=== PATIENT | female | born 1950 | race Caucasian/White ===

== ENCOUNTER 2018-09-15 00:26 | Inpatient (IN) | payer OTHER ==
--- NOTE | 2018-09-15 02:10 | ER ---
Nurse's Notes [facility] Name: Suad Cuenca Age: 68 yrs Sex: Female : 1950 Arrival Date: 09/15/2018 Time: 00:27 Bed 6 Private MD: Diagnosis: Fracture of lower end of tibia-bilaterally;Physeal fracture of lower end of fibula-bilaterally;Bullous disorders in diseases classified elsewhere Presentation: 09/15 00:27 Presenting complaint: EMS states: "Pt went home with family yesterday and had a mess up jd3 with the wheelchair. they did a x-ray today in which they found patrick tibial and fibular fractures.". Transition of care: patient was received from another setting of care (long-term care facility), [facility]. Onset of symptoms was September 14, 2018. Risk Assessment: Do you want to hurt yourself or someone else? Patient reports no desire to harm self or others. Initial Sepsis Screen: Does the patient meet any 2 criteria? No. Patient's initial sepsis screen is negative. Does the patient have a suspected source of infection? No. Patient's initial sepsis screen is negative. Care prior to arrival: Medication(s) given: 75 mcg fentanyl internasal. 00:27 Method Of Arrival: EMS: [facility] jd3 00:27 Acuity: TRICIA 3 jd3 Historical: - Allergies: 00:47 Aspirin; jd3 00:47 diazepam; jd3 00:47 PENICILLINS; jd3 00:47 Sulfa (Sulfonamide Antibiotics); jd3 00:47 Pork/Porcine Containing Products; jd3 00:47 iodine; jd3 00:47 Bleach (Sodium Hypochlorite); jd3 00:47 bug spray; jd3 - Home Meds: 00:47 Voltaren 1 % topical gel 4 times per day [Active]; Movantik 25 mg oral tab 1 tab once jd3 daily [Active]; magnesium oxide 400 mg Oral tab daily [Active]; magnesium citrate oral soln [Active]; metoprolol tartrate 25 mg Oral tab [Active]; isosorbide dinitrate 10 mg Oral tab [Active]; 00:54 Voltaren Oral [Active]; Vitamin B-12 1,000 mcg Oral tab [Active]; Multiple Vitamins ea oral tab [Active]; alprazolam 0.25 mg Oral tab 1 tab 3 times per day [Active]; - PMHx: 00:47 Osteoporosis; Anemia; arthropathy; Multiple Sclerosis; cauda equina syndrome; jd3 congnitive communication deficit; dermatitis; epilepsy; Depression; Anxiety; chronic pulmonary edema; Hypothyroidism; dry eye; muscle weakness; Diabetes - IDDM; - Immunization history:: Adult Immunizations up to date. - Social history:: Smoking status: Patient/guardian denies using tobacco, but has a distant history of tobacco abuse. - Ebola Screening: : Patient negative for fever greater than or equal to 101.5 degrees Fahrenheit, and additional compatible Ebola Virus Disease symptoms. Screenin:53 Abuse screen: Denies threats or abuse. Nutritional screening: No deficits noted. jd3 Tuberculosis screening: No symptoms or risk factors identified. Fall Risk Fall in past 12 months (25 points). Ambulatory Aid- None/Bed Rest/Nurse Assist (0 pts). Gait- Impaired (20 pts.). Mental Status- Oriented to own ability (0 pts). Total Chi Fall Scale indicates Low Risk Score (25-44 pts). Fall prevention measures have been instituted. Side Rails Up X 2 Placed close to Nursing Station Frequent Obs/Assesments occuring. Assessment: 00:55 General: Appears uncomfortable, Behavior is calm, cooperative, appropriate for age. jd3 Pain: Complains of pain in right leg and left leg Quality of pain is described as sharp. Neuro: Level of Consciousness is awake, alert, obeys commands, Oriented to person, place, time, situation. Cardiovascular: Capillary refill < 3 seconds Patient's skin is warm and dry. Respiratory: Airway is patent Respiratory effort is even, unlabored, Respiratory pattern is regular, symmetrical. GI: No signs and/or symptoms were reported involving the gastrointestinal system. : No signs and/or symptoms were reported regarding the genitourinary system. EENT: No signs and/or symptoms were reported regarding the EENT system. Derm: Skin is intact, Skin is dry, Skin is normal, Skin temperature is warm. Musculoskeletal: Range of motion: limited in left hip, left knee, left ankle, right hip, right knee and right ankle. 01:46 Reassessment: Patient appears in no apparent distress at this time. Patient and/or jd3 family updated on plan of care and expected duration. Pain level reassessed. Patient is alert, oriented x 3, equal unlabored respirations, skin warm/dry/pink. 03:02 Reassessment: Patient appears in no apparent distress at this time. Patient and/or jd3 family updated on plan of care and expected duration. Pain level reassessed. Patient is alert, oriented x 3, equal unlabored respirations, skin warm/dry/pink. Vital Signs: 00:52 BP 128 / 59; Pulse 92; Resp 19 S; Temp 97.8(O); Pulse Ox 97% on R/A; Weight 83.01 kg jd3 (R); Height 6 ft. 0 in. (182.88 cm) (R); Pain 10/10; 01:46 BP 112 / 68; Pulse 82; Resp 18 S; Pulse Ox 96% on R/A; jd3 03:03 BP 109 / 69; Pulse 85; Resp 19 S; Pulse Ox 97% on R/A; jd3 00:52 Body Mass Index 24.82 (83.01 kg, 182.88 cm) jd3 ED Course: 00:27 Patient arrived in ED. jd3 00:27 Arnav Ordaz, ISIDORO is Primary Nurse. jd3 00:31 Elif Valle FNP-C is PHCP. snw 00:31 Dinesh Gagnon MD is Attending Physician. snw 00:32 Triage completed. jd3 00:52 Arm band placed on. jd3 00:52 Patient has correct armband on for positive identification. Bed in low position. Call j light in reach. Side rails up X2. 01:47 X-ray completed. Portable x-ray completed in exam room. Patient tolerated procedure kw well. 01:56 Tib Fib Left XRAY In Process Unspecified. EDMS 01:56 Tib Fib Right XRAY In Process Unspecified. EDMS 02:07 Antony Hurst MD is Hospitalizing Provider. snw 02:35 Inserted saline lock: 24 gauge in right upper arm, using aseptic technique. Blood ds4 collected. 03:03 No provider procedures requiring assistance completed. Patient admitted, IV remains in jd3 place. Administered Medications: No medications were administered Outcome: 02:09 Decision to Hospitalize by Provider. snw 03:19 Admitted to Med/surg accompanied by tech, via stretcher, room 411, with chart, Report jd3 called to Sandy 03:19 Condition: stable 03:19 Instructed on medication usage, Demonstrated understanding of instructions. 03:40 Patient left the ED. jd3 Signatures: Dispatcher [employer] EDMS Elif Valle, NOISE TESTER-C NOISE TESTER-Csnw Marta Kenney Donovan ds4 Taylor Scott RN Arnav Jean ea, RN RN jd3
--- NOTE | 2018-09-15 02:10 | EDPHYS ---
Physician Documentation [facility] Name: Suad Cuenca Age: 68 yrs Sex: Female : 1950 Arrival Date: 09/15/2018 Time: 00:27 Bed 6 Private MD: ED Physician Dinesh Gagnon HPI: 09/15 01:37 This 68 yrs old Female presents to ER via EMS with complaints of bilateral snw lower extremity fractures. 01:37 Trauma demographics: County: The injury occurred in [place] Location of Injury: The snw injury occurred at a parking lot, Date: September 13, 2018. Mechanism of injury: Crush injury: from wheelchair, resulting in the patient requiring extrication, Pt was run over by her wheelchair going down a ramp. Associated injuries: The patient sustained bilateral lower extremities. Onset: The symptoms/episode began/occurred suddenly. It is unknown whether or not the patient has had similar symptoms in the past. It is unknown whether or not the patient has recently seen a physician. pt lives at [facility], she had a family outing and while being taken down the w/c ramp from the van, her legs were run over by the wheelchair. She declined tx on that day. X-rays were performed 09/14/18 showing both lower extremities with distal tib/fib fractures.. Historical: - Allergies: 00:47 Aspirin; jd3 00:47 diazepam; jd3 00:47 PENICILLINS; jd3 00:47 Sulfa (Sulfonamide Antibiotics); jd3 00:47 Pork/Porcine Containing Products; jd3 00:47 iodine; jd3 00:47 Bleach (Sodium Hypochlorite); jd3 00:47 bug spray; jd3 - Home Meds: 00:47 Voltaren 1 % topical gel 4 times per day [Active]; Movantik 25 mg oral tab 1 tab once jd3 daily [Active]; magnesium oxide 400 mg Oral tab daily [Active]; magnesium citrate oral soln [Active]; metoprolol tartrate 25 mg Oral tab [Active]; isosorbide dinitrate 10 mg Oral tab [Active]; 00:54 Voltaren Oral [Active]; Vitamin B-12 1,000 mcg Oral tab [Active]; Multiple Vitamins ea oral tab [Active]; alprazolam 0.25 mg Oral tab 1 tab 3 times per day [Active]; - PMHx: 00:47 Osteoporosis; Anemia; arthropathy; Multiple Sclerosis; cauda equina syndrome; jd3 congnitive communication deficit; dermatitis; epilepsy; Depression; Anxiety; chronic pulmonary edema; Hypothyroidism; dry eye; muscle weakness; Diabetes - IDDM; - Immunization history:: Adult Immunizations up to date. - Social history:: Smoking status: Patient/guardian denies using tobacco, but has a distant history of tobacco abuse. - Ebola Screening: : Patient negative for fever greater than or equal to 101.5 degrees Fahrenheit, and additional compatible Ebola Virus Disease symptoms. ROS: 01:45 Constitutional: Negative for fever, chills, and weight loss, Eyes: Negative for injury, snw pain, redness, and discharge, ENT: Negative for injury, pain, and discharge, Neck: Negative for injury, pain, and swelling, Cardiovascular: Negative for chest pain, palpitations, and edema, Respiratory: Negative for shortness of breath, cough, wheezing, and pleuritic chest pain, Abdomen/GI: Negative for abdominal pain, nausea, vomiting, diarrhea, and constipation, Back: Negative for injury and pain, : Negative for injury, bleeding, discharge, and swelling, Skin: Negative for injury, rash, and discoloration, Neuro: Negative for headache, weakness, numbness, tingling, and seizure. 01:45 MS/extremity: Positive for injury or acute deformity, decreased range of motion, of the bilateral lower legs. Exam: 01:45 Head/Face: Normocephalic, atraumatic. Eyes: Pupils equal round and reactive to light, snw extra-ocular motions intact. Lids and lashes normal. Conjunctiva and sclera are non-icteric and not injected. Cornea within normal limits. Periorbital areas with no swelling, redness, or edema. ENT: Nares patent. No nasal discharge, no septal abnormalities noted. Tympanic membranes are normal and external auditory canals are clear. Oropharynx with no redness, swelling, or masses, exudates, or evidence of obstruction, uvula midline. Mucous membranes moist. Neck: Trachea midline, no thyromegaly or masses palpated, and no cervical lymphadenopathy. Supple, full range of motion without nuchal rigidity, or vertebral point tenderness. No Meningismus. Chest/axilla: Normal chest wall appearance and motion. Nontender with no deformity. No lesions are appreciated. Cardiovascular: Regular rate and rhythm with a normal S1 and S2. No gallops, murmurs, or rubs. Normal PMI, no JVD. No pulse deficits. Respiratory: Lungs have equal breath sounds bilaterally, clear to auscultation and percussion. No rales, rhonchi or wheezes noted. No increased work of breathing, no retractions or nasal flaring. 01:45 Back: No spinal tenderness. No costovertebral tenderness. Full range of motion. Psych: Awake, alert, with orientation to person, place and time. Behavior, mood, and affect are within normal limits. 01:45 Constitutional: The patient appears awake, obese, uncomfortable, unkempt, chronic illness, non-weight bearing, contractured to upper and lower limbs 01:45 Abdomen/GI: Inspection: scar(s), are noted in the left upper quadrant and right lower quadrant, Bowel sounds: normal, Palpation: abdomen is soft and non-tender, in all quadrants. 01:45 Musculoskeletal/extremity: Extremities: spastic movements to upper extremities with intention, hands with contractures, bilateral lower extremities with contractures of feet in adduction, lower ankles bilaterally with ecchymosis and pressure bullae. 01:45 Skin: fluid filled bullae to bilateral lower lateral extremities, + ecchymosis and edema to left greater than right lower legs/ankles, contractured in adduction. Vital Signs: 00:52 BP 128 / 59; Pulse 92; Resp 19 S; Temp 97.8(O); Pulse Ox 97% on R/A; Weight 83.01 kg jd3 (R); Height 6 ft. 0 in. (182.88 cm) (R); Pain 10/10; 01:46 BP 112 / 68; Pulse 82; Resp 18 S; Pulse Ox 96% on R/A; jd3 03:03 BP 109 / 69; Pulse 85; Resp 19 S; Pulse Ox 97% on R/A; jd3 00:52 Body Mass Index 24.82 (83.01 kg, 182.88 cm) jd3 MDM: 00:32 Patient medically screened. snw 02:09 Data reviewed: vital signs, nurses notes, EMS record. Data interpreted: Pulse oximetry: snw on room air is 96 %. Interpretation: acceptable. Counseling: I had a detailed discussion with the patient and/or guardian regarding: the historical points, exam findings, and any diagnostic results supporting the discharge/admit diagnosis, radiology results, the need for further work-up and treatment in the hospital. Physician consultation: Antony Hurst MD was called at 01:40, was contacted at 01:40, regarding admission, would like consultation with Dr. Dr. Patel. Dr. Gagnon spoke with Dr. Patel who agrees to consult on this patient in the am. 09/15 01:35 Order name: CBC with Diff; Complete Time: 19:11 snw 09/15 01:35 Order name: Chem 7; Complete Time: 19:11 snw 09/15 00:32 Order name: Tib Fib Left XRAY; Complete Time: 19:11 snw 09/15 01:35 Order name: Blood Culture Adult (2) snw 09/15 01:37 Order name: Lactate; Complete Time: 19:11 snw 09/15 01:37 Order name: Phenytoin (dilantin); Complete Time: 19:11 snw 09/15 00:32 Order name: Tib Fib Right XRAY; Complete Time: 19:11 snw 09/15 01:35 Order name: SL; Complete Time: 02:38 snw Administered Medications: No medications were administered Disposition: 06:53 Co-signature as Attending Physician, Dinesh Gagnon MD. pk Disposition: 09/15/18 02:09 Hospitalization ordered by Antony Hurst for Observation. Preliminary diagnosis are Fracture of lower end of tibia - bilaterally, Physeal fracture of lower end of fibula - bilaterally, Bullous disorders in diseases classified elsewhere. - Bed requested for Telemetry/MedSurg (observation). - Status is Observation. jd3 - Condition is Stable. - Problem is new. - Symptoms are unchanged. UTI on Admission? No Signatures: Dispatcher [employer] EDMS Dinesh Gagnon MD MD pkElif Butler, JYOTHI-C UNDERWRITING ANALYST-Csnw Mariel Worthy, RN RN Taylor Ross RN RN ea Davies, Jonathon, RN RN jd3 Corrections: (The following items were deleted from the chart) 02:15 02:09 Hospitalization Ordered by Antony Hurst MD for Observation. Preliminary snw diagnosis is Fracture of lower end of tibia - bilaterally; Physeal fracture of lower end of fibula - bilaterally. Bed requested for Telemetry/MedSurg (observation). Status is Observation. Condition is Stable. Problem is new. Symptoms are unchanged. UTI on Admission? No. snw 02:42 02:15 09/15/2018 02:09 Hospitalization Ordered by Antony Hurst MD for Observation. cg Preliminary diagnosis is Fracture of lower end of tibia - bilaterally; Physeal fracture of lower end of fibula - bilaterally; Bullous disorders in diseases classified elsewhere. Bed requested for Telemetry/MedSurg (observation). Status is Observation. Condition is Stable. Problem is new. Symptoms are unchanged. UTI on Admission? No. snw 03:21 02:42 09/15/2018 02:09 Hospitalization Ordered by Antony Hurst MD for Observation. cg Preliminary diagnosis is Fracture of lower end of tibia - bilaterally; Physeal fracture of lower end of fibula - bilaterally; Bullous disorders in diseases classified elsewhere. Bed requested for Telemetry/MedSurg (observation). Status is Observation. Condition is Stable. Problem is new. Symptoms are unchanged. UTI on Admission? No. cg 03:40 03:21 09/15/2018 02:09 Hospitalization Ordered by Antony Hurst MD for Observation. jd3 Preliminary diagnosis is Fracture of lower end of tibia - bilaterally; Physeal fracture of lower end of fibula - bilaterally; Bullous disorders in diseases classified elsewhere. Bed requested for Telemetry/MedSurg (observation). Status is Observation. Condition is Stable. Problem is new. Symptoms are unchanged. UTI on Admission? No. cg
[2018-09-15 02:55] LABS: Absolute Monocytes 0.7 K/uL (0.1-1.3); Absolute Neutrophil 4.1 K/uL (1.8-8.0); Basophils % 0.3 % (0-1.3); Eosinophils % 1.1 % (0-4.4); Hematocrit 37.3 % (36.0-45.0); Lymphocytes % 29.3 % (15.3-44.8); MPV 8.3 fL (7.6-11.3); Monocytes % 10.3 % (3.3-12.3); RBC Red Blood Cell Count 4.02 M/uL (3.86-4.86)
[2018-09-15 03:10] LABS: Potassium 3.9 mmol/L (3.5-5.1)
[2018-09-15] MEDS ORDERED: TRAMADOL HCL 50 MG TAB PO PRN ×2 (03:19→10:17)
[2018-09-15] MEDS ORDERED: ONDANSETRON 4 MG/2 ML VIAL IV PRN (03:19)
[2018-09-15] MEDS ORDERED: ACETAMINOPHEN 500 MG TAB PO PRN (03:19)
[2018-09-15] MEDS: NA CHLORIDE 0.9% 1,000 ML IV SCH ×3 (05:00→22:02)
[2018-09-15] MEDS: KETOROLAC 30 MG/ML INJ IV PRN ×3 (05:01→18:31)
[2018-09-15] MEDS: INSULIN -REGULAR HUMAN 50 UNIT/0.5 ML ML SQ SCH ×3 (06:00→18:00)
--- NOTE | 2018-09-15 06:28 | P.HP ---
Certification for Inpatient Patient admitted to: Inpatient With expected LOS: >2 Midnights Practitioner: I am a practitioner with admitting privileges, knowledge of patient current condition, hospital course, and medical plan of care. Services: Services provided to patient in accordance with Admission requirements found in Title 42 Section 412.3 of the Code of Federal Regulations Patient History Date of Service: 09/15/18 Reason for admission: bilateral fibular fracture History of Present Illness: Ms Cuenca is a 68 years old woman with history of Multiple sclerosis, cauda equina, bed bound, epilepsy, cognitive impairment, chronic feet contraction, who was visited by her family yesterday, and unfortunately while she was going down on a ramp pushing by one family member on her wheelchair, her feets got stuck with the floor and the wheelchair went over, resulting in significant pain and developing of blister on her feet. Today, she had a bilateral foot XR at [facility], and it was consistent with bilateral fibular fracture. Allergies aspirin [From Amie Aspirin] Allergy (Verified 11/15/16 07:48) Hives diazepam Allergy (Verified 11/15/16 07:48) Hives Penicillins Allergy (Verified 11/15/16 07:48) Hives red yeast rice Allergy (Verified 11/15/16 07:48) Hives bleach Allergy (Uncoded 11/15/16 07:48) Hives sulfa Allergy (Uncoded 11/15/16 07:48) Hives Home Medications: ALPRAZolam [Xanax*] 1 tab BID 09/15/18 Acetaminophen [Tylenol*] 2 tab Q6HP PRN 09/15/18 Bethanechol Chloride [Urecholine] 1 tab Q6H 09/15/18 Cyanocobalamin (Vitamin B-12) [Vitamin B12] 1,000 mcg DAILY 09/15/18 Cyclobenzaprine HCl 10 mg Q12HP PRN 09/15/18 Cyclosporine [Restasis] 1 drop EACH EYE BID 09/15/18 Dextran 70/Hypromellose [Artificial Tears Drops] 1 drop OP BID 09/15/18 Diclofenac Sodium [Voltaren] 1 sukumar TD Q8HP PRN 09/15/18 Diphenhydramine HCl [Benadryl Allergy] 1 tab Q8HP PRN 09/15/18 Gabapentin 1 cap Q8H 09/15/18 Hydrocodone/Acetaminophen [Hydrocodon-Acetaminophn 10-325] 1 each Q6H 09/15/18 Isosorbide Dinitrate 10 mg BID 09/15/18 Ketoconazole 30 gm TP DAILY PRN 09/15/18 Lactulose 30 ml BID 09/15/18 Levothyroxine Sodium 1 tab DAILY 09/15/18 Loperamide HCl [Loperamide] 30 ml Q12HP PRN 09/15/18 Magnesium Citrate [Citroma*] 150 ml DAILY 09/15/18 Magnesium Oxide [Magnesium] 1 cap DAILY 09/15/18 Meclizine HCl [Antivert] 12.5 mg QID PRN 09/15/18 Metoprolol Tartrate [Lopressor*] 1 tab DAILY 09/15/18 Multivit &Minerals/Ferrous Fum [Multivitamin Liquid] 15 ml DAILY 09/15/18 Naloxegol Oxalate [Movantik] 1 tab DAILY 09/15/18 Ondansetron HCl [Zofran] 1 tab Q8HP PRN 09/15/18 Oxybutynin Chloride [Ditropan*] 1 tab BEDTIME 09/15/18 PHENobarbital [Phenobarbital] 15 ml BID 09/15/18 Phenytoin 4 ml Q12H 09/15/18 Phenytoin [Dilantin-125] 5 ml DAILY 09/15/18 Tramadol HCl [Ultram] 1 tab Q6H PRN 09/15/18 Triamcinolone Acetonide 15 gm TP DAILY PRN 09/15/18 raNITIdine HCl [Ranitidine HCl] 20 ml BEDTIME 09/15/18 - Past Medical/Surgical History Has patient received pneumonia vaccine in the past: No Diabetic: No -: Seizure disorder -: Multiple scleroses -: History of colorectal cancer -: Anemia -: Coronary artery disease -: History of nephrectomy -: Neurogenic bladder -: History of bowel obstructions now with PEG -: Chronic pain syndrome -: Depression with anxiety -: Bowel surgery -: PEG tube placement -: Kidney stone removed -: Tracheotomy -: Vein surgery Psychosocial/ Personal History: Patient has been a intermediate resident for 20 years. She has no children. Power of family law attorney is her brother. Patient is DNR. - Social History Smoking Status: Never smoker Alcohol use: No CD- Drugs: No Caffeine use: No Place of Residence: Jail Review of Systems 10-point ROS is otherwise unremarkable Physical Examination - Vital Signs Temperature: 97.2 F Blood Pressure: 115/65 Pulse: 96 Respirations: 18 Pulse Ox (%): 95 - Physical Exam General: Alert, In no apparent distress HEENT: Atraumatic, PERRLA, Mucous membr. moist/pink, Sclerae nonicteric Neck: Supple, 2+ carotid pulse no bruit, No LAD, Without JVD or thyroid abnormality Respiratory: Clear to auscultation bilaterally, Normal air movement Cardiovascular: Normal S1 S2, No gallops Gastrointestinal: Normal bowel sounds, No tenderness Musculoskeletal: Tenderness (bilateral foot) Integumentary: No rashes Neurological: Normal affect, Abnormal speech (dysarthria (baseline)), Abnormal strength, Abnormal tone Lymphatics: No axilla or inguinal lymphadenopathy Assessment and Plan - Problems (Diagnosis) (1) Bilateral fibular fractures Current Visit: Yes Status: Acute Qualifiers: Encounter type: initial encounter Fracture type: closed Qualified Code(s) : S82.401A - Unspecified fracture of shaft of right fibula, initial encounter for closed fracture; S82.402A - Unspecified fracture of shaft of left fibula, initial encounter for closed fracture (2) Hypothyroidism Current Visit: No Status: Chronic Qualifiers: Hypothyroidism type: unspecified Qualified Code(s): E03.9 - Hypothyroidism , unspecified (3) Multiple sclerosis Current Visit: No Status: Chronic (4) Seizure disorder Current Visit: No Status: Chronic - Plan The patient will be admitted to the hospital due to traumatic, bilateral fibular fracture. Will order symptomatic medication. Dr Gagnon already spoke with Dr Patel, who will see the patient in the morning. Will consult wound care for her feet blisters. - Advance Directives Does patient have a Living Will: No Does patient have a Durable POA for Healthcare: Yes - Code Status/Comfort Care Code Status Assessed: Yes Code Status: Full Code
--- NOTE | 2018-09-15 08:15 | RAD REPORT ---
EXAM DESCRIPTION: RAD - Tib Fib Left - 09/15/2018 1:56 am CLINICAL HISTORY: Fall, bilateral ankle pain COMPARISON: None. FINDINGS: Bones are diffusely osteopenic. Patient has mild degenerative change at the left knee join t only partially imaged on this study. There is no pathologic bone process seen. Transverse fracture of the distal fibula is present at the diaphyseal metaphyseal junction. Fracture of the distal tibia metaphysis present as well. There is medial angulation deformity. No significant distraction. There is a mild impaction component of the distal tibia fracture. Soft tissue swelling is present. No foreign body. IMPRESSION: Distal left tibia and fibula fractures with medial angulation.
--- NOTE | 2018-09-15 08:17 | RAD REPORT ---
EXAM DESCRIPTION: RAD - Tib Fib Right - 09/15/2018 1:56 am CLINICAL HISTORY: Fall, bilateral leg and ankle pain COMPARISON: No remote imaging. FINDINGS: Bones are diffusely osteopenic. Mild degenerative changes are present at the knee joint on ly partially imaged. Transverse fracture of the distal fibula is present at the diaphyseal metaphyseal junction. Transvers e fracture of the distal tibia metaphysis present. Medial angulation of the distal fracture fragments noted. There is minimal impaction at the tibial fracture site. There is a slight posterior angulatio n as well. No pathologic bone process. Soft tissue swelling is present without foreign body. IMPRESSION: Distal tibia and fibula fractures with medial angulation.
--- NOTE | 2018-09-15 09:57 | CON ---
Reason For Consultation: Bilateral tib-fib fractures. History Of Present Illness: Ms. Cuenca is a 68-year-old woman obviously neurologically devastate d from some event with bilateral lower extremity contractures, nonweightbearing for many years. She has bilateral ankle fractures. We are asked to consult for this. On exam, she has fracture blisters over both of lower extremities with shiny skin with poor vascularity with onychomycosis through all the toenails bilaterally. There are fracture blisters present, they are not ruptured at this point. There is no evidence of a septic process. X-rays reveal extreme osteoporotic bone with bimalleolar ankle fractures bilaterally. There is no chance that she can have a surgical intervention as her bon e stock is too poor. We will plan to splint these in situ, they are in acceptable alignment. She wa s transferred to the floor without splints where we splinted her in her room with extremely well-padd ed splints with care for any pressure contacts. She can be discharged from an orthopedic standpoint. Her vasculature is obviously compromised. If this fails to heal or becomes infected, her only real option is to have bilateral below-knee amputations. This can be performed with the general surgery service. JOSE Voice ID: [id number] Report ID: [id number]
[2018-09-15 10:15] VITALS: O2SAT 96
[2018-09-15] MEDS ORDERED: PHENYTOIN PO SCH (10:30)
[2018-09-15] MEDS: BETHANECHOL CHLORIDE PO SCH ×3 (10:30→22:30)
[2018-09-15] MEDS: GABAPENTIN 300 MG CAP PO SCH ×2 (14:46→22:05)
[2018-09-15] MEDS: HYDROCODONE/APAP 5/325 MG TAB PO PRN ×2 (14:57→22:05)
--- NOTE | 2018-09-15 15:34 | CON ---
Date of Consultation: 09/15/2018 Reason For Consultation: Establish care with the patient regarding possible need for future lower ex tremity surgery. Brief History Of Present Illness: The patient is a 68-year-old female known to me from previous admi ssions, however, with a history of multiple sclerosis, cauda equina syndrome, bed-bound, epilepsy, co gnitive impairment, chronic feet contraction, who was admitted by her family yesterday. She was gone down the ramp and fell over and had her feet stuck on the floor and the wheelchair went over resulti in significant pain and developing blisters of her feet. She had bilateral foot x-rays, which wer e consistent with bilateral tib-fib fractures. She had been seen by our orthopedic surgeon here, Dr. Patel, who states that she has bilateral ankle fractures. She has the onychomycosis bilaterally. No evidence of a septic process. She has osteoporotic bone with bimalleolar ankle fractures bilate rally. No chance she could have a surgical intervention as her bone stalk is too poor. Therefore, t anuj will splint her and they are in acceptable alignment. She could be discharged from an orthopedic standpoint. Her vasculature is obviously compromised. If she fails to heal or becomes infected, th e only option is bilateral [id number] amputations and as such they recommend a General Surgery co nsult for which I am consulted. Past Medical History: As above as well as seizure disorder, multiple sclerosis, history of colorecta l cancer, anemia, coronary disease, history of neurogenic bladder, history of bowel obstruction statu s post placement of a PEG, chronic pain syndrome, depression with anxiety. Past Surgical History: Includes nephrectomy, bowel surgery, PEG tube placement, kidney stone extract ion, tracheostomy, and vein surgery. I am unable to get information other than from the chart. Allergies: INCLUDE ASPIRIN, VALIUM, PENICILLIN, RED YEAST, BLEACH, SULFA. Home Medications: Include Xanax, Tylenol, bethanechol, cyanocobalamin, cyclobenzaprine, Restasis, Ar tificial Tears, Voltaren, Benadryl, isosorbide dinitrate, ketoconazole, lactulose, levothyroxine, lop eramide, magnesium citrate, magnesium oxide, meclizine, Lopressor, multivitamin, Movantik, Zofran, Di tropan, phenobarbital, phenytoin, Dilantin, Ultram, triamcinolone acetonide, and ranitidine. Social History: No history of smoking, alcohol, or recreational drug use. Physical Examination: General: She is awake and alert, but nonverbal and nonresponsive to verbal stimuli. HEENT: Mucous membranes are moist. Neck: Supple. Respiratory: Clear to auscultation. Cardiovascular: Regular rate and rhythm. Abdomen: Soft, nontender with PEG tube evident. Musculoskeletal/Integument: No rashes. Her bilateral extremity examination shows that she has bilat eral splints in place all the way to the level of the toes, therefore, I cannot complete a full of fu ll examination at this time as the splints are in place and they have just been placed. Therefore, I will examine the patient with the next dressing change, but I do not find she has a surgical issue a t this time and therefore I will be available for future needs and will not likely follow on a daily basis except for the followup examination. Laboratory Data: Reveals a normal white blood cell count of 6.9, hemoglobin 12.5, hematocrit 37.3, p latelet count is 192. Her chemistry shows 140 sodium, potassium 3.9, chloride 108, carbon dioxide 26 , BUN 14, creatinine 0.7, glucose is 104, lactic acid 0.9. The imaging performed shows distal tibial and fibular fractures with medial angulation of bilateral right and left ankles. Assessment And Plan: This is a 68-year-old female, who comes in with bilateral ankle fractures and i s not felt to be an optimal surgical candidate for orthopedic surgery, therefore, should she develop complications, the orthopedic surgeon has recommended the possibility of a bilateral [id number] a mputation. However, she has no evidence of any need for surgical intervention at this time from a [facility] surgical standpoint and I do not find the patient requires any amputations at this time. There fore, I will sign off at this time and be available for future need should the patient develop any of the above stated signs and symptoms. TK/MODL Voice ID: [id number] Report ID: [id number]
[2018-09-15] MEDS ORDERED: OXYBUTYNIN CHLORIDE 5 MG TAB PO SCH (21:00)
[2018-09-15] MEDS ORDERED: ISOSORBIDE DINIT 5 MG TAB PO SCH (21:00)
[2018-09-15] MEDS ORDERED: RANITIDINE PO SCH (21:00)
[2018-09-15] MEDS ORDERED: PHENOBARBITAL PO SCH (21:00)
[2018-09-15] MEDS: LACTULOSE 20 GM/30 ML UCUP PO SCH (22:03)
[2018-09-15] MEDS: PHENYTOIN 125 MG/5 ML ORAL.SUSP PO SCH (22:04)
[2018-09-15] MEDS: ALPRAZOLAM 0.25 MG TABLET PO SCH (22:04)
[2018-09-15] MEDS: PHENOBARBITAL 32.4 MG TABLET PO SCH (22:09)
[2018-09-16] MEDS: BETHANECHOL CHLORIDE PO SCH ×2 (04:30→07:24)
[2018-09-16] MEDS: INSULIN -REGULAR HUMAN 50 UNIT/0.5 ML ML SQ SCH ×2 (06:00)
[2018-09-16] MEDS ORDERED: LEVOTHYROXINE SOD 0.088 MG TAB PO SCH (06:30)
[2018-09-16 07:42] VITALS: BMI 27.1
[2018-09-16 08:13] VITALS: TEMP 97.5
[2018-09-16] MEDS: LACTULOSE 20 GM/30 ML UCUP PO SCH ×2 (09:00→09:39)
[2018-09-16] MEDS ORDERED: NALOXEGOL OXALATE PO SCH (09:00)
[2018-09-16] MEDS ORDERED: METOPROLOL TAR 25 MG TAB PO SCH (09:00)
[2018-09-16] MEDS ORDERED: PHENYTOIN 125 MG/5 ML ORAL.SUSP PO SCH (09:00)
[2018-09-16] MEDS: NA CHLORIDE 0.9% 1,000 ML IV SCH (09:19)
[2018-09-16] MEDS: PHENOBARBITAL 32.4 MG TABLET PO SCH (09:36)
[2018-09-16] MEDS: GABAPENTIN 300 MG CAP PO SCH (09:39)
[2018-09-16] MEDS: ALPRAZOLAM 0.25 MG TABLET PO SCH (09:39)
[2018-09-16] MEDS: PHENYTOIN 125 MG/5 ML ORAL.SUSP PO SCH (09:40)
[2018-09-16] MEDS: KETOROLAC 30 MG/ML INJ IV PRN (09:46)
[2018-09-16] MEDS ORDERED: PNEUMOCOCCAL VACCINE 0.5 ML IMVAC ONE (10:00)
--- NOTE | 2018-09-16 10:03 | RAD REPORT ---
EXAM DESCRIPTION: RADTib Fib Left09/16/2018 9:47 am CLINICAL HISTORY: Left leg pain FINDINGS: A splint immobilizes previously described fractures of the distal tibia and fibula. And n o significant change has occurred in the appearance of the fracture since the prior exam. Bones are osteoporotic
[2018-09-16 12:50] VITALS: BP 146/81
--- NOTE | 2018-09-16 13:55 | P.SSS ---
Patient History Date of Service: 09/16/18 Reason for admission: bilateral fibular fracture History of Present Illness: Ms Cuenca is a 68 years old woman with history of Multiple sclerosis, cauda equina, bed bound, epilepsy, cognitive impairment, chronic feet contraction, who was visited by her family yesterday, and unfortunately while she was going down on a ramp pushing by one family member on her wheelchair, her feets got stuck with the floor and the wheelchair went over, resulting in significant pain and developing of blister on her feet. Today, she had a bilateral foot XR at [facility], and it was consistent with bilateral fibular fracture. Allergies aspirin [From Amie Aspirin] Allergy (Verified 11/15/16 07:48) Hives diazepam Allergy (Verified 11/15/16 07:48) Hives Penicillins Allergy (Verified 11/15/16 07:48) Hives red yeast rice Allergy (Verified 11/15/16 07:48) Hives bleach Allergy (Uncoded 11/15/16 07:48) Hives sulfa Allergy (Uncoded 11/15/16 07:48) Hives Home Medications: ALPRAZolam [Xanax*] 1 tab BID 09/15/18 Acetaminophen [Tylenol*] 2 tab Q6HP PRN 09/15/18 Bethanechol Chloride [Urecholine] 1 tab Q6H 09/15/18 Cyanocobalamin (Vitamin B-12) [Vitamin B12] 1,000 mcg DAILY 09/15/18 Cyclobenzaprine HCl 10 mg Q12HP PRN 09/15/18 Cyclosporine [Restasis] 1 drop EACH EYE BID 09/15/18 Dextran 70/Hypromellose [Artificial Tears Drops] 1 drop OP BID 09/15/18 Diclofenac Sodium [Voltaren] 1 sukumar TD Q8HP PRN 09/15/18 Diphenhydramine HCl [Benadryl Allergy] 1 tab Q8HP PRN 09/15/18 Gabapentin 1 cap Q8H 09/15/18 Hydrocodone/Acetaminophen [Hydrocodone-Acetamin 10-325 mg] 1 each Q6H 09/15/18 Isosorbide Dinitrate 10 mg BID 09/15/18 Ketoconazole 30 gm TP DAILY PRN 09/15/18 Lactulose 30 ml BID 09/15/18 Levothyroxine Sodium 1 tab DAILY 09/15/18 Loperamide HCl [Loperamide] 30 ml Q12HP PRN 09/15/18 Magnesium Citrate [Citroma*] 150 ml DAILY 09/15/18 Magnesium Oxide [Magnesium] 1 cap DAILY 09/15/18 Meclizine HCl [Antivert*] 12.5 mg QID PRN 09/15/18 Metoprolol Tartrate [Lopressor*] 1 tab DAILY 09/15/18 Multivit &Minerals/Ferrous Fum [Multivitamin Liquid] 15 ml DAILY 09/15/18 Naloxegol Oxalate [Movantik] 1 tab DAILY 09/15/18 Ondansetron HCl [Zofran] 1 tab Q8HP PRN 09/15/18 Oxybutynin Chloride [Ditropan*] 1 tab BEDTIME 09/15/18 PHENobarbital [Phenobarbital] 15 ml BID 09/15/18 Phenytoin 4 ml Q12H 09/15/18 Phenytoin [Dilantin-125] 5 ml DAILY 09/15/18 Tramadol HCl [Ultram] 1 tab Q6H PRN 09/15/18 Triamcinolone Acetonide 15 gm TP DAILY PRN 09/15/18 raNITIdine HCl [Ranitidine HCl] 20 ml BEDTIME 09/15/18 - Past Medical/Surgical History Has patient received pneumonia vaccine in the past: No Diabetic: No -: Seizure disorder -: Multiple scleroses -: History of colorectal cancer -: Anemia -: Coronary artery disease -: History of nephrectomy -: Neurogenic bladder -: History of bowel obstructions now with PEG -: Chronic pain syndrome -: Depression with anxiety -: Bowel surgery -: PEG tube placement -: Kidney stone removed -: Tracheotomy -: Vein surgery Psychosocial/ Personal History: Patient has been a longterm resident for 20 years. She has no children. Power of ride operator is her brother. Patient is DNR. - Social History Smoking Status: Never smoker Alcohol use: No CD- Drugs: No Caffeine use: No Place of Residence: Shelter Review of Systems 10-point ROS is otherwise unremarkable Physical Examination - Vital Signs Temperature: 97.5 F Blood Pressure: 146/81 Pulse: 71 Respirations: 18 Pulse Ox (%): 96 - Physical Exam General: Alert, In no apparent distress HEENT: Atraumatic, PERRLA, Mucous membr. moist/pink, EOMI, Sclerae nonicteric Neck: Supple, 2+ carotid pulse no bruit, No LAD, Without JVD or thyroid abnormality Respiratory: Clear to auscultation bilaterally, Normal air movement Cardiovascular: Regular rate/rhythm, Normal S1 S2 Gastrointestinal: Normal bowel sounds, No tenderness Musculoskeletal: No tenderness Integumentary: No rashes Neurological: Normal gait, Normal speech, Normal strength at 5/5 x4 extr, Normal tone, Normal affect Lymphatics: No axilla or inguinal lymphadenopathy - Diagnosis (Problem(s)) (1) Bilateral fibular fractures Status: Acute Qualifiers: Encounter type: initial encounter Fracture type: closed Qualified Code(s) : S82.401A - Unspecified fracture of shaft of right fibula, initial encounter for closed fracture; S82.402A - Unspecified fracture of shaft of left fibula, initial encounter for closed fracture (2) GERD (gastroesophageal reflux disease) Status: Chronic Qualifiers: Esophagitis presence: esophagitis presence not specified Qualified Code(s) : K21.9 - Gastro-esophageal reflux disease without esophagitis (3) Hypertension Status: Chronic Qualifiers: Hypertension type: essential hypertension Qualified Code(s): I10 - Essential (primary) hypertension (4) Hypothyroidism Status: Chronic Qualifiers: Hypothyroidism type: unspecified Qualified Code(s): E03.9 - Hypothyroidism , unspecified (5) Multiple sclerosis Status: Chronic (6) Seizure disorder Status: Chronic Treatment Summary: Overall during the hospital stay patient remained stable Patient was initially admitted to the hospital after having a fall from the wheelchair sustaining bilateral fibular fracture. Orthopedics were consulted who recommended medical management along with splinting. Patient had a splint placed by orthopedics. General surgery was also consulted given the [place] and non operative nature of her fractures for possible amputation. General surgery stated that right now there is no complications from her fracture and thus surgery is not recommended. Patient then was discharged back to the longterm. Patient was asked to continue being in the splint until she is followed up with orthopedics in about 1-2 days post discharge. care home worse notified regarding the followup appointments and patient was discharged under stable condition - Disposition Disposition: TRANSFER TO [facility] Condition: GOOD Patient Discharge Instructions: Please f.u with PCP and Ortho in to 1 to 2 week psot discharge. No new medication Diet: Regular Activity: Ad chandu
== END 2018-09-16 12:56 | DRG 563 ==
LOC: ER 00:26 → ERHOLD 02:34 → 2ND 03:24 → 4TH 16:29
PROVIDERS: ADMIT Internal Medicine; ATTEND Family Medicine
PROC: 2W3MX1Z Immobilization of Left Lower Extremity using Splint (ICD-10-PCS; principal; 2018-09-15)
PROC: 2W3CX1Z Immobilization of Right Lower Arm using Splint (ICD-10-PCS; 2018-09-15)
DX: S82.842A Displaced bimalleolar fracture of left lower leg, initial encounter for closed fracture (principal); G83.4 Cauda equina syndrome; X58.XXXA Exposure to other specified factors, initial encounter; Y93.I9 Activity, other involving external motion; Y92.129 Unspecified place in nursing home as the place of occurrence of the external cause; G35 Multiple sclerosis; G40.909 Epilepsy, unspecified, not intractable, without status epilepticus; S82.841A Displaced bimalleolar fracture of right lower leg, initial encounter for closed fracture; G31.84 Mild cognitive impairment of uncertain or unknown etiology; M24.575 Contracture, left foot; M24.574 Contracture, right foot; Z88.0 Allergy status to penicillin; Z88.2 Allergy status to sulfonamides; Z88.8 Allergy status to other drugs, medicaments and biological substances; I25.10 Atherosclerotic heart disease of native coronary artery without angina pectoris; F32.9 Major depressive disorder, single episode, unspecified; G89.4 Chronic pain syndrome; Z66 Do not resuscitate; K21.9 Gastro-esophageal reflux disease without esophagitis; E03.9 Hypothyroidism, unspecified; I10 Essential (primary) hypertension; B35.1 Tinea unguium; Z74.01 Bed confinement status; Z85.038 Personal history of other malignant neoplasm of large intestine
CPT/HCPCS: 36415; 80048; 80185; 82962; 83605; 85025; 87040; 99285; J7030

== ENCOUNTER 2019-06-04 10:25 | Inpatient (IN) | payer OTHER ==
--- OUTSIDE RECORDS SUMMARY | 2019-06-04 10:28 | XMS REPORT ---
:1950 Demographics Address [facility] [address] [place] [address] Email Address NONE Preferred Language Unknown Marital Status Unknown Bahai Affiliation Unknown Race Unknown Additional Race(s) Unavailable Ethnic Group Unknown [facility] Address [address] [place] [id number] Care Team Providers Name Role Phone Unavailable Unavailable Unavailable Problems This patient has no known problems. Allergies, Adverse Reactions, Alerts This patient has no known allergies or adverse reactions. Medications This patient has no known medications.
--- NOTE | 2019-06-04 11:06 | EKG ---
Test Date: 2019-06-04 Test Time: 10:51:00 Building Services Coordinator: ELA MEASUREMENT RESULTS: Intervals: Rate: 73 DE: 186 QRSD: 76 QT: 376 QTc: 414 [place]: P: 30 DE: 186 QRS: 35 T: 47 INTERPRETIVE STATEMENTS: Normal sinus rhythm Normal ECG Compared to ECG 11/16/2016 06:27:19 Sinus tachycardia no longer present Atrial premature complex(es) no longer present T-wave abnormality no longer present Electronically Signed On 06-04-19 11:05:46 CDT by Fazal Grande
[2019-06-04] MEDS ORDERED: VANCOMYCIN/NS 1 gm 1 GM/250 ML BAG IV ONE (11:15)
[2019-06-04 11:23] LABS: Absolute Lymphocytes (CBC) 1.5 K/uL (0.7-4.9); Basophils % 0.7 % (0-1.3); Hematocrit 44.6 % (36.0-45.0); Lymphocytes % 22.1 % (15.3-44.8); MPV 7.9 fL (7.6-11.3); RBC Red Blood Cell Count 4.87 M/uL (3.86-4.86)
[2019-06-04 11:36] LABS: Protime INR 1.06
[2019-06-04] MEDS ORDERED: NA CHLORIDE 0.9% 1,000 ML ONE (11:43)
[2019-06-04 11:49] LABS: ALT/SGPT 38 U/L (12-78); AST/SGOT 16 U/L (15-37); Albumin 3.7 g/dL (3.4-5.0); Alkaline Phosphatase 132 U/L (45-117); BUN Blood Urea Nitrogen 16 mg/dL (7-18); Bicarbonate 29 mmol/L (21-32); Bilirubin Direct 0.1 mg/dL (0-0.2); Bilirubin Total 0.4 mg/dL (0.2-1.0); Glucose Level 95 mg/dL (74-106); Magnesium 2.2 mg/dL (1.8-2.4); NT PRO-BNP 159 pg/mL (<125); Potassium 4.2 mmol/L (3.5-5.1); Protein, Total 7.2 g/dL (6.4-8.2); Sodium Level 140 mmol/L (136-145); Troponin (Emerg Dept Use Only) < 0.02 ng/mL (0.0-0.045)
--- NOTE | 2019-06-04 11:58 | RAD REPORT ---
EXAM DESCRIPTION: CT - Abdomen Pelvis Wo Contrast - 06/04/2019 11:28 am CLINICAL HISTORY: Abdominal pain COMPARISON: None TECHNIQUE: Computed axial tomography of the abdomen and pelvis was obtained. IV and oral contrast we re not requested. All CT scans are performed using dose optimization technique as appropriate and may include automated exposure control or mA/KV adjustment according to patient size. FINDINGS: The evaluation of solid organs, vessels and bowel is limited secondary to the lack of con trast administration. 3.5 centimeter right lower lobe opacity A right lateral abdominal wall hernia is present which contains a portion of the liver. The spleen appears grossly normal. The pancreas is atrophic. The right kidney is absent. The left kidney appears grossly normal. A percutaneous tube is present within the anterior left abdomen in the region of stomach. . Moderate dilatation of proximal small bowel with decompression of the mid and distal small bowel. IMPRESSION: Moderate dilatation of proximal small bowel having more of the appearance of an obstruc tion than an ileus Percutaneous tube within the anterior left abdomen. The stomach is decompressed in this region and it is difficult to detect if the balloon lies completely within the lumen of the stomach. If clinically indicated further evaluation could be obtained with the administration of contrast within the tube Right lower lobe opacity probably representing atelectasis
--- NOTE | 2019-06-04 12:18 | RAD REPORT ---
EXAM DESCRIPTION: Kati Single View06/04/2019 11:07 am CLINICAL HISTORY: Abdominal pain COMPARISON: 2017 FINDINGS: Patient is rotated limiting evaluation mediastinum. Right hemidiaphragm remains elevated Heart is mildly enlarged. Aorta is tortuous/ectatic. Right basilar opacity appears partially resolved
--- NOTE | 2019-06-04 12:26 | ER ---
Nurse's Notes [facility] Name: Suad Cuenca Age: 69 yrs Sex: Female : 1950 Arrival Date: 06/04/2019 Time: 10:29 Bed 8 Private MD: Diagnosis: Small bowel obstruction Presentation: 06/04 10:30 Presenting complaint: EMS states: RLQ PAIN/MASS x3 DAYS AND LEAKING PEG TUBE SINCE Y/D. bp ALSO +MRSA ON WOUND CX FROM PEG. Transition of care: patient was received from another setting of care ([facility]. Onset of symptoms is unknown. Risk Assessment: Do you want to hurt yourself or someone else? Patient reports no desire to harm self or others. Initial Sepsis Screen: Does the patient meet any 2 criteria? No. Patient's initial sepsis screen is negative. Does the patient have a suspected source of infection? Yes: Skin breakdown/wound. Care prior to arrival: None. 10:30 Method Of Arrival: EMS: [facility] bp 10:30 Acuity: TRICIA 3 bp Triage Assessment: 10:34 General: Appears in no apparent distress. comfortable, obese, unkempt, Behavior is bp cooperative, anxious. Pain: Complains of pain in right lower quadrant. EENT: No deficits noted. Neuro: No deficits noted. Cardiovascular: No deficits noted. Respiratory: No deficits noted. GI: Reports lower abdominal pain. : No signs and/or symptoms were reported regarding the genitourinary system. Derm: No deficits noted. Musculoskeletal: No signs and/or symptoms reported regarding the musculoskeletal system. Historical: - Allergies: 10:34 Aspirin; bp 10:34 Bleach (Sodium Hypochlorite); bp 10:34 bug spray; bp 10:34 diazepam; bp 10:34 Iodine; bp 10:34 PENICILLINS; bp 10:34 Pork/Porcine Containing Products; bp 10:34 Sulfa (Sulfonamide Antibiotics); bp - PMHx: 10:34 Anemia; Anxiety; arthropathy; CAUDA EQUINA SYNDROME; chronic pulmonary edema; bp congnitive communication deficit; Depression; dermatitis; Diabetes - IDDM; Dry Eye; epilepsy; Hypothyroidism; Multiple Sclerosis; MUSCLE WEAKNESS; Osteoporosis; - Immunization history:: Adult Immunizations up to date. - Social history:: Smoking status: Patient/guardian denies using tobacco. - Ebola Screening: : No symptoms or risks identified at this time. Screenin:36 Abuse screen: Denies threats or abuse. Denies injuries from another. Nutritional bp screening: No deficits noted. Tuberculosis screening: No symptoms or risk factors identified. 15:51 Fall Risk None identified. bp Assessment: 10:36 General: SEE TRIAGE NOTE. bp 11:18 Reassessment: PT UNABLE TO USE IV OR PO CONTRAST DUE TO ALLERGY. PROVIDER INFORMED AND bp APPROVES CT WITHOUT CONTRAST. CT INFORMED. 11:20 GI: Bowel sounds present X 4 quads. Reports lower abdominal pain. bp 11:21 Reassessment: PT TO CT WITH WORKSITE WELLNESS PRACTITIONER. bp 12:50 Reassessment: ADMIT IN PROCESS, NO ACUTE S/S AT THIS TIME. bp 13:30 Reassessment: ADMIT IN PROCESS, VS STABLE ON MONITOR. bp 15:50 GI: Abd is rigid in right lower quadrant. bp 16:19 Reassessment: [facility] WITH PCT FOR TRANSPORT. bp Vital Signs: 10:34 BP 120 / 84; Pulse 58; Resp 17; Temp 98.2; Pulse Ox 95% ; Weight 90.72 kg; Height 6 ft. bp 0 in. (182.88 cm); 11:21 BP 123 / 83; Pulse 61; Resp 16; Pulse Ox 98% ; bp 12:50 BP 120 / 78; Pulse 63; Resp 20; Pulse Ox 96% ; bp 13:30 BP 113 / 84; Pulse 70; Resp 20; Pulse Ox 96% ; bp 14:30 BP 126 / 78; Pulse 76; Resp 21; Pulse Ox 93% ; bp 15:47 BP 132 / 104; Pulse 74; Resp 16; Pulse Ox 96% ; bp 16:20 BP 132 / 63; Pulse 76; Resp 15; Temp 97.9; Pulse Ox 95% ; bp 10:34 Body Mass Index 27.12 (90.72 kg, 182.88 cm) bp ED Course: 10:29 Patient arrived in ED. bp 10:33 Triage completed. bp 10:34 Arm band placed on. bp 10:36 [facility] snw 10:36 Lizzy Ward MD is Attending Physician. snw 10:36 Patient has correct armband on for positive identification. Bed in low position. Call bp light in reach. Side rails up X2. 11:05 David Appiah, RN is Primary Nurse. bp 11:08 Chest Single View In Process Unspecified. EDMS 11:14 Initial lab(s) drawn, by me, sent to lab. Inserted saline lock: 22 gauge in right upper kj1 arm, using aseptic technique. 11:30 CT Abd/Pelvis - Without Cont (PO Contrast Only) In Process Unspecified. EDMS 12:25 Sean Rocha MD is Hospitalizing Provider. snw 15:48 No provider procedures requiring assistance completed. Patient admitted, IV remains in bp place. Administered Medications: 11:10 Drug: NS 0.9% 1000 ml Route: IV; Rate: 75 ml/hr; Site: right upper arm; bp 15:18 Follow up: IV Status: Infusion continued upon admission bp 11:40 Drug: vancoMYCIN 1 grams Route: IVPB; Infused Over: 2 hrs; Site: right upper arm; bp 13:10 Follow up: IV Status: Completed infusion; IV Intake: 250ml bp 15:17 Drug: fentaNYL (PF) 50 mcg Route: IVP; Site: right upper arm; bp 15:18 Follow up: Response: Pain is decreased bp Intake: 13:10 IV: 250ml; Total: 250ml. bp Outcome: 12:26 Decision to Hospitalize by Provider. snw 15:51 Admitted to Med/surg accompanied by tech, family with patient, via stretcher, room 426, bp with chart, Report called to HE CHAUDHRY 15:51 Condition: stable 15:51 Instructed on the need for admit. 16:20 Patient left the ED. bp Signatures: Dispatcher [employer] EDMS Elif Valle, [employer]-C [employer]-Csnw David Appiah, RN RN bp Yolanda Douglas [email or web address]
--- NOTE | 2019-06-04 12:27 | EDPHYS ---
Physician Documentation [facility] Name: Suad Cuenca Age: 69 yrs Sex: Female : 1950 Arrival Date: 06/04/2019 Time: 10:29 Bed 8 Private MD: ED Physician Lizzy Ward HPI: 06/04 11:03 This 69 yrs old Female presents to ER via EMS with complaints of Abdominal snw Pain, Abnormal Lab Results. 11:03 The patient presents with abdominal pain at "waistline". Onset: The symptoms/episode snw began/occurred gradually. The symptoms do not radiate. Associated signs and symptoms: Pertinent positives: diarrhea. The symptoms are described as crampy. Severity of pain: At its worst the pain was moderate. It is unknown whether or not the patient has had similar symptoms in the past. It is unknown whether or not the patient has recently seen a physician. Historical: - Allergies: 10:34 Aspirin; bp 10:34 Bleach (Sodium Hypochlorite); bp 10:34 bug spray; bp 10:34 diazepam; bp 10:34 Iodine; bp 10:34 PENICILLINS; bp 10:34 Pork/Porcine Containing Products; bp 10:34 Sulfa (Sulfonamide Antibiotics); bp - PMHx: 10:34 Anemia; Anxiety; arthropathy; CAUDA EQUINA SYNDROME; chronic pulmonary edema; bp congnitive communication deficit; Depression; dermatitis; Diabetes - IDDM; Dry Eye; epilepsy; Hypothyroidism; Multiple Sclerosis; MUSCLE WEAKNESS; Osteoporosis; - Immunization history:: Adult Immunizations up to date. - Social history:: Smoking status: Patient/guardian denies using tobacco. - Ebola Screening: : No symptoms or risks identified at this time. ROS: 11:02 Constitutional: Negative for fever, chills, and weight loss, Eyes: Negative for injury, snw pain, redness, and discharge, ENT: Negative for injury, pain, and discharge, Neck: Negative for injury, pain, and swelling, Cardiovascular: Negative for chest pain, palpitations, and edema, Respiratory: Negative for shortness of breath, cough, wheezing, and pleuritic chest pain, Back: Negative for injury and pain, : Negative for injury, bleeding, discharge, and swelling, MS/Extremity: Negative for injury and deformity, Skin: Negative for injury, rash, and discoloration, Neuro: Negative for headache, weakness, numbness, tingling, and seizure. 11:02 Abdomen/GI: Positive for abdominal pain, culture of g-tube positive for MRSA per [place] report. Exam: 10:58 Head/Face: Normocephalic, atraumatic. Eyes: Pupils equal round and reactive to light, snw extra-ocular motions intact. Lids and lashes normal. Conjunctiva and sclera are non-icteric and not injected. Cornea within normal limits. Periorbital areas with no swelling, redness, or edema. 10:58 Chest/axilla: Normal chest wall appearance and motion. Nontender with no deformity. No lesions are appreciated. Cardiovascular: Regular rate and rhythm with a normal S1 and S2. No gallops, murmurs, or rubs. Normal PMI, no JVD. No pulse deficits. Respiratory: Lungs have equal breath sounds bilaterally, clear to auscultation and percussion. No rales, rhonchi or wheezes noted. No increased work of breathing, no retractions or nasal flaring. 10:58 Back: No spinal tenderness. No costovertebral tenderness. Full range of motion. 10:58 Constitutional: The patient appears alert, awake, frail, partial paralysis, does not ambulate, bilateral foot drop, contracture to right hand, gaze deficit 10:58 ENT: Mouth: Oral mucosa: dry, Voice: is normal. 10:58 Abdomen/GI: Inspection: scar(s), are noted in the midline vertical scar, g-tube, Bowel sounds: diminished, in all quadrants, Palpation: moderate abdominal tenderness, in the right upper quadrant, Rectal exam: Stool: guaiac negative, hepatomegaly. 10:58 Skin: Appearance: Color: pale, Temperature: cool, Moisture: dry. 10:58 Neuro: Orientation: is normal, Mentation: is normal, speech is deliberate and slow, Motor: the patient is contracted, Gait: non-ambulatory. seizure activity, is not displayed by the patient. Vital Signs: 10:34 BP 120 / 84; Pulse 58; Resp 17; Temp 98.2; Pulse Ox 95% ; Weight 90.72 kg; Height 6 ft. bp 0 in. (182.88 cm); 11:21 BP 123 / 83; Pulse 61; Resp 16; Pulse Ox 98% ; bp 12:50 BP 120 / 78; Pulse 63; Resp 20; Pulse Ox 96% ; bp 13:30 BP 113 / 84; Pulse 70; Resp 20; Pulse Ox 96% ; bp 14:30 BP 126 / 78; Pulse 76; Resp 21; Pulse Ox 93% ; bp 15:47 BP 132 / 104; Pulse 74; Resp 16; Pulse Ox 96% ; bp 16:20 BP 132 / 63; Pulse 76; Resp 15; Temp 97.9; Pulse Ox 95% ; bp 10:34 Body Mass Index 27.12 (90.72 kg, 182.88 cm) bp MDM: 10:40 Patient medically screened. snw 12:12 Data reviewed: vital signs, nurses notes. Data interpreted: Pulse oximetry: on room air snw is 98 %. Interpretation: normal. Counseling: I had a detailed discussion with the patient and/or guardian regarding: the historical points, exam findings, and any diagnostic results supporting the discharge/admit diagnosis, the presence of at least one elevated blood pressure reading (>120/80) during this emergency department visit, lab results, radiology results. Physician consultation: Sean Rocha MD was called at 12:12, was contacted at 12:12, regarding admission, to the medical/surgical unit. would like consultation with Dr. Dr. Dubon. 06/04 10:39 Order name: Basic Metabolic Panel; Complete Time: 11:53 snw 06/04 10:39 Order name: CBC with Diff; Complete Time: 11:44 snw 06/04 10:39 Order name: LFT's; Complete Time: 11:53 snw 06/04 10:39 Order name: Magnesium; Complete Time: 11:53 snw 06/04 10:39 Order name: NT PRO-BNP; Complete Time: 11:53 snw 06/04 10:39 Order name: PT-INR; Complete Time: 11:41 snw 06/04 10:39 Order name: Troponin (emerg Dept Use Only); Complete Time: 11:53 snw 06/04 10:39 Order name: XRAY Chest (1 view) snw 06/04 10:39 Order name: Blood Culture Adult (2) snw 06/04 10:39 Order name: CT Abd/Pelvis - Without Cont (PO Contrast Only); Complete Time: 12:06 snw 06/04 10:43 Order name: Blood Culture EDNM 06/04 10:43 Order name: Chest Single View; Complete Time: 12:26 EDNM 06/04 10:39 Order name: EKG; Complete Time: 10:41 snw 06/04 10:39 Order name: Cardiac monitoring; Complete Time: 11:21 snw 06/04 10:39 Order name: EKG - Nurse/Tech; Complete Time: 11:21 snw 06/04 10:39 Order name: IV Saline Lock; Complete Time: 11:15 snw 06/04 10:39 Order name: Labs collected and sent; Complete Time: 11:15 snw 06/04 10:39 Order name: O2 Per Protocol; Complete Time: 11:21 snw 06/04 10:39 Order name: O2 Sat Monitoring; Complete Time: 11: snw 06/04 10:39 Order name: FSBS; Complete Time: 11:22 snw 06/04 10:40 Order name: NPO; Complete Time: 11:06 snw Administered Medications: 11:10 Drug: NS 0.9% 1000 ml Route: IV; Rate: 75 ml/hr; Site: right upper arm; bp 15:18 Follow up: IV Status: Infusion continued upon admission bp 11:40 Drug: vancoMYCIN 1 grams Route: IVPB; Infused Over: 2 hrs; Site: right upper arm; bp 13:10 Follow up: IV Status: Completed infusion; IV Intake: 250ml bp 15:17 Drug: fentaNYL (PF) 50 mcg Route: IVP; Site: right upper arm; bp 15:18 Follow up: Response: Pain is decreased bp Disposition: 18:47 Co-signature as Attending Physician, Lizzy Ward MD. ma2 Disposition: 06/04/19 12:26 Hospitalization ordered by Sean Rocha for Inpatient Admission. Preliminary diagnosis is Small bowel obstruction. - Bed requested for Telemetry/MedSurg (Inpatient). - Status is Inpatient Admission. bp - Condition is Stable. - Problem is new. - Symptoms are unchanged. UTI on Admission? No Signatures: Dispatcher [employer] [facility] Shanice Varela Diana, RN Elif Arreguin FNP-C PROTOHISTORIAN-Gregoriow David Appiah RN Lizzy Pratt MD MD ma2 Corrections: (The following items were deleted from the chart) 12:28 10:58 Abdomen/GI: Inspection: scar(s), are noted in the midline vertical scar, g-tube, snw Bowel sounds: diminished, in all quadrants, Palpation: moderate abdominal tenderness, in the right upper quadrant, hepatomegaly, snw 14:26 12:26 Hospitalization Ordered by Sean Rocha MD for Inpatient Admission. Preliminary dw diagnosis is Small bowel obstruction. Bed requested for Telemetry/MedSurg (Inpatient). Status is Inpatient Admission. Condition is Stable. Problem is new. Symptoms are unchanged. UTI on Admission? No. snw 14:27 14:26 06/04/2019 12:26 Hospitalization Ordered by Sean Rocha MD for Inpatient bd Admission. Preliminary diagnosis is Small bowel obstruction. Bed requested for Telemetry/MedSurg (Inpatient). Status is Inpatient Admission. Condition is Stable. Problem is new. Symptoms are unchanged. UTI on Admission? No. dw 16:20 14:27 06/04/2019 12:26 Hospitalization Ordered by Sean Rocha MD for Inpatient bp Admission. Preliminary diagnosis is Small bowel obstruction. Bed requested for Telemetry/MedSurg (Inpatient). Status is Inpatient Admission. Condition is Stable. Problem is new. Symptoms are unchanged. UTI on Admission? No. bd
[2019-06-04] MEDS ORDERED: FENTANYL CITR 100 MCG/2 ML ONE (15:16)
--- NOTE | 2019-06-04 16:39 | P.HP ---
Certification for Inpatient Patient admitted to: Inpatient With expected LOS: >2 Midnights Practitioner: I am a practitioner with admitting privileges, knowledge of patient current condition, hospital course, and medical plan of care. Services: Services provided to patient in accordance with Admission requirements found in Title 42 Section 412.3 of the Code of Federal Regulations Patient History Date of Service: 06/04/19 Reason for admission: Abdominal pain History of Present Illness: This is a 69-year-old female with multiple medical problems who came to us from [facility] due to progressively worsening abdominal pain and nausea. Patient has an extensive history of abdominal surgeries and hernia that has been progressively worsening. as noted above, patient has history of multiple abdominal surgeries including PEG tube placement. She normally does get feeds through the PEG tube but that has been worsening her abdominal pain and nausea Recently. Therefore she was sent to the emergency room. In the ER, blood pressure was 120/84, heart rate of 58, respirations of 17, 98.2 temperature and satting 95% on room air. Her labs were fairly unremarkable. Her CT abdomen/pelvis showed Moderate dilatation of proximal small bowel having more of the appearance of an obstruction than an ileus. Percutaneous tube within the anterior left abdomen. The stomach is decompressed in this region and it is difficult to detect if the balloon lies completely within the lumen of the stomach. She was then referred for admission. She was seen and evaluated by general surgery in the ER. At the time of my exam, she was alert oriented x3, her speech was slurred, which is baseline for her due to her multiple sclerosis history and she was hemodynamically stable. Allergies aspirin [From Amie Aspirin] Allergy (Verified 11/15/16 07:48) Hives diazepam Allergy (Verified 11/15/16 07:48) Hives Penicillins Allergy (Verified 11/15/16 07:48) Hives red yeast rice Allergy (Verified 11/15/16 07:48) Hives bleach Allergy (Uncoded 11/15/16 07:48) Hives sulfa Allergy (Uncoded 11/15/16 07:48) Hives Home medications list reviewed: Yes Home Medications: ALPRAZolam [Xanax*] 1 tab BID 09/15/18 Acetaminophen [Tylenol*] 2 tab Q6HP PRN 09/15/18 Bethanechol Chloride [Urecholine] 1 tab Q6H 09/15/18 Cyanocobalamin (Vitamin B-12) [Vitamin B12] 1,000 mcg DAILY 09/15/18 Cyclobenzaprine HCl 10 mg Q12HP PRN 09/15/18 Cyclosporine [Restasis] 1 drop EACH EYE BID 09/15/18 Dextran 70/Hypromellose [Artificial Tears Drops] 1 drop OP BID 09/15/18 Diclofenac Sodium [Voltaren] 1 sukumar TD Q8HP PRN 09/15/18 Diphenhydramine HCl [Benadryl Allergy] 1 tab Q8HP PRN 09/15/18 Gabapentin 1 cap Q8H 09/15/18 Hydrocodone/Acetaminophen [Hydrocodone-Acetamin 10-325 mg] 1 each Q6H 09/15/18 Isosorbide Dinitrate 10 mg BID 09/15/18 Ketoconazole 30 gm TP DAILY PRN 09/15/18 Lactulose 30 ml BID 09/15/18 Levothyroxine Sodium 1 tab DAILY 09/15/18 Loperamide HCl [Loperamide] 30 ml Q12HP PRN 09/15/18 Magnesium Citrate [Citroma*] 150 ml DAILY 09/15/18 Magnesium Oxide [Magnesium] 1 cap DAILY 09/15/18 Meclizine HCl [Antivert*] 12.5 mg QID PRN 09/15/18 Metoprolol Tartrate [Lopressor*] 1 tab DAILY 09/15/18 Multivit &Minerals/Ferrous Fum [Multivitamin Liquid] 15 ml DAILY 09/15/18 Naloxegol Oxalate [Movantik] 1 tab DAILY 09/15/18 Ondansetron HCl [Zofran] 1 tab Q8HP PRN 09/15/18 Oxybutynin Chloride [Ditropan*] 1 tab BEDTIME 09/15/18 PHENobarbital [Phenobarbital] 15 ml BID 09/15/18 Phenytoin 4 ml Q12H 09/15/18 Phenytoin [Dilantin-125] 5 ml DAILY 09/15/18 Tramadol HCl [Ultram] 1 tab Q6H PRN 09/15/18 Triamcinolone Acetonide 15 gm TP DAILY PRN 09/15/18 raNITIdine HCl [Ranitidine HCl] 20 ml BEDTIME 09/15/18 - Past Medical/Surgical History Diabetic: No -: Seizure disorder -: Multiple scleroses -: History of colorectal cancer -: Anemia -: Coronary artery disease -: History of nephrectomy -: Neurogenic bladder -: History of bowel obstructions now with PEG -: Chronic pain syndrome -: Depression with anxiety -: Bowel surgery -: PEG tube placement -: Kidney stone removed -: Tracheotomy -: Vein surgery Psychosocial/ Personal History: Patient has been a long term resident for 20 years. She has no children. Power of disability attorney is her brother. Patient is DNR. - Social History Alcohol use: No CD- Drugs: No Caffeine use: No Review of Systems 10-point ROS is otherwise unremarkable Physical Examination - Physical Exam General: Alert, Oriented x3, Mild distress, Obese HEENT: Atraumatic, PERRLA, Mucous membr. moist/pink, EOMI, Sclerae nonicteric Neck: Supple, 2+ carotid pulse no bruit, No LAD, Without JVD or thyroid abnormality Respiratory: Clear to auscultation bilaterally, Normal air movement Cardiovascular: Regular rate/rhythm, Normal S1 S2 Gastrointestinal: Other (Multiple abdominal surgical scars; hernia noted on the right side; peg tube in place with leakage but no area of cellulitis noted at this time.), Tenderness Musculoskeletal: No tenderness Integumentary: No rashes Neurological: Abnormal speech, Abnormal strength, Abnormal tone (This is all baseline due to her underlying multiple sclerosis) - Studies Laboratory Data (last 24 hrs) 06/04/19 11:09: PT 12.5, INR 1.06 06/04/19 11:09: WBC 6.9, Hgb 15.0, Hct 44.6, Plt Count 243 06/04/19 11:09: Sodium 140, Potassium 4.2, BUN 16, Creatinine 0.82, Glucose 95, Magnesium 2.2, Total Bilirubin 0.4, AST 16, ALT 38, Alkaline Phosphatase 132 H Assessment and Plan - Problems (Diagnosis) (1) Small bowel obstruction Onset Date: 08/23/14 Current Visit: No Status: Acute Plan: Patient with multiple prior abdominal surgeries, prior history of obstruction as well presented with abdominal pain and nausea. imaging consistent with small-bowel obstruction. -Unable to get CT with contrast of Gastrografin through the tube as patient states she is allergic to contrast and refuses any CT contrast this time. -Will get abdominal x-ray tomorrow to compare - general surgery consulted, recommendations appreciated. No surgical intervention planned at this time. Patient is a very poor surgical candidate due to underlying history - will keep NPO, nothing by tube is well. Will continue conservative treatment is and monitor patient with serial abdominal. exams. (2) Chronic pain disorder Current Visit: No Status: Chronic (3) GERD (gastroesophageal reflux disease) Current Visit: No Status: Chronic Qualifiers: Esophagitis presence: esophagitis presence not specified Qualified Code(s) : K21.9 - Gastro-esophageal reflux disease without esophagitis (4) Hypertension Current Visit: No Status: Chronic Qualifiers: Hypertension type: essential hypertension Qualified Code(s): I10 - Essential (primary) hypertension (5) Hypothyroidism Onset Date: 09/17/18 Current Visit: No Status: Chronic Qualifiers: Hypothyroidism type: unspecified Qualified Code(s): E03.9 - Hypothyroidism , unspecified (6) Multiple sclerosis Onset Date: 09/17/18 Current Visit: No Status: Chronic (7) Seizure disorder Onset Date: 09/17/18 Current Visit: No Status: Chronic (8) Hx MRSA infection Current Visit: Yes Status: Acute Plan: Patient with a recent history of MRSA around G-tube. -Wound cultures sent again here - continue IV vancomycin at this time. Pharmacy to dose. - Plan Otherwise, patient seems stable. Will restart home medications as tolerated. DVT prophylaxis: Lovenox GI prophylaxis: Protonix Diet: NPO Disposition: admit to floor with tele, pending symptomatic improvement. Discharge Plan: Assisted Plan to discharge in: Greater than 2 days - Advance Directives Does patient have a Living Will: No Does patient have a Durable POA for Healthcare: Yes
[2019-06-04] MEDS ORDERED: NA CHLORIDE 0.9% 1,000 ML IV SCH (17:23)
[2019-06-04] MEDS ORDERED: SODIUM CHLORIDE 0.9% 10ML INJ IV PRN (17:23)
[2019-06-04] MEDS: NA CHLORIDE 0.9% 1,000 ML IV SCH (17:45)
[2019-06-04] MEDS ORDERED: VANCOMYCIN 1.25 GM in NA CHLORIDE 0.9% 250 ML IVPB SCH (18:00)
[2019-06-04 18:08] VITALS: BMI 3905.5
--- NOTE | 2019-06-04 20:39 | CON ---
Date of Consultation: 06/04/2019 Reason: Abdominal pain, nausea, and vomiting. History Of Present Illness: Patient is a 69-year-old female with multiple medical problems, who pres ented with abdominal pain at the waistline. She had a last bowel movement yesterday. She had passed gas yesterday. Pain is described as crampy. Patient does have a PEG tube and she has a large abdom inal wall hernia from previous surgeries. None of her abdominal surgeries were done at this facility . She did have some lower extremity surgery done by me and other surgeons in this institution. No s ore throat, runny nose, cough, headaches, or dizziness. No chest pain. No fever or chills. Review of Systems: Otherwise unremarkable. Past Medical History: Significant for anemia, anxiety, arthropathy, cauda equina syndrome, chronic p ulmonary edema, depression, diabetes type 1, multiple sclerosis, epilepsy, muscle weakness, hypothyro idism. Past Surgical History: Tracheostomy, PEG, cholecystectomy, appendectomy, partial colectomy, right ne phrectomy. Allergies: ASPIRIN, BLEACH, DIAZEPAM, IODINE, PENICILLIN, SULFA, PORK. Social History: She does not smoke or drink. Family History: Noncontributory. Physical Examination: Vital Signs: Stable. She is afebrile. General: She is awake, alert, debilitated, in bed, and cannot really move well. Head and Neck: No masses. Chest: Clear. Heart: S1, S2. Abdomen: Soft. Minimal diffuse tenderness but no rebound, rigidity, or guarding. Large abdominal w all hernia noted on the right side. Palpable liver. G-tube in place, appears to be within normal li mits. Extremities: Adequately perfused. Neuro: Nonfocal. Laboratory Data And Imaging: White count is 6.9. There is no left shift. INR is 1.06. Chemistry w as reviewed. Her CO2 is 29. Alkaline phosphatase is 132. CT of the abdomen and pelvis was reviewed. Moderate dilatation of proximal small bowel, having more of the appearance of an obstruction rather than an ileus. Percutaneous tube within the anterior left abdomen. Stomach is decompressed in this region. It is difficult to detect if the balloon lies com pletely within the lumen of the stomach. If clinically indicated, further evaluation could be obtain ed with administration of contrast within the tube. Right lower lobe opacity probably represents ate lectasis. Assessment: A 69-year-old female with multiple medical problems and small bowel obstruction. Hoping it is partial in nature. We will not know until we repeat the CAT scan with contrast through the st omach. She refused contrast the 1st time, and that is being arranged for. In the meantime, she need s to be n.p.o. we will put the G-tube to suction, IV fluids, empiric antibiotics. Serial abdominal exams. We will get x-rays tomorrow to see which way the patient is progressing. She may benefit fro m a small bowel series if she does not clinically improve within the next 24-48 hours. Plan of care was discussed in detail with Dr. Rocha. GENESIS/SON Voice ID: [id number] Report ID: [id number]
[2019-06-04] MEDS ORDERED: VANCOMYCIN 750 MG in NA CHLORIDE 0.9% 150 ML IVPB SCH (21:00)
[2019-06-05] MEDS ORDERED: TRAMADOL HCL 50 MG TAB FT PRN (00:57)
[2019-06-05] MEDS ORDERED: ONDANSETRON 4 MG (ODT) TAB FT PRN (00:57)
[2019-06-05] MEDS ORDERED: CYCLOBENZAPRINE 10 MG TAB FT PRN (00:57)
[2019-06-05] MEDS: GABAPENTIN 300 MG CAP FT SCH (01:00)
[2019-06-05] MEDS: NA CHLORIDE 0.9% 1,000 ML IV SCH ×2 (05:26→20:25)
[2019-06-05 07:10] LABS: ALT/SGPT 29 U/L (12-78); AST/SGOT 15 U/L (15-37); Albumin 3.5 g/dL (3.4-5.0); Alkaline Phosphatase 117 U/L (45-117); BUN Blood Urea Nitrogen 13 mg/dL (7-18); Bicarbonate 23 mmol/L (21-32); Bilirubin Total 0.5 mg/dL (0.2-1.0); Glucose Level 98 mg/dL (74-106); Potassium 4.5 mmol/L (3.5-5.1); Protein, Total 6.6 g/dL (6.4-8.2); Sodium Level 143 mmol/L (136-145)
[2019-06-05 08:15] LABS: Absolute Lymphocytes (CBC) 1.4 K/uL (0.7-4.9); Basophils % 0.8 % (0-1.3); Hematocrit 43.7 % (36.0-45.0); Lymphocytes % 19.3 % (15.3-44.8); RBC Red Blood Cell Count 4.78 M/uL (3.86-4.86)
--- NOTE | 2019-06-05 08:38 | RAD REPORT ---
EXAM DESCRIPTION: RAD - Abdomen Single View - 06/05/2019 8:29 am CLINICAL HISTORY: Abdominal pain FINDINGS: Mildly to moderately dilated small bowel within the right abdomen has diminished in calibe r since the prior CAT scan. Air is seen within portions the colon. This is improvement in the small bowel obstruction
[2019-06-05] MEDS ORDERED: ALPRAZOLAM 0.25 MG TABLET FT SCH (09:00)
[2019-06-05] MEDS ORDERED: PHENOBARBITAL FT SCH (09:00)
[2019-06-05] MEDS: HOME MED 1 EA UNK (Cyclosporine [Restasis] 1 DROP) EACH EYE SCH ×2 (09:00→21:00)
[2019-06-05] MEDS ORDERED: PHENYTOIN 125 MG/5 ML ORAL.SUSP FT SCH (09:00)
[2019-06-05] MEDS ORDERED: METOPROLOL TAR 25 MG TAB FT SCH (09:00)
[2019-06-05] MEDS ORDERED: ISOSORBIDE DINIT 5 MG TAB FT SCH (09:00)
[2019-06-05] MEDS: FENTANYL CITR 100 MCG/2 ML IV PRN ×2 (11:06→18:40)
[2019-06-05] MEDS: FOSPHENYTOIN PE 100 MG/2 ML VIAL IV SCH ×2 (11:08→17:00)
[2019-06-05] MEDS: PANTOPRAZOLE 40 MG INJ IVP SCH (11:11)
--- NOTE | 2019-06-05 12:59 | P.PN ---
Subjective Date of Service: 06/05/19 Chief Complaint: Abdominal pain Subjective: No C/O voiced Patient seen and examined at bedside. No family at bedside. Chart reviewed and case discussed with nursing staff. Patient continues to report abdominal pain in the lower abdomen No further nausea or vomiting at this time No acute events noted overnight Review of Systems 10-point ROS is otherwise unremarkable Physical Examination - Vital Signs Temperature: 97.8 F Blood Pressure: 146/71 Pulse: 93 Respirations: 15 Pulse Ox (%): 95 - Physical Exam General: Alert, Oriented x3, Mild distress, Obese HEENT: Atraumatic, PERRLA, EOMI Neck: Supple, JVD not distended Respiratory: Clear to auscultation bilaterally, Normal air movement Cardiovascular: Regular rate/rhythm, Normal S1 S2 Gastrointestinal: Other (Hernia noted on right side), Tenderness Musculoskeletal: No tenderness Integumentary: No rashes Neurological: Abnormal speech (Chornic, at baseline), Abnormal tone, Abnormal reflexes Assessment And Plan - Current Problems (Diagnosis) (1) Small bowel obstruction Onset Date: 08/23/14 Current Visit: No Status: Acute Plan: Patient with multiple prior abdominal surgeries, prior history of obstruction as well presented with abdominal pain and nausea. imaging consistent with small-bowel obstruction. -Unable to get CT with contrast of Gastrografin through the tube as patient states she is allergic to contrast and refuses any CT contrast this time. -abdominal x-ray today does show improvement in the small bowel obstruction. -general surgery consulted, recommendations appreciated. No surgical intervention planned at this time. Patient is a very poor surgical candidate due to underlying history -will keep NPO, nothing by tube as well. Will continue conservative treatment and monitor patient with serial abdominal. exams. (2) Chronic pain disorder Current Visit: No Status: Chronic (3) GERD (gastroesophageal reflux disease) Current Visit: No Status: Chronic Qualifiers: Esophagitis presence: esophagitis presence not specified Qualified Code(s) : K21.9 - Gastro-esophageal reflux disease without esophagitis (4) Hypertension Current Visit: No Status: Chronic Qualifiers: Hypertension type: essential hypertension Qualified Code(s): I10 - Essential (primary) hypertension (5) Hypothyroidism Onset Date: 09/17/18 Current Visit: No Status: Chronic Qualifiers: Hypothyroidism type: unspecified Qualified Code(s): E03.9 - Hypothyroidism , unspecified (6) Multiple sclerosis Onset Date: 09/17/18 Current Visit: No Status: Chronic (7) Seizure disorder Onset Date: 09/17/18 Current Visit: No Status: Chronic (8) Hx MRSA infection Current Visit: Yes Status: Acute Plan: Patient with a recent history of MRSA around G-tube. -Wound cultures sent again here - continue IV vancomycin at this time. Pharmacy to dose. - Plan Otherwise, patient seems stable. Will restart home medications as tolerated. DVT prophylaxis: Lovenox GI prophylaxis: Protonix Diet: NPO Disposition: Pending symptomatic improvement. Patient will return back to her alf once medically cleared Discharge Plan: Long Term
[2019-06-05] MEDS: VANCOMYCIN 1.75 GM in NA CHLORIDE 0.9% 500 ML IVPB SCH (14:58)
--- NOTE | 2019-06-05 18:01 | PN ---
Date of Progress Note: 06/05/2019 Subjective: Patient is awake, alert, feels a little better. Has not had a bowel movement. Vital si gns are stable. Afebrile. X-ray reviewed, appears to be much better than yesterday. There is just mild dilatation of the small bowel now. Obstruction is less likely. Abdomen is benign. No peritoni tis. Soft. Assessment: Small bowel obstruction likely resolving. Recommendations: Continue present care. We will start the patient on sips of clear liquids and see how she does. Advance diet as tolerated. /MODL Voice ID: [id number] Report ID: [id number]
[2019-06-05] MEDS ORDERED: OXYBUTYNIN ER 5 MG TAB PO SCH (21:00)
[2019-06-06] MEDS: FOSPHENYTOIN PE 100 MG/2 ML VIAL IV SCH ×3 (01:00→18:23)
[2019-06-06] MEDS: FENTANYL CITR 100 MCG/2 ML IV PRN ×3 (02:45→18:15)
[2019-06-06 06:41] LABS: Absolute Lymphocytes (CBC) 1.6 K/uL (0.7-4.9); Basophils % 0.2 % (0-1.3); Hematocrit 39.3 % (36.0-45.0); Lymphocytes % 25.3 % (15.3-44.8); MPV 8.1 fL (7.6-11.3); RBC Red Blood Cell Count 4.29 M/uL (3.86-4.86)
[2019-06-06 06:52] LABS: ALT/SGPT 26 U/L (12-78); AST/SGOT 13 U/L (15-37); Albumin 3.3 g/dL (3.4-5.0); Alkaline Phosphatase 102 U/L (45-117); BUN Blood Urea Nitrogen 9 mg/dL (7-18); Bicarbonate 22 mmol/L (21-32); Bilirubin Total 0.5 mg/dL (0.2-1.0); Glucose Level 71 mg/dL (74-106); Potassium 3.8 mmol/L (3.5-5.1); Protein, Total 6.6 g/dL (6.4-8.2); Sodium Level 144 mmol/L (136-145)
[2019-06-06] MEDS: HOME MED 1 EA UNK (Cyclosporine [Restasis] 1 DROP) EACH EYE SCH ×2 (09:00→20:54)
[2019-06-06] MEDS: VANCOMYCIN 1.75 GM in NA CHLORIDE 0.9% 500 ML IVPB SCH (09:40)
[2019-06-06] MEDS: PANTOPRAZOLE 40 MG INJ IVP SCH (09:41)
--- NOTE | 2019-06-06 09:54 | P.PN ---
Subjective Date of Service: 06/06/19 Chief Complaint: Abdominal pain Subjective: Improving Patient seen and examined at bedside. No family at bedside. Chart reviewed and case discussed with nursing staff. Patient continues to report abdominal pain in the lower abdomen but is improved from pain on admission. Trying sips of clear liquid and ice chips Passing very little gas No further nausea or vomiting at this time No acute events noted overnight Review of Systems 10-point ROS is otherwise unremarkable Physical Examination - Vital Signs Temperature: 97.1 F Blood Pressure: 159/60 Pulse: 90 Respirations: 18 Pulse Ox (%): 99 - Physical Exam General: Alert, Oriented x3, Mild distress HEENT: Atraumatic, PERRLA, EOMI Neck: Supple, JVD not distended Respiratory: Clear to auscultation bilaterally, Normal air movement Cardiovascular: Regular rate/rhythm, Normal S1 S2 Gastrointestinal: Other (G tube in place, tender abdomen, ) Musculoskeletal: No tenderness Integumentary: No rashes Neurological: Normal affect, Abnormal speech (Chronic from MS, at baseline), Abnormal tone Lymphatics: No axilla or inguinal lymphadenopathy Assessment And Plan - Current Problems (Diagnosis) (1) Small bowel obstruction Onset Date: 08/23/14 Current Visit: No Status: Acute Plan: Patient with multiple prior abdominal surgeries, prior history of obstruction as well presented with abdominal pain and nausea. imaging consistent with small-bowel obstruction. -Unable to get CT with contrast of Gastrografin through the tube as patient states she is allergic to contrast and refuses any CT contrast this time. -abdominal x-ray today does show improvement in the small bowel obstruction. -general surgery consulted, recommendations appreciated. No surgical intervention planned at this time. Patient is a very poor surgical candidate due to underlying history -Clear liquid, sips as tolerated. Will continue conservative treatment and monitor patient with serial abdominal. exams. (2) Chronic pain disorder Current Visit: No Status: Chronic (3) GERD (gastroesophageal reflux disease) Current Visit: No Status: Chronic Qualifiers: Esophagitis presence: esophagitis presence not specified Qualified Code(s) : K21.9 - Gastro-esophageal reflux disease without esophagitis (4) Hypertension Current Visit: No Status: Chronic Qualifiers: Hypertension type: essential hypertension Qualified Code(s): I10 - Essential (primary) hypertension (5) Hypothyroidism Onset Date: 09/17/18 Current Visit: No Status: Chronic Qualifiers: Hypothyroidism type: unspecified Qualified Code(s): E03.9 - Hypothyroidism , unspecified (6) Multiple sclerosis Onset Date: 09/17/18 Current Visit: No Status: Chronic (7) Seizure disorder Onset Date: 09/17/18 Current Visit: No Status: Chronic (8) Hx MRSA infection Current Visit: Yes Status: Acute Plan: Patient with a recent history of MRSA around G-tube. -Wound cultures sent again here, pending. Blood cultures negative x 24hrs - continue IV vancomycin at this time. Pharmacy to dose. - Plan Otherwise, patient seems stable. Will continue home medications as tolerated. DVT prophylaxis: Lovenox GI prophylaxis: Protonix Diet: CLD Disposition: Pending symptomatic improvement. Patient will return back to her residential once medically cleared
[2019-06-06] MEDS ORDERED: KCL 20 MEQ/100 mL IVPB 20 MEQ/100 ML BAG IV SCH (11:00)
--- NOTE | 2019-06-06 15:37 | PN ---
Date of Progress Note: 06/06/2019 Subjective: Patient is awake, alert, passing gas. Pain is better. Objective: Vital signs: Stable. Afebrile. Abdomen: Benign. Assessment: Small bowel obstruction, resolving. Recommendations: She needs a special drinking device because of her MS, so we will get that for her and encourage more liquid p.o. diet and full liquids and then feeding tube to supplement. She can be advanced as tolerated and she can be discharged once medically seemed ready. GENESIS/MODZenia Voice ID: [id number] Report ID: [id number]
[2019-06-06] MEDS: ENOXAPARIN 40 MG/0.4 ML SQ SCH (18:16)
[2019-06-06] MEDS: NA CHLORIDE 0.9% 1,000 ML IV SCH ×2 (18:17→23:05)
[2019-06-06] MEDS: HYDRALAZINE HCL 20 MG/ML VIAL IV PRN (18:27)
[2019-06-06] MEDS ORDERED: METOPROLOL TARTRATE 5 MG/5 ML INJ IV STA (20:16)
[2019-06-07] MEDS: FOSPHENYTOIN PE 100 MG/2 ML VIAL IV SCH ×3 (01:00→16:31)
[2019-06-07] MEDS: VANCOMYCIN 1.75 GM in NA CHLORIDE 0.9% 500 ML IVPB SCH ×2 (02:48→21:44)
[2019-06-07] MEDS: FENTANYL CITR 100 MCG/2 ML IV PRN (05:21)
[2019-06-07 07:21] LABS: Absolute Lymphocytes (CBC) 2.5 K/uL (0.7-4.9); Basophils % 0.6 % (0-1.3); Lymphocytes % 24.3 % (15.3-44.8); MPV 9.1 fL (7.6-11.3); RBC Red Blood Cell Count 4.91 M/uL (3.86-4.86)
[2019-06-07 07:36] LABS: ALT/SGPT 24 U/L (12-78); AST/SGOT 16 U/L (15-37); Albumin 3.8 g/dL (3.4-5.0); Alkaline Phosphatase 117 U/L (45-117); BUN Blood Urea Nitrogen 7 mg/dL (7-18); Bilirubin Total 0.5 mg/dL (0.2-1.0); Glucose Level 89 mg/dL (74-106); Potassium 3.8 mmol/L (3.5-5.1); Protein, Total 7.1 g/dL (6.4-8.2); Sodium Level 142 mmol/L (136-145)
[2019-06-07 07:39] LABS: Bicarbonate 12 mmol/L (21-32)
[2019-06-07] MEDS: HOME MED 1 EA UNK (Cyclosporine [Restasis] 1 DROP) EACH EYE SCH ×2 (09:00→21:00)
[2019-06-07] MEDS: PANTOPRAZOLE 40 MG INJ IVP SCH (10:17)
--- NOTE | 2019-06-07 10:44 | P.PN ---
Subjective Date of Service: 06/07/19 Chief Complaint: Abdominal pain Subjective: No new changes, No C/O voiced Patient seen and examined at bedside. No family at bedside. Chart reviewed and case discussed with nursing staff. Patient continues to report abdominal pain in the lower abdomen but is improved from pain on admission. Trying sips of clear liquid and ice chips. Special drinking device recieved from snf. Passing very little gas No further nausea or vomiting at this time No acute events noted overnight Review of Systems 10-point ROS is otherwise unremarkable Physical Examination - Vital Signs Temperature: 97.4 F Blood Pressure: 165/71 Pulse: 124 Respirations: 23 Pulse Ox (%): 100 - Physical Exam General: Alert, In no apparent distress HEENT: Atraumatic, PERRLA, EOMI Neck: Supple, JVD not distended Respiratory: Clear to auscultation bilaterally, Normal air movement Cardiovascular: Regular rate/rhythm, Normal S1 S2 Gastrointestinal: Normal bowel sounds, No tenderness, Other (G tube in place) Musculoskeletal: No tenderness Integumentary: No rashes Neurological: Normal speech, Normal tone, Normal affect Lymphatics: No axilla or inguinal lymphadenopathy Assessment And Plan - Current Problems (Diagnosis) (1) Small bowel obstruction Onset Date: 08/23/14 Current Visit: No Status: Acute Plan: Patient with multiple prior abdominal surgeries, prior history of obstruction as well presented with abdominal pain and nausea. imaging consistent with small-bowel obstruction. -Unable to get CT with contrast of Gastrografin through the tube as patient states she is allergic to contrast and refuses any CT contrast this time. -abdominal x-ray today does show improvement in the small bowel obstruction. -general surgery consulted, recommendations appreciated. No surgical intervention planned at this time. Patient is a very poor surgical candidate due to underlying history -Clear liquid, sips as tolerated. Will continue conservative treatment and monitor patient with serial abdominal. exams. (2) Chronic pain disorder Current Visit: No Status: Chronic (3) GERD (gastroesophageal reflux disease) Current Visit: No Status: Chronic Qualifiers: Esophagitis presence: esophagitis presence not specified Qualified Code(s) : K21.9 - Gastro-esophageal reflux disease without esophagitis (4) Hypertension Current Visit: No Status: Chronic Qualifiers: Hypertension type: essential hypertension Qualified Code(s): I10 - Essential (primary) hypertension (5) Hypothyroidism Onset Date: 09/17/18 Current Visit: No Status: Chronic Qualifiers: Hypothyroidism type: unspecified Qualified Code(s): E03.9 - Hypothyroidism , unspecified (6) Multiple sclerosis Onset Date: 09/17/18 Current Visit: No Status: Chronic (7) Seizure disorder Onset Date: 09/17/18 Current Visit: No Status: Chronic (8) Hx MRSA infection Current Visit: Yes Status: Acute Plan: Patient with a recent history of MRSA around G-tube. -Wound cultures sent again here, pending. Blood cultures negative x 24hrs - continue IV vancomycin at this time. Pharmacy to dose. - Plan Otherwise, patient seems stable. Will continue home medications as tolerated. DVT prophylaxis: Lovenox GI prophylaxis: Protonix Diet: CLD Disposition: Pending symptomatic improvement. Patient will return back to her snf once medically cleared
--- NOTE | 2019-06-07 11:00 | PN ---
Subjective: Patient is awake, alert, tolerated clear liquids. Objective: Vital Signs: Stable. Afebrile. Abdomen: Benign. Assessment: Small bowel obstruction, resolved. Recommendation: Advance diet. Cleared from surgery standpoint for discharge. /MODL Voice ID: [id number] Report ID: [id number]
[2019-06-07] MEDS: NA CHLORIDE 0.9% 1,000 ML IV SCH (12:23)
[2019-06-07] MEDS ORDERED: ALBUTEROL 2.5 MG/3 ML NEB SOL NEB PRN (13:19)
[2019-06-07] MEDS ORDERED: IPRATROPIUM BROM 0.5MG/2.5ML NEB PRN (13:20)
[2019-06-07] MEDS ORDERED: ALBUTEROL 2.5 MG/3 ML NEB SOL ONE (13:40)
[2019-06-07] MEDS ORDERED: IPRATROPIUM BROM 0.5MG/2.5ML ONE (13:40)
[2019-06-07] MEDS ORDERED: METOPROLOL TARTRATE 5 MG/5 ML INJ IV STA (14:03)
[2019-06-07] MEDS: ENOXAPARIN 40 MG/0.4 ML SQ SCH (16:29)
[2019-06-07] MEDS: AMPICILLIN SODIUM 1 GM in NA CHLORIDE 0.9% 100 ML IV SCH ×2 (16:37→17:00)
[2019-06-07] MEDS ORDERED: AMPICILLIN/SULBACT 1.5GM VIAL IVPB SCH (17:00)
[2019-06-07] MEDS ORDERED: AMPICILLIN/SULBACT 1.5 GM in NA CHLORIDE 0.9% 100 ML IVPB SCH (17:00)
--- NOTE | 2019-06-07 17:29 | RAD REPORT ---
EXAM DESCRIPTION: RAD - Chest Single View - 06/07/2019 5:06 pm CLINICAL HISTORY: SBO, Shortness of breath Chest pain. COMPARISON: Chest Single View dated 06/04/2019; Chest Single View dated 11/19/2016; Chest Single View dated 11/16/2016; Chest Single View dated 11/14/2016 FINDINGS: Portable technique limits examination quality. The lungs are grossly clear. Mildly elevated right hemidiaphragm noted. The heart is normal in size. Tortuous thoracic aorta.
[2019-06-07] MEDS: Gentamicin Inj 150 MG in NA CHLORIDE 0.9% 100 ML IVPB SCH (18:39)
[2019-06-08] MEDS: FOSPHENYTOIN PE 100 MG/2 ML VIAL IV SCH ×3 (01:23→18:10)
[2019-06-08] MEDS: HYDRALAZINE HCL 20 MG/ML VIAL IV PRN (01:46)
[2019-06-08] MEDS: Gentamicin Inj 150 MG in NA CHLORIDE 0.9% 100 ML IVPB SCH ×3 (04:34→18:00)
[2019-06-08 07:35] LABS: Phosphorus 2.5 mg/dL (2.5-4.9)
[2019-06-08] MEDS: GABAPENTIN 300 MG CAP FT SCH (09:00)
[2019-06-08] MEDS: NALOXEGOL OXALATE 25 MG FT SCH (09:00)
[2019-06-08] MEDS: HOME MED 1 EA UNK (Cyclosporine [Restasis] 1 DROP) EACH EYE SCH ×2 (09:00→21:00)
[2019-06-08] MEDS: NA CHLORIDE 0.9% 1,000 ML IV SCH (09:29)
[2019-06-08] MEDS: PANTOPRAZOLE 40 MG INJ IVP SCH (09:29)
--- NOTE | 2019-06-08 13:05 | P.PN ---
Subjective Date of Service: 06/08/19 Chief Complaint: Abdominal pain Subjective: No new changes Patient seen and examined at bedside. No family at bedside. Chart reviewed and case discussed with nursing staff. Patient continues to report abdominal pain in the lower abdomen but is improved from pain on admission. Trying sips of clear liquid and ice chips. Special drinking device recieved from [facility]. Patient continues to use that. Passing very little gas. A very small smear of BM today. No further nausea or vomiting at this time No acute events noted overnight Review of Systems 10-point ROS is otherwise unremarkable Physical Examination - Vital Signs Temperature: 97.1 F Blood Pressure: 144/72 Pulse: 118 Respirations: 28 Pulse Ox (%): 98 - Physical Exam General: Alert, In no apparent distress HEENT: Atraumatic, PERRLA, EOMI Neck: Supple, JVD not distended Respiratory: Clear to auscultation bilaterally, Normal air movement Cardiovascular: Regular rate/rhythm, Normal S1 S2 Gastrointestinal: Normal bowel sounds, No tenderness Musculoskeletal: No tenderness Integumentary: No rashes Neurological: Normal speech, Normal tone, Normal affect Lymphatics: No axilla or inguinal lymphadenopathy Assessment And Plan - Current Problems (Diagnosis) (1) Small bowel obstruction Onset Date: 08/23/14 Current Visit: No Status: Acute Plan: Patient with multiple prior abdominal surgeries, prior history of obstruction as well presented with abdominal pain and nausea. imaging consistent with small-bowel obstruction. -Unable to get CT with contrast of Gastrografin through the tube as patient states she is allergic to contrast and refuses any CT contrast this time. -abdominal x-ray today does show improvement in the small bowel obstruction. -general surgery consulted, recommendations appreciated. No surgical intervention planned at this time. Patient is a very poor surgical candidate due to underlying history -Clear liquid, sips as tolerated. Will continue conservative treatment and monitor patient with serial abdominal. exams. (2) Chronic pain disorder Current Visit: No Status: Chronic (3) GERD (gastroesophageal reflux disease) Current Visit: No Status: Chronic Qualifiers: Esophagitis presence: esophagitis presence not specified Qualified Code(s) : K21.9 - Gastro-esophageal reflux disease without esophagitis (4) Hypertension Current Visit: No Status: Chronic Qualifiers: Hypertension type: essential hypertension Qualified Code(s): I10 - Essential (primary) hypertension (5) Hypothyroidism Onset Date: 09/17/18 Current Visit: No Status: Chronic Qualifiers: Hypothyroidism type: unspecified Qualified Code(s): E03.9 - Hypothyroidism , unspecified (6) Multiple sclerosis Onset Date: 09/17/18 Current Visit: No Status: Chronic (7) Seizure disorder Onset Date: 09/17/18 Current Visit: No Status: Chronic (8) Hx MRSA infection Current Visit: Yes Status: Acute Plan: Patient with a recent history of MRSA around G-tube. -Wound cultures sent again here, pending. Blood cultures negative x 24hrs - continue IV vancomycin at this time. Pharmacy to dose. - Plan Otherwise, patient seems stable. Will continue home medications as tolerated. DVT prophylaxis: Lovenox GI prophylaxis: Protonix Diet: CLD, advance as tolerated. Disposition: Pending symptomatic improvement. Patient will return back to her [facility] once medically cleared. Anticipate in the next 24-48 hrs once tolerating diet closer to her baseline.
--- NOTE | 2019-06-08 15:19 | PN ---
Date of Progress Note: 06/08/2019 Subjective: Patient is awake, alert. Had a small bowel movement yesterday. Tolerating a little bit of the liquid. Objective: Vital Signs: Stable. Afebrile. Abdomen: Benign, soft, nondistended. Minimal tenderness, but no rebound, rigidity, or guarding. Assessment: Small bowel obstruction, essentially resolved. Recommendations: Advance diet as tolerated. Discharge when adequate nutritional needs are met with diet. No need for surgical intervention. /MODL Voice ID: [id number] Report ID: [id number]
[2019-06-08] MEDS: ENOXAPARIN 40 MG/0.4 ML SQ SCH (18:10)
[2019-06-08] MEDS: VANCOMYCIN 1.75 GM in NA CHLORIDE 0.9% 500 ML IVPB SCH (21:46)
[2019-06-09] MEDS: FOSPHENYTOIN PE 100 MG/2 ML VIAL IV SCH ×3 (00:40→17:11)
[2019-06-09] MEDS: NA CHLORIDE 0.9% 1,000 ML IV SCH ×3 (01:06→14:58)
[2019-06-09] MEDS: HOME MED 1 EA UNK (Cyclosporine [Restasis] 1 DROP) EACH EYE SCH ×2 (09:00→21:00)
[2019-06-09] MEDS: NALOXEGOL OXALATE 25 MG FT SCH (09:00)
[2019-06-09] MEDS ORDERED: Gentamicin Inj 150 MG in NA CHLORIDE 0.9% 100 ML IVPB SCH (09:00)
[2019-06-09] MEDS: PANTOPRAZOLE 40 MG INJ IVP SCH (09:10)
--- NOTE | 2019-06-09 14:56 | PN ---
Subjective: Patient is awake, alert, tolerating diet. Objective: Vital Signs: Stable. Afebrile. Abdomen: Benign. Assessment: Small bowel obstruction, resolved. Recommendations: Cleared for discharge. /MODL Voice ID: [id number] Report ID: [id number]
[2019-06-09] MEDS ORDERED: Meropenem 500 MG VIAL IV SCH (17:00)
[2019-06-09] MEDS: ENOXAPARIN 40 MG/0.4 ML SQ SCH (17:10)
[2019-06-09] MEDS: Meropenem 500 MG in NA CHLORIDE 0.9% 100 ML IV SCH (18:08)
[2019-06-09] MEDS ORDERED: POLYVINYL ALCOHOL OP SCH (21:00)
--- NOTE | 2019-06-09 21:23 | PN ---
Date of Progress Note: 06/09/2019 Subjective: Patient seen and examined. Chart reviewed and case discussed with RN and Dr. Dubon. Patient had refused PICC line initially. She was afraid that [facility] would not accept her with a PICC line. I explained to her that [facility] does accept patients with PICC line. Patient is now agreeable to PICC line placement. Medications: List reviewed. Code status: Full Physical Examination: Vital Signs: Temperature 97.7, heart rate 109, blood pressure 165/84, respirations 20, O2 100% on room air. General: Awake, alert, oriented x3, not in any acute distress, elderly female. CV: S1, S2. No murmurs, sinus tachycardia. Peripheral pulses present. Respiratory: Diminished breath sounds due to poor inspiratory effort, otherwise moving air well. Gastrointestinal: Abdomen is soft, nontender, nondistended. Positive bowel sounds. Extremities: No clubbing, cyanosis, or edema. Neuro: The patient has weakness of bilateral lower extremities. Musculoskeletal: Severe arthritic changes of the hands. Laboratory Data: Gentamicin peak 6.2. Blood cultures, no growth to date. Final PEG tube culture shows MRSA and Proteus. Assessment: A 69-year-old female with: 1. Small bowel obstruction. Patient now passing gas and cleared from GI standpoint. Abdominal x-ray did show improvement. We will advance diet as tolerated. 2. Infection of the PEG tube with methicillin-resistant Staphylococcus aureus and Proteus, multi-drug resistant. Patient currently on vancomycin and gentamicin. We will consider switching to meropenem. We will discuss with Surgery regarding replacement of PEG tube. 3. Chronic pain disorder, stable. 4. Gastroesophageal reflux disease without esophagitis. We will continue with home medications as appropriate. 5. Essential hypertension, stable. 6. Hypothyroidism, stable. 7. Multiple sclerosis. 8. Seizure disorder, stable. Continue seizure precautions. 9. Deep vein thrombosis prophylaxis with Lovenox. Plan: PICC line placement and discharge back to nursing facility for IV antibiotics for treatment of wound on the PEG site secondary to MRSA and Proteus. Consider ID consultation. FELICITAS Voice ID: [id number] Report ID: [id number] RACQUEL
[2019-06-09] MEDS: VANCOMYCIN 1.75 GM in NA CHLORIDE 0.9% 500 ML IVPB SCH (21:56)
[2019-06-09] MEDS: HYDRALAZINE HCL 20 MG/ML VIAL IV PRN (21:56)
[2019-06-10] MEDS: FOSPHENYTOIN PE 100 MG/2 ML VIAL IV SCH ×3 (02:08→16:13)
[2019-06-10] MEDS: Meropenem 500 MG in NA CHLORIDE 0.9% 100 ML IV SCH ×3 (02:09→16:30)
[2019-06-10] MEDS: NA CHLORIDE 0.9% 1,000 ML IV SCH (04:53)
[2019-06-10] MEDS: LEVOTHYROXINE SOD 0.088 MG TAB FT SCH (06:00)
[2019-06-10] MEDS: PANTOPRAZOLE 40 MG INJ IVP SCH (08:14)
[2019-06-10] MEDS: HOME MED 1 EA UNK (Cyclosporine [Restasis] 1 DROP) EACH EYE SCH ×2 (08:14→19:55)
[2019-06-10] MEDS: NALOXEGOL OXALATE 25 MG FT SCH (08:15)
[2019-06-10] MEDS: LACTOBACILLUS/ACIDOPHILUS TAB FT SCH ×2 (09:00→09:42)
[2019-06-10] MEDS ORDERED: LACTOBACILLUS ACIDOPHILUS FT SCH (09:00)
[2019-06-10] MEDS: ENOXAPARIN 40 MG/0.4 ML SQ SCH (16:15)
[2019-06-10] MEDS ORDERED: MAGNESIUM CITRATE 300 ML BOT PO SCH (18:00)
[2019-06-10] MEDS: VANCOMYCIN 1.75 GM in NA CHLORIDE 0.9% 500 ML IVPB SCH (21:35)
[2019-06-11] MEDS: HYDRALAZINE HCL 20 MG/ML VIAL IV PRN (00:32)
[2019-06-11] MEDS: FOSPHENYTOIN PE 100 MG/2 ML VIAL IV SCH ×2 (00:32→09:00)
[2019-06-11] MEDS: Meropenem 500 MG in NA CHLORIDE 0.9% 100 ML IV SCH ×2 (01:54→09:00)
--- NOTE | 2019-06-11 07:31 | DS ---
Consultants: Dr. Dubon, General Surgery. Procedures: None. Admitting Diagnoses: 1.Small bowel obstruction. 2.Chronic pain disorder. 3.Gastroesophageal reflux disease. 4.Hypertension. 5.Hypothyroidism. 6.Multiple sclerosis. 7.Seizure disorder. 8.History of methicillin-resistant Staphylococcus aureus infection. Discharge Diagnoses: 1.Small bowel obstruction, resolved, tolerating diet. 2.History of methicillin-resistant Staphylococcus aureus infection with recurrent cultures positive for methicillin-resistant Staphylococcus aureus and Proteus. 3.Chronic pain disorder, stable. 4.Gastroesophageal reflux disease without esophagitis, stable. 5.Essential hypertension, stable. 6.Hypothyroidism, stable. 7.Multiple sclerosis. 8.Dysphagia status post PEG tube. 9.Seizure disorder, stable. 10.Obesity. Hospital Course: Patient is a 69-year-old female with multiple comorbid conditions including MS with generalized weakness, is now wheelchair bound, hypertension, hypothyroidism, dysphagia status post P EG tube placement, coronary artery disease, seizure disorder, history of colorectal cancer, chronic p ain syndrome, who is a resident of [facility], comes in with abdominal pain. Patien t was found to have appearance of obstruction rather than ileus on the CT scan with dilation of the p roximal small bowel. It should be noted that patient does not receive PEG tube feeds through the PEG tube. Does receive some medications through the PEG tube. Dr. Dubon with Surgery was consulted. P atient was treated with conservative management with n.p.o. and bowel rest. Repeat abdominal x-ray s howed some improvement in the small bowel obstruction. Diet was re-initiated. Patient did well and was able to tolerate her diet. She had a recent history of MRSA infection of the PEG tube site. Thi s was re-cultured, grew out MRSA and Proteus which were multi-drug resistant. In addition to patient 's multiple drug allergies to penicillin and sulfa, she was placed on vancomycin, treated for a total of 7 days and with gentamicin for 3 days, which was then switched to meropenem. Her blood cultures remained negative. She did not show any further signs of infection. The tube site was nonerythemato us. Dr. Dubon, General Surgery, did not recommend any further treatment. I also spoke with Dr. Demarcus hernandez, as he knows the patient previously from [facility], who recommended no further IV antibiotic mary atment and follow up as an outpatient. Overall, patient did well. Her procalcitonin level was negat kirk. Her white blood cell count remained stable. She was then cleared for discharge and was sent ba ck to nursing facility in stable condition. Activity: Fall precautions. Transfers only. Diet: Modified diet, heart healthy. Followup: Follow up with PCP in 2 to 3 days. Follow up with ID, Dr. Herrera in 1 week. Return to ER for worsening condition. Medications: As per medication reconciliation list. Seizure precaution. Physical Examination: General: Awake, alert, oriented x3. Elderly female, obese. CV: S1, S2. Respiratory: Diminished breath sounds at the bases, otherwise moving air well. Gastrointestinal: Abdomen is soft, nontender, nondistended. Positive bowel sounds. PEG tube in adebayo ce. Extremities: No clubbing, cyanosis. Patient has mild pedal edema. Neuro: Patient has slurred speech, which is her baseline. Has weakness of the lower extremities Musculoskeletal: Severe arthritic changes. Skin: PEG tube in place. No surrounding erythema or signs of infection or drainage. Time Spent: Total time spent discharging the patient was 43 minutes. /SON Voice ID: [id number] Report ID: [id number]
[2019-06-11] MEDS: LEVOTHYROXINE SOD 0.088 MG TAB FT SCH (07:41)
[2019-06-11] MEDS: NALOXEGOL OXALATE 25 MG FT SCH (09:00)
[2019-06-11] MEDS: HOME MED 1 EA UNK (Cyclosporine [Restasis] 1 DROP) EACH EYE SCH (09:00)
[2019-06-11] MEDS: PANTOPRAZOLE 40 MG INJ IVP SCH (09:00)
[2019-06-11] MEDS: NA CHLORIDE 0.9% 1,000 ML IV SCH (09:45)
[2019-06-11 09:46] VITALS: O2SAT 98
[2019-06-11] MEDS: LACTOBACILLUS/ACIDOPHILUS TAB FT SCH (10:05)
[2019-06-11] MEDS ORDERED: PHENYTOIN 125 MG/5 ML ORAL.SUSP FT SCH (11:30)
[2019-06-11 12:35] VITALS: BP 130/79; TEMP 98.9
--- NOTE | 2019-06-11 18:13 | PN ---
Date of Progress Note: 06/11/2019 Subjective: Patient seen and examined. Chart reviewed and case discussed with RN. Patient was disc harged yesterday, however, not accepted back by nursing facility due to lack of bowel movement. Faby ent was given mag citrate, has now passed bowel movement. Medications: List reviewed. Physical Examination: Vital Signs: Temperature 97.6, heart rate 117, blood pressure 147/72, respirations 22, O2 97% on augustus m air. General: Awake, alert, oriented x3, not in any acute distress. Elderly female, obese. CV: S1, S2. Peripheral pulses present. Respiratory: Diminished breath sounds at the bases. No wheezing or stridor. Gastrointestinal: Abdomen is soft, nontender, nondistended. Positive bowel sounds. PEG tube site i n place. No signs of erythema. Extremities: No clubbing, cyanosis, edema. Neurologic: Patient has slurred speech. Contractures of lower extremities. Generalized weakness. Assessment: A 69-year-old female with; 1.Small bowel obstruction, resolving. Tolerating diet. Resolved. 2.History of methicillin-resistant Staphylococcus aureus infection with recurrent cultures positive for methicillin-resistant Staphylococcus aureus and Proteus on the PEG tube, treated. 3.Chronic pain disorder. Stable. 4.Gastroesophageal reflux disease without esophagitis. Stable. 5.Multiple sclerosis with generalized weakness. 6.Essential hypertension. Stable. 7.Hypothyroidism. Stable. 8.Dysphagia. Status post PEG tube. 9.Seizure disorder. Stable. 10.Obesity. Plan: Patient has been accepted back to [facility] once transportation has been set up. /SON Voice ID: [id number] Report ID: [id number]
== END 2019-06-11 14:40 | DRG 390 ==
LOC: ER 10:25 → ERHOLD 12:54 → 4TH 15:47
PROVIDERS: ADMIT Family Medicine; ATTEND Family Medicine
DX: K56.609 Unspecified intestinal obstruction, unspecified as to partial versus complete obstruction (principal); G89.4 Chronic pain syndrome; K21.9 Gastro-esophageal reflux disease without esophagitis; I10 Essential (primary) hypertension; E03.9 Hypothyroidism, unspecified; G35 Multiple sclerosis; R13.10 Dysphagia, unspecified; G40.909 Epilepsy, unspecified, not intractable, without status epilepticus; E66.9 Obesity, unspecified; Z68.27 Body mass index [BMI] 27.0-27.9, adult; I25.10 Atherosclerotic heart disease of native coronary artery without angina pectoris; Z93.1 Gastrostomy status; Z88.6 Allergy status to analgesic agent; Z88.0 Allergy status to penicillin; Z88.2 Allergy status to sulfonamides; Z85.038 Personal history of other malignant neoplasm of large intestine; Z66 Do not resuscitate; Z86.14 Personal history of Methicillin resistant Staphylococcus aureus infection
CPT/HCPCS: 36415; 71045; 74018; 74176; 80048; 80053; 80076; 80170; 80202; 82565; 83735; 83880; 84100; 84145; 84484; 85025; 85610; 87040; 87070; 87075; 87077; 87186; 87205; 93005; 94640; 94760; 96361; 96365; 96375; 99285; C9113; J0290; J0295; J0360; J1580; J1650; J3010; J3370; J7030; Q2009

== ENCOUNTER 2019-08-17 12:45 | Inpatient (IN) | payer OTHER ==
--- OUTSIDE RECORDS SUMMARY | 2019-08-17 12:47 | XMS REPORT ---
:1950 Demographics Address [facility] [address] [place] [address] Email Address NONE Preferred Language Unknown Marital Status Unknown Buddhism Affiliation Unknown Race Unknown Additional Race(s) Unavailable Ethnic Group Unknown [facility] [address] [place] [id number] Care Team Providers Name Role Phone Unavailable Unavailable Unavailable Problems This patient has no known problems. Allergies, Adverse Reactions, Alerts This patient has no known allergies or adverse reactions. Medications This patient has no known medications.
[2019-08-17 14:58] LABS: Absolute Lymphocytes (CBC) 1.2 K/uL (0.7-4.9); Basophils % 0.3 % (0-1.3); Hematocrit 48.4 % (36.0-45.0); Lymphocytes % 20.6 % (15.3-44.8); MPV 8.2 fL (7.6-11.3); RBC Red Blood Cell Count 5.25 M/uL (3.86-4.86)
--- NOTE | 2019-08-17 15:04 | RAD REPORT ---
EXAM DESCRIPTION: CT - Abdomen Pelvis Wo Contrast - 08/17/2019 2:34 pm CLINICAL HISTORY: ABD PAIN COMPARISON: Abdomen Pelvis Wo Contrast dated 06/04/2019 TECHNIQUE: Axial [address] imaging of the abdomen and pelvis was performed without IV contrast. No IV contrast was given because of allergy, abnormal renal function, patient refusal or physician re quest. No oral contrast. All CT scans are performed using dose optimization technique as appropriate and may include automated exposure control or mA/KV adjustment according to patient size. FINDINGS: Scarring or chronic atelectasis changes are present in the posterior gutter on the right. No pericardial thickening or effusion. Elevation of the right hemidiaphragm is present. Liver and spleen show no suspicious findings. Atrophy of the pancreatic parenchyma is present. A prim pearl pancreatic process is not seen. Gallbladder is not identified and is please surgically absent. No biliary tree dilatation. Right kidney is absent. Left kidney shows no hydronephrosis. Isodense masses and pyelonephritis are n ot excluded on a noncontrast study. No significant adrenal finding. Urinary bladder is fully contrac mar. No uterine or ovarian abnormality. Stomach is dilated mostly by fluid and a small amount of food. PEG tube is in place. No acute finding s. PEG tube appearance is similar to comparison. There is a marked dilatation of the small bowel including the duodenum. This extends to the mid ileum level. Distal ileum is decompressed. Transition point in the right mid abdomen does not show a focal mass. Patient may have internal hernia or adhesion. Finding is more pronounced than seen on the Sept ember examination. No free air or pneumatosis. No abnormal free fluid. No mass or bulky lymphadenopat hy. Prominent bony degenerative changes are present. An acute finding is not seen. IMPRESSION: Small bowel obstruction pattern to the mid ileum level with right mid abdomen transition point and decompressed distal ileum. At the transition point there is no focal mass. Patient most likely has internal hernia or adhesion. Prominent fluid dilated stomach. No free air, abscess or surgically emergent finding. Full assessment is limited is the absence of IV contrast.
[2019-08-17] MEDS ORDERED: MORPHINE 4 MG/ML SYR ONE (15:13)
[2019-08-17] MEDS ORDERED: ONDANSETRON 4 MG/2 ML VIAL ONE (15:13)
[2019-08-17 15:22] LABS: Albumin 3.5 g/dL (3.4-5.0); Bilirubin Total 0.5 mg/dL (0.2-1.0); Potassium 4.3 mmol/L (3.5-5.1); Protein, Total 7.7 g/dL (6.4-8.2)
--- NOTE | 2019-08-17 15:26 | ER ---
Nurse's Notes [facility] Name: Suad Cuenca Age: 69 yrs Sex: Female : 1950 Arrival Date: 08/17/2019 Time: 12:44 Bed 15 Private MD: Diagnosis: Small Bowel Obstruction Presentation: 08/17 12:44 Risk Assessment: Do you want to hurt yourself or someone else? Patient reports no aa5 desire to harm self or others. Initial Sepsis Screen: Does the patient meet any 2 criteria? HR > 90 bpm. Does the patient have a suspected source of infection? No. Patient's initial sepsis screen is negative. 12:44 Acuity: TRICIA 3 aa5 12:44 Presenting complaint: EMS states: nausea/vomiting and generalized abd pain that began 3 aa5 days ago. Pt has PEG tube. Transition of care: patient was received from another setting of care (long-term care facility), [facility]. Onset of symptoms was July 2019. Care prior to arrival: Glucose check: 170. 12:44 Method Of Arrival: EMS: [facility] aa5 Historical: - Allergies: 12:48 Bleach (Sodium Hypochlorite); aa5 12:48 bug spray; aa5 12:48 diazepam; aa5 12:48 Iodine; aa5 12:48 PENICILLINS; aa5 12:48 Pork/Porcine Containing Products; aa5 12:48 Sulfa (Sulfonamide Antibiotics); aa5 - Home Meds: 17:32 magnesium citrate Oral soln daily for Constipation [Active]; alprazolam 0.25 mg Oral vc tab 1 tab twice a day for Anxiety [Active]; isosorbide dinitrate 10 mg Oral tab 1 tab daily [Active]; magnesium oxide 400 mg Oral tab daily [Active]; Multiple Vitamins Oral tab daily [Active]; Movantik 25 mg Oral tab 1 tab once daily [Active]; metoprolol tartrate 25 mg Oral tab 1 tab once daily [Active]; Vitamin B-12 1,000 mcg Oral tab daily [Active]; oxybutynin chloride 5 mg Oral tab 1 tab at bedtime for Urinary Urge Incontinence [Active]; phenobarbital 20 mg/5 mL (4 mg/mL) Oral elix 15 mL 2 times per day for Seizure Disorder [Active]; restasis emulsion 0.05% [Active]; lactulose 10 gram/15 mL (15 mL) Oral soln 30 mL twice a day for Constipation [Active]; gabapentin 300 mg oral cap 1 cap 3 times per day for Neuropathic Pain [Active]; Urecholine 25 mg Oral tab 1 tab 4 times per day for Cauda Equina Syndrome [Active]; cyclobenzaprine 10 mg Oral tab 1 tab 2 times per day for Muscle Spasm [Active]; Zofran (as hydrochloride) 4 mg Oral tab 1 tabs 3 times per day for Acute Gastroenteritis-related Vomiting in Pediatrics [Active]; ranitidine HCl 15 mg/mL Oral syrp 20 mL once daily [Active]; loperamide 1 mg/7.5 mL Oral liqd 30 mL [Active]; 17:46 levothyroxine 88 mcg tab 1 tab once daily for Hypothyroidism [Active]; phenytoin 125 vc mg/5 mL Oral susp 5 mL daily for Epilepsy [Active]; Lactobacillus acidophilus-pectin oral oral [Active]; Fosamax 70 mg Oral tab 1 tab once wkly for Post-Menopausal Osteoporosis [Active]; Calcium+D oral 600-400 mg unit oral twice a day for Osteoporosis [Active]; hydrocodone-acetaminophen 10-325 mg Oral tab 1 tab every 8 hours for Pain [Active]; - PMHx: 12:48 Anemia; Anxiety; arthropathy; CAUDA EQUINA SYNDROME; chronic pulmonary edema; aa5 congnitive communication deficit; Depression; dermatitis; Diabetes - IDDM; Dry Eye; epilepsy; Hypothyroidism; Multiple Sclerosis; MUSCLE WEAKNESS; Osteoporosis; - Immunization history:: Flu vaccine is not up to date. It has been more than one year since last vaccine. - Ebola Screening: : No symptoms or risks identified at this time. - Social history:: Smoking status: Patient/guardian denies using tobacco. Screenin:05 Abuse screen: Denies threats or abuse. Nutritional screening: Difficulty vc chewing/swallowing? Yes Has had N/V for 3 or more days Patient has g tube.. Tuberculosis screening: No symptoms or risk factors identified. Fall Risk Secondary diagnosis (15 points) seizures, impaired mobility, IV access (20 points). Gait- Normal/Bed Rest/Wheelchair (0 pts). Sepsis Screening: . Infection: Patient has no suspected or documented infection. Exposure risk/Travel Screening: None identified. Assessment: 13:00 General: Appears uncomfortable, obese, unkempt, Behavior is cooperative, agitated, vc Reports nausea,vomiting,and "very bad" abdominal pain. Pain: Complains of pain in abdomen Pain currently is 9 out of 10 on a pain scale. Quality of pain is described as sharp, Pain began 2-3 days ago. Is continuous. 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 Reports weakness moderate in bilateral arms and hands. Severe weakness and bilateral foot drop noted. Cardiovascular: Chest pain is denied. Respiratory: Airway is patent Respiratory effort is even, unlabored. GI: Abdomen is distended, obese, Oral gastric tube in place, clamped. Site clean. Bowel sounds diminished in right lower quadrant and left lower quadrant Abdomen is tender to palpation Guarding noted in right upper quadrant and right lower quadrant. : patient wearing a brief. Derm: Skin with poor turgor Skin temperature is cool scar noted on abdomen. Musculoskeletal: Range of motion: limited in all extremities. 15:45 Reassessment: Patient is alert, oriented x 3, equal unlabored respirations, skin vc warm/dry/pink. Patient states symptoms have not improved. 16:30 Reassessment: Patient is alert, oriented x 3, equal unlabored respirations, skin vc warm/dry/pink. Patient states feeling better. Patient states symptoms have improved. Patient states feeling much better after peg tube placed to suction.. 17:30 Reassessment: Patient resting with eyes closed, equal and unlabored respirations.. vc 18:55 Reassessment: Patient is alert, oriented x 3, equal unlabored respirations, skin vc warm/dry/pink. Patient denies pain at this time. Bedside report given to ISIDORO Aguilar. 19:00 Reassessment: Patient appears in no apparent distress at this time. Patient resting, lp1 eyes closed, respirations unlabored. GI: PEG tube in place, to suction. low intermittent suction. Musculoskeletal: foot drop noted to bilateral feet. 19:26 Reassessment: Attempted to call report at this time. lp1 Vital Signs: 12:45 BP 131 / 81; Pulse 99; Resp 18 S; Temp 98.2(O); Pulse Ox 98% on R/A; aa5 13:00 BP 113 / 65; Pulse 97; Pulse Ox 96% ; vc 13:15 BP 137 / 52; Pulse 90; Pulse Ox 93% ; vc 15:30 BP 151 / 102; Pulse 96; Resp 20; Pulse Ox 93% ; vc 16:40 BP 144 / 93; Pulse 93; Resp 20; Temp 98.5; Pulse Ox 94% ; Pain 5/10; vc 17:30 BP 123 / 78; Pulse 95; Resp 18; Temp 98.4; Pulse Ox 97% on R/A; vc 18:15 BP 147 / 90; Pulse 92; Resp 20; Temp 98.7; Pulse Ox 93% on R/A; Pain 3/10; vc 18:40 BP 139 / 76; vc 18:43 BP 156 / 88; Pulse 93; Pulse Ox 94% ; vc ED Course: 12:44 Patient arrived in ED. aa5 12:44 Arm band placed on. aa5 12:47 Varun Stone MD is Attending Physician. ps1 12:55 Triage completed. aa5 13:00 Patient has correct armband on for positive identification. Bed in low position. Side vc rails up X2. Pulse ox on. NIBP on. Door closed. Lights dimmed. Repositioned patient. 13:05 EKG done, by scale technician. reviewed by Varun Stone MD. sm3 13:50 Renetta Caballero, RN is Primary Nurse. aa5 14:10 Missed attempt(s): 22 gauge in left forearm. vc 14:20 Missed attempt(s): 22 gauge in left antecubital area. Bleeding controlled, band aid aa5 applied, catheter tip intact. 14:25 Missed attempt(s): 22 gauge in right forearm. Bleeding controlled, band aid applied, aa5 catheter tip intact. 14:27 Missed attempt(s): 22 gauge in right forearm. Bleeding controlled, band aid applied, aa5 catheter tip intact. 14:35 Inserted saline lock: 24 gauge in left ,using aseptic technique. anterior shoulder by vc Patti Mcdonough RN. 14:41 CT Abd/Pelvis - Without Contrast In Process Unspecified. EDMS 15:25 Donna Martinez MD is Hospitalizing Provider. ps1 16:25 Straight cath inserted, using sterile technique, 16 Fr. Specimen obtained. Placed peg vc tube to intermittent suctioning per . 16:29 Urine Dipstick--Ancillary (enter results) Sent. vc 16:29 Urine Culture Sent. vc 16:29 Urine Microscopic Only Sent. vc 18:37 No provider procedures requiring assistance completed. vc 19:03 Report given to Lauren Marshall RN. vc 19:16 Patient admitted, IV remains in place. lp1 Administered Medications: 15:28 Drug: morphine 4 mg Route: IVP; Site: Other; vc 15:45 Follow up: Response: No adverse reaction; Pain is unchanged, physician notified vc 15:28 Drug: Zofran 4 mg Route: IVP; Site: Other; vc 15:45 Follow up: Response: No adverse reaction vc 16:30 Drug: Rocephin - (cefTRIAXone) 1 grams {Note: given slow, iv push per pharmacy at this vc time..} Route: IVPB; Infused Over: 2 mins; Site: Other; 18:43 Follow up: BP 156 / 88; Pulse 93 bpm; Pulse Ox 94% vc 16:44 CANCELLED (Duplicate Order): Rocephin - (cefTRIAXone) 1 grams IVPB once over 30 mins; vc (mix in 50 mL NS) Intake: 19:30 From PEG tube to intermittent suction lp1 Output: 19:30 Gastric: 350ml; Total: 350ml. lp1 19:30 From PEG tube to intermittent suction lp1 Outcome: 15:25 Decision to Hospitalize by Provider. ps1 19:17 Condition: stable lp1 19:17 Instructed on the need for admit. 19:39 Admitted to Tele via stretcher, room 411, with chart, Report called to ISIDORO Miranda lp1 19:51 Patient left the ED. lp1 Signatures: Dispatcher [employer] EDMS Renetta Caballero RN RN aa5 Lauren Marshall RN RN lp1 Varun Stone MD MD ps1 Renetta Bear sm3 Jacklyn Bae RN RN vc Corrections: (The following items were deleted from the chart) 14:54 14:34 General: Appears distressed, uncomfortable, obese, unkempt, Behavior is vc cooperative, agitated, Reports nausea,vomiting,and "very bad" abdominal pain. vc 14:54 14:34 Pain: Complains of pain in abdomen Pain currently is 9 out of 10 on a pain scale. vc Quality of pain is described as sharp, Pain began 2-3 days ago. 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 Reports weakness moderate in bilateral arms and hands. Severe weakness and bilateral foot drop noted. vc 14:54 14:34 Cardiovascular: Chest pain is denied vc vc 14: 14:34 Respiratory: Airway is patent Respiratory effort is even, unlabored, vc vc 14:54 14:34 GI: Abdomen is distended, obese, Oral gastric tube in place, clamped. Site clean. vc Bowel sounds diminished in right lower quadrant and left lower quadrant Abdomen is tender to palpation Guarding noted in right upper quadrant and right lower quadrant vc 14: 14:34 : patient wearing a brief. vc vc 14:54 14:34 EENT: vc vc 14: 14:34 Derm: Skin with poor turgor Skin temperature is cool scar noted on abdomen. vc vc 14:54 14:34 Musculoskeletal: Range of motion: limited in all extremities, vc vc 14:59 14:10 Inserted saline lock: 24 gauge in left ,using aseptic technique. anterior vc shoulder Missed attempt(s): 22 gauge in right forearm. vc 15:00 14:10 Inserted saline lock: 24 gauge in left ,using aseptic technique. anterior vc shoulder by Patti Mcdonough RN Missed attempt(s): 22 gauge in right forearm. vc 15: 15:02 Abuse screen: Denies threats or abuse. vc vc 15: 15:02 Nutritional screening: Difficulty chewing/swallowing? Yes Has had N/V for 3 or vc more days Patient has g tube.. vc 15:05 15:02 Tuberculosis screening: No symptoms or risk factors identified. vc vc 15:05 15:02 Fall Risk Secondary diagnosis (15 points) seizures, impaired mobility, IV access vc (20 points). Gait- Normal/Bed Rest/Wheelchair (0 pts) vc 15:05 15:02 Sepsis Screening: . Infection: Patient has no suspected or documented infection. vc vc 15:05 15:02 Exposure risk/Travel Screening: None identified. vc vc 17:48 12:48 Allergies: Aspirin; aa5 vc 17:48 17:47 Allergies: Aspirin; vc vc 18:48 18:44 BP 148 / 125; Pulse 97 bpm vc vc 18:48 18:44 BP 148 / 125; Pulse 97 bpm; Resp 20 bpm; Pulse Ox 93% ; Pain 04/01 Adult vc vc 19:14 13:00 General: Appears distressed, uncomfortable, obese, unkempt, Behavior is aa5 cooperative, agitated, Reports nausea,vomiting,and "very bad" abdominal pain. vc
--- NOTE | 2019-08-17 15:27 | EDPHYS ---
Physician Documentation [facility] Name: Suad Cuenca Age: 69 yrs Sex: Female : 1950 Arrival Date: 08/17/2019 Time: 12:44 Bed 15 Private MD: ED Physician Varun Stone HPI: 08/17 14:03 This 69 yrs old Female presents to ER via EMS with complaints of Abdominal ps1 Pain, Nausea/Vomiting. 14:03 patient has extended medical history with previous exlap. 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 Has PEG tube and trach. Here for abdominal pain. States she cannot pass gas. Pain mostly in epigastrium. No remitting factors. BIBEMS. Rates pain as moderate to severe. . Historical: - Allergies: 12:48 Bleach (Sodium Hypochlorite); aa5 12:48 bug spray; aa5 12:48 diazepam; aa5 12:48 Iodine; aa5 12:48 PENICILLINS; aa5 12:48 Pork/Porcine Containing Products; aa5 12:48 Sulfa (Sulfonamide Antibiotics); aa5 - Home Meds: 17:32 magnesium citrate Oral soln daily for Constipation [Active]; alprazolam 0.25 mg Oral vc tab 1 tab twice a day for Anxiety [Active]; isosorbide dinitrate 10 mg Oral tab 1 tab daily [Active]; magnesium oxide 400 mg Oral tab daily [Active]; Multiple Vitamins Oral tab daily [Active]; Movantik 25 mg Oral tab 1 tab once daily [Active]; metoprolol tartrate 25 mg Oral tab 1 tab once daily [Active]; Vitamin B-12 1,000 mcg Oral tab daily [Active]; oxybutynin chloride 5 mg Oral tab 1 tab at bedtime for Urinary Urge Incontinence [Active]; phenobarbital 20 mg/5 mL (4 mg/mL) Oral elix 15 mL 2 times per day for Seizure Disorder [Active]; restasis emulsion 0.05% [Active]; lactulose 10 gram/15 mL (15 mL) Oral soln 30 mL twice a day for Constipation [Active]; gabapentin 300 mg oral cap 1 cap 3 times per day for Neuropathic Pain [Active]; Urecholine 25 mg Oral tab 1 tab 4 times per day for Cauda Equina Syndrome [Active]; cyclobenzaprine 10 mg Oral tab 1 tab 2 times per day for Muscle Spasm [Active]; Zofran (as hydrochloride) 4 mg Oral tab 1 tabs 3 times per day for Acute Gastroenteritis-related Vomiting in Pediatrics [Active]; ranitidine HCl 15 mg/mL Oral syrp 20 mL once daily [Active]; loperamide 1 mg/7.5 mL Oral liqd 30 mL [Active]; 17:46 levothyroxine 88 mcg tab 1 tab once daily for Hypothyroidism [Active]; phenytoin 125 vc mg/5 mL Oral susp 5 mL daily for Epilepsy [Active]; Lactobacillus acidophilus-pectin oral oral [Active]; Fosamax 70 mg Oral tab 1 tab once wkly for Post-Menopausal Osteoporosis [Active]; Calcium+D oral 600-400 mg unit oral twice a day for Osteoporosis [Active]; hydrocodone-acetaminophen 10-325 mg Oral tab 1 tab every 8 hours for Pain [Active]; - PMHx: 12:48 Anemia; Anxiety; arthropathy; CAUDA EQUINA SYNDROME; chronic pulmonary edema; aa5 congnitive communication deficit; Depression; dermatitis; Diabetes - IDDM; Dry Eye; epilepsy; Hypothyroidism; Multiple Sclerosis; MUSCLE WEAKNESS; Osteoporosis; - Immunization history:: Flu vaccine is not up to date. It has been more than one year since last vaccine. - Ebola Screening: : No symptoms or risks identified at this time. - Social history:: Smoking status: Patient/guardian denies using tobacco. ROS: 14:03 Constitutional: Negative for fever, chills, and weight loss, ENT: Negative for injury, ps1 pain, and discharge, Cardiovascular: Negative for chest pain, palpitations, and edema, Respiratory: Negative for shortness of breath, cough, wheezing, and pleuritic chest pain. 14:03 Neuro: Negative for headache, weakness, numbness, tingling, and seizure, Psych: Negative for depression, anxiety, suicide ideation, homicidal ideation, and hallucinations. 14:03 Abdomen/GI: Positive for abdominal pain, nausea and vomiting. 14:03 MS/extremity: Positive for weakness (chronic lower extremity). Exam: 14:03 Constitutional: This is a well developed, well nourished patient who is awake, alert, ps1 and in no acute distress. Head/Face: Normocephalic, atraumatic. 14:03 Chest/axilla: Normal chest wall appearance and motion. Nontender with no deformity. No lesions are appreciated. Cardiovascular: Regular rate and rhythm. No gallops, murmurs, or rubs. Normal PMI, no JVD. No pulse deficits. 14:03 Eyes: Periorbital structures: appear normal, Pupils: equal, round, and reactive to light and accomodation, amblyopia, Extraocular movements: intact throughout, Corneas: are normal. 14:03 Abdomen/GI: Inspection: scar(s), are noted in the suprapubic area, right upper quadrant and right lower quadrant, PEG tub present, Bowel sounds: normal, Palpation: mild abdominal tenderness, in the right upper quadrant. 18:36 ECG was reviewed by the Attending Physician. ps1 Vital Signs: 12:45 BP 131 / 81; Pulse 99; Resp 18 S; Temp 98.2(O); Pulse Ox 98% on R/A; aa5 13:00 BP 113 / 65; Pulse 97; Pulse Ox 96% ; vc 13:15 BP 137 / 52; Pulse 90; Pulse Ox 93% ; vc 15:30 BP 151 / 102; Pulse 96; Resp 20; Pulse Ox 93% ; vc 16:40 BP 144 / 93; Pulse 93; Resp 20; Temp 98.5; Pulse Ox 94% ; Pain 5/10; vc 17:30 BP 123 / 78; Pulse 95; Resp 18; Temp 98.4; Pulse Ox 97% on R/A; vc 18:15 BP 147 / 90; Pulse 92; Resp 20; Temp 98.7; Pulse Ox 93% on R/A; Pain 3/10; vc 18:40 BP 139 / 76; vc 18:43 BP 156 / 88; Pulse 93; Pulse Ox 94% ; vc MDM: 13:44 Patient medically screened. ps1 15:25 Data reviewed: vital signs, nurses notes, lab test result(s), radiologic studies. ps1 Counseling: I had a detailed discussion with the patient and/or guardian regarding: the historical points, exam findings, and any diagnostic results supporting the discharge/admit diagnosis, radiology results, the need for further work-up and treatment in the hospital. ED course: Dropped NG tube. Consulted surgery 1520. Admitted to hospitalist 1527, transitioned care to Dr. Martinez. . 08/17 13:43 Order name: CBC with Diff; Complete Time: 15:02 ps1 08/17 13:44 Order name: CMP; Complete Time: 15:24 ps1 08/17 13:44 Order name: Lipase; Complete Time: 15:24 ps1 08/17 13:44 Order name: Troponin (emerg Dept Use Only); Complete Time: 15:24 ps1 08/17 16:15 Order name: Urine Microscopic Only la1 08/17 16:15 Order name: Urine Culture la1 08/17 13:44 Order name: CT Abd/Pelvis - Without Contrast; Complete Time: 15:15 ps1 08/17 16:22 Order name: Urine Dipstick--Ancillary (enter results) bd 08/17 16:37 Order name: Urine Microscopic Only; Complete Time: 16:38 EDMS 08/17 16:38 Order name: Urine Dipstick-Ancillary; Complete Time: 16:38 EDMS 08/17 13:44 Order name: Urine Dipstick-Ancillary (obtain specimen); Complete Time: 18:41 ps1 08/17 16:02 Order name: EKG Electrocardiogram; Complete Time: 16:29 EDMS EC:55 Rate is 99 beats/min. Rhythm is regular. QRS [place] is Normal. ID interval is normal. QRS ps1 interval is normal. QT interval is normal. No Q waves. T waves are Flattened in leads V2, V3, V4, V5, V6. No ST changes noted. Clinical impression: NSR w/ Non-specific ST/T Changes. Administered Medications: 15:28 Drug: morphine 4 mg Route: IVP; Site: Other; vc 15:45 Follow up: Response: No adverse reaction; Pain is unchanged, physician notified vc 15:28 Drug: Zofran 4 mg Route: IVP; Site: Other; vc 15:45 Follow up: Response: No adverse reaction vc 16:30 Drug: Rocephin - (cefTRIAXone) 1 grams {Note: given slow, iv push per pharmacy at this vc time..} Route: IVPB; Infused Over: 2 mins; Site: Other; 18:43 Follow up: BP 156 / 88; Pulse 93 bpm; Pulse Ox 94% vc 16:44 CANCELLED (Duplicate Order): Rocephin - (cefTRIAXone) 1 grams IVPB once over 30 mins; vc (mix in 50 mL NS) Disposition: 08/17/19 15:25 Hospitalization ordered by Donna Martinez for Inpatient Admission. Preliminary diagnosis is Small Bowel Obstruction. - Bed requested for Telemetry/MedSurg (Inpatient). - Status is Inpatient Admission. lp1 - Condition is Stable. - Problem is new. - Symptoms are unchanged. UTI on Admission? No Signatures: Dispatcher [employer] EDME Yanelis Gray RN RN Renetta Caballero RN RN aa5 Patti Mcdonough RN RN ss Lauren Marshall RN RN lp1 Varun Stone MD MD ps1 Jacklyn Bae RN RN vc Corrections: (The following items were deleted from the chart) 15:53 15:17 NG Tube ordered. ss vc 16:44 16:39 Rocephin - (cefTRIAXone) 1 grams IVPB once over 30 mins; (mix in 50 mL NS) vc ordered. ps1 17:48 12:48 Allergies: Aspirin; aa5 vc 17:48 17:47 Allergies: Aspirin; vc vc 18:20 15:25 Hospitalization Ordered by Donna Martinez MD for Inpatient Admission. Preliminary dw diagnosis is Small Bowel Obstruction. Bed requested for Telemetry/MedSurg (Inpatient). Status is Inpatient Admission. Condition is Stable. Problem is new. Symptoms are unchanged. UTI on Admission? No. ps1 19:51 18:20 08/17/2019 15:25 Hospitalization Ordered by Donna Martinez MD for Inpatient lp1 Admission. Preliminary diagnosis is Small Bowel Obstruction. Bed requested for Telemetry/MedSurg (Inpatient). Status is Inpatient Admission. Condition is Stable. Problem is new. Symptoms are unchanged. UTI on Admission? No. dw
[2019-08-17] MEDS ORDERED: CEFTRIAXONE/SWI 1gm 1 GM/10 ML SYR ONE (16:19)
--- NOTE | 2019-08-17 16:30 | EKG ---
Test Date: 2019-08-17 Test Time: 12:55:09 Stock Or Delivery Clerk: GEOVANNA MEASUREMENT RESULTS: Intervals: Rate: 99 OR: 160 QRSD: 70 QT: 384 QTc: 492 [place]: P: 61 OR: 160 QRS: 11 T: 57 INTERPRETIVE STATEMENTS: Normal sinus rhythm Nonspecific T wave abnormality Abnormal ECG Compared to ECG 06/04/2019 10:51:00 T-wave abnormality now present Electronically Signed On 08-17-19 16:29:37 [employer]NATIONAL PROJECT ENGINEER by Ramana Farias
[2019-08-17 16:37] LABS: Urine Blood 1+ (NEG); Urine Glucose TRACE (NEG); Urine Protein 3+ (NEG)
[2019-08-17 16:37] LABS: Urine Bacteria >50 /HPF (<20); Urine Culture Reflex Order NOT NEEDED; Urine Mucus 3+ /HPF (NONE SEEN)
[2019-08-17] MEDS: D5.45NS W/KCL 20MEQ 1,000 ML IV SCH ×2 (19:57→22:49)
[2019-08-17] MEDS ORDERED: ACETAMINOPHEN 650MG/RECT SUPP RECT PRN (19:57)
[2019-08-17 22:31] VITALS: BMI 25.4
[2019-08-17] MEDS: MORPHINE 2 MG/ML SYR IV PRN (22:48)
[2019-08-17] MEDS: ONDANSETRON 4 MG/2 ML VIAL IV PRN (22:48)
[2019-08-18] MEDS ORDERED: Meropenem 1 GM/100 ML BAG ONE (00:54)
[2019-08-18] MEDS: Meropenem 1,000 MG in NA CHLORIDE 0.9% 100 ML IV SCH ×3 (01:00→16:33)
[2019-08-18] MEDS ORDERED: Meropenem 500 MG VIAL IV SCH (01:00)
--- NOTE | 2019-08-18 03:58 | HP ---
Date of Admission: 08/17/2019 Primary Care Physician: At the [facility]. Code Status: Do not resuscitate. Patient states that she has had multiple cancers, nephrectomy. She has had generalized weakness and is bed bound, unable to transfer herself to the wheelchair herself, does not wish to be resuscitated in case of emergency. Chief Complaint: Nausea, vomiting, abdominal discomfort. 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 Mccall with General Surgery. History Of Present Illness: Patient is a 69-year-old female with past medical history of multiple small-bowel obstructions, most recently in May 2019, who is a resident of [facility] at [facility], who also has seizure disorder , multiple sclerosis, is bed-bound, history of colorectal cancer status post PEG tube, has heart disease, history of nephrectomy, neurogenic bladder, chronic pain syndrome, depression, anxiety, comes in with sudden onset of nausea , multiple episodes of vomiting has been ongoing for the past couple of days. Patient reports similar symptoms in the past with her small bowel obstruction. Patient unable to keep any food down, therefore comes in to the hospital for further evaluation. Patient's workup revealed normal WBC count. Electrolytes were within normal limits. CT scan of the abdomen and pelvis showed small bowel obstruction to the mid ileum level with right mid abdomen transition point and decompressed distal ileum. Patient had NG tube placed for decompression. Patient was then referred for admission for further evaluation. When seen in the ER, she was awake, alert, oriented x3. Feeling better since suctioning from the PEG tube site. Past Medical History: Seizure disorder, multiple sclerosis, history of colorectal cancer, anemia, coronary artery disease, history of nephrectomy, neurogenic bladder, history of multiple bowel obstructions, now with PEG tube, chronic pain syndrome, depression and anxiety. Past Surgical History: Bowel surgery, PEG tube placement, kidney stone removal , tracheostomy, vein surgery. Allergies: TO ASPIRIN, DIAZEPAM, PENICILLIN, RED YEAST RICE ALLERGY, BLEACH, SULFA. Medications: List reviewed. Social History: Denies any alcohol use, illicit drug use, or tobacco use. Patient is a [facility] resident for the past 20 years. No children. Power of tax attorney is her brother. Review of Systems: Ten-point system reviewed, negative except as per HPI. Physical Examination: Vital Signs: Blood pressure 131/81, pulse 99, respirations 18, temperature 98.2 , O2 98% on room air. General: Awake, alert, oriented x3. Elderly female, in some mild distress due to pain. HEENT: Normocephalic, atraumatic. PERRLA. EOMI. Moist mucous membranes. Oropharynx is clear. Conjunctivae anicteric. Neck: Supple. No JVD. Trachea midline. CV: S1, S2. Sinus rhythm. No murmurs. Peripheral pulses present. Respiratory: Diminished breath sounds at the bases. No wheezing or stridor. No use of accessory muscles. Gastrointestinal: Abdomen is soft. Tenderness to palpation. Mildly distended. Hypoactive bowel sounds. PEG tube in place, now with NG tube suctioning. Extremities: No clubbing or cyanosis. Patient has pedal edema. Neuro: Cranial nerves 2 through 12 intact grossly. Patient has altered speech , which is her normal baseline. Patient has severe weakness of the lower extremities. Able to wiggle her toes, 1/5 strength bilateral lower extremities , 3/5 upper extremities bilaterally. Psych: Mood is okay. Affect is full. Insight and judgment are good. Laboratory Data: Sodium 140, potassium 4.3, chloride 101, CO2 of 33, BUN 35, creatinine 1.01, glucose 158, calcium 8.9, AST 11, ALT 19. Troponin less than 0.02. WBC 5.8, H and H 16.4 and 48.4, platelets 281. UA; positive nitrite, trace leukocyte esterase, 10-20 rbc's 10-20 wbc's, greater than 50 bacteria. Imaging Study: CT scan of the abdomen shows small-bowel obstruction pattern to the mid ileum level with right mid abdomen transition point and decompressed distal ileum. At the transition point, there is no focal mass. Patient most likely has internal hernia or adhesion. Prominent fluid dilated stomach. No free air, abscess, or surgically emergent finding. Patient has right nephrectomy, elevation of the right hemidiaphragm. EKG shows normal sinus rhythm, rate of 99, nonspecific T-wave abnormality. Assessment: A 69-year-old female with: 1. Small bowel obstruction, recurrent. Patient has a transition point. We will start with conservative treatment. NG tube is in place at the PEG tube site with suctioning. Dr. Mccall has been consulted by the ER. We will keep n.p.o. Patient may need surgical intervention if failed conservative treatment likely due to adhesions. 2. Acute cystitis with hematuria. We will start on IV antibiotics. Patient has history of Pseudomonas multi-drug resistant. Allergic to penicillin. We will start on meropenem. We will follow up on urine culture. 3. Chronic pain syndrome. 4. Multiple sclerosis. Patient is bed bound. 5. Essential hypertension. Resume home medications as appropriate. 6. History of seizure disorder. We will continue with Dilantin, place on seizure precautions. 7. History of colorectal cancer status post bowel surgery. 8. Status post PEG tube placement. 9. Coronary artery disease [place] artery and [place] heart without angina. 10. Status post right nephrectomy. 11. Neurogenic bladder. 12. Depression, major depressive disorder. 13. Generalized anxiety disorder, stable. 14. Hypothyroidism. Continue levothyroxine. Plan: We will resume home medications as appropriate. We will admit the patient as inpatient. Length of stay greater than 2 midnights. FELICITAS Voice ID: [id number] [email or web address]
[2019-08-18] MEDS: MORPHINE 2 MG/ML SYR IV PRN ×3 (04:32→22:04)
[2019-08-18] MEDS: ONDANSETRON 4 MG/2 ML VIAL IV PRN ×2 (04:33→22:04)
[2019-08-18] MEDS: D5.45NS W/KCL 20MEQ 1,000 ML IV SCH ×3 (05:57→15:57)
[2019-08-18 07:09] LABS: Absolute Lymphocytes (CBC) 1.2 K/uL (0.7-4.9); Basophils % 0.4 % (0-1.3); Lymphocytes % 21.8 % (15.3-44.8); MPV 8.7 fL (7.6-11.3); RBC Red Blood Cell Count 5.02 M/uL (3.86-4.86)
[2019-08-18 07:36] LABS: Albumin 3.3 g/dL (3.4-5.0); Bilirubin Total 0.3 mg/dL (0.2-1.0); Magnesium 2.9 mg/dL (1.8-2.4); Phosphorus 4.6 mg/dL (2.5-4.9); Potassium 4.3 mmol/L (3.5-5.1); Protein, Total 7.3 g/dL (6.4-8.2)
--- NOTE | 2019-08-18 09:00 | EKG ---
Test Date: 2019-08-18 Test Time: 04:28:49 Entertainment Centre Manager: RT MEASUREMENT RESULTS: Intervals: Rate: 107 OR: 158 QRSD: 68 QT: 338 QTc: 451 Tiff: P: 63 OR: 158 QRS: 23 T: 70 INTERPRETIVE STATEMENTS: Sinus tachycardia Otherwise normal ECG Compared to ECG 08/17/2019 12:55:09 Sinus rhythm no longer present T-wave abnormality no longer present Electronically Signed On 08-18-19 08:59:52 CONTRACTING ANALYST by Fazal Grande
[2019-08-18] MEDS ORDERED: HOME MED 1 EA UNK (Ipratropium/Albuterol Sulfate [Iprat-Albut 0.5-3(2.5) Mg/3 Ml] 3 ML) IH PRN (11:17)
[2019-08-18] MEDS ORDERED: ALBUTEROL 2.5 MG/3 ML NEB SOL IH PRN (11:28)
[2019-08-18] MEDS ORDERED: IPRATROPIUM BROM 0.5MG/2.5ML IH PRN (11:28)
--- NOTE | 2019-08-18 11:54 | RAD REPORT ---
EXAM DESCRIPTION: RAD - Abdomen Acute Series - 08/18/2019 11:46 am CLINICAL HISTORY: PEG tube Bowel obstruction COMPARISON: Chest Single View dated 06/07/2019; Chest Single View dated 06/04/2019; Chest Single View dated 11/19/2016; Chest Single View dated 11/16/2016; Abdomen Pelvis Wo Contrast dated 08/17/2019 FINDINGS: Markedly distended small bowel loops are seen a stacked manner in the abdomen compatible w ith small bowel obstruction. Pneumoperitoneum is not identified. The G-tube is noted. No pathologic c alcifications. IMPRESSION: Moderately severe mechanical small bowel obstruction.
[2019-08-18] MEDS ORDERED: MINERAL OIL 30 ML UCUP PO ONE (12:47)
--- NOTE | 2019-08-18 14:22 | P.CNS ---
PC: I was asked to see this 69-year-old female who presents emergency room with abdominal pain nausea vomiting. HPC: This patient is known to me item taking care of her on previous occasions. She is a 69-year-old who has multiple scleroses. [facility] [place]. She has a feeding tube as she is not able to maintain adequate nutritional support orally. She had been doing well until a couple days ago when she had sudden onset of severe abdominal pain. She is brought to the emergency for evaluation. It is interesting to note that about 2-3 days ago she also ate some broccoli. She has minimal dentition. PMH: Multiple scleroses PSHx: Previous exploratory laparotomies, feeding to SOC: Noted SYS REVIEW: Actually states she has been doing well. Has not been in the hospital with this problem for AE your 2. O/E awake alert uncomfortable at the moment HEENT: Normal for her Chest: Air entry equal bilateral ABD: Abdomen is soft but tympanic all over LOCO: Intact DATA: CT scan demonstrates dilation of the small bowel down to the mid ileum. No free air IMPRESSION: This patient, has partial small-bowel obstruction. She has some dietary indiscretion which I believe is the cause of this. She is had an NG tube in overnight, and feels much improved. PLAN: Continue current therapy, will give the patient mineral oil p.o.. I am anticipating that this issue will resolve by itself.
--- NOTE | 2019-08-18 16:26 | PN ---
Date of Progress Note: 08/18/2019 Subjective: Patient is seen and examined. Chart reviewed and case discussed with RN, Dr. Mccall. Patient still having some abdominal discomfort, states that she did pass some stool when her diaper w as changed. Medications reviewed. Physical Examination: Vital Signs: Temperature 97.1, heart rate 107, blood pressure 141/74, respirations 17, O2 saturation 92% on room air. General: Awake, alert, oriented x3 elderly female, ill-appearing. CV: S1, S2. Sinus tachycardia. Peripheral pulses present. Respiratory: Diminished breath sounds at the bases. No wheezing or stridor. Gastrointestinal: Abdomen is distended. Hypoactive bowel sounds. Tenderness to palpation. Extremities: No clubbing, cyanosis. Patient has lower extremity edema. Neuro: Lower extremity weakness. Speech is abnormal at her baseline. Laboratory Data: Sodium 142, potassium 4.3, chloride 103, CO2 of 34, BUN 43, creatinine 1.11, glucos e 144, calcium 10.7, phosphorus 4.6, magnesium 2.9, albumin 3.3. WBC 5.4, H and H 15.5, 47; platelet s 251. Urine culture growing out 3+ gram-negative rods. Acute abdomen series, personally reviewed, shows moderately severe small chemical small-bowel obstruction. Assessment And Plan: 1.Small bowel obstruction, recurrent. Repeat acute abdomen series shows moderate to severe small maria esther wel obstruction. We will continue n.p.o. Continue conservative treatment with NG tube. Patient has had significant amount of output. I appreciate Dr. Mccall's input. It is likely secondary to adhe sions. 2.Urinary tract infection, acute cystitis with hematuria. Continue IV antibiotics. Cultures growin g out gram-negative rods. Patient is on meropenem. She is allergic to penicillin, has history of mu lti-drug resistant bacteria in the past. 3.Chronic pain syndrome. IV analgesia. 4.Multiple sclerosis. Patient is bed bound. 5.Essential hypertension. The patient is n.p.o., cannot have anything through of feeding tube eithe r. We will start on hydralazine p.r.n. 6.History of seizure disorder. We will place on IV phenytoin, seizure precautions. 7.History of colorectal cancer, status post bowel surgery. 8.History of PEG tube placement. Patient has seen GI in the past. They wish to keep the PEG tube i n place although patient eats by mouth. 9.Coronary artery disease, [place] artery and [place] heart without angina. 10.Status post right nephrectomy. We will continue to monitor creatinine. Avoid NSAIDs. 11.Neurogenic bladder. Patient has chronic Reaves. 12.Major depressive disorder, stable. 13.Generalized anxiety disorder, stable. 14.Hypothyroidism. TSH is normal. 15.Deep vein thrombosis prophylaxis. We will add Lovenox. Plan continue to monitor electrolytes. Serial abdominal exam. SA/MODL Voice ID: [id number] Report ID: [id number]
[2019-08-18] MEDS: PHENYTOIN NA 100 MG/2 ML IV SCH (16:33)
[2019-08-18] MEDS: ENOXAPARIN 40 MG/0.4 ML SQ SCH (16:34)
[2019-08-18] MEDS: HOME MED 1 EA UNK (Cyclosporine [Restasis] 1 DROP) EACH EYE SCH (21:00)
[2019-08-19] MEDS: D5.45NS W/KCL 20MEQ 1,000 ML IV SCH ×4 (00:29→21:57)
[2019-08-19] MEDS: PHENYTOIN NA 100 MG/2 ML IV SCH ×2 (00:29→08:26)
[2019-08-19] MEDS: Meropenem 1,000 MG in NA CHLORIDE 0.9% 100 ML IV SCH ×3 (00:29→17:04)
[2019-08-19] MEDS: MORPHINE 2 MG/ML SYR IV PRN ×3 (05:26→22:51)
[2019-08-19] MEDS: ONDANSETRON 4 MG/2 ML VIAL IV PRN (05:27)
[2019-08-19 07:37] LABS: Bilirubin Total 0.3 mg/dL (0.2-1.0); Magnesium 2.8 mg/dL (1.8-2.4); Phosphorus 2.9 mg/dL (2.5-4.9); Potassium 4.4 mmol/L (3.5-5.1); Protein, Total 6.6 g/dL (6.4-8.2)
[2019-08-19 07:45] LABS: Absolute Lymphocytes (CBC) 2.2 K/uL (0.7-4.9); Basophils % 0.9 % (0-1.3); Hematocrit 43.2 % (36.0-45.0); Lymphocytes % 28.1 % (15.3-44.8); MPV 9.3 fL (7.6-11.3); RBC Red Blood Cell Count 4.65 M/uL (3.86-4.86)
[2019-08-19] MEDS: HOME MED 1 EA UNK (Cyclosporine [Restasis] 1 DROP) EACH EYE SCH ×2 (08:23→21:00)
[2019-08-19 11:45] LABS: Blood Morphology Comment NOT SEEN (NOT SEEN); Platelet Estimate ADEQ; Urine White Blood Cell Casts OK
--- NOTE | 2019-08-19 14:09 | PN ---
Date of Progress Note: 08/19/2019 Subjective: Patient is seen and examined, chart reviewed, and case discussed with RN. Patient state s she is doing slightly better. Did pass some gas. Tolerating ice chips. Medication List: Reviewed. Physical Examination: Vital Signs: Temperature 97.8, heart rate 93, blood pressure 129/76, respirations 18, O2 93% on room air. General: Awake, alert, oriented x3. Some mild distress due to abdominal discomfort. Ill-appearing female. CV: S1 and S2. Regular rate and rhythm. Respiratory: Diminished breath sounds at the bases. No wheezing. Gastrointestinal: Abdomen is distended. Mild tenderness to palpation in the epigastric region. No guarding or rigidity. Hypoactive bowel sounds. PEG tube in place. Extremities: No clubbing or cyanosis. Patient has pedal edema. Neuro: Patient has lower extremity weakness. Laboratory Data: Sodium 141, potassium 4.4, chloride 107, CO2 of 30, BUN 39, creatinine 0.88, glucos e 115, calcium 7.6, phosphorus 2.9, magnesium 2.8, albumin 3. WBC 7.8, H and H of 15.1 and 43.2, adebayo telets 216. Urine culture prelim result growing out 3+ gram-negative rods. Assessment: 69-year-old female with: 1.Small bowel obstruction, recurrent, likely due to adhesions. Continue with NG tube suctioning int ermittently. Appreciate Dr. Mccall's input. Patient tolerating ice chips, has passed some gas. 2.Acute cystitis with hematuria secondary to gram-negative rods. We will continue with IV meropenem . History of multidrug-resistant bacteria. 3.Chronic pain syndrome. Continue IV analgesia. 4.History of seizure disorder. Patient refused IV phenytoin due to IV burning. We will start on p. o. if okay with Surgery. 5.Essential hypertension. Continue with hydralazine p.r.n. 6.Multiple sclerosis. 7.History of colorectal cancer status post bowel surgery. 8.History of percutaneous endoscopic gastrostomy tube placement. 9.Coronary artery disease, [place] artery, [place] heart without angina. 10.Status post right nephrectomy. Continue to monitor creatinine. Avoid NSAIDs. 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 The patient has chronic Reaves. 12.Major depressive disorder, stable. 13.Generalized anxiety disorder, stable. 14.Hypothyroidism. TSH is normal. We will resume levothyroxine. 15.Deep venous thrombosis prophylaxis. Lovenox. Plan: Likely discharge in the next 24 to 48 hours depending on clinical improvement. /SON Voice ID: [id number] Report ID: [id number]
--- NOTE | 2019-08-19 14:45 | P.PN ---
Date of Service: 08/19/19 Patient feels better today. Having some cramping abdominal pain. Has also passed some gas per rectum. O: Less output via the NG tube. Says she thinks the mineral oil is working. ( I have taking care of her with this issue at another facility before on 2 separate incidents.) A: Partial small-bowel obstruction appears to be resolving P: Continue current therapy, will repeat mineral oil
[2019-08-19] MEDS ORDERED: MINERAL OIL 30 ML UCUP PO ONE (15:00)
[2019-08-19] MEDS ORDERED: TRAMADOL HCL 50 MG TAB FT PRN (15:00)
[2019-08-19] MEDS: ENOXAPARIN 40 MG/0.4 ML SQ SCH (17:04)
[2019-08-19] MEDS: RANITIDINE FT SCH (21:00)
[2019-08-19] MEDS: PHENYTOIN FT SCH (21:00)
[2019-08-20] MEDS: Meropenem 1,000 MG in NA CHLORIDE 0.9% 100 ML IV SCH ×3 (00:15→17:08)
[2019-08-20] MEDS: PHENYTOIN 125 MG/5 ML ORAL.SUSP FT SCH (00:15)
[2019-08-20] MEDS: D5.45NS W/KCL 20MEQ 1,000 ML IV SCH ×3 (02:51→16:02)
[2019-08-20 04:21] LABS: Basophils % 1.1 % (0-1.3); Hematocrit 43.4 % (36.0-45.0); Lymphocytes % 30.7 % (15.3-44.8); MPV 9.1 fL (7.6-11.3); RBC Red Blood Cell Count 4.61 M/uL (3.86-4.86)
[2019-08-20 04:33] LABS: ALT/SGPT 52 U/L (12-78); AST/SGOT 108 U/L (15-37); Albumin 2.8 g/dL (3.4-5.0); Alkaline Phosphatase 96 U/L (45-117); BUN Blood Urea Nitrogen 17 mg/dL (7-18); Bicarbonate 27 mmol/L (21-32); Bilirubin Total 0.3 mg/dL (0.2-1.0); Glucose Level 99 mg/dL (74-106); Magnesium 2.5 mg/dL (1.8-2.4); Phosphorus 1.5 mg/dL (2.5-4.9); Potassium 4.3 mmol/L (3.5-5.1); Protein, Total 6.1 g/dL (6.4-8.2); Sodium Level 140 mmol/L (136-145)
[2019-08-20 04:50] LABS: Blood Morphology Comment NOT SEEN (NOT SEEN); Platelet Estimate ADEQ; Urine White Blood Cell Casts OK
[2019-08-20] MEDS: LEVOTHYROXINE SOD 0.088 MG TAB FT SCH (05:49)
[2019-08-20] MEDS: HOME MED 1 EA UNK (Cyclosporine [Restasis] 1 DROP) EACH EYE SCH ×2 (07:33→21:00)
[2019-08-20] MEDS: PHENYTOIN FT SCH ×2 (07:34→21:00)
[2019-08-20] MEDS: MORPHINE 2 MG/ML SYR IV PRN (10:15)
--- NOTE | 2019-08-20 12:49 | RAD REPORT ---
EXAM DESCRIPTION: RAD - Abdomen Acute Series - 08/20/2019 12:07 pm CLINICAL HISTORY: Abdominal pain FINDINGS: Dilated small bowel has mildly diminished in caliber. There is now moderate dilatation. Th is is compatible with improvement in a mechanical small bowel obstruction Free air is not seen beneath the diaphragm. The lungs appear clear of acute infiltrate
--- NOTE | 2019-08-20 14:43 | PN ---
Date of Progress Note: 08/20/2019 Subjective: Patient seen and examined. Chart reviewed and case discussed with RN. Patient is doing better today. Still reports some bloating, did pass minimal amount of gas last night. Medications: List reviewed. Physical Examination: Vital Signs: Temperature 97.4, heart rate 80, blood pressure 140/70, respirations 18, O2 of 98% on r oom air. General: Awake, alert, oriented x3. Elderly female somewhat ill-appearing. CV: S1, S2. Regular rate and rhythm. Peripheral pulses present. Respiratory: Diminished breath sounds at the bases. No wheezing or stridor. Gastrointestinal: Abdomen is mildly distended. Hypoactive bowel sounds. Minimal tenderness to palp ation. PEG tube in place with NG tube clamped. Extremities: No clubbing or cyanosis. Patient has lower extremity edema. Neurologic: Patient has weakness of the lower extremities. Laboratory Data: Sodium 140, potassium 4.3, chloride 109, CO2 of 27, BUN 17, creatinine 0.58, glucos e 99, calcium 7.4. Phosphorus 1.5, magnesium 2.5. Albumin 2.8. WBC 6.4, H and H 14.4 and 43.4, adebayo telets 198, neutrophils 58%. Urine culture growing out proteus and enterococcus. Assessment: A 69-year-old female with: 1.Small bowel obstruction, recurrent, likely due to adhesions, improving. Patient is passing gas, t olerating clear liquids. We will continue with serial abdominal x-ray. Appreciate Dr. Mccall's inp ut. 2.Acute cystitis with hematuria secondary to proteus and Enterobacter cloacae. Patient has multiple allergies. Both organism sensitive to meropenem. We will continue IV antibiotics. 3.Chronic pain syndrome, stable. Continue narcotics. 4.History of seizure disorder. Continue phenytoin. 5.Essential hypertension, stable. 6.Multiple sclerosis. Patient has essential paraplegia due to weakness of the lower extremities. 7.History of colorectal cancer, status post resection. 8.History of PEG tube placement. 9.Coronary artery disease, [place] artery, [place] heart without angina, stable. 10.Status post nephrectomy. Creatinine is stable. We will continue to monitor. Avoid NSAIDs. 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 Chronic Reaves. 12.Major depressive disorder, stable. 13.Generalized anxiety disorder, stable. 14.Hypothyroidism. Continue levothyroxine. 15.Deep venous thrombosis prophylaxis with Lovenox. Plan: Continue clear liquids for now. Mineral oil. Advance diet slowly to avoid complications from the small bowel obstruction. We will repeat abdominal x-ray. Resume home medications as appropriat cedric ANDERS/SON Voice ID: [id number] Report ID: [id number]
[2019-08-20] MEDS: ENOXAPARIN 40 MG/0.4 ML SQ SCH (17:08)
[2019-08-20] MEDS: RANITIDINE FT SCH (21:00)
[2019-08-21] MEDS: Meropenem 1,000 MG in NA CHLORIDE 0.9% 100 ML IV SCH ×3 (00:20→16:42)
[2019-08-21] MEDS: PHENYTOIN 125 MG/5 ML ORAL.SUSP FT SCH (00:33)
[2019-08-21] MEDS: D5.45NS W/KCL 20MEQ 1,000 ML IV SCH ×2 (03:16→13:57)
[2019-08-21] MEDS: LEVOTHYROXINE SOD 0.088 MG TAB FT SCH (05:08)
[2019-08-21] MEDS: PHENYTOIN FT SCH ×2 (08:05→21:00)
[2019-08-21] MEDS: HOME MED 1 EA UNK (Cyclosporine [Restasis] 1 DROP) EACH EYE SCH ×2 (08:05→21:00)
[2019-08-21] MEDS ORDERED: MINERAL OIL 30 ML UCUP PO ONE (08:18)
[2019-08-21] MEDS: METOPROLOL TAR 25 MG TAB PO SCH (09:18)
--- NOTE | 2019-08-21 12:15 | P.PN ---
Date of Service: 08/21/19 S: Patient said today because having difficult time with IVs. Also getting fingersticks for her blood O: Abdomen is soft, minimal tenderness today. Says she is only getting occasional cramps. She to clamped at the moment and she just had her mineral oil. A: SBO appears to be slowly resolved P: Continue current therapy. Anticipate discharge soon.
[2019-08-21] MEDS: ENOXAPARIN 40 MG/0.4 ML SQ SCH (16:19)
--- NOTE | 2019-08-21 18:03 | PN ---
Date of Progress Note: 08/21/2019 Subjective: Patient seen and examined. Chart reviewed and case discussed with RN and Dr. Mccall. Patient overall is doing better. She refused another IV stick, had to have multiple IV sites that going bad. Patient reports some cramps, but overall tolerating her liquid diet. She reports passing gas. Does not know if she has had a bowel movement. One bowel movement is listed in the I 's and O's on 08/19/2019. Medications: List reviewed. Physical Examination: Vital Signs: Temperature 98.6, heart rate 85, blood pressure 183/93, respirations 16, O2 of 96% on room air. General: Awake, alert, oriented x3. Elderly female, ill-appearing. CV: S1, S2. Regular rate and rhythm. Peripheral pulses present. Respiratory: Diminished breath sounds at the bases, otherwise moving air well bilaterally. Gastrointestinal: Abdomen is less distended today, much softer. Positive bowel sounds. PEG tube in place with NG tube clamped. Extremities: No clubbing, cyanosis. Patient has peripheral edema. Neuro: Patient is paraplegic. Laboratory Data: Labs are pending at this time. Assessment And Plan: 1. Recurrent small bowel obstruction likely due to adhesions, improving. Abdominal series has showed improvement. Patient is tolerating full liquids, passing gas, has had [address] Mccall's input. We will advance as tolerated. 2. Acute cystitis with hematuria secondary to proteus and Enterobacter cloacae. Patient is on meropenem due to multiple allergies and multidrug- resistant bacteria. 3. Chronic pain syndrome. We will continue narcotics. 4. History of seizure disorder. Continue phenytoin. 5. Essential hypertension, not well controlled. Patient has lost her IV access. We will give her oral medications. 6. Multiple sclerosis. Patient has generalized weakness and unable to move the lower extremities. 7. History of colorectal cancer, status post resection. 8. History of PEG tube placement. 9. Coronary artery disease, [place] artery and [place] heart without angina, stable. 10. Status post nephrectomy. Creatinine is stable. We will continue to monitor and avoid NSAIDs and nephrotoxins. 11. Neurogenic bladder, chronic Reaves. 12. Major depressive disorder, stable. 13. Generalized anxiety disorder, stable. 14. Hypothyroidism. We will continue levothyroxine. 15. Deep venous thrombosis prophylaxis with Lovenox. 16. Hypophosphatemia. We will replace and monitor. May need to reestablish IV access and set up IV antibiotics for home unless course is completed during the hospital stay. I anticipate treatment for minimum of 5 days, which will be tomorrow. FELICITAS Voice ID: [id number] Report ID: [id number] MTDD
[2019-08-21] MEDS: RANITIDINE FT SCH (21:00)
[2019-08-22] MEDS: Meropenem 1,000 MG in NA CHLORIDE 0.9% 100 ML IV SCH ×3 (00:46→16:11)
[2019-08-22] MEDS: PHENYTOIN 125 MG/5 ML ORAL.SUSP FT SCH (00:46)
[2019-08-22] MEDS: METOPROLOL TAR 25 MG TAB PO SCH (06:00)
[2019-08-22] MEDS: LEVOTHYROXINE SOD 0.088 MG TAB FT SCH (06:01)
[2019-08-22] MEDS ORDERED: FUROSEMIDE 40 MG TABLET FT ONE (06:22)
[2019-08-22] MEDS: HOME MED 1 EA UNK (Cyclosporine [Restasis] 1 DROP) EACH EYE SCH (08:27)
[2019-08-22] MEDS: PHENYTOIN FT SCH (08:27)
[2019-08-22 09:16] VITALS: O2SAT 96
--- NOTE | 2019-08-22 09:19 | RAD REPORT ---
EXAM DESCRIPTION: Kati Single View08/22/2019 8:16 am CLINICAL HISTORY: Shortness of breath COMPARISON: 2016 and May 2019 FINDINGS: Right lung opacities are without obvious change which may represent scarring/atelectasis. Follow-up chest film in 3 months recommended Left lung appears clear. Heart is normal size
[2019-08-22] MEDS: ENOXAPARIN 40 MG/0.4 ML SQ SCH (16:10)
[2019-08-22 20:42] VITALS: BP 148/74; TEMP 97.2
--- NOTE | 2019-08-22 22:02 | DS ---
Consultants: Dr. Mccall with General Surgery. Admitting Diagnoses: 1.Small bowel obstruction, recurrent. 2.Acute cystitis with hematuria. 3.Chronic pain syndrome. 4.Multiple sclerosis. 5.Essential hypertension. 6.History of seizure disorder. 7.History of colorectal cancer status post bowel surgery. 8.Status post PEG tube placement. 9.Coronary artery disease [place] artery and [place] heart without angina. 10.Status post right nephrectomy. 11.Neurogenic bladder. 12.Major depressive disorder. 13.Generalized anxiety disorder, stable. 14.Hypothyroidism. Discharge Diagnoses: 1.Recurrent small bowel obstruction likely due to adhesions, resolved. 2.Acute cystitis with hematuria secondary to Proteus and Enterobacter treatment completed with IV an tibiotics. 3.Chronic pain syndrome on narcotics. 4.History of seizure disorder, on Phenytoin, stable. 5.Essential hypertension, not well controlled. 6.Noncompliance, patient refused labs and IV access. 7.Multiple sclerosis. 8.History of colorectal cancer status post resection. 9.History of PEG tube placement. 10.Coronary artery disease [place] artery and [place] heart without angina. 11.Status post nephrectomy. 12.Neurogenic bladder, chronic Reaves. 13.Major depressive disorder, stable. 14.Generalized anxiety disorder, stable. 15.Hypothyroidism, stable. 16.Hypophosphatemia, replaced. Hospital Course: Patient is a 69-year-old female, resident of nursing facility. Patient has multipl e comorbid conditions including multiple sclerosis, no longer able to walk, seizures, history of colo rectal cancer, has PEG tube placement, heart disease, nephrectomy, neurogenic bladder, chronic Reaves, chronic pain syndrome, depression and anxiety. She has had multiple recurrent small bowel obstructi ons, likely secondary to her adhesions, comes in with again nausea, vomiting, and abdominal discomfor t. Patient's workup revealed small bowel obstruction to the mid ileum level with right mid abdomen t ransition point and decompressed distal ileum. NG tube was placed in the PEG tube for decompression. Dr. Mccall with General Surgery was consulted. He did not recommend any surgical intervention at this time. Patient had improvement with NG tube. She had significant volume output. She was found to have incidental UTI. She denied any symptoms and does have a chronic Reaves catheter, may be colon ized. Patient did well over the course of the hospital stay. Repeat acute abdomen series showed imp rovement. She was then started on clear liquids and advanced. She tolerated her diet. Patient did lose IV access and then refused to allow repeat IV access as she has a hard stick, therefore patient did not have IV access over the past 24 hours prior to discharge. Patient also refused lab draws. Eric woodruff had been treated with meropenem from the get go for her UTI as she has history of multi-drug r esistant bacteria. Her urine culture grew out Proteus and Enterobacter, which were both sensitive. Patient received 5 days of therapy and should be sufficient. She has no signs of sepsis. White coun t is normal. Does not have any symptoms. Does not require any IV antibiotics for this UTI and is li mela colonized. We will continue to recommend changing out the Reaves catheter on a monthly basis. Eric woodruff was then cleared from a surgery standpoint. She was sent back to the nursing facility in a st able condition. Activity: Fall precautions. Diet: [place]. Followup: Follow up with the primary care physician in 2-3 days. Follow up with surgeon, Dr. Jeramy manzano in 2 weeks. Return to ER for worsening condition. Physical Examination: General: Awake, alert, and oriented x3, not in any acute distress, elderly female. CV: S1, S2. Respiratory: Moving air well bilaterally. Abdomen: Abdomen is soft, nontender, nondistended. Positive bowel sounds. Extremities: No clubbing, cyanosis. Patient has lower extremity edema. Neuro: Lower extremity weakness. Total time spent discharging the patient was 38 minutes. FELICITAS Voice ID: [id number] Report ID: [id number]
== END 2019-08-22 21:15 | DRG 389 ==
LOC: ER 12:45 → ERHOLD 16:13 → 4TH 19:41
PROVIDERS: ADMIT Family Medicine; ATTEND Family Medicine
DX: K56.51 Intestinal adhesions [bands], with partial obstruction (principal); N30.01 Acute cystitis with hematuria; G35 Multiple sclerosis; B96.4 Proteus (mirabilis) (morganii) as the cause of diseases classified elsewhere; B96.89 Other specified bacterial agents as the cause of diseases classified elsewhere; N31.9 Neuromuscular dysfunction of bladder, unspecified; Z93.1 Gastrostomy status; I25.10 Atherosclerotic heart disease of native coronary artery without angina pectoris; I10 Essential (primary) hypertension; E03.9 Hypothyroidism, unspecified; G40.909 Epilepsy, unspecified, not intractable, without status epilepticus; Z66 Do not resuscitate; G89.4 Chronic pain syndrome; F32.9 Major depressive disorder, single episode, unspecified; F41.9 Anxiety disorder, unspecified; D64.9 Anemia, unspecified; Z90.5 Acquired absence of kidney; Z46.6 Encounter for fitting and adjustment of urinary device; Z74.01 Bed confinement status; Z85.038 Personal history of other malignant neoplasm of large intestine
CPT/HCPCS: 36415; 51702; 71045; 74022; 74176; 80053; 81003; 81015; 82947; 83690; 83735; 84100; 84443; 84484; 85025; 87077; 87086; 87088; 87186; 93005; 94760; 96374; 96375; 99285; J0696; J1165; J1650; J2185; J2270; J2405

== ENCOUNTER 2020-03-24 22:44 | Inpatient (IN) | payer OTHER ==
--- OUTSIDE RECORDS SUMMARY | 2020-03-24 22:45 | XMS REPORT | Continuity of Care Document ---
:1950 Demographics Address [address] [place] [address] Email Address [email or web address] Preferred Language Yi Marital Status Unknown Zoroastrian Affiliation Unknown Race Unknown Additional Race(s) Unavailable White Ethnic Group Unknown Author Organization [facility] t Address [address] [place] [address] Dr. Sinclair [address] [place] [id number] Care Team Providers Name Role Phone Clovis Alvares MD Attending Clinician Dante Alvares MD Admitting Clinician Problems This patient has no known problems. Allergies, Adverse Reactions, Alerts This patient has no known allergies or adverse reactions. Medications This patient has no known medications. Procedures This patient has no known procedures. Encounters Start End Encounter Admission Attending Care Care Encounter Source Date/Time Date/Time Type Type Clinicians Facility Department ID 2020-02-12 [id number] 09:15:00 13:46:00 Encounter Clovis manzano [id number] [place] [id number] Surgical [id number] [place] 07 Results This patient has no known results.
--- OUTSIDE RECORDS SUMMARY | 2020-03-24 22:46 | XMS REPORT | Summary of Care ---
:1950 Author Organization [facility] - Health Address [address] [place] [id number] Care Team Providers Name Role Phone Sylvain Smart MD Primary Care Provider Unavailable Reason for Visit Auth/Cert Status Reason Specialty Diagnoses / Procedures Referred By C ontact Referred To Contact Surgery Diagnoses S/P percutaneous endoscopic gastrostomy (PEG) tube placement peg tube placement Adc Pre/Pacu/Post Procedures NM EGD TRANSORAL BIOPSY SINGLE/MULTIPLE NM EGD PERCUTANEOUS PLACEMENT GASTROSTOMY TUBE ESOPHAGOGASTRODUODENOSCOPY PERCUTANEOUS ENDOSCOPIC GASTRIC TUBE PLACEMENT [address] [place] [address] [place] [address] Phone: Fax: Encounter Details Date Type Department Care Team Description 02/12/2020 Hospital Encounter [facility] Clovis Alvares Bethelridge MD Dante [address] [place] [address] [address] [facility] [place] [address] [id number] [place] [id number] Allergies Active Allergy Reactions Severity Noted Date Comments Aspirin Unknown - See comments 03/26/2016 Diazepam Unknown - See comments 03/26/2016 Seafood/Fish Anaphylaxis 10/25/2017 Penicillin Unknown - See comments 03/26/2016 Pork Derived (Porcine) Anaphylaxis 10/25/2017 Sulfa (Sulfonamide Antibiotics) Unknown - See comments 03/26/2016 documented as of this encounter (statuses as of 02/12/2020) Medications Medication Sig Dispensed Refills Start Date End Date Status bethanechol Take 25 mg through 0 Active (URECHOLINE) 25 mg feeding tube 4 tablet (four) times daily. PHENobarbital 20 Take 60 mg through 0 Active mg/5 mL (4 mg/mL) enteral tube 2 (two) elixir times daily. isosorbide dinitrate Take 10 mg through 0 Active (ISORDIL) 10 mg enteral tube 2 (two) tablet times daily. metoprolol tartrate Take 25 mg through 0 Active (LOPRESSOR) 25 mg enteral tube daily. tablet metoprolol tartrate Take 50 mg by mouth 0 Active (LOPRESSOR) 50 mg at bedtime. tablet CALCIUM CARBONATE Take through 0 Active ORAL feeding tube. phenytoin (DILANTIN) Take 125 mg through 0 Active 125 mg/5 mL enteral tube 2 (two) suspension times daily. lactulose 10 gram/15 Take 30 mL through 0 Active mL (15 mL) feeding tube 2 (two) SolnIndications: times daily. feeding tube Indications: feeding tube dextran Place 1 Drop in both 0 Active 70-hypromellose eyes 2 (two) times (ARTIFICIAL TEARS) daily. ophthalmic solution gabapentin Take 300 mg through 0 Active (NEURONTIN) 300 mg feeding tube 3 capsule (three) times daily. RANITIDINE HCL ORAL Take 300 mg through 0 Active feeding tube at bedtime. oxybutynin chloride Take 5 mg through 0 Active (DITROPAN) 5 mg enteral tube at tablet bedtime. magnesium citrate Take 150 mL through 0 Active solution enteral tube at bedtime. bisacodyl (DULCOLAX) Insert 10 mg into 0 Active 10 mg suppository rectum at bedtime as needed. acetaminophen Take 500 mg through 0 Active (TYLENOL) 100 mg/mL feeding tube every 6 solutionIndications: (six) hours as For elevated temp needed for Fever. Indications: For elevated temp meclizine (ANTIVERT) Take 12.5 mg through 0 Active 12.5 mg tablet enteral tube 4 (four) times daily as needed. ALPRAZolam (XANAX) Take 0.5 mg through 0 Active 0.5 mg tablet enteral tube 2 (two) times daily. ziprasidone (GEODON) Take 20 mg through 0 Active 20 mg capsule feeding tube at bedtime. ipratropium-albutero Inhale 1 Ampule 0 Active l (DUONEB) 0.5 mg-3 every 6 (six) hours mg(2.5 mg base)/3 mL as needed for nebulizer solution Wheezing. triamcinolone Apply 1 Dose to 0 Active (KENALOG) 0.1 % area(s) as needed. lotion cyanocobalamin, 500 mcg by 0 Act kirk vitamin B-12, Intramuscular route (PHYSICIANS EZ USE once every month. B-12) 1,000 mcg/mL injection ketoconazole Apply 1 Dose to 0 A ctive (NIZORAL) 2 % cream area(s) as needed (apply to facial rash as needed). traMADOL 50 mg Take 50 mg by mouth 0 Active tablet every 6 (six) hours as needed. FENTanyl 25 mcg/hr Apply 1 Patch to 0 Active patch skin every 72 (seventy-two) hours. HYDROcodone-acetamin Take 1 tablet by 0 Active ophen 7.5-325 mg per mouth every 6 (six) tablet hours as needed for Pain. cycloSPORINE Place 1 Drop in left 0 Active (RESTASIS) 0.05 % eye every 12 drops (twelve) hours. magnesium oxide 400 Take 400 mg by mouth 0 Active mg tablet daily. levothyroxine 88 mcg Take 88 mcg by mouth 0 Active tablet every morning. multivitamin Take 15 mL by mouth 0 Active solution daily. Artificial Tear, Place 1 Drop in each 0 Active Hypromellose, 0.4 % eye 2 (two) times Drop daily. Loperamide 1 mg/7.5 Take 30 mL by mouth 0 Active mL Liqd as needed. acetaminophen 325 mg Take 650 mg by mouth 0 Active tablet every 6 (six) hours as needed for Pain (scale 1-3), Pain (scale 4-6) or Temp > 38.5 C. magnesium hydroxide Take 30 mL by mouth 0 Active concentrate once daily as needed for Constipation. sodium chloride Use 2 Sprays in each 0 Active (SALINE NASAL) 0.65 nostril 2 (two) % nasal spray times daily as needed. CHLORASEPTIC, phenol Take 2 Sprays by 0 Active 1.4%, mouthwash mouth every 4 (four) hours as needed for Sore throat. alum-mag Take 30 mL by mouth 0 Active hydroxide-simeth every 6 (six) hours (URVASHI-LANTA) as needed for 200-200-20 mg/5 mL Indigestion. suspension guaiFENesin Take 100 mg by mouth 0 Active (URVASHI-TUSSIN) 100 every 6 (six) hours mg/5 mL solution as needed for Cough. acetaminophen 650 mg Insert 650 mg into 0 Active suppository rectum every 6 (six) hours as needed for Fever. sodium phosphates Insert 1 Enema into 0 Active (FLEET ENEMA) 19-7 rectum once daily as gram/118 mL enema needed for Constipation. Follow package directions documented as of this encounter (statuses as of 02/12/2020) Active Problems Problem Noted Date HCAP (healthcare-associated pneumonia) 10/23/2017 documented as of this encounter (statuses as of 02/12/2020) Social History Tobacco Use Types Packs/Day Years Used Date Former Smoker Cigarettes 0.25 2 Smokeless Tobacco: Never Used Alcohol Use Drinks/Week oz/Week Comments No 0 Standard drinks or equivalent 0.0 Sex Assigned at Date Recorded Not on file Job Start Date Occupation Industry Not on file Not on file Not on file Travel History Travel Start Travel End No recent travel history available. COVID-19 Exposure Response Date Recorded In the last month, have you been in contact with No / Unsure 02/11/2020 2:20 PM CDT someone who was confirmed or suspected to have Coronavirus / COVID-19? documented as of this encounter Last Filed Vital Signs Vital Sign Reading Time Taken Comments Blood Pressure 119/83 02/12/2020 1:15 PM CDT Pulse 101 02/12/2020 9:17 AM CDT Temperature 36.9 C (98.5 F) 02/12/2020 12:03 PM CDT Respiratory Rate 22 02/12/2020 9:17 AM CDT Oxygen Saturation 93% 02/12/2020 1:15 PM CDT Inhaled Oxygen Concentration - - Weight 82 kg (180 lb 12.4 oz) 02/12/2020 7:20 AM CDT Height 182.9 cm (6' 0.01") 02/12/2020 7:20 AM CDT Body Mass Index 24.51 02/12/2020 7:20 AM CDT documented in this encounter Discharge Instructions Gabbie Castellon RN - 02/12/2020 Patient Discharge Instructions Discharge date: 02/12/2020 Procedure(s): Procedure(s): ESOPHAGOGASTRODUODENOSCOPY Discharge Orders May resume mild activity level today Order Comments: May resume mild activity level today May not operate a motorized vehicle today Order Comments: May not operate a motorized vehicle today Please check the endoscopy report for any instructions specific to your case Order Comments: Please check the endoscopy report for any instructions specific to your case Clear Liquid Diet; Clear Liquid Diet; advance as tolerated Food Sensitivity Modifiers: None. Order Comments: Clear Liquid Diet; advance as tolerated Food Sensitivity Modifiers None. May return to school/work tomorrow Order Comments: May return to school/work tomorrow Follow instructions as indicated below: 1. The medication that was used will be acting in your system for the next 24 hours, so you might feel a little drowsy, with impaired judgment and or motor function. This feeling should go wear off. Because the medication is still in your system for the next 24 hours you SHOULD NOT: Drive a car, operate machinery or power tool. Drink any alcohol beverages (including beer or wine). Make any important decisions or sign any legal documents. 2. You should rest the remainder of the day and not engage in any physical activity. Move slowly today. After lying down, sit on the edge of the bed for a moment before standing. YOU ARE RESPONSIBLEFOR HAVING SOMEONE AT HOME WITH YOU DURING THE AFTERNOON AND NIGHT IMMEDIATELY FOLLOWING YOUR SURGERY. Patient should cough and deep breathe every 2-4 hours while awake to avoid respiratory complications. 4. Lifting: N/A 5. Weight: In general, sudden weight gains or losses should be reported to your provider. Cardiac patients should weigh daily and notify their provider for a weight gain of 3 pounds per day or 5 pounds per week. 6. Tobacco Avoidance: Follow recommendations below 7. Because the medications used could procedure some residual nausea and vomiting after you go home,you should eat lightly today, starting with clear liquids (broth, soft drinks, apple juice, jello) and toast or crackers, progressing to bland solid foods and then to your normal diet as tolerated, unle ss otherwise stated by your surgeon. If you get sick, wait a couple of hours and then begin to eat. After 24 hours the nausea should be gone. 8. You may experience some pain and your physician will advise you on what to take for discomfort. This should be taken as directed. If the pain is not relieved, contact your physician. You may alsohave a sore throat from the airway that was in place. You may uses lozenges, throat spray (such as C hloraseptic), or warm salt water gargles for symptomatic relief. 9. If you feel warm, take your temperature. If it is 101 degrees or above call your physician. 10. If you are unable to urinate within five hours after your procedure, call your physician. 11. The type of surgery performed will determine how much bleeding (if any) to expect. Normally, some spotting might occur. If your dressing pad becomes saturated, notify your physician. Elevate surgical site, if applicable, to reduced swelling and pain. 12. Wound/dressing care: keep dressing clean and dry Tips on preventing a surgical site infection.. Dont smoke. It is best to quit at least 30 days before surgery, but quitting after surgery is also helpful. If you are diabetic, keep your blood sugar well controlled. WASH YOUR HANDS. Keep your wound clean and remember to wash your hands before and after contact with the area. All health care workers should also wash their hands or use an alcohol based hand rub prior to examining you. If antibiotics are prescribed, take them as directed. Finish the entire course of antibiotics. Call your doctor if you have signs of infection: ? Increased tenderness at the surgical site ? Red streaks or increased redness of the area ? Bad-smelling discharge from the incision ? Fever of 101F or higher ? General tired feeling that doesnt improve Take Home Medications These are medications ordered for you by your healthcare provider. Do not take any other medications or supplements unless advised by your healthcare provider. Current Discharge Medication List CONTINUE these medications which have NOT CHANGED Details acetaminophen 325 mg tablet Take 650 mg by mouth every 6 (six) hours as needed for Pain (scale 1-3),Pain (scale 4-6) or Temp > 38.5 C. acetaminophen 650 mg suppository Insert 650 mg into rectum every 6 (six) hours as needed for Fever. alum-mag hydroxide-simeth (URVASHI-LANTA) 200-200-20 mg/5 mL suspension Take 30 mL by mouth every 6 (six) hours as needed for Indigestion. Artificial Tear, Hypromellose, 0.4 % Drop Place 1 Drop in each eye 2 (two) times daily. CHLORASEPTIC, phenol 1.4%, mouthwash Take 2 Sprays by mouth every 4 (four) hours as needed for Sore throat. cycloSPORINE (RESTASIS) 0.05 % drops Place 1 Drop in left eye every 12 (twelve) hours. FENTanyl 25 mcg/hr patch Apply 1 Patch to skin every 72 (seventy-two) hours. guaiFENesin (URVASHI-TUSSIN) 100 mg/5 mL solution Take 100 mg by mouth every 6 (six) hours as needed for Cough. HYDROcodone-acetaminophen 7.5-325 mg per tablet Take 1 tablet by mouth every 6 (six) hours as neededfor Pain. levothyroxine 88 mcg tablet Take 88 mcg by mouth every morning. Loperamide 1 mg/7.5 mL Liqd Take 30 mL by mouth as needed. magnesium hydroxide concentrate Take 30 mL by mouth once daily as needed for Constipation. magnesium oxide 400 mg tablet Take 400 mg by mouth daily. multivitamin solution Take 15 mL by mouth daily. sodium chloride (SALINE NASAL) 0.65 % nasal spray Use 2 Sprays in each nostril 2 (two) times daily as needed. sodium phosphates (FLEET ENEMA) 19-7 gram/118 mL enema Insert 1 Enema into rectum once daily as needed for Constipation. Follow package directions traMADOL 50 mg tablet Take 50 mg by mouth every 6 (six) hours as needed. acetaminophen (TYLENOL) 100 mg/mL solution Take 500 mg through feeding tube every 6 (six) hours as needed for Fever. Indications: For elevated temp ALPRAZolam (XANAX) 0.5 mg tablet Take 0.5 mg through enteral tube 2 (two) times daily. bethanechol (URECHOLINE) 25 mg tablet Take 25 mg through feeding tube 4 (four) times daily. bisacodyl (DULCOLAX) 10 mg suppository Insert 10 mg into rectum at bedtime as needed. CALCIUM CARBONATE ORAL Take through feeding tube. cyanocobalamin, vitamin B-12, (PHYSICIANS EZ USE B-12) 1,000 mcg/mL injection 500 mcg by Intramuscular route once every month. dextran 70-hypromellose (ARTIFICIAL TEARS) ophthalmic solution Place 1 Drop in both eyes 2 (two) times daily. gabapentin (NEURONTIN) 300 mg capsule Take 300 mg through feeding tube 3 (three) times daily. ipratropium-albuterol (DUONEB) 0.5 mg-3 mg(2.5 mg base)/3 mL nebulizer solution Inhale 1 Ampule every 6 (six) hours as needed for Wheezing. isosorbide dinitrate (ISORDIL) 10 mg tablet Take 10 mg through enteral tube 2 (two) times daily. ketoconazole (NIZORAL) 2 % cream Apply 1 Dose to area(s) as needed (apply to facial rash as needed). lactulose 10 gram/15 mL (15 mL) Soln Take 30 mL through feeding tube 2 (two) times daily. Indications: feeding tube magnesium citrate solution Take 150 mL through enteral tube at bedtime. meclizine (ANTIVERT) 12.5 mg tablet Take 12.5 mg through enteral tube 4 (four) times daily as needed. !! metoprolol tartrate (LOPRESSOR) 25 mg tablet Take 25 mg through enteral tube daily. !! metoprolol tartrate (LOPRESSOR) 50 mg tablet Take 50 mg by mouth at bedtime. oxybutynin chloride (DITROPAN) 5 mg tablet Take 5 mg through enteral tube at bedtime. PHENobarbital 20 mg/5 mL (4 mg/mL) elixir Take 60 mg through enteral tube 2 (two) times daily. phenytoin (DILANTIN) 125 mg/5 mL suspension Take 125 mg through enteral tube 2 (two) times daily. RANITIDINE HCL ORAL Take 300 mg through feeding tube at bedtime. triamcinolone (KENALOG) 0.1 % lotion Apply 1 Dose to area(s) as needed. ziprasidone (GEODON) 20 mg capsule Take 20 mg through feeding tube at bedtime. !! - Potential duplicate medications found. Please discuss with provider. Follow-up appointments: For questions regarding follow-up instructions call the [email or web address] Hotlineat or If you experience any of the following symptoms extreme pain, warmth, discharge from PEG site, please follow up with MD. For worsening symptoms/changing condition/problems or questions: Non-emergency/urgent: Call the [email or web address] Hotline at or or Emergency: Go to the closest emergency room or call [phone] If you receive the patient satisfaction survey by mail please complete and return and let us know how we are doing. TOBACCO AVOIDANCE Exposure to tobacco either from smoking or from second hand (environmental) smoke or smokeless tobacco (snuff) is damaging to your health. This information is to encourage everyone to avoid tobacco exposure. It is recommended that you: ? If you smoke or use smokeless tobacco, we encourage you to quit. ? If you have already quit smoking, continue your good work! ? If you do not smoke or use smokeless tobacco, do not start. ? Avoid secondhand smoke. Additional Resources You may want to contact these organizations for further information on smoking and how to quit. [place] [employer], http://www.lungusa.org/stop-smoking/ [place] [employer], http://www.cancer.org/Healthy/StayAwayfromTobacco/index [place] [employer], http://www.heart.org/HEARTORG/GettingHealthy/QuitSmoking/Quit-Smoking_[facility] _001085_SubHomePage.jsp documented in this encounter Plan of Treatment Name Type Priority Associated Diagnoses Order S chedule EKG-12 LEAD ROUTINE HEART STATION Routine ONCE fo r 1 Occurrences starting 2019 until 0 Health Maintenance Due Date Last Done Comments HEPATITIS C (HCV) SCREEN 1950 DTaP,Tdap,and Td Vaccines (1 - Tdap) 1959 Breast Cancer Screening (MAMMOGRAM) 1988 COLONOSCOPY 1998 Zoster Recombinant Vaccine (SHINGRIX) (1 of 2) 1998 LUNG CANCER SCREEN: Recommended for age 55-80 with 30 + 05/28/20 03 pack year history Medicare Wellness Visit 2013 Osteoporosis Screening 2013 PNEUMOCOCCAL VACCINES 65+ (1 of 2 - PCV13) 2013 INFLUENZA VACCINE (Season Ended) 2020 documented as of this encounter Procedures Procedure Name Priority Date/Time Associated Diagnosis Comme nts EGD (ENDO) Routine 02/12/2020 11:33 AM CDT POTASSIUM SERUM Routine 02/12/2020 11:06 AM Resul ts for this CDT procedure are i n the results section. POCT GLUCOSE(AGE Routine 02/12/2020 10:35 AM Resu lts for this >30DAYS) CDT procedure are i n the results section. COVID-19 (PCR STAT 02/12/2020 9:59 AM Results for this MOLECULAR TESTING) CDT procedure are in the results section. EKG-12 LEAD Routine 02/12/2020 9:40 AM CDT documented in this encounter Results Potassium Serum (02/12/2020 11:06 AM CDT) Pathologist Sig wesley K 4.1 3.5 - 5.0 mmol/L [facility] Specimen Blood - ARM, LEFT Performing Organization Address [facility] Phone Number [facility] CLIA: [id number], [address] [place], [place] [address] POCT Glucose (02/12/2020 10:35 AM CDT) Pathologist Sig wesley POCT Glu (age>30days) 100 70 - 110 mg/dL Specimen Blood - CAPILLARY CORONAVIRUS COVID-19 TESTING (02/12/2020 9:59 AM CDT) SARS-CoV-2 Rapid ID Not Detected Not Detected [facility] Specimen Swab - NASOPHARYNGEAL SWAB Narrative Performed At [facility] COVID-19 Assay is an isothermal nucleic [facility] acid amplification test intended for the qualitative detection of nucleic acid from SARS-CoV-2 viral RNA in nasopharyngeal (CUSTOMER OPERATIONS SPECIALIST) specimens. It is used under Emergency Use Authorization (EUA) by FDA. The limit of detection (LOD) of the assay is 125 Genome Equivalents/mL. A positive result is indicative of the presence of SARS-CoV-2 RNA. Clinical correlation with patient history and other diagnostic information is necessary to determine patient infection status. A negative (Not Detected) result does not preclude SARS-CoV-2 infection. In patients with clinical symptoms and other tests that are consistent with SARS-CoV-2 infection, negative results should be treated as presumptive negative and a new specimen should be tested with alternative PCR molecular test. Invalid: Please collect a new specimen for repeat patient testing if clinically indicated. Performing Organization Address [facility]/Zipcode Phone Number [facility] CLIA: [id number], [address] [place], [place] [address] documented in this encounter Visit Diagnoses Diagnosis Gastrojejunostomy tube status - Primary Intestinal bypass or anastomosis status documented in this encounter Administered Medications Medication Order MAR Action Action Date Dose Rate Site lactated ringers IV infusion 1,000 mL at 75 mL/hr, 1,000 mL, IV Infusion, CONT INUOUS, Starting Sat02/12/20 at 1215, Until Discontinued, Routine, PACU simethicone (GAS RELIEF (SIMETHICONE)) 40 Given 02/12/2020 12:13 PM CDT 1.2 mL mg/0.6 mL drops PRN, Starting Sat02/12/20 at 1213, Until Discontinued, Routine, Intra-op water for irrigation irrigation solution Given 02/12/2020 12:13 PM CDT 1,000 mL PRN, Starting Sat02/12/20 at 1213, Until Discontinued, Routine, Intra-op Medication Order MAR Action Action Date Dose Rate Site lactated ringers IV infusion New Bag 02/12/2020 10:50 AM CDT 1,000 mL 20 mL/hr 1,000 mL at 20 mL/hr, 1,000 mL, IV Infusion, ONCE, 1 dose, Sat02/12/20 at 0915, Routine, Endo Pre-op vancomycin (VANCOCIN) 500 mg in NaCl 0.9% Given 02/12/2020 10:50 AM CDT 500 mg (NS) 100 mL MINI-BAG 500 mg, IV Piggyback, ONCE, 1 dose, Sat02/12/20 at 1000, 100 mL, Reason for Anti-Infective: Surgical Prophylaxis, Surgical Prophylaxis: Abdominal, Duration of therapy: within 24 hours of surgery documented in this encounter Additional Health Concerns Infection Onset Date Last Indicated Resolved Time Droplet - Seasonal Influenza 10/25/2017 10/25/2017 documented as of this encounter Insurance Payer Benefit Plan / Subscriber ID Effective Dates Phone Addre ss Type Group MEDICARE MEDICARE PART xxxxxxxxxxx 1981-Pres[place] [id number] [place] [phone] [facility] MEDICAID OF xxxxxxxxx 2015-Bhanu [phone] [place] [id number] [place] [address] documented as of this encounter
[2020-03-24] MEDS ORDERED: NA CHLORIDE 0.9% 1,000 ML ONE (23:11)
[2020-03-24] MEDS ORDERED: ONDANSETRON 4 MG/2 ML VIAL ONE (23:11)
[2020-03-24] MEDS ORDERED: MORPHINE 4 MG/ML SYR ONE (23:11)
[2020-03-24 23:28] LABS: Absolute Lymphocytes (CBC) 1.1 K/uL (0.7-4.9); Basophils % 0.5 % (0-1.3); Hematocrit 48.8 % (36.0-45.0); Lymphocytes % 20.7 % (15.3-44.8); RBC Red Blood Cell Count 5.27 M/uL (3.86-4.86)
[2020-03-24 23:40] LABS: Albumin 3.6 g/dL (3.4-5.0); Bilirubin Direct 0.2 mg/dL (0-0.2); Bilirubin Total 0.4 mg/dL (0.2-1.0); Potassium 4.2 mmol/L (3.5-5.1); Protein, Total 7.8 g/dL (6.4-8.2)
--- NOTE | 2020-03-25 01:32 | ER ---
Nurse's Notes [facility] Name: Suad Cuenca Age: 69 yrs Sex: Female : 1950 Arrival Date: 03/24/2020 Time: 22:50 Bed 3 Private MD: Diagnosis: Other intestinal obstruction Presentation: 03/24 22:40 Chief complaint: EMS states: that they were told by staff at [facility] that pt has fc been having nausea, vomiting and abd pain x 24 hrs. Has vomited x 3 and it has all been green bile. Pt has also had recent GT removal but unknown when or why. Coronavirus screen: Proceed with normal triage. Patient denies a cough. Patient denies shortness of breath or difficulty breathing. Patient denies measured and/or subjective temperature greater than 100.4F prior to today's visit. Patient denies travel on a cruise ship or to a country the [facility] currently lists as an affected area. Patient denies contact with known and/or suspected case of COVID-19. Ebola Screen: Patient negative for fever greater than or equal to 101.5 degrees Fahrenheit, and additional compatible Ebola Virus Disease symptoms Patient denies exposure to infectious person. Patient denies travel to an Ebola-affected area in the 21 days before illness onset. Initial Sepsis Screen: Does the patient meet any 2 criteria? No. Patient's initial sepsis screen is negative. Does the patient have a suspected source of infection? No. Patient's initial sepsis screen is negative. Risk Assessment: Do you want to hurt yourself or someone else? Patient reports no desire to harm self or others. Onset of symptoms was March 23, 2020. Care prior to arrival: Medication(s) given: Phenergan, given IM by [facility] staff at 1830. Transition of care: patient was received from another setting of care (long-term care facility), [facility]. 22:40 Method Of Arrival: EMS: [facility] 22:40 Acuity: TRICIA 3 fc Historical: - Allergies: 23:16 Aspirin; fc 23:16 diazepam; fc 23:16 PENICILLINS; fc 23:16 Sulfa (Sulfonamide Antibiotics); fc 23:16 Iodine; fc 23:16 Bleach (Sodium Hypochlorite); fc 23:16 bug spray; fc 23:16 Pork/Porcine Containing Products; fc - Home Meds: 23:16 Multiple Vitamins Oral tab daily [Active]; phenytoin 50 mg oral chew 3 tabs 3 times per fc day [Active]; Fosamax 70 mg Oral tab 1 tab once wkly for Post-Menopausal Osteoporosis [Active]; metoprolol tartrate 25 mg Oral tab 1 tab once daily [Active]; Vitamin B-12 1,000 mcg Oral tab daily [Active]; Lactobacillus acidophilus-pectin Oral daily [Active]; magnesium oxide 400 mg Oral tab daily [Active]; Movantik 25 mg Oral tab 1 tab once daily [Active]; levothyroxine 88 mcg tab 1 tab once daily for Hypothyroidism [Active]; isosorbide dinitrate 10 mg Oral tab 1 tab 2 times per day [Active]; alprazolam 0.25 mg Oral tab 1 tab twice a day for Anxiety [Active]; hydrocodone-acetaminophen 10-325 mg Oral tab 1 tab every 8 hours for Pain [Active]; gabapentin 300 mg Oral cap 1 cap 3 times per day for Neuropathic Pain [Active]; bethanechol chloride 25 mg oral tab 1 tab 4 times per day [Active]; tramadol 50 mg Oral tab 1 tab every 6 hours [Active]; Zofran (as hydrochloride) 4 mg Oral tab 1 tabs 3 times per day for Acute Gastroenteritis-related Vomiting in Pediatrics [Active]; magnesium citrate Oral soln daily for constipation [Active]; restasis emulsion 0.05% daily [Active]; Pepcid 20 mg Oral tab 1 tab once daily [Active]; phenobarbital 60 mg Oral tab 1 tab twice a day [Active]; - PMHx: 23:16 Anemia; Anxiety; arthropathy; CAUDA EQUINA SYNDROME; chronic pulmonary edema; fc congnitive communication deficit; Depression; dermatitis; Diabetes - IDDM; Dry Eye; epilepsy; Hypothyroidism; Multiple Sclerosis; MUSCLE WEAKNESS; Osteoporosis; pulmonary edema; UTI; - Immunization history:: Last tetanus immunization: unknown, Flu vaccine is up to date. - Social history:: Smoking status: Patient denies any tobacco usage or history of. Patient/guardian denies using alcohol, street drugs. Screenin:40 Abuse screen: Denies threats or abuse. Denies injuries from another. Nutritional fc screening: No deficits noted. Tuberculosis screening: No symptoms or risk factors identified. Fall Risk Fall in past 12 months (25 points). Secondary diagnosis (15 points) impaired mobility, No IV (0 pts). Ambulatory Aid- None/Bed Rest/Nurse Assist (0 pts). Gait- Weak (10 pts.). Mental Status- Overestimates/Forgets Limitations (15 pts.). Total Chi Fall Scale indicates High Risk Score (45 or more points). Fall prevention measures have been instituted. Side Rails Up X 2 Placed Close to Nursing Station Frequent Obs/Assessments Occuring As available patient and family educated on Fall Prevention Program and Strategies. 22:54 Abuse screen: Denies threats or abuse. Nutritional screening: No deficits noted. jd3 Tuberculosis screening: No symptoms or risk factors identified. Fall Risk Ambulatory Aid- None/Bed Rest/Nurse Assist (0 pts). Gait- Normal/Bed Rest/Wheelchair (0 pts) Mental Status- Oriented to own ability (0 pts). Total Chi Fall Scale indicates No Risk (0-24 pts). Assessment: 22:51 General: Appears in no apparent distress. uncomfortable, Behavior is calm, cooperative, jd3 appropriate for age. Pain: Complains of pain in back and abdomen Quality of pain is described as aching. Neuro: Level of Consciousness is awake, alert, obeys commands, Oriented to person, place, time, situation, pt is slower to talk and move due to known condition. Cardiovascular: Denies chest pain, Capillary refill < 3 seconds Patient's skin is warm and dry. Respiratory: Airway is patent Respiratory effort is even, unlabored, Respiratory pattern is regular, symmetrical, Denies cough, shortness of breath. GI: Abdomen is round Bowel sounds hypoactive in abdomen diffusely Abd is soft X 4 quads Abdomen is tender to palpation X 4 quads. Reports lower abdominal pain, upper abdominal pain, nausea, vomiting. : No signs and/or symptoms were reported regarding the genitourinary system. EENT: No signs and/or symptoms were reported regarding the EENT system. Derm: Skin is intact, Skin is dry, Skin is normal, Skin temperature is warm. Musculoskeletal: Circulation, motion, and sensation intact. 03/25 00:36 Reassessment: Patient appears in no apparent distress at this time. Patient and/or jd3 family updated on plan of care and expected duration. Pain level reassessed. Patient is alert, oriented x 3, equal unlabored respirations, skin warm/dry/pink. Patient states feeling better. 01:41 Reassessment: Patient appears in no apparent distress at this time. No changes from jd3 previously documented assessment. Patient and/or family updated on plan of care and expected duration. Pain level reassessed. Patient is alert, oriented x 3, equal unlabored respirations, skin warm/dry/pink. Vital Signs: 03/24 22:40 BP 149 / 89; Pulse 119; Resp 20; Temp 96.0(A); Pulse Ox 100% on R/A; Weight 85.73 kg fc (R); Height 6 ft. 0 in. (182.88 cm) (R); Pain 8/10; 23:03 Temp 97.5(O); ds4 03/25 00:36 BP 132 / 88; Pulse 102; Resp 20 S; Pulse Ox 95% on R/A; jd3 01:42 BP 121 / 71; Pulse 110; Resp 19 S; Pulse Ox 98% on R/A; jd3 02:50 BP 137 / 88; Pulse 103; Resp 18; Temp 98.5; Pulse Ox 96% on R/A; rv 03/24 22:40 Body Mass Index 25.63 (85.73 kg, 182.88 cm) fc ED Course: 03/24 22:40 Arm band placed on Patient placed in an exam room, on a stretcher. fc 22:50 Patient arrived in ED. fc 22:51 Arnav Ordaz, RN is Primary Nurse. jd3 22:53 Triage completed. fc 22:55 Patient has correct armband on for positive identification. Placed in gown. Bed in low jd3 position. Call light in reach. Side rails up X2. Pulse ox on. NIBP on. 22:58 Raf Ya MD is Attending Physician. tw4 23:15 Inserted saline lock: 18 gauge in left antecubital area, using aseptic technique. Blood rv collected. 23:15 Initial lab(s) drawn, by me, sent to lab. rv 03/25 00:19 Abdomen In Process Unspecified. EDMS 00:27 CXR XRAY In Process Unspecified. EDMS 01:29 Lizzy Arredondo MD is Hospitalizing Provider. tw4 01:42 NGT: inserted 16 Fr. via right nare. verified placement of air over stomach, verified jd3 return of gastric contents, Patient tolerated well. placed by Isaias CHAUDHRY. 02:00 Inserted MIDLINE POWERGLIDE G18 X 10 CM, RIGHT UPPER ARM. rv 02:48 No provider procedures requiring assistance completed. IV is patent, with fluids rv infusing freely, with good blood return, Patient admitted, IV remains in place. Administered Medications: 03/24 23:15 Drug: morphine 4 mg {Note: RASS 0.} Route: IVP; Site: left antecubital; rv 03/25 02:48 Follow up: Response: No adverse reaction; Pain is decreased; RASS: Drowsy (-1) rv 03/24 23:18 Drug: NS 0.9% 1000 ml Route: IV; Rate: 125 ml/hr; Site: left antecubital; rv 03/25 02:48 Follow up: IV Status: IV converted to saline lock; IV Intake: 250ml rv 03/24 23:18 Drug: Zofran (Ondansetron) 4 mg Route: IVP; Site: left antecubital; rv 03/25 02:48 Follow up: Response: No adverse reaction rv Intake: 02:48 IV: 250ml; Total: 250ml. rv Outcome: 01:32 Decision to Hospitalize by Provider. tw4 02:50 Admitted to Med/surg accompanied by tech, via stretcher, room 214, with chart, Report rv called to AIDA CHAUDHRY 02:50 Condition: stable 02:50 Instructed on the need for admit. 03:01 Patient left the ED. rv Signatures: Dispatcher [employer] EDNH Lyric King RN RN fc Swanson, Donovan ds4 Arnav Ordaz RN RN jd3 Wadley, Terrence, MD MD tw4 Lavell García RN RN rv Corrections: (The following items were deleted from the chart) 01:54 01:42 NGT: inserted 16 Fr. via right nare. verified placement of air over stomach, jd3 verified return of gastric contents, Patient tolerated well. jd3
--- NOTE | 2020-03-25 01:32 | EDPHYS ---
Physician Documentation [facility] Name: Suad Cuenca Age: 69 yrs Sex: Female : 1950 Arrival Date: 03/24/2020 Time: 22:50 Bed 3 Private MD: ED Physician Raf Ya HPI: 03/25 06:35 This 69 yrs old Female presents to ER via EMS with complaints of tw4 Nausea/Vomiting, Abdominal Pain. 06:35 The patient presents to the emergency department with nausea, vomiting. tw4 06:36 Onset: The symptoms/episode began/occurred yesterday. Possible causes: unknown. The tw4 symptoms are aggravated by nothing. The symptoms are alleviated by nothing. The patient has not experienced similar symptoms in the past. Historical: - Allergies: 03/24 23:16 Aspirin; fc 23:16 diazepam; fc 23:16 PENICILLINS; fc 23:16 Sulfa (Sulfonamide Antibiotics); fc 23:16 Iodine; fc 23:16 Bleach (Sodium Hypochlorite); fc 23:16 bug spray; fc 23:16 Pork/Porcine Containing Products; fc - Home Meds: 23:16 Multiple Vitamins Oral tab daily [Active]; phenytoin 50 mg oral chew 3 tabs 3 times per fc day [Active]; Fosamax 70 mg Oral tab 1 tab once wkly for Post-Menopausal Osteoporosis [Active]; metoprolol tartrate 25 mg Oral tab 1 tab once daily [Active]; Vitamin B-12 1,000 mcg Oral tab daily [Active]; Lactobacillus acidophilus-pectin Oral daily [Active]; magnesium oxide 400 mg Oral tab daily [Active]; Movantik 25 mg Oral tab 1 tab once daily [Active]; levothyroxine 88 mcg tab 1 tab once daily for Hypothyroidism [Active]; isosorbide dinitrate 10 mg Oral tab 1 tab 2 times per day [Active]; alprazolam 0.25 mg Oral tab 1 tab twice a day for Anxiety [Active]; hydrocodone-acetaminophen 10-325 mg Oral tab 1 tab every 8 hours for Pain [Active]; gabapentin 300 mg Oral cap 1 cap 3 times per day for Neuropathic Pain [Active]; bethanechol chloride 25 mg oral tab 1 tab 4 times per day [Active]; tramadol 50 mg Oral tab 1 tab every 6 hours [Active]; Zofran (as hydrochloride) 4 mg Oral tab 1 tabs 3 times per day for Acute Gastroenteritis-related Vomiting in Pediatrics [Active]; magnesium citrate Oral soln daily for constipation [Active]; restasis emulsion 0.05% daily [Active]; Pepcid 20 mg Oral tab 1 tab once daily [Active]; phenobarbital 60 mg Oral tab 1 tab twice a day [Active]; - PMHx: 23:16 Anemia; Anxiety; arthropathy; CAUDA EQUINA SYNDROME; chronic pulmonary edema; fc congnitive communication deficit; Depression; dermatitis; Diabetes - IDDM; Dry Eye; epilepsy; Hypothyroidism; Multiple Sclerosis; MUSCLE WEAKNESS; Osteoporosis; pulmonary edema; UTI; - Immunization history:: Last tetanus immunization: unknown, Flu vaccine is up to date. - Social history:: Smoking status: Patient denies any tobacco usage or history of. Patient/guardian denies using alcohol, street drugs. ROS: 03/25 06:36 Constitutional: Negative for fever, chills, and weight loss, Eyes: Negative for injury, tw4 pain, redness, and discharge, Cardiovascular: Negative for chest pain, palpitations, and edema, Respiratory: Negative for shortness of breath, cough, wheezing, and pleuritic chest pain, MS/Extremity: Negative for injury and deformity, Skin: Negative for injury, rash, and discoloration, Neuro: Negative for headache, weakness, numbness, tingling, and seizure. Abdomen/GI: Positive for abdominal pain, nausea and vomiting, nausea, vomiting, and diarrhea, nausea, vomiting, Negative for constipation, abdominal cramps, abdominal distension, anorexia, black/tarry stool, rectal pain. Exam: 06:36 Constitutional: This is a well developed, well nourished patient who is awake, alert, tw4 and in no acute distress. Head/Face: Normocephalic, atraumatic. Chest/axilla: Normal chest wall appearance and motion. Nontender with no deformity. No lesions are appreciated. Cardiovascular: Regular rate and rhythm with a normal S1 and S2. No gallops, murmurs, or rubs. Normal PMI, no JVD. No pulse deficits. Respiratory: Lungs have equal breath sounds bilaterally, clear to auscultation and percussion. No rales, rhonchi or wheezes noted. No increased work of breathing, no retractions or nasal flaring. Back: No spinal tenderness. No costovertebral tenderness. Full range of motion. MS/ Extremity: Pulses equal, no cyanosis. Neurovascular intact. Full, normal range of motion. Neuro: Awake and alert, GCS 15, oriented to person, place, time, and situation. Cranial nerves II-XII grossly intact. Motor strength 5/5 in all extremities. Sensory grossly intact. Cerebellar exam normal. Normal gait. 06:36 Abdomen/GI: Inspection: distension, that is moderate, Bowel sounds: diminished, Palpation: moderate abdominal tenderness, in all quadrants. Vital Signs: 03/24 22:40 BP 149 / 89; Pulse 119; Resp 20; Temp 96.0(A); Pulse Ox 100% on R/A; Weight 85.73 kg fc (R); Height 6 ft. 0 in. (182.88 cm) (R); Pain 8/10; 23:03 Temp 97.5(O); ds4 03/25 00:36 BP 132 / 88; Pulse 102; Resp 20 S; Pulse Ox 95% on R/A; jd3 01:42 BP 121 / 71; Pulse 110; Resp 19 S; Pulse Ox 98% on R/A; jd3 02:50 BP 137 / 88; Pulse 103; Resp 18; Temp 98.5; Pulse Ox 96% on R/A; rv 03/24 22:40 Body Mass Index 25.63 (85.73 kg, 182.88 cm) fc MDM: 01:32 Patient medically screened. tw4 06:36 Differential diagnosis: Nonspecific abd pain, gastritis, cholecystitis, tw4 gastroenteritis. Data reviewed: vital signs, EMS record. Data reviewed: lab test result(s), cardiac enzymes, CBC, electrolytes, hepatic panel, radiologic studies, CT scan. Data interpreted: Pulse oximetry: Interpretation: normal. Counseling: I had a detailed discussion with the patient and/or guardian regarding: the historical points, exam findings, and any diagnostic results supporting the discharge/admit diagnosis, lab results, radiology results. Physician consultation: Lizzy Arredondo MD regarding admission, patient's condition, and will see patient would like consultation with . DR ORTIZ CONSULTED AT 0630. 03/24 22:59 Order name: Basic Metabolic Panel tw4 03/24 22:59 Order name: CBC with Diff tw4 03/24 22:59 Order name: Hepatic Function tw4 03/24 22:59 Order name: Lipase tw4 03/24 23:12 Order name: COVID-19 tw4 03/24 23:12 Order name: Flu tw4 03/24 23:12 Order name: Strep tw4 03/24 23:49 Order name: CREATININE WHOLE BLOOD EDMS 03/25 00:34 Order name: Throat Culture EDMS 03/25 02:19 Order name: Procalcitonin EDMS 03/25 02:19 Order name: Protime (+INR) EDMS 03/25 02:19 Order name: PTT, Activated Partial Thromb EDMS 03/25 02:19 Order name: CBC with Automated Diff EDMS 03/25 02:19 Order name: CBC with Automated Diff EDMS 03/25 02:19 Order name: Comprehensive Metabolic Panel EDMS 03/25 02:19 Order name: Comprehensive Metabolic Panel EDMS 03/25 02:19 Order name: Lactate EDMS 03/25 02:19 Order name: Lactate EDMS 03/25 02:19 Order name: Magnesium EDMS 03/25 02:19 Order name: Magnesium EDMS 03/25 02:19 Order name: Phosphorus EDMS 03/25 02:19 Order name: Phosphorus EDMS 03/24 22:59 Order name: IV Saline Lock; Complete Time: 23:19 tw4 03/24 22:59 Order name: Labs collected and sent; Complete Time: 23:19 tw4 03/24 23:12 Order name: CXR XRAY tw4 03/24 23:12 Order name: Document PUI#; Complete Time: 23:20 tw4 03/24 23:12 Order name: Droplet/Contact Precautions; Complete Time: 23:20 tw4 03/24 23:12 Order name: Notify Health Dept [phone]/ ; Complete Time: 23:20 tw4 03/24 23:12 Order name: O2 Per Protocol; Complete Time: 23:20 tw4 03/24 23:56 Order name: Abdomen EDMS 03/25 01:28 Order name: Nasogastric Tube; Complete Time: 01:43 tw4 03/25 02:17 Order name: CONS Physician Consult EDMS 03/25 02:17 Order name: NPO EDMS 03/25 02:18 Order name: Abdomen Acute Series EDMS Administered Medications: 03/24 23:15 Drug: morphine 4 mg {Note: RASS 0.} Route: IVP; Site: left antecubital; rv 03/25 02:48 Follow up: Response: No adverse reaction; Pain is decreased; RASS: Drowsy (-1) rv 03/24 23:18 Drug: NS 0.9% 1000 ml Route: IV; Rate: 125 ml/hr; Site: left antecubital; rv 03/25 02:48 Follow up: IV Status: IV converted to saline lock; IV Intake: 250ml rv 03/24 23:18 Drug: Zofran (Ondansetron) 4 mg Route: IVP; Site: left antecubital; rv 03/25 02:48 Follow up: Response: No adverse reaction rv Disposition: 03/25/20 01:32 Hospitalization ordered by Lizzy Arredondo for Inpatient Admission. Preliminary diagnosis is Other intestinal obstruction. - Bed requested for Telemetry/MedSurg (Inpatient). - Status is Inpatient Admission. rv - Condition is Stable. - Problem is new. - Symptoms are unchanged. Signatures: Dispatcher [employer] EDNC Lyric King, RN RN Nubia Triplett RN RN tl1 Raf Ya MD MD tw4 Lavell García, RN RN rv Corrections: (The following items were deleted from the chart) 03/24 23:56 22:59 Abdomen Pelvis W Con+CT.[id number].BRZ ordered. EDNC EDNC 03/25 02:22 02:17 CBC with Automated Diff ordered. EDNC EDMS 02:22 02:17 Comprehensive Metabolic Panel ordered. EDNC EDMS 02:22 02:17 Lipase ordered. EDNC EDMS 02:22 02:17 Magnesium ordered. EDMS EDMS 02:22 02:17 Phosphorus ordered. EDNC EDMS 02:22 02:17 Protime (+INR) ordered. EDNC EDMS 02:22 02:17 PTT, Activated Partial Thromb ordered. EDNC EDMS 02:28 01:32 Hospitalization Ordered by Lizzy Arredondo MD for Inpatient Admission. Preliminary tl1 diagnosis is Other intestinal obstruction. Bed requested for Telemetry/MedSurg (Inpatient). Status is Inpatient Admission. Condition is Stable. Problem is new. Symptoms are unchanged. tw4 03:01 02:28 03/25/2020 01:32 Hospitalization Ordered by Lizzy Arredondo MD for Inpatient rv Admission. Preliminary diagnosis is Other intestinal obstruction. Bed requested for Telemetry/MedSurg (Inpatient). Status is Inpatient Admission. Condition is Stable. Problem is new. Symptoms are unchanged. tl1
[2020-03-25] MEDS ORDERED: ACETAMINOPHEN 500 MG TAB PO PRN (02:11)
[2020-03-25] MEDS: NA CHLORIDE 0.9% 1,000 ML IV SCH ×3 (04:29→22:36)
[2020-03-25] MEDS: HYDROMORPHONE HCL 1 MG/ML INJ IV PRN ×4 (04:29→22:33)
[2020-03-25] MEDS: ONDANSETRON 4 MG/2 ML VIAL IV PRN ×2 (04:30→19:10)
[2020-03-25 04:45] LABS: Absolute Lymphocytes (CBC) 1.8 K/uL (0.7-4.9); Basophils % 0.3 % (0-1.3); Hematocrit 48.9 % (36.0-45.0); Lymphocytes % 25.4 % (15.3-44.8); MPV 8.9 fL (7.6-11.3); RBC Red Blood Cell Count 5.23 M/uL (3.86-4.86)
[2020-03-25 04:56] LABS: Protime INR 1.03
[2020-03-25 05:04] LABS: Albumin 3.6 g/dL (3.4-5.0); Bilirubin Total 0.4 mg/dL (0.2-1.0); Magnesium 2.7 mg/dL (1.8-2.4); Phosphorus 4.2 mg/dL (2.5-4.9); Potassium 4.2 mmol/L (3.5-5.1); Protein, Total 7.6 g/dL (6.4-8.2)
[2020-03-25] MEDS: Levofloxacin500mg IV 500 MG/100 ML BAG IV SCH (05:08)
[2020-03-25] MEDS: METRONIDAZOLE 500mg IVPB 500 MG/100 ML BAG IV SCH ×4 (05:09→23:01)
[2020-03-25 05:24] VITALS: BMI 22.8
[2020-03-25] MEDS: ENOXAPARIN 40 MG/0.4 ML SQ SCH (09:00)
--- NOTE | 2020-03-25 09:48 | P.HP ---
Certification for Inpatient Patient admitted to: Inpatient With expected LOS: >2 Midnights Patient will require the following post-hospital care: None Practitioner: I am a practitioner with admitting privileges, knowledge of patient current condition, hospital course, and medical plan of care. Services: Services provided to patient in accordance with Admission requirements found in Title 42 Section 412.3 of the Code of Federal Regulations Patient History Date of Service: 03/25/20 Reason for admission: Small-bowel obstruction History of Present Illness: Patient is a 69-year-old female came to the hospital with a small-bowel obstruction. Patient has a history of multiple scleroses. She has severe at mass that she is become bed-bound. She has aphasia and right-sided weakness as well. She has a history of colon cancer and Coronary artery disease. At this time, patient be admitted to the hospital for workup over small-bowel obstruction. Will place an NG tube and monitor her labs. Correct her electrolytes as necessary. General surgery consultation has been placed. Allergies ampicillin Allergy (Verified 03/25/20 04:27) Anaphylaxis aspirin [From Amie Aspirin] Allergy (Verified 03/25/20 04:27) Hives diazepam Allergy (Verified 03/25/20 04:27) Hives Penicillins Allergy (Verified 03/25/20 04:27) Anaphylaxis red yeast rice Allergy (Verified 03/25/20 04:27) Hives bleach Allergy (Uncoded 11/15/16 07:48) Hives sulfa Allergy (Uncoded 11/15/16 07:48) Hives Home Medications: ALPRAZolam [Xanax*] 0.25 mg PO BID 03/25/20 Acetaminophen [Tylenol*] 650 mg PO Q6HP PRN 03/25/20 Alendronate Sodium [Fosamax] 70 mg PO EVERY 7TH DAY 03/25/20 Bethanechol Chloride 25 mg PO Q6HR 03/25/20 Cyanocobalamin (Vitamin B-12) [Vitamin B-12] 1,000 mcg PO DAILY 03/25/20 Diphenhydramine [Benadryl*] 25 mg PO BID PRN 03/25/20 Famotidine [Pepcid*] 20 mg PO BEDTIME 03/25/20 Fluticasone [Flonase 50MCG Nasal Pavo*] 1 spr MARCEL BID 03/25/20 Gabapentin 300 mg PO Q8H 03/25/20 Guaifenesin [Mucus ER] 600 mg PO BID 03/25/20 Hydrocodone 10/APAP 325 [[place] 10/325*] 1 tab PO Q8HP PRN 03/25/20 Isosorbide Dinitrate 10 mg PO BID 03/25/20 Lactobacillus Acidophilus [Acidophilus Lactobacilli] 1 cap PO DAILY 03/25/20 Levothyroxine [Synthroid*] 0.088 mcg PO DAILY 03/25/20 Loperamide HCl [Loperamide] 2 mg PO Q4HP PRN 03/25/20 Mag Hydrox/Aluminum Hyd/Simeth [Neva-Lanta Liquid] 30 m PO Q4HP PRN 03/25/20 Mag Hydroxide 8% [Milk Of Magnesia*] 30 ml PO DAILY PRN 03/25/20 Magnesium Oxide [Mag 0X*] 400 mg PO DAILY 03/25/20 Metoprolol Tartrate [Lopressor*] 25 mg PO DAILY 03/25/20 Multivitamin [Daily Multiple Vitamin] 1 tab PO DAILY 03/25/20 Naloxegol Oxalate [Movantik] 25 mg PO DAILY 03/25/20 Ondansetron [Zofran (Odt)*] 4 mg PO Q8HP PRN 03/25/20 PHENobarbitaL [Phenobarbital] 60 mg PO BID 03/25/20 Phenytoin [Dilantin] 150 mg PO Q8H 03/25/20 Promethazine Inj [Phenergan -Inj*] 25 mg IM Q8HP PRN 03/25/20 Propylene Glycol/Peg 400 [Lubricating Eye Drop] 1 drop EACH EYE Q12H 03/25/20 bisacodyL [Dulcolax*] 5 mg PO Q12HP PRN 03/25/20 traMADol HCL [Ultram*] 50 mg PO Q6HP PRN 03/25/20 - Past Medical/Surgical History Has patient received pneumonia vaccine in the past: Yes Diabetic: No -: Seizure disorder -: Multiple scleroses -: History of colorectal cancer -: Anemia -: Coronary artery disease -: History of nephrectomy -: Neurogenic bladder -: History of bowel obstructions now with PEG -: Chronic pain syndrome -: Depression with anxiety -: Bowel surgery -: PEG tube placement -: Kidney stone removed -: Tracheotomy -: Vein surgery Psychosocial/ Personal History: Patient has been a senior care resident for 20 years. She has no children. Power of senior attorney is her brother. Patient is DNR. - Family History Father Family History: Reviewed- Non-Contributory - Social History Smoking Status: Never smoker Alcohol use: Yes CD- Drugs: No Place of Residence: Residential Review of Systems 10-point ROS is otherwise unremarkable Physical Examination - Vital Signs Temperature: 97.8 F Blood Pressure: 141/69 Pulse: 113 Respirations: 18 Pulse Ox (%): 98 - Physical Exam General: Alert, In no apparent distress, Cooperative, Demented, Confused HEENT: Atraumatic, PERRLA, Mucous membr. moist/pink, Other (Aphasia), EOMI, Sclerae nonicteric Neck: Supple, 2+ carotid pulse no bruit, No LAD, Without JVD or thyroid abnormality Respiratory: Clear to auscultation bilaterally, Normal air movement Cardiovascular: Regular rate/rhythm, Normal S1 S2, Systolic murmur Gastrointestinal: Normal bowel sounds, Soft and benign, Non-distended, No tenderness Musculoskeletal: No clubbing, No swelling, No tenderness Integumentary: No rashes Neurological: Sensation intact, Cranial nerves 3-12 intact, Abnormal gait, Abnormal speech, Abnormal strength, Abnormal tone, Abnormal affect Lymphatics: No axilla or inguinal lymphadenopathy - Studies Laboratory Data (last 24 hrs) 03/24/20 23:15: WBC 5.2, Hgb 16.2 H, Hct 48.8 H, Plt Count 270 03/24/20 23:15: Sodium 140, Potassium 4.2, BUN 41 H, Creatinine 1.09, Glucose 140 H, Total Bilirubin 0.4, AST 13 L, ALT 26, Alkaline Phosphatase 111, Lipase 34 L Microbiology Data (last 24 hrs): 03/24/20 23:30 Throat Group A Streptococcus Rapid Screen - Final 03/24/20 23:30 Nasopharnyx Influenza Type A Antigen Screen - Final 03/24/20 23:30 Nasopharnyx Influenza Type B Antigen Screen - Final Assessment & Plan - Problems (Diagnosis) (1) Small bowel obstruction Onset Date: 08/23/14 Current Visit: No Status: Acute (2) Constipation Current Visit: No Status: Chronic Qualifiers: (3) Depression with anxiety Current Visit: No Status: Chronic (4) History of intestinal obstruction Current Visit: No Status: Chronic (5) Hypertension Current Visit: No Status: Chronic Qualifiers: (6) Multiple sclerosis Onset Date: 09/17/18 Current Visit: No Status: Chronic (7) Seizure disorder Onset Date: 09/17/18 Current Visit: No Status: Chronic (8) Urinary incontinence Current Visit: No Status: Chronic Qualifiers: - Plan Plan: 1. NPO 2. NGT 3. IVFs 4. Surgery consult 5. Steroids as needed 6. GI/DVT prophylaxis Discharge Plan: Home Plan to discharge in: Greater than 2 days - Advance Directives Does patient have a Living Will: No Does patient have a Durable POA for Healthcare: No - Code Status/Comfort Care Code Status Assessed: Yes Code Status: Full Code Critical Care: No Time Spent Managing PTS Care (In Minutes): 45
--- NOTE | 2020-03-25 10:39 | RAD REPORT ---
EXAM DESCRIPTION: RAD - Chest Single View - 03/25/2020 12:27 am CLINICAL HISTORY: vomiting Chest pain. COMPARISON: Chest Single View dated 08/22/2019; Abdomen Acute Series dated 08/20/2019; Abdomen Acute Series dated 08/18/2019; Chest Single View dated 06/07/2019 FINDINGS: Portable technique limits examination quality. Mildly elevated right hemidiaphragm is noted. Prominent interstitial lung markings are seen bilateral ly, nonspecific. The heart is normal in size. No displaced fractures. IMPRESSION: Interstitial prominence is seen which may indicate mild interstitial pulmonary edema or interstitial pneumonitis.
--- NOTE | 2020-03-25 12:06 | RAD REPORT ---
EXAM DESCRIPTION: RAD - Abdomen W Erect - 03/25/2020 11:42 am CLINICAL HISTORY: Small-bowel obstruction Pain COMPARISON: Abdomen Pelvis Wo Contrast dated 03/24/2020 FINDINGS: Multiple dilated and organized small bowel loops are present throughout the abdomen compat ible with a moderate mechanical small-bowel obstruction. This appears essentially unchanged since the comparative study. No pneumoperitoneum is evident. Tip of the enteric tube appears to be just entering the stomach. IMPRESSION: Moderate mechanical small-bowel obstruction.
--- NOTE | 2020-03-25 15:42 | P.CNS ---
Date of Consult: 03/25/20 PC: This 68 when you were year old female presents emergency room with severe abdominal pain nausea and vomiting at the senior care for evaluation treatment. HPC: Than experiencing some lower abdominal pain, associated with nausea and vomiting since last Saturday. Has not had any bowel movements recently. Her abdomen is getting bigger and she is somewhat uncomfortable. PMH: Patient has a history of multiple sclerosis. Had some dysphagia and at 1 point had a G-tube in. That was removed approximately 8 weeks ago due to ma lfunctioning. She is been eating orally since that time PSHx: Exploratory laparotomy for partial small-bowel obstruction SOC: On numerous medications (reviewed) numerous allergies as listed SYS REVIEW: States he has actually been in pretty good health until last week. O/E awake alert vital signs are stable HEENT: NG tube in place, thick green effluent Chest: Chest movement equal bilaterally ABD: Mildly distended and tympanic LOCO: Intact DATA: CT scan demonstrates partial small-bowel obstruction right lower quadrant with a transition point IMPRESSION: Partial small-bowel obstruction PLAN: The patient was admitted to the hospital for IV fluids, nasogastric tube, and will see if we could mechanically decompresses patient. I suspect that she ate some food of higher texture than normal and she appears to be clinically mildly dehydrated as well. We will rehydrate her, work on non operative clearing of this partial small-bowel obstruction. This was explained to the patient and she is agreeable.
--- NOTE | 2020-03-25 18:39 | RAD REPORT ---
EXAM DESCRIPTION: RAD - Chest Single View - 03/25/2020 4:39 pm CLINICAL HISTORY: confirm NGT placement COMPARISON: Portable March 24 TECHNIQUE: AP portable chest image was obtained 03/25/2020 4:39 pm . FINDINGS: NG tube has been placed. Tip is near the GE junction. Side port of the tubing is in the di stal esophagus. Placement into the stomach is not confirmed. Cardiomediastinal silhouette is unchanged. Widened mediastinum is likely the affects of rotation. IMPRESSION: NG tube tip is near the GE junction. Extension of the stomach is not confirmed.
--- NOTE | 2020-03-25 20:38 | RAD REPORT ---
EXAM DESCRIPTION: CT ABDOMEN PELVIS WITHOUT IV CONTRAST COMPARISON: CT abdomen and pelvis August 17, 2019 CLINICAL HISTORY: [facility] MAIN TECHNIQUE: Multiple helical axial images were obtained through the abdomen and pelvis without intrav enous contrast. Sagittal and coronal reformatted images are reviewed as well. All CT scans at this facility use dose modulation, iterative reconstruction, and/or weight-based dosi ng when appropriate to reduce radiation dose to as low as reasonably achievable. FINDINGS: Lung bases: Calcified densities in the lower lobes are again noted. Mild atelectasis versu s scarring in the right lower lobe is present. Liver: Homogenous attenuation is demonstrated. Gallbladder/biliary: Gallbladder is not visualized suggestive of prior cholecystectomy. Common bile d uct measures 1.2 cm in width and appears dilated which is nonspecific in the setting of prior cholecy stectomy and unchanged. Pancreas: Atrophic changes noted. Spleen: Unremarkable. Adrenals: Unremarkable. Kidneys and ureters: Right kidney is absent. A few subcentimeter hypodensities in the left kidney are present suggestive of cysts. No evidence of renal or ureteral stones. No hydronephrosis. Bladder: Unremarkable. Pelvic organs: Unremarkable. Bowel: Postoperative changes of the proximal colon noted. Multiple dilated loops of small bowel demon strated containing air-fluid levels. There appears to be a transition between dilated and decompresse d small bowel in the right lower abdomen suggestive of small bowel obstruction. No evidence of bowel wall thickening. Appendix is not visualized. Peritoneum: No free air. No significant free fluid. Lymph nodes: Unremarkable. Vasculature: Aortoiliac atherosclerosis is present. Soft tissues: Nonspecific calcifications within the subcutaneous tissues lateral to the left pelvis n oted. Bones: Degenerative changes of the lumbar spine noted. IMPRESSION: Findings suggestive of small bowel obstruction with transition point in the right lower abdomen. Electronically signed by: Chapo Lindsey MD 03/25/2020 12:40 AM CDT Due to temporary technical issues with the PACS/Fluency reporting system, reports are being signed by the in house radiologist without review as a courtesy to ensure prompt reporting. The interpreting r adiologist is fully responsible for the content of the report.
[2020-03-26] MEDS ORDERED: MINERAL OIL 30 ML UCUP PO ONE ×4 (01:23→22:30)
[2020-03-26] MEDS: METRONIDAZOLE 500mg IVPB 500 MG/100 ML BAG IV SCH ×3 (05:49→17:27)
[2020-03-26] MEDS: Levofloxacin500mg IV 500 MG/100 ML BAG IV SCH (06:37)
[2020-03-26] MEDS: HYDROMORPHONE HCL 1 MG/ML INJ IV PRN ×3 (07:34→19:17)
[2020-03-26] MEDS: ONDANSETRON 4 MG/2 ML VIAL IV PRN ×3 (07:34→18:39)
[2020-03-26] MEDS: NA CHLORIDE 0.9% 1,000 ML IV SCH ×2 (08:51→17:27)
[2020-03-26] MEDS: ENOXAPARIN 40 MG/0.4 ML SQ SCH (08:52)
--- NOTE | 2020-03-26 09:57 | P.PN ---
Subjective Date of Service: 03/26/20 NG tube is been clamped. Patient was given mineral oil through the NG tube. Patient is per having flatus. If bowel movement then possible discharge NG tube. Possibly discharge back to [facility] after NG tube is discontinued and patient is able the tolerate the diet Review of Systems 10-point ROS is otherwise unremarkable Physical Examination - Vital Signs Temperature: 97.8 F Blood Pressure: 141/69 Pulse: 113 Respirations: 18 Pulse Ox (%): 98 - Physical Exam General: Alert, In no apparent distress, Oriented x3 HEENT: Other (NG tube in place) Respiratory: Clear to auscultation bilaterally, Normal air movement Cardiovascular: Regular rate/rhythm, Normal S1 S2, No murmurs Gastrointestinal: Normal bowel sounds, Soft and benign, Non-distended, Tenderness (Generalized) Musculoskeletal: No clubbing, No swelling, No tenderness Integumentary: No rashes Neurological: Sensation intact, Cranial nerves 3-12 intact - Studies Microbiology Data (last 24 hrs): 03/24/20 23:30 Nasopharnyx Coronavirus COVID-19 PCR - Final Medications List Reviewed: Yes Assessment & Plan - Problems (Diagnosis) (1) Small bowel obstruction Onset Date: 08/23/14 Current Visit: No Status: Acute (2) Constipation Current Visit: No Status: Chronic Qualifiers: (3) Depression with anxiety Current Visit: No Status: Chronic (4) History of intestinal obstruction Current Visit: No Status: Chronic (5) Hypertension Current Visit: No Status: Chronic Qualifiers: (6) Multiple sclerosis Onset Date: 09/17/18 Current Visit: No Status: Chronic (7) Seizure disorder Onset Date: 09/17/18 Current Visit: No Status: Chronic (8) Urinary incontinence Current Visit: No Status: Chronic Qualifiers: - Plan Plan: 1. NPO 2. NGT clamped at this time 3. IVFs will continue 4. Surgery consult appreciated 5. If NG tube is discontinued and will start a diet and if patient tolerates it then anticipate discharge back to [facility] in the morning 6. GI/DVT prophylaxis Discharge Plan: Senior Living Plan to discharge in: 24 Hours - Advance Directives Does patient have a Living Will: No Does patient have a Durable POA for Healthcare: No - Code Status/Comfort Care Code Status: Full Code Critical Care: No Time Spent Managing PTS Care (In Minutes): 25
[2020-03-26] MEDS ORDERED: HYDROCODONE/APAP 10/325 TAB PO PRN (10:26)
[2020-03-26] MEDS ORDERED: MAGNESIUM HYDROXIDE 8% 30 ML PO PRN (10:26)
[2020-03-26] MEDS ORDERED: ONDANSETRON 4 MG (ODT) TAB PO PRN (10:26)
[2020-03-26] MEDS ORDERED: PHENOBARBITAL 60 MG PO SCH (10:26)
[2020-03-26] MEDS ORDERED: DIPHENHYDRAMINE 25 MG TAB/CAP PO PRN (10:26)
[2020-03-26] MEDS ORDERED: PHENYTOIN 150 MG PO SCH (10:30)
[2020-03-26] MEDS: PEG EACH EYE SCH ×2 (10:30→22:20)
[2020-03-26] MEDS: PROPYLENE GLYCOL EACH EYE SCH ×2 (10:30→22:20)
[2020-03-26] MEDS ORDERED: METOPROLOL TARTRATE 5 MG/5 ML INJ IV STA (10:40)
[2020-03-26] MEDS ORDERED: FOSPHENYTOIN PE 500 MG/10 ML VIAL IV ONE (11:00)
[2020-03-26] MEDS: GABAPENTIN 300 MG CAP PO SCH ×2 (11:00→16:18)
[2020-03-26] MEDS: BETHANECHOL 10 MG TAB PO SCH ×2 (11:58→16:18)
[2020-03-26] MEDS ORDERED: BETHANECHOL CHLORIDE 25 MG PO SCH (12:00)
[2020-03-26] MEDS: PHENYTOIN 150 MG PO SCH (16:18)
[2020-03-26] MEDS ORDERED: NA CHLORIDE 0.9% 500 ML IV ONE (18:11)
--- NOTE | 2020-03-26 18:32 | P.PN ---
Date of Service: 03/26/20 S: Patient actually feels a low bit better today, says that her nose and throat hurt her since that tube had be reinserted yesterday evening. Minimal cramping abdominal pain today, has passed some gas per rectum, and had small bowel movement. O: Vital signs are stable abdomen is soft, much less distended than yesterday. Now it is soft, no masses are palpable. A: Surgically stable, I believe that the partial obstruction is starting to resolve. Clinically much improved P: Will allowed patient access to liquids and popsicles. The will receive some mineral oil via the nasogastric tubes and 2 doses tonight. Will most likely Dc NG tube in a.m.. Anticipate discharge Saturday a.m..
[2020-03-26] MEDS: PHENOBARBITAL 32.4 MG TABLET PO SCH (20:45)
[2020-03-26] MEDS: ISOSORBIDE DINIT 5 MG TAB PO SCH (20:46)
[2020-03-26] MEDS: ALPRAZOLAM 0.25 MG TABLET PO SCH (20:46)
[2020-03-26] MEDS: FLUTICASONE 50MCG NASAL SPRAY NAS SCH (20:53)
[2020-03-26] MEDS ORDERED: FAMOTIDINE 20 MG TAB PO SCH (21:00)
[2020-03-26] MEDS ORDERED: ISOSORBIDE DINITRATE 10 MG PO SCH (21:00)
[2020-03-27] MEDS: HYDROMORPHONE HCL 1 MG/ML INJ IV PRN ×3 (00:45→14:05)
[2020-03-27] MEDS: ONDANSETRON 4 MG/2 ML VIAL IV PRN ×2 (00:45→14:04)
[2020-03-27] MEDS: GABAPENTIN 300 MG CAP PO SCH ×3 (00:46→16:41)
[2020-03-27] MEDS: BETHANECHOL 10 MG TAB PO SCH ×4 (00:47→17:17)
[2020-03-27] MEDS: METRONIDAZOLE 500mg IVPB 500 MG/100 ML BAG IV SCH ×2 (00:48→05:04)
[2020-03-27] MEDS: PHENYTOIN 150 MG PO SCH ×3 (00:48→17:00)
[2020-03-27] MEDS: NA CHLORIDE 0.9% 1,000 ML IV SCH (05:32)
[2020-03-27] MEDS: Levofloxacin500mg IV 500 MG/100 ML BAG IV SCH (05:32)
[2020-03-27] MEDS: LEVOTHYROXINE SOD 0.088 MG TAB PO SCH (05:32)
[2020-03-27 06:21] LABS: BUN Blood Urea Nitrogen 17 mg/dL (7-18); Bicarbonate 27 mmol/L (21-32); Glucose Level 95 mg/dL (74-106); Potassium 3.5 mmol/L (3.5-5.1); Sodium Level 147 mmol/L (136-145)
[2020-03-27] MEDS: D5W 1,000 ML IV SCH (08:29)
[2020-03-27] MEDS: PHENOBARBITAL 32.4 MG TABLET PO SCH ×2 (08:30→21:09)
[2020-03-27] MEDS: METOPROLOL TAR 25 MG TAB PO SCH (08:31)
[2020-03-27] MEDS: MAGNESIUM OXIDE 400 MG TAB PO SCH (08:31)
[2020-03-27] MEDS: ALPRAZOLAM 0.25 MG TABLET PO SCH ×2 (08:31→21:00)
[2020-03-27] MEDS: LACTOBACILLUS/ACIDOPHILUS TAB PO SCH (08:31)
[2020-03-27] MEDS: MULTIVITAMIN TAB PO SCH (08:32)
[2020-03-27] MEDS: CYANOCOBALAMIN 1,000 MCG TAB PO SCH (08:32)
[2020-03-27] MEDS: ISOSORBIDE DINIT 5 MG TAB PO SCH ×2 (08:32→21:09)
[2020-03-27] MEDS: ENOXAPARIN 40 MG/0.4 ML SQ SCH (08:32)
[2020-03-27] MEDS: PEG EACH EYE SCH ×2 (08:34→21:51)
[2020-03-27] MEDS: PROPYLENE GLYCOL EACH EYE SCH ×2 (08:34→21:51)
[2020-03-27] MEDS: FLUTICASONE 50MCG NASAL SPRAY NAS SCH ×3 (08:37→20:58)
[2020-03-27] MEDS: NALOXEGOL OXALATE 25 MG PO SCH (08:37)
--- NOTE | 2020-03-27 08:48 | P.PN ---
Subjective Date of Service: 03/27/20 Patient continues to do well with no new complaints. Still having some minimal tenderness. Patient has had some vague abdominal discomfort. NG tube was discontinued. Patient has not had a bowel movement. She is having flatus. Will start clear liquid diet and advance as tolerated. If she tolerates diet t hen discharge tomorrow. Review of Systems 10-point ROS is otherwise unremarkable Physical Examination - Vital Signs Temperature: 96.9 F Blood Pressure: 140/67 Pulse: 97 Respirations: 14 Pulse Ox (%): 94 - Physical Exam General: Alert, In no apparent distress, Oriented x3 Respiratory: Clear to auscultation bilaterally, Normal air movement Cardiovascular: Regular rate/rhythm, Normal S1 S2, No murmurs Gastrointestinal: Normal bowel sounds, Soft and benign, Non-distended, Tenderness (Ailyn-umbilical region) Musculoskeletal: No clubbing, No swelling, No tenderness Integumentary: No rashes Neurological: Normal strength at 5/5 x4 extr, Normal tone, Sensation intact - Studies Medications List Reviewed: Yes Assessment & Plan - Problems (Diagnosis) (1) Small bowel obstruction Onset Date: 08/23/14 Current Visit: No Status: Acute (2) Constipation Current Visit: No Status: Chronic Qualifiers: (3) Depression with anxiety Current Visit: No Status: Chronic (4) History of intestinal obstruction Current Visit: No Status: Chronic (5) Hypertension Current Visit: No Status: Chronic Qualifiers: (6) Multiple sclerosis Onset Date: 09/17/18 Current Visit: No Status: Chronic (7) Seizure disorder Onset Date: 09/17/18 Current Visit: No Status: Chronic (8) Urinary incontinence Current Visit: No Status: Chronic Qualifiers: - Plan Plan: 1. Clear liquid diet and advance as tolerated 2. NGT has been discontinued 3. IVFs will continue; continue antibiotic therapy at this time 4. Surgery consult appreciated 5. If patient tolerates diet and patient with BM then we should be able to discharge home in the morning. 6. GI/DVT prophylaxis Discharge Plan: Home Plan to discharge in: 48 Hours - Advance Directives Does patient have a Living Will: No Does patient have a Durable POA for Healthcare: No - Code Status/Comfort Care Code Status: Full Code Critical Care: No Time Spent Managing PTS Care (In Minutes): 25
[2020-03-27] MEDS ORDERED: ENOXAPARIN 40 MG/0.4 ML SQ SCH (09:00)
[2020-03-27] MEDS ORDERED: POTASSIUM CL 40 MEQ in NA CHLORIDE 0.9% 500 ML IV SCH (09:00)
[2020-03-27] MEDS ORDERED: LACTOBACILLUS ACIDOPHILUS PO SCH (09:00)
[2020-03-27] MEDS: Meropenem 500 MG in NA CHLORIDE 0.9% 100 ML IV SCH (16:41)
[2020-03-27] MEDS ORDERED: Meropenem 500 MG VIAL IV SCH (17:00)
[2020-03-27] MEDS: FAMOTIDINE 20 MG/2 ML VIAL IV SCH (21:09)
--- NOTE | 2020-03-27 21:09 | P.PN ---
Date of Service: 03/27/20 S: No was specific complaints today, says her abdomen is somewhat better. Still having some cramping, passing gas per rectum, no large bowel movements. O: Clinically patient looks much improved. Abdomen is soft, not distended no masses palpable. A: Partial small-bowel obstruction appears to have resolved P: Anticipate discharge probably in the a.m..
[2020-03-28] MEDS: PHENYTOIN 150 MG PO SCH ×3 (00:11→16:40)
[2020-03-28] MEDS: Meropenem 500 MG in NA CHLORIDE 0.9% 100 ML IV SCH ×3 (00:26→17:33)
[2020-03-28] MEDS: D5W 1,000 ML IV SCH ×2 (00:26→10:55)
[2020-03-28] MEDS: BETHANECHOL 10 MG TAB PO SCH ×4 (00:27→17:33)
[2020-03-28] MEDS: GABAPENTIN 300 MG CAP PO SCH ×3 (00:28→17:33)
[2020-03-28] MEDS: HYDROMORPHONE HCL 1 MG/ML INJ IV PRN ×3 (02:15→18:36)
[2020-03-28] MEDS: ONDANSETRON 4 MG/2 ML VIAL IV PRN (02:15)
--- NOTE | 2020-03-28 02:34 | P.PN ---
Date of Service: 03/27/20 Awaiting culture results. Questionable ESBL in the wound. Micro results in a.m.. If he ESBL then we need to do PICC line placement. Will also need 2 weeks of IV antibiotic therapy.
[2020-03-28 05:01] LABS: BUN Blood Urea Nitrogen 10 mg/dL (7-18); Bicarbonate 26 mmol/L (21-32); Glucose Level 109 mg/dL (74-106); Lipase 43 U/L (73-393); Magnesium 1.8 mg/dL (1.8-2.4); Phosphorus 1.6 mg/dL (2.5-4.9); Potassium 3.6 mmol/L (3.5-5.1); Sodium Level 142 mmol/L (136-145)
[2020-03-28 05:11] LABS: Absolute Lymphocytes (CBC) 1.3 K/uL (0.7-4.9); Basophils % 0.4 % (0-1.3); Hematocrit 37.6 % (36.0-45.0); Lymphocytes % 31.9 % (15.3-44.8); MPV 8.5 fL (7.6-11.3); RBC Red Blood Cell Count 4.05 M/uL (3.86-4.86)
[2020-03-28] MEDS ORDERED: MAGNESIUM SULFATE 1 gm IVPB 1 GM/100 ML BAG IV ONE (06:00)
[2020-03-28] MEDS: LEVOTHYROXINE SOD 0.088 MG TAB PO SCH (06:06)
[2020-03-28] MEDS ORDERED: POTASSIUM PHOS IN 0.9 % NACL 15 MMOL/250 ML BAG IV ONE (08:00)
[2020-03-28] MEDS: PHENOBARBITAL 32.4 MG TABLET PO SCH ×2 (08:31→21:53)
[2020-03-28] MEDS: ALPRAZOLAM 0.25 MG TABLET PO SCH ×2 (08:32→21:00)
[2020-03-28] MEDS: MULTIVITAMIN TAB PO SCH (08:32)
[2020-03-28] MEDS: MAGNESIUM OXIDE 400 MG TAB PO SCH (08:32)
[2020-03-28] MEDS: CYANOCOBALAMIN 1,000 MCG TAB PO SCH (08:32)
[2020-03-28] MEDS: LACTOBACILLUS/ACIDOPHILUS TAB PO SCH (08:32)
[2020-03-28] MEDS: METOPROLOL TAR 25 MG TAB PO SCH (08:32)
[2020-03-28] MEDS: ISOSORBIDE DINIT 5 MG TAB PO SCH ×2 (08:32→21:53)
[2020-03-28] MEDS: ENOXAPARIN 40 MG/0.4 ML SQ SCH (08:33)
[2020-03-28] MEDS: FLUTICASONE 50MCG NASAL SPRAY NAS SCH ×2 (08:33→21:54)
[2020-03-28] MEDS: NALOXEGOL OXALATE 25 MG PO SCH (09:00)
--- NOTE | 2020-03-28 09:10 | RAD REPORT ---
EXAM DESCRIPTION: RAD - Abdomen 1 View (KUB) - 03/28/2020 8:55 am CLINICAL HISTORY: SBO Pain COMPARISON: Abdomen 1 View (KUB) dated 03/25/2020; ABDOMEN 1 VIEW KUB dated 08/31/2014 FINDINGS: Diffuse distention of bowel loops in the abdomen is again noted, appearing mildly improved relative to comparative study. Prominent stool is present in the rectum. Enteric tube appears to bee n removed.
[2020-03-28] MEDS: PEG EACH EYE SCH ×2 (10:30→21:54)
[2020-03-28] MEDS: PROPYLENE GLYCOL EACH EYE SCH ×2 (10:30→21:54)
--- NOTE | 2020-03-28 10:36 | RAD REPORT ---
EXAM DESCRIPTION: XR Abdomen, 1 View CLINICAL HISTORY: The patient is 69 years old and is Female; NGT placement verification. TECHNIQUE: Frontal supine view of the abdomen/pelvis. COMPARISON: Radiograph performed the same day at 1131 hours FINDINGS: GASTROINTESTINAL TRACT: Gaseous distention of the visualized bowel is noted. BONES/JOINTS: Unremarkable. TUBES, LINES AND DEVICES: An enteric tube is present with the tip in the proximal gastric body. IMPRESSION: An enteric tube is present with the tip in the proximal gastric body. Electronically signed by: Amira Ortiz MD 03/26/2020 12:37 AM CDT Due to temporary technical issues with the PACS/Fluency reporting system, reports are being signed by the in house radiologist without review as a courtesy to ensure prompt reporting. The interpreting r adiologist is fully responsible for the content of the report.
--- NOTE | 2020-03-28 17:08 | P.PN ---
Subjective Date of Service: 03/28/20 Chief Complaint: Small-bowel obstruction Subjective: Improving (Reports mild abdominal pain.) Physical Examination - Vital Signs Temperature: 97.2 F Blood Pressure: 124/58 Pulse: 68 Respirations: 17 Pulse Ox (%): 97 - Physical Exam General: Alert, Cooperative HEENT: Atraumatic Neck: Supple Respiratory: Clear to auscultation bilaterally, Normal air movement Cardiovascular: Normal pulses, Regular rate/rhythm Gastrointestinal: Normal bowel sounds, Tenderness (Minimal pain to the abdomen) - Studies Medications List Reviewed: Yes Assessment & Plan Discharge Plan: [facility] Plan to discharge in: 24 Hours Physician Review Additional Text: Impression: Abdominal pain secondary to partial small-bowel obstruction Depression with anxiety Multiple scleroses Hypertension Seizure disorder Plan: Recheck KUB. Appears improved. Will discuss with small bowel obstruction. Will review meds. Will discuss with Surgery. Wound culture shows Proteus and PSeudomonas. Surgery believes no need for IV antibiotic therapy at discharge. Will continue with IV Zosyn for 1 more day. He was planning to give some then for constipation. If improved will plan for discharge tomorrow. Time Spent Managing Pts Care (In Minutes): 55
[2020-03-28] MEDS: FAMOTIDINE 20 MG/2 ML VIAL IV SCH (21:53)
[2020-03-29] MEDS: D5W 1,000 ML IV SCH ×2 (00:15→11:38)
[2020-03-29] MEDS: PHENYTOIN 150 MG PO SCH ×3 (00:30→16:41)
[2020-03-29] MEDS: GABAPENTIN 300 MG CAP PO SCH ×3 (00:36→16:40)
[2020-03-29] MEDS: Meropenem 500 MG in NA CHLORIDE 0.9% 100 ML IV SCH ×3 (00:36→16:40)
[2020-03-29] MEDS: BETHANECHOL 10 MG TAB PO SCH ×4 (00:37→16:42)
[2020-03-29] MEDS: HYDROMORPHONE HCL 1 MG/ML INJ IV PRN ×2 (02:11→09:36)
[2020-03-29] MEDS: LEVOTHYROXINE SOD 0.088 MG TAB PO SCH (05:01)
[2020-03-29 05:56] LABS: BUN Blood Urea Nitrogen 6 mg/dL (7-18); Bicarbonate 27 mmol/L (21-32); Glucose Level 99 mg/dL (74-106); Magnesium 2.1 mg/dL (1.8-2.4); Phosphorus 2.3 mg/dL (2.5-4.9); Potassium 4.2 mmol/L (3.5-5.1); Sodium Level 144 mmol/L (136-145)
[2020-03-29] MEDS ORDERED: POTASS/SODIUM PHOSPHATE 1 PKT POWD.PACK PO ONE (09:00)
[2020-03-29] MEDS: NALOXEGOL OXALATE 25 MG PO SCH (09:00)
[2020-03-29] MEDS: POTASS/SODIUM PHOSPHATE 1 PKT POWD.PACK PO SCH ×3 (09:30→11:38)
[2020-03-29] MEDS: ENOXAPARIN 40 MG/0.4 ML SQ SCH (09:39)
[2020-03-29] MEDS: LACTOBACILLUS/ACIDOPHILUS TAB PO SCH (09:40)
[2020-03-29] MEDS: PHENOBARBITAL 32.4 MG TABLET PO SCH ×2 (09:40→20:50)
[2020-03-29] MEDS: METOPROLOL TAR 25 MG TAB PO SCH (09:40)
[2020-03-29] MEDS: BISACODYL E.C. 5 MG TAB PO PRN ×2 (09:40→20:50)
[2020-03-29] MEDS: ALPRAZOLAM 0.25 MG TABLET PO SCH ×2 (09:40→20:50)
[2020-03-29] MEDS: FLUTICASONE 50MCG NASAL SPRAY NAS SCH ×2 (09:41→20:50)
[2020-03-29] MEDS: MAGNESIUM OXIDE 400 MG TAB PO SCH (09:41)
[2020-03-29] MEDS: MULTIVITAMIN TAB PO SCH (09:41)
[2020-03-29] MEDS: ISOSORBIDE DINIT 5 MG TAB PO SCH ×2 (09:41→20:50)
[2020-03-29] MEDS: CYANOCOBALAMIN 1,000 MCG TAB PO SCH (09:41)
[2020-03-29] MEDS: PEG EACH EYE SCH ×2 (09:56→22:30)
[2020-03-29] MEDS: PROPYLENE GLYCOL EACH EYE SCH ×2 (09:56→22:30)
--- NOTE | 2020-03-29 10:09 | P.CNS ---
Date of Consult: 03/29/20 Subjective: Patient is a 69-year-old female who presents to the ED with abdominal pain, nausea and vomiting. Patient found to have small-bowel obstruction. [facility] by Dr. Herrera and I for wound around peg tube site. Peg tube was reportedly removed two weeks ago for malfunction. Wound Cultures positive for Proteus Mirabilis and Pseudomonas Aeru oginosa which I have been consulted for. Past medical/surgical history: Seizure disorder, multiple sclerosis, colorectal cancer, anemia, coronary artery disease, nephrectomy, neurogenic bladder, bowel obstruction, depression and anxiety, bowel surgery, peg tube placement, kidney stone removed, tracheotomy, vein surgery Social history: Denies tobacco and alcohol use. snf resident Family History: Noncontributory Allergies ampicillin Allergy (Verified 03/25/20 04:27) Anaphylaxis aspirin [From Amie Aspirin] Allergy (Verified 03/25/20 04:27) Hives diazepam Allergy (Verified 03/25/20 04:27) Hives Penicillins Allergy (Verified 03/25/20 04:27) Anaphylaxis red yeast rice Allergy (Verified 03/25/20 04:27) Hives bleach Allergy (Uncoded 11/15/16 07:48) Hives sulfa Allergy (Uncoded 11/15/16 07:48) Hives Active Medications Acetaminophen (Tylenol -Extra Strength) 500 mg PO Q4HP PRN PRN Reason: pain/fever Stop: 04/24/20 02:12 Hydrocodone Bitart/Acetaminophen ([place] 10/325) 1 tab PO Q8HP PRN PRN Reason: pain Stop: 04/25/20 10:27 Alprazolam (Xanax) 0.25 mg PO BID MALIKA Stop: 04/25/20 21:01 Last Admin: 03/29/20 09:40 Dose: 0.25 mg Documented by: Bethanechol Chloride (Urecholine) 25 mg PO Q6HR MALIKA Stop: 04/25/20 12:01 Last Admin: 03/29/20 05:00 Dose: 25 mg Documented by: Bisacodyl (Dulcolax) 5 mg PO Q12HP PRN PRN Reason: CONSTIPATION Stop: 04/25/20 10:27 Last Admin: 03/29/20 09:40 Dose: 5 mg Documented by: Cyanocobalamin (Vitamin B-12) 1,000 mcg PO DAILY [facility] Stop: 04/26/20 09:01 Last Admin: 03/29/20 09:41 Dose: 1,000 mcg Documented by: Diphenhydramine HCl (Benadryl Tab/Cap) 25 mg PO BID PRN PRN Reason: itchiness Stop: 04/25/20 10:27 Enoxaparin Sodium (Lovenox 40 Mg Inj) 40 mg SQ DAILY [facility] Stop: 04/24/20 09:01 Last Admin: 03/29/20 09:39 Dose: 40 mg Documented by: Famotidine (Pepcid) 20 mg IV BEDTIME [facility]; Protocol Stop: 04/26/20 21:01 Last Admin: 03/28/20 21:53 Dose: 20 mg Documented by: Fluticasone Propionate (Flonase 50mcg Nasal [place]) 1 sprays MARCEL BID [facility] Stop: 04/25/20 21:01 Last Admin: 03/29/20 09:41 Dose: 1 inh Documented by: Gabapentin (Neurontin) 300 mg PO Q8HR [facility] Stop: 04/25/20 11:01 Last Admin: 03/29/20 09:40 Dose: 300 mg Documented by: Home Med (Naloxegol Oxalate [Movantik]) 25 mg PO DAILY [facility] Stop: 04/26/20 09:01 Last Admin: 03/29/20 09:00 Dose: Not Given Documented by: Home Med (Propylene Glycol/Peg 400 [Lubricating Eye Drop]) 1 drop EACH EYE Q12H [facility] Stop: 04/25/20 10:31 Last Admin: 03/29/20 09:56 Dose: Not Given Documented by: Home Med (Phenytoin [Dilantin]) 150 mg PO Q8H [facility] Stop: 04/25/20 17:01 Last Admin: 03/29/20 09:00 Dose: Not Given Documented by: Hydromorphone HCl (Dilaudid) 1 mg IV Q4H PRN PRN Reason: Pain scale 5-7 (Moderate) Stop: 04/24/20 02:12 Last Admin: 03/29/20 09:36 Dose: 1 mg Documented by: Dextrose/Water (Dextrose In Water (1-Liter)) 1,000 mls @ 75 mls/hr IV .[id number] [facility] Stop: 04/26/20 08:16 Last Admin: 03/29/20 00:15 Dose: Not Given Documented by: Meropenem 500 mg/ Sodium (Chloride) 100 mls @ 100 mls/hr IV Q8HR [facility] Stop: 04/26/20 17:01 Last Admin: 03/29/20 09:36 Dose: 100 mls Documented by: Isosorbide Dinitrate (Isordil) 10 mg PO BID [facility] Stop: 04/25/20 21:01 Last Admin: 03/29/20 09:41 Dose: 10 mg Documented by: Lactobacillus Acidoph/[place] (Lactinex) 1 tab PO DAILY MALIKA Stop: 04/26/20 09:01 Last Admin: 03/29/20 09:40 Dose: 1 tab Documented by: Levothyroxine Sodium (Synthroid) 0.088 mg PO DAILYAC [facility] Stop: 04/26/20 06:31 Last Admin: 03/29/20 05:01 Dose: 0.088 mg Documented by: Magnesium Hydroxide (Milk Of Magnesia) 30 ml PO DAILY PRN PRN Reason: CONSTIPATION Stop: 04/25/20 10:27 Magnesium Oxide (Mag 0x Tab) 400 mg PO DAILY MALIKA Stop: 04/26/20 09:01 Last Admin: 03/29/20 09:41 Dose: 400 mg Documented by: Metoprolol Tartrate (Lopressor) 25 mg PO DAILY [facility] Stop: 04/26/20 09:01 Last Admin: 03/29/20 09:40 Dose: 25 mg Documented by: Multivitamins/Minerals (Centrum Tablet) 1 tab PO DAILY [facility] Stop: 04/26/20 09:01 Last Admin: 03/29/20 09:41 Dose: 1 tab Documented by: Ondansetron HCl (Zofran) 4 mg IV Q6HP PRN PRN Reason: NAUSEA / VOMITING Stop: 04/24/20 02:12 Last Admin: 03/28/20 02:15 Dose: 4 mg Documented by: Ondansetron HCl (Zofran) 4 mg PO Q8HP PRN PRN Reason: NAUSEA / VOMITING Stop: 04/25/20 10:27 Phenobarbital (Phenobarbital) 64.8 mg PO BID [facility] Stop: 03/31/20 21:01 Last Admin: 03/29/20 09:40 Dose: 64.8 mg Documented by: Potassium Phos/Sodium Phos (Neutra-Phos Pwd) 1 pkt PO Q1H MALIKA Stop: 03/29/20 11:31 Last Admin: 03/29/20 09:30 Dose: Not Given Documented by: Sodium Chloride (Normal Saline Flush) 10 ml IV BID MALIKA Stop: 04/24/20 09:01 Last Admin: 03/29/20 09:00 Dose: Not Given Documented by: ROS: CV: Denies chest pain RESP: Denies shortness of breath ABD: Reports right lower quadrant pain, passing gas, denies nausea Objective: Temp Pulse Resp BP Pulse Ox 96.9 F 103 H 18 158/81 H 97 03/29/20 08:00 03/29/20 09:40 03/29/20 08:00 03/29/20 09:40 03/29/20 08:00 Labs: Na 144, K 4.2, BUN 6, Creat 0.47, WBC 4.2, PLT 198 Abd/Pelvis CT 03/24: EXAM DESCRIPTION: CT ABDOMEN PELVIS WITHOUT IV CONTRAST COMPARISON: CT abdomen and pelvis August 17, 2019 CLINICAL HISTORY: [facility] MAIN TECHNIQUE: Multiple helical axial images were obtained through the abdomen and pelvis without intravenous contrast. Sagittal and coronal reformatted images are reviewed as well. All CT scans at this facility use dose modulation, iterative reconstruction, and/or weight-based dosing when appropriate to reduce radiation dose to as low as reasonably achievable. FINDINGS: Lung bases: Calcified densities in the lower lobes are again noted. Mild atelectasis versus scarring in the right lower lobe is present. Liver: Homogenous attenuation is demonstrated. Gallbladder/biliary: Gallbladder is not visualized suggestive of prior cholecystectomy. Common bile duct measures 1.2 cm in width and appears dilated which is nonspecific in the setting of prior cholecystectomy and unchanged. Pancreas: Atrophic changes noted. Spleen: Unremarkable. Adrenals: Unremarkable. Kidneys and ureters: Right kidney is absent. A few subcentimeter hypodensities in the left kidney are present suggestive of cysts. No evidence of renal or ureteral stones. No hydronephrosis. Bladder: Unremarkable. Pelvic organs: Unremarkable. Bowel: Postoperative changes of the proximal colon noted. Multiple dilated loops of small bowel demonstrated containing air-fluid levels. There appears to be a transition between dilated and decompressed small bowel in the right lower abdomen suggestive of small bowel obstruction. No evidence of bowel wall thickening. Appendix is not visualized. Peritoneum: No free air. No significant free fluid. Lymph nodes: Unremarkable. Vasculature: Aortoiliac atherosclerosis is present. Soft tissues: Nonspecific calcifications within the subcutaneous tissues lateral to the left pelvis noted. Bones: Degenerative changes of the lumbar spine noted. IMPRESSION: Findings suggestive of small bowel obstruction with transition point in the right lower abdomen. Abd CT 03/25: EXAM DESCRIPTION: RAD - Abdomen W Erect - 03/25/2020 11:42 am CLINICAL HISTORY: Small-bowel obstruction Pain COMPARISON: Abdomen Pelvis Wo Contrast dated 03/24/2020 FINDINGS: Multiple dilated and organized small bowel loops are present throughout the abdomen compatible with a moderate mechanical small-bowel obstruction. This appears essentially unchanged since the comparative study. No pneumoperitoneum is evident. Tip of the enteric tube appears to be just entering the stomach. IMPRESSION: Moderate mechanical small-bowel obstruction. ROS: General: Awake, alert CV: S1,S2 RESP: Good breath sounds ABD: Bowel sounds present, tenderness to RLQ Extremities: Right sided weakness Skin: Abd wound s/p peg tube removal, wound bed with hypergranulated tissue and large amount of thick drainage Assessment and plan: SBO, Surgical team consulted, no surgical intervention at this time Abdominal surgical wound s/p peg tube removal, Recommend to apply silver alginate dressing daily and PRN Wound cultures positive for Proteus Mirabilis and Pseudomonas Aeruginosa, se nsitive to Merrem Afebrile, no leukocytosis Recommend to continue IV Merrem for total of two weeks Called [facility] and confirmed ability to do IV antibiotics Patient will need PICC line Will continue to monitor Thank you for consult Patient discussed with Dr. Herrera
--- NOTE | 2020-03-29 13:28 | P.PN ---
Subjective Date of Service: 03/29/20 Primary Care Provider: custodial patient Chief Complaint: Small-bowel obstruction Subjective: Improving, Doing well (Patient reports constipation) Physical Examination - Vital Signs Temperature: 97.4 F Blood Pressure: 121/57 Pulse: 80 Respirations: 16 Pulse Ox (%): 94 - Physical Exam General: Alert, Cooperative HEENT: Atraumatic Neck: Supple Respiratory: Clear to auscultation bilaterally, Normal air movement Cardiovascular: Normal pulses, Regular rate/rhythm Gastrointestinal: Other (Prior PEG tube placement Site with slight exudate) Neurological: Normal affect - Studies Medications List Reviewed: Yes Assessment & Plan Discharge Plan: Care Home Plan to discharge in: 24 Hours Physician Review Additional Text: Impression: Abdominal pain secondary to partial small-bowel obstruction Wound culture positive for Proteus and Pseudomonas from prior PEG tube site Depression with anxiety Multiple sclerosis Hypertension Seizure disorder Plan: Abdominal pain secondary to partial small-bowel obstruction: This has improved. Case discussed with surgery. Continue to advance diet. Will provide medication for constipation. Wound culture was positive. Infectious Disease recommends IV antibiotic therapy. Will order PICC line. Patient will require IV antibiotic therapy for 2 weeks. Patient currently on meropenem IV 3 times a day. Wound care to continue. Patient is being followed by infectious disease at the shelter. Anticipate discharge to shelter likely tomorrow. Wound culture positive for Proteus and Pseudomonas from prior PEG tube site: Patient will require PICC line. Continue IV antibiotic therapy for 2 weeks. Will arrange for this to continue at the shelter. Peg tube was removed due to malfunction in the recent past. Depression with anxiety: Continue medication Multiple sclerosis: Continue medication Hypertension: Continue medication Seizure disorder: Continue medication Time Spent Managing Pts Care (In Minutes): 55
[2020-03-29] MEDS: FAMOTIDINE 20 MG/2 ML VIAL IV SCH (20:49)
[2020-03-29] MEDS: ONDANSETRON 4 MG/2 ML VIAL IV PRN (20:49)
[2020-03-30] MEDS: PHENYTOIN 150 MG PO SCH ×2 (01:00→09:00)
[2020-03-30] MEDS: Meropenem 500 MG in NA CHLORIDE 0.9% 100 ML IV SCH ×2 (01:38→09:50)
[2020-03-30] MEDS: GABAPENTIN 300 MG CAP PO SCH ×2 (01:39→09:51)
[2020-03-30 04:53] LABS: BUN Blood Urea Nitrogen 5 mg/dL (7-18); Bicarbonate 25 mmol/L (21-32); Glucose Level 97 mg/dL (74-106); Phosphorus 3.2 mg/dL (2.5-4.9); Sodium Level 143 mmol/L (136-145)
[2020-03-30 04:54] LABS: Potassium 5.3 mmol/L (3.5-5.1)
[2020-03-30] MEDS: LEVOTHYROXINE SOD 0.088 MG TAB PO SCH (05:15)
[2020-03-30] MEDS: BETHANECHOL 10 MG TAB PO SCH ×3 (05:20→12:24)
[2020-03-30 08:22] VITALS: TEMP 97
[2020-03-30] MEDS: NALOXEGOL OXALATE 25 MG PO SCH (09:00)
[2020-03-30] MEDS: ENOXAPARIN 40 MG/0.4 ML SQ SCH (09:50)
[2020-03-30] MEDS: BISACODYL E.C. 5 MG TAB PO PRN (09:51)
[2020-03-30] MEDS: PHENOBARBITAL 32.4 MG TABLET PO SCH (09:51)
[2020-03-30] MEDS: LACTOBACILLUS/ACIDOPHILUS TAB PO SCH (09:51)
[2020-03-30] MEDS: CYANOCOBALAMIN 1,000 MCG TAB PO SCH (09:51)
[2020-03-30] MEDS: MULTIVITAMIN TAB PO SCH (09:51)
[2020-03-30] MEDS: ALPRAZOLAM 0.25 MG TABLET PO SCH (09:51)
[2020-03-30] MEDS: MAGNESIUM OXIDE 400 MG TAB PO SCH (09:51)
[2020-03-30] MEDS: ISOSORBIDE DINIT 5 MG TAB PO SCH (09:51)
[2020-03-30] MEDS: FLUTICASONE 50MCG NASAL SPRAY NAS SCH (09:52)
[2020-03-30] MEDS: PEG EACH EYE SCH (09:52)
[2020-03-30] MEDS: PROPYLENE GLYCOL EACH EYE SCH (09:52)
[2020-03-30] MEDS: METOPROLOL TAR 25 MG TAB PO SCH (09:54)
[2020-03-30 10:27] VITALS: O2SAT 95
[2020-03-30] MEDS ORDERED: LACTULOSE 20 GM/30 ML UCUP PO ONE (12:01)
[2020-03-30 12:12] VITALS: BP 135/62
--- NOTE | 2020-03-30 13:15 | P.PN ---
Date of Service: 03/30/20 Subjective: Patient is a 69-year-old female who presents to the ED with abdominal pain, nausea and vomiting. Patient found to have small-bowel obstruction. Patient has been seen in the long-term by Dr. Herrera and I for wound around peg tube site. Peg tube was reportedly removed two weeks ago for malfunction. Wound Cultures positive for Proteus Mirabilis and Pseudomonas Aeruoginosa which I have been consulted for. Patient examined at bedside. Still with right lower abdominal pain. PICC line attempt was unsuccessful. Objective: Temp Pulse Resp BP Pulse Ox 97 F 80 16 135/62 95 03/30/20 12:00 03/30/20 12:00 03/30/20 12:00 03/30/20 12:03/30/20 12:00 Labs: Na 143, K 5.3, BUN 5, Creat 0.47, WBC 4.2, PLT 198 Abd/Pelvis CT 03/24: EXAM DESCRIPTION: CT ABDOMEN PELVIS WITHOUT IV CONTRAST COMPARISON: CT abdomen and pelvis August 17, 2019 CLINICAL HISTORY: [facility] MAIN TECHNIQUE: Multiple helical axial images were obtained through the abdomen and pelvis without intravenous contrast. Sagittal and coronal reformatted images are reviewed as well. All CT scans at this facility use dose modulation, iterative reconstruction, and/or weight-based dosing when appropriate to reduce radiation dose to as low as reasonably achievable. FINDINGS: Lung bases: Calcified densities in the lower lobes are again noted. Mild atelectasis versus scarring in the right lower lobe is present. Liver: Homogenous attenuation is demonstrated. Gallbladder/biliary: Gallbladder is not visualized suggestive of prior cholecystectomy. Common bile duct measures 1.2 cm in width and appears dilated which is nonspecific in the setting of prior cholecystectomy and unchanged. Pancreas: Atrophic changes noted. Spleen: Unremarkable. Adrenals: Unremarkable. Kidneys and ureters: Right kidney is absent. A few subcentimeter hypodensities in the left kidney are present suggestive of cysts. No evidence of renal or ureteral stones. No hydronephrosis. Bladder: Unremarkable. Pelvic organs: Unremarkable. Bowel: Postoperative changes of the proximal colon noted. Multiple dilated loops of small bowel demonstrated containing air-fluid levels. There appears to be a transition between dilated and decompressed small bowel in the right lower abdomen suggestive of small bowel obstruction. No evidence of bowel wall thickening. Appendix is not visualized. Peritoneum: No free air. No significant free fluid. Lymph nodes: Unremarkable. Vasculature: Aortoiliac atherosclerosis is present. Soft tissues: Nonspecific calcifications within the subcutaneous tissues lateral to the left pelvis noted. Bones: Degenerative changes of the lumbar spine noted. IMPRESSION: Findings suggestive of small bowel obstruction with transition point in the right lower abdomen. Abd CT 03/25: EXAM DESCRIPTION: RAD - Abdomen W Erect - 03/25/2020 11:42 am CLINICAL HISTORY: Small-bowel obstruction Pain COMPARISON: Abdomen Pelvis Wo Contrast dated 03/24/2020 FINDINGS: Multiple dilated and organized small bowel loops are present throughout the abdomen compatible with a moderate mechanical small-bowel obstruction. This appears essentially unchanged since the comparative study. No pneumoperitoneum is evident. Tip of the enteric tube appears to be just entering the stomach. IMPRESSION: Moderate mechanical small-bowel obstruction. ROS: General: Awake, alert CV: S1,S2 RESP: Good breath sounds ABD: Bowel sounds present, tenderness to RLQ Extremities: Right sided weakness Skin: Abd wound s/p peg tube removal, wound bed with hypergranulated tissue and large amount of thick drainage Assessment and plan: SBO, Surgical team consulted, no surgical intervention at this time Abdominal surgical wound s/p peg tube removal Wound cultures positive for Proteus Mirabilis and Pseudomonas Aeruginosa Afebrile, no leukocytosis, Vitals stable After further evaluation, recommend to treat wound locally with silver alginate dressing daily Can hold off of IV antibiotics at this time Will continue to monitor Patient discussed with Dr. Herrera
[2020-03-30] MEDS ORDERED: FLEET ENEMA ADULT PR ONE (13:36)
--- NOTE | 2020-03-30 14:24 | P.DS ---
Admission Date: 03/25/20 Discharge Date: 03/30/20 Primary Care Provider: [facility] patient Disposition: TRANSFER TO CUSTODIAL Discharge Condition: GOOD Reason for Admission: Small-bowel obstruction Consultations: Surgery-Dr. Travis Procedures: CT Scan: FINDINGS: Lung bases: Calcified densities in the lower lobes are again noted. Mild atelectasis versus scarring in the right lower lobe is present. Liver: Homogenous attenuation is demonstrated. Gallbladder/biliary: Gallbladder is not visualized suggestive of prior cholecystectomy. Common bile duct measures 1.2 cm in width and appears dilated which is nonspecific in the setting of prior cholecystectomy and unchanged. Pancreas: Atrophic changes noted. Spleen: Unremarkable. Adrenals: Unremarkable. Kidneys and ureters: Right kidney is absent. A few subcentimeter hypodensities in the left kidney are present suggestive of cysts. No evidence of renal or ureteral stones. No hydronephrosis. Bladder: Unremarkable. Pelvic organs: Unremarkable. Bowel: Postoperative changes of the proximal colon noted. Multiple dilated loops of small bowel demonstrated containing air-fluid levels. There appears to be a transition between dilated and decompressed small bowel in the right lower abdomen suggestive of small bowel obstruction. No evidence of bowel wall thickening. Appendix is not visualized. Peritoneum: No free air. No significant free fluid. Lymph nodes: Unremarkable. Vasculature: Aortoiliac atherosclerosis is present. Soft tissues: Nonspecific calcifications within the subcutaneous tissues lateral to the left pelvis noted. Bones: Degenerative changes of the lumbar spine noted. IMPRESSION: Findings suggestive of small bowel obstruction with transition point in the right lower abdomen. AbXray: COMPARISON: Abdomen 1 View (KUB) dated 03/25/2020; ABDOMEN 1 VIEW KUB dated 08/31/2014 FINDINGS: Diffuse distention of bowel loops in the abdomen is again noted, appearing mildly improved relative to comparative study. Prominent stool is present in the rectum. Enteric tube appears to been removed. Medical Problem List: Abdominal pain secondary to partial small-bowel obstruction Wound culture positive for Proteus and Pseudomonas from prior PEG tube site Depression with anxiety Multiple sclerosis Hypertension Seizure disorder Hypothyroidism Chronic pain Brief History of Present Illness: 69-year-old female presented to emergency room with abdominal pain, nausea vomiting. CT scan showed partial small-bowel obstruction. Patient was admitted for further evaluation. Hospital Course: Patient presented with abdominal pain secondary to partial small bowel obstruction. Patient was admitted for further evaluation and treatment. Patient seen by surgery. Her condition improved. No surgical intervention was required. Her condition improved. Repeat abdominal x-ray shows improvement. At discharge patient without significant abdominal pain. Patient was given medication for constipation prior to discharge. At discharge patient will return to the senior living to continue her care. Patient may require stool softener and medication for constipation at the senior living. Patient with prior history of PEG tube. This had been removed recently. Wound culture was obtained from this site as some exudate noted. Wound culture was positive for Proteus and Pseudomonas. Infectious Disease was consulted. IV antibiotic therapy was initiated. IV antibiotic therapy as an outpatient was considered but patient not able to get PICC line due to difficulty. This was readdressed with infectious disease. At discharge patient will continue with current wound care and silver alginate daily. Infectious Disease plans to follow up patient at the senior living. Patient with depression with anxiety, multiple sclerosis, hypertension, hypothyroidism and seizure disorder. This has remained stable. At discharge she will continue with her current medication. Patient was evaluated for COVID 19 infection. This test was negative. Vital Signs/Physical Exam: Temp Pulse Resp BP Pulse Ox 97 F 80 16 135/62 95 03/30/20 12:00 03/30/20 12:00 03/30/20 12:00 03/30/20 12:00 03/30/20 12:00 General: Alert, In no apparent distress, Cooperative HEENT: Atraumatic Neck: Supple Respiratory: Clear to auscultation bilaterally, Normal air movement Cardiovascular: Normal pulses, Regular rate/rhythm Gastrointestinal: Normal bowel sounds, No tenderness, No rebound, No guarding, Other (Peg tube site appears clean. No significant exudate noted. No erythema or pain noted to the area.) Neurological: Normal speech, Normal affect Laboratory Data at Discharge: WBC 4.2 K/uL (4.3-10.9) L D 03/28/20 04:24 Hgb 12.7 g/dL (12.0-15.0) D 03/28/20 04:24 Hct 37.6 % (36.0-45.0) D 03/28/20 04:24 Plt Count 198 K/uL (152-406) D 03/28/20 04:24 PT Cancelled 03/25/20 Unknown INR Cancelled 03/25/20 Unknown APTT Cancelled 03/25/20 Unknown Sodium 143 mmol/L (136-145) 03/30/20 04:21 Potassium 5.3 mmol/L (3.5-5.1) H 03/30/20 04:21 BUN 5 mg/dL (7-18) L 03/30/20 04:21 Creatinine 0.47 mg/dL (0.55-1.3) L 03/30/20 04:21 Glucose 97 mg/dL (74-106) 03/30/20 04:21 Phosphorus 3.2 mg/dL (2.5-4.9) 03/30/20 04:21 Magnesium 2.0 mg/dL (1.8-2.4) 03/30/20 04:21 Total Bilirubin Cancelled 03/25/20 Unknown AST Cancelled 03/25/20 Unknown ALT Cancelled 03/25/20 Unknown Alkaline Phosphatase Cancelled 03/25/20 Unknown Lipase 43 U/L (73-393) L 03/28/20 04:24 Home Medications: ALPRAZolam [Xanax*] 0.25 mg PO BID 03/25/20 Acetaminophen [Tylenol*] 650 mg PO Q6HP PRN 03/25/20 Alendronate Sodium [Fosamax] 70 mg PO EVERY 7TH DAY 03/25/20 Bethanechol Chloride 25 mg PO Q6HR 03/25/20 Cyanocobalamin (Vitamin B-12) [Vitamin B-12] 1,000 mcg PO DAILY 03/25/20 Diphenhydramine [Benadryl*] 25 mg PO BID PRN 03/25/20 Famotidine [Pepcid*] 20 mg PO BEDTIME 03/25/20 Fluticasone [Flonase 50MCG Nasal [place]*] 1 spr MARCEL BID 03/25/20 Gabapentin 300 mg PO Q8H 03/25/20 Guaifenesin [Mucus ER] 600 mg PO BID 03/25/20 Hydrocodone 10/APAP 325 [[place] 10/325*] 1 tab PO Q8HP PRN 03/25/20 Isosorbide Dinitrate 10 mg PO BID 03/25/20 Lactobacillus Acidophilus [Acidophilus Lactobacilli] 1 cap PO DAILY 03/25/20 Levothyroxine [Synthroid*] 0.088 mcg PO DAILY 03/25/20 Loperamide HCl [Loperamide] 2 mg PO Q4HP PRN 03/25/20 Mag Hydrox/Aluminum Hyd/Simeth [Neva-[place] Liquid] 30 m PO Q4HP PRN 03/25/20 Mag Hydroxide 8% [Milk Of Magnesia*] 30 ml PO DAILY PRN 03/25/20 Magnesium Oxide [Mag 0X*] 400 mg PO DAILY 03/25/20 Metoprolol Tartrate [Lopressor*] 25 mg PO DAILY 03/25/20 Multivitamin [Daily Multiple Vitamin] 1 tab PO DAILY 03/25/20 Naloxegol Oxalate [Movantik] 25 mg PO DAILY 03/25/20 Ondansetron [Zofran (Odt)*] 4 mg PO Q8HP PRN 03/25/20 PHENobarbitaL [Phenobarbital] 60 mg PO BID 03/25/20 Phenytoin [Dilantin] 150 mg PO Q8H 03/25/20 Promethazine Inj [Phenergan -Inj*] 25 mg IM Q8HP PRN 03/25/20 Propylene Glycol/Peg 400 [Lubricating Eye Drop] 1 drop EACH EYE Q12H 03/25/20 bisacodyL [Dulcolax*] 5 mg PO Q12HP PRN 03/25/20 traMADol HCL [Ultram*] 50 mg PO Q6HP PRN 03/25/20 Patient Discharge Instructions: 1. Patient to go to senior living. 2. Patient presented with abdominal pain secondary to partial small bowel obstruction. Patient was admitted for further evaluation and treatment. Patient seen by surgery. Her condition improved. No surgical intervention was required. Her condition improved. Repeat abdominal x-ray shows improvement. At discharge patient without significant abdominal pain. Patient was given medication for constipation prior to discharge. At discharge patient will return to the senior living to continue her care. Patient may require stool softener and medication for constipation at the senior living. 3. Patient with prior history of PEG tube. This had been removed recently. Wound culture was obtained from this si te as some exudate noted. Wound culture was positive for Proteus and Pseudomonas. Infectious Disease was consulted. IV antibiotic therapy was initiated. IV antibiotic therapy as an outpatient was considered but patient not able to get PICC line due to difficulty. This was readdressed with infectious disease. At discharge patient will continue with current wound care and silver alginate daily. Infectious Disease plans to follow up patient at the senior living. 4. Patient with depression with anxiety, multiple sclerosis, hypertension and seizure disorder. This has remained stable. At discharge she will continue with her current medication. 5. Patient was evaluated for COVID 19 infection. This test was negative. Diet: GI soft, low-fiber diet Activity: Fall precautions Time spent managing pt's care (in minutes): 55
== END 2020-03-30 16:30 | DRG 390 ==
LOC: ER 22:44 → 2ND 03-25 02:45
PROVIDERS: ADMIT Family Medicine; ATTEND Family Medicine
DX: K56.600 Partial intestinal obstruction, unspecified as to cause (principal); G35 Multiple sclerosis; I10 Essential (primary) hypertension; F41.8 Other specified anxiety disorders; K59.00 Constipation, unspecified; E03.9 Hypothyroidism, unspecified; R32 Unspecified urinary incontinence; G89.29 Other chronic pain; B96.4 Proteus (mirabilis) (morganii) as the cause of diseases classified elsewhere; I25.10 Atherosclerotic heart disease of native coronary artery without angina pectoris; B96.5 Pseudomonas (aeruginosa) (mallei) (pseudomallei) as the cause of diseases classified elsewhere; Z66 Do not resuscitate; Z11.59 Encounter for screening for other viral diseases; Z74.01 Bed confinement status; Z88.1 Allergy status to other antibiotic agents; Z88.0 Allergy status to penicillin; Z88.8 Allergy status to other drugs, medicaments and biological substances; Z91.018 Allergy to other foods; Z91.09 Other allergy status, other than to drugs and biological substances; Z79.01 Long term (current) use of anticoagulants; Z79.891 Long term (current) use of opiate analgesic; Z79.890 Hormone replacement therapy; Z79.899 Other long term (current) drug therapy; Z85.038 Personal history of other malignant neoplasm of large intestine
CPT/HCPCS: 36415; 71045; 74018; 74019; 74176; 80048; 80053; 80076; 82565; 83605; 83690; 83735; 84100; 84145; 85025; 85610; 85730; 87070; 87077; 87081; 87186; 87205; 87804; 96361; 96374; 96375; 99285; J1170; J1650; J2405; J3475; J7030; J7040; Q2009; U0002

== ENCOUNTER 2020-04-07 14:08 | Inpatient (IN) | payer OTHER ==
--- OUTSIDE RECORDS SUMMARY | 2020-04-07 14:42 | XMS REPORT | Continuity of Care Document ---
:1950 Demographics Address [address] [place] [address] Email Address [email or web address] Preferred Language Montenegrin Marital Status Unknown Roman Catholic Affiliation Unknown Race Unknown Additional Race(s) Unavailable White Ethnic Group Unknown Author Organization [facility] t Address [facility] [address] Sinclair [address] [place] [id number] Care Team Providers Name Role Phone Clovis [...] Type Clinicians Facility Department ID 2020-02-12 2020[facility]02-12 [facility] [id number] 09:15:00 13:46:00 Encounter Clovis manzano [id number] [place] [id number] Surgical [id number] [place] 07 Results This patient has no known results.
[2020-04-07 15:56] LABS: Absolute Lymphocytes (CBC) 0.3 K/uL (0.7-4.9); Basophils % 0.3 % (0-1.3); Hematocrit 41.3 % (36.0-45.0); Lymphocytes % 8.4 % (15.3-44.8); MPV 8.3 fL (7.6-11.3); RBC Red Blood Cell Count 4.44 M/uL (3.86-4.86)
[2020-04-07] MEDS ORDERED: ACETAMINOPHEN 325 MG TABLET ONE (16:08)
[2020-04-07 16:10] LABS: Protime INR 1.05
[2020-04-07 16:18] LABS: ALT/SGPT 35 U/L (12-78); AST/SGOT 27 U/L (15-37); Albumin 3.2 g/dL (3.4-5.0); Alkaline Phosphatase 102 U/L (45-117); BUN Blood Urea Nitrogen 13 mg/dL (7-18); Bicarbonate 25 mmol/L (21-32); Bilirubin Direct < 0.1 mg/dL (0-0.2); Bilirubin Total 0.1 mg/dL (0.2-1.0); Glucose Level 115 mg/dL (74-106); Lipase 137 U/L (73-393); Potassium 4.2 mmol/L (3.5-5.1); Protein, Total 6.9 g/dL (6.4-8.2); Sodium Level 141 mmol/L (136-145); Troponin (Emerg Dept Use Only) < 0.02 ng/mL (0.0-0.045)
[2020-04-07 16:40] LABS: Urine Blood 2+ (NEG); Urine Glucose NEGATIVE (NEG); Urine Protein 3+ (NEG); Urine Specific Gravity 1.025 (1.005-1.030)
[2020-04-07 16:40] LABS: Urine Bacteria 20-50 /HPF (<20); Urine Culture Reflex Order REFLEXED; Urine Mucus 3+ /HPF (NONE SEEN)
--- NOTE | 2020-04-07 17:11 | ER ---
Nurse's Notes [facility] Name: Suad Cuenca Age: 69 yrs Sex: Female : 1950 Arrival Date: 04/07/2020 Time: 14:12 Bed 6 Private MD: Diagnosis: Fever, unspecified;Hypoxemia;Urinary tract infection, site not specified;Pneumonia, unspecified organism Presentation: 04/07 14:15 Chief complaint: EMS states: Pt is A \T\ O x 3, from [facility] and has a Fever of rb1 101.5, rales bilaterally and diminished on the lower lobes. No respiratory distress. C/o back pain, has a history of back pain. BS 123, P 116, BP 149/61, O2 93% RA. Coronavirus screen:. 14:15 Method Of Arrival: EMS: [facility] rb1 14:48 Chief complaint: EMS states: FEVER AND RALES AT [facility]. Coronavirus screen: bp Surgical mask placed on patient. Patient moved to private room, placed in contact and droplet isolation with eye protection until further assessment. Patient reports a cough. Patient reports shortness of breath or difficulty breathing. Patient reports a measured and/or subjective temperature greater than 100.4F. Patient reports contact with known and/or suspected case of COVID-19. Ebola Screen: No symptoms or risks identified at this time. Initial Sepsis Screen: Does the patient meet any 2 criteria? RR > 20 per min. Temp <36.0*C (96.8*F)) or > 38.3*C (100.9*F). HR > 90 bpm. Yes Does the patient have a suspected source of infection? Yes: Productive cough/pneumonia If YES to both, name of provider notified: Prateek Lewis MD. Risk Assessment: Do you want to hurt yourself or someone else? Patient reports no desire to harm self or others. Onset of symptoms is unknown. Care prior to arrival: Glucose check: 123. 14:48 Method Of Arrival: EMS: [facility] bp 14:48 Acuity: TRICIA 2 bp Triage Assessment: 14:50 General: Appears distressed, uncomfortable, ill, obese, Behavior is cooperative, bp appropriate for age, anxious. Pain: Denies pain. EENT: No deficits noted. Neuro: Level of Consciousness is awake, alert, obeys commands, Oriented to person, place, time, situation, Appropriate for age. Cardiovascular: Rhythm is sinus tachycardia. Respiratory: Breath sounds with wheezes bilaterally. GI: No signs and/or symptoms were reported involving the gastrointestinal system. : No signs and/or symptoms were reported regarding the genitourinary system. Derm: No deficits noted. Musculoskeletal: Circulation, motion, and sensation intact. Historical: - Allergies: 14:50 Aspirin; bp 14:50 Bleach (Sodium Hypochlorite); bp 14:50 bug spray; bp 14:50 diazepam; bp 14:50 Iodine; bp 14:50 PENICILLINS; bp 14:50 Pork/Porcine Containing Products; bp 14:50 Sulfa (Sulfonamide Antibiotics); bp - PMHx: 14:50 Anemia; Anxiety; arthropathy; CAUDA EQUINA SYNDROME; chronic pulmonary edema; bp congnitive communication deficit; Depression; dermatitis; Diabetes - IDDM; Dry Eye; epilepsy; Hypothyroidism; Multiple Sclerosis; MUSCLE WEAKNESS; Osteoporosis; pulmonary edema; UTI; - Immunization history:: Adult Immunizations up to date. - Social history:: Smoking status: Patient denies any tobacco usage or history of. - Family history:: not pertinent. - Hospitalizations: : No recent hospitalization is reported. Screenin:53 Abuse screen: Denies threats or abuse. Denies injuries from another. Nutritional bp screening: No deficits noted. Tuberculosis screening: No symptoms or risk factors identified. Fall Risk None identified. Assessment: 14:53 General: SEE TRIAGE NOTE. bp 15:14 Reassessment: UNABLE TO OBTAIN PIV/BLOOD BY MX STAFF. MD AWARE. bp 16:11 Reassessment: PIV PLACED AND LABS SENT. VS STABLE ON MONITOR. bp 18:10 Reassessment: PT SEEN BY HOSPITALIST, ADMIT IN PROCESS. bp 19:15 General: Appears in no apparent distress. comfortable, Behavior is calm, cooperative, rr5 for transfer to [facility]. Pain: Denies pain. Neuro: Level of Consciousness is awake, alert, obeys commands, Oriented to person, place, time. Cardiovascular: Capillary refill < 3 seconds Patient's skin is warm and dry. Respiratory: Airway is patent Respiratory effort is even, unlabored, Respiratory pattern is regular, symmetrical, tachypnea. GI: No signs and/or symptoms were reported involving the gastrointestinal system. :. EENT: slow to speak. Derm: Skin is fragile, is thin, Skin temperature is warm. Musculoskeletal: Capillary refill < 3 seconds, contractured hands and foot. Vital Signs: 14:48 BP 149 / 61; Pulse 116; Resp 24; Temp 101.5; Pulse Ox 93% on R/A; Weight 90.72 kg; bp 15:14 BP 102 / 58; Pulse 116; Resp 24; Pulse Ox 96% on 2 lpm NC; bp 16:11 BP 128 / 86; Pulse 113; Resp 19; Pulse Ox 97% ; bp 17:04 BP 109 / 70; Pulse 109; Resp 28; Pulse Ox 100% ; bp 18:07 BP 95 / 70; Pulse 103; Resp 25; Temp 98.5; Pulse Ox 99% ; bp 19:11 BP 130 / 78; Pulse 102; Resp 24; Pulse Ox 99% 2 lpm ; rr5 20:15 BP 102 / 64; Pulse 105; Resp 23; Temp 98.9; Pulse Ox 99% on 2 lpm NC; rr5 ED Course: 14:12 Patient arrived in ED. iw 14:13 Prateek Lewis MD is Attending Physician. rn 14:48 David Appiah, ISIDORO is Primary Nurse. bp 14:50 Triage completed. bp 14:50 Arm band placed on. bp 14:53 Patient has correct armband on for positive identification. Bed in low position. Call bp light in reach. Side rails up X2. performance solutions specialist on. Pulse ox on. NIBP on. 15:20 EKG done, by ED staff, reviewed by Prateek Lewis MD. dh3 15:30 Inserted saline lock: 24 gauge in left hand, using aseptic technique. Blood collected. bp 15:30 Initial lab(s) drawn, by id, sent to lab. Inserted saline lock: 24 gauge in left ,using dh3 aseptic technique. index finger. 15:30 First set of blood cultures drawn by me. dh3 15:40 Second set of blood cultures drawn by me. dh3 16:05 Straight cath inserted, using sterile technique, 14 Fr. Returned cloudy urine. Patient dh3 tolerated well. 16:26 COVID-19 Sent. dh3 16:26 Strep Sent. dh3 16:26 Flu Sent. dh3 16:27 Urine Microscopic Only Sent. dh3 16:36 CXR XRAY In Process Unspecified. EDMS 17:10 Adams Aguillon DO is Hospitalizing Provider. rn 20:14 No provider procedures requiring assistance completed. Patient admitted, IV remains in rr5 place. intact, No redness/swelling at site. Administered Medications: 15:20 Drug: Tylenol 650 mg Route: PO; bp 16:10 Follow up: Response: No adverse reaction bp 17:00 Drug: Rocephin 1 grams Route: IV; Rate: calculated rate; Site: left hand; bp 17:42 Follow up: IV Status: Completed infusion; IV Intake: 50ml bp Intake: 17:42 IV: 50ml; Total: 50ml. bp Outcome: 17:11 Decision to Hospitalize by Provider. rn 20:14 Admitted to Tele accompanied by tech, via stretcher, room 415, with oxygen, with chart, rr5 Report called to fran CHAUDHRY 20:14 Condition: stable 20:14 Instructed on the need for admit. 20:27 Patient left the ED. rr5 Signatures: Dispatcher [employer] EDMS Mame Spencer RN ISIDORO iw Prateek Lewis MD MD rn Barber, Rebecca RN RN [facility] Libra Gale 3 David Appiah RN RN bp Alessandro Palencia, RN RN rr5 Corrections: (The following items were deleted from the chart) 15:13 14:48 BP 149 / 61; Pulse 116bpm; Resp 24bpm; Pulse Ox 93% RA; Temp 101.5F; bp bp 18:10 18:07 Temp 98.5F; dh3 bp
--- NOTE | 2020-04-07 17:11 | EDPHYS ---
Physician Documentation [facility] Name: Suad Cuenca Age: 69 yrs Sex: Female : 1950 Arrival Date: 04/07/2020 Time: 14:12 Bed 6 Private MD: ED Physician Prateek Lewis HPI: 04/07 14:21 This 69 yrs old Female presents to ER via Unassigned with complaints of rn cough, fever. 14:21 The patient or guardian reports cough, described as mild. Onset: The symptoms/episode rn began/occurred at an unknown time. Severity of symptoms: At their worst the symptoms were mild, in the emergency department the symptoms are unchanged. Modifying factors: The symptoms are alleviated by nothing, the symptoms are aggravated by nothing. It is unknown whether or not the patient has had similar symptoms in the past. Per EMS report, long-term has noticed fever, wet cough, swabbed for coronavirus Saturday, per report was "indeterminate". . Historical: - Allergies: 14:50 Aspirin; bp 14:50 Bleach (Sodium Hypochlorite); bp 14:50 bug spray; bp 14:50 diazepam; bp 14:50 Iodine; bp 14:50 PENICILLINS; bp 14:50 Pork/Porcine Containing Products; bp 14:50 Sulfa (Sulfonamide Antibiotics); bp - PMHx: 14:50 Anemia; Anxiety; arthropathy; CAUDA EQUINA SYNDROME; chronic pulmonary edema; bp congnitive communication deficit; Depression; dermatitis; Diabetes - IDDM; Dry Eye; epilepsy; Hypothyroidism; Multiple Sclerosis; MUSCLE WEAKNESS; Osteoporosis; pulmonary edema; UTI; - Immunization history:: Adult Immunizations up to date. - Social history:: Smoking status: Patient denies any tobacco usage or history of. - Family history:: not pertinent. - Hospitalizations: : No recent hospitalization is reported. ROS: 14:21 Constitutional: Negative for chills, and weight loss, Eyes: Negative for injury, pain, rn redness, and discharge, ENT: Negative for injury, pain, and discharge, Cardiovascular: Negative for chest pain, palpitations, and edema, Respiratory: + cough Abdomen/GI: Negative for abdominal pain, nausea, vomiting, diarrhea, and constipation, MS/Extremity: Negative for injury and deformity, Skin: Negative for injury, rash, and discoloration, Neuro: Negative for headache, numbness, tingling, and seizure. Exam: 14:21 Constitutional: This is a well developed, well nourished patient who is awake, alert, rn and in no acute distress. + flushed face Head/Face: Normocephalic, atraumatic. ENT: dry MM, no stridor Cardiovascular: Tachycardic, regular Respiratory: + diminished bilaterla breath sounds with crackles, no retractions, + mild tachypnea Abdomen/GI: soft, non-tender MS/ Extremity: Pulses equal, no cyanosis. Neuro: Awake and alert, follows commands. Vital Signs: 14:48 BP 149 / 61; Pulse 116; Resp 24; Temp 101.5; Pulse Ox 93% on R/A; Weight 90.72 kg; bp 15:14 BP 102 / 58; Pulse 116; Resp 24; Pulse Ox 96% on 2 lpm NC; bp 16:11 BP 128 / 86; Pulse 113; Resp 19; Pulse Ox 97% ; bp 17:04 BP 109 / 70; Pulse 109; Resp 28; Pulse Ox 100% ; bp 18:07 BP 95 / 70; Pulse 103; Resp 25; Temp 98.5; Pulse Ox 99% ; bp 19:11 BP 130 / 78; Pulse 102; Resp 24; Pulse Ox 99% 2 lpm ; rr5 20:15 BP 102 / 64; Pulse 105; Resp 23; Temp 98.9; Pulse Ox 99% on 2 lpm NC; rr5 MDM: 14:13 Patient medically screened. rn 17:10 Differential Diagnosis: Bronchitis Influenza Upper Respiratory Infection Viral Syndrome rn Pneumonia Other UTI, COVID. Data reviewed: vital signs, nurses notes, lab test result(s), radiologic studies, plain films, and as a result, I will admit patient. Counseling: I had a detailed discussion with the patient and/or guardian regarding: the historical points, exam findings, and any diagnostic results supporting the discharge/admit diagnosis, lab results, radiology results, the need for further work-up and treatment in the hospital. Response to treatment: the patient's symptoms have mildly improved after treatment. Admission orders: after a detailed discussion of the patient's condition and case, the admit orders are written by me. Admission orders: after a detailed discussion of the patient's condition and case, the admit orders are written by me. Special discussion: I discussed with the patient/guardian in detail that at this point there is no indication for admission to the hospital. It is understood, however, that if the symptoms persist or worsen the patient needs to return immediately for re-evaluation. 04/07 14:16 Order name: Blood Culture Adult (2) rn 04/07 14:16 Order name: BMP rn 04/07 14:16 Order name: C-Reactive Protein rn 04/07 14:16 Order name: CBC with Diff rn 04/07 14:16 Order name: COVID-19; Complete Time: 17:28 rn 04/07 14:16 Order name: D-Dimer; Complete Time: 16:24 04/07 14:16 Order name: Ferritin; Complete Time: 16:24 rn 04/07 14:16 Order name: Flu; Complete Time: 17:28 rn 04/07 14:16 Order name: Lactate; Complete Time: 16:24 04/07 14:16 Order name: LFT's; Complete Time: 16:24 rn 04/07 14:16 Order name: Lipase; Complete Time: 16:24 04/07 14:16 Order name: Procalcitonin; Complete Time: 16:46 04/07 14:16 Order name: PT-INR; Complete Time: 16:24 04/07 14:16 Order name: Ptt, Activated; Complete Time: 16:24 04/07 14:16 Order name: Strep; Complete Time: 17:28 04/07 14:16 Order name: Troponin (emerg Dept Use Only); Complete Time: 16:24 04/07 14:16 Order name: Urine Microscopic Only; Complete Time: 16:46 04/07 14:16 Order name: CXR XRAY; Complete Time: 17:28 04/07 14:16 Order name: EKG; Complete Time: 14:17 04/07 14:16 Order name: Cardiac monitoring; Complete Time: 14:54 04/07 14:16 Order name: Document PUI#; Complete Time: 16:57 04/07 14:16 Order name: Blood Culture EDMS 04/07 14:16 Order name: Basic Metabolic Panel; Complete Time: 16:24 EDMO 04/07 14:16 Order name: C-Reactive Protein; Complete Time: 16:24 EDMO 04/07 14:16 Order name: CBC with Automated Diff [facility] 04/07 16:29 Order name: Urine Dipstick--Ancillary (enter results); Complete Time: 16:46 eb 04/07 16:42 Order name: Urine Culture [facility] 04/07 17:30 Order name: Throat Culture [facility] 04/07 14:16 Order name: Droplet/Contact Precautions; Complete Time: 14:54 rn 04/07 14:16 Order name: EKG - Nurse/Tech; Complete Time: 15:12 rn 04/07 14:16 Order name: IV Start; Complete Time: 16:09 rn 04/07 14:16 Order name: Labs collected and sent; Complete Time: 16:09 rn 04/07 14:16 Order name: Notify Health Dept [phone]/ ; Complete Time: 16:57 rn 04/07 14:16 Order name: O2 Per Protocol; Complete Time: 14:54 rn 04/07 14:16 Order name: O2 Sat Monitoring; Complete Time: 14:54 rn 04/07 14:16 Order name: Urine Dipstick-Ancillary (obtain specimen); Complete Time: 16:09 rn Administered Medications: 15:20 Drug: Tylenol 650 mg Route: PO; bp 16:10 Follow up: Response: No adverse reaction bp 17:00 Drug: Rocephin 1 grams Route: IV; Rate: calculated rate; Site: left hand; bp 17:42 Follow up: IV Status: Completed infusion; IV Intake: 50ml bp Disposition: 04/07/20 17:11 Hospitalization ordered by Adams Aguillon for Inpatient Admission. Preliminary diagnosis are Fever, unspecified, Hypoxemia, Urinary tract infection, site not specified, Pneumonia, unspecified organism. - Bed requested for Telemetry/MedSurg (Inpatient). - Status is Inpatient Admission. rr5 - Condition is Stable. - Problem is new. - Symptoms have improved. Signatures: Dispatcher [employer] [facility] Yanelis Gray, RN Prateek Rausch MD MD rn Peltier, Brian, RN RN bp Roque, Raymond RN RN rr5 Corrections: (The following items were deleted from the chart) 17:28 17:11 Hospitalization Ordered by Adams Aguillon DO for Inpatient Admission. Preliminary rn diagnosis is Fever, unspecified; Hypoxemia; Urinary tract infection, site not specified. Bed requested for Telemetry/MedSurg (Inpatient). Status is Inpatient Admission. Condition is Stable. Problem is new. Symptoms have improved. rn 18:44 17:28 04/07/2020 17:11 Hospitalization Ordered by Adams Aguillon DO for Inpatient dw Admission. Preliminary diagnosis is Fever, unspecified; Hypoxemia; Urinary tract infection, site not specified; Pneumonia, unspecified organism. Bed requested for Telemetry/MedSurg (Inpatient). Status is Inpatient Admission. Condition is Stable. Problem is new. Symptoms have improved. rn 20:27 18:44 04/07/2020 17:11 Hospitalization Ordered by Adams Aguillon DO for Inpatient rr5 Admission. Preliminary diagnosis is Fever, unspecified; Hypoxemia; Urinary tract infection, site not specified; Pneumonia, unspecified organism. Bed requested for Telemetry/MedSurg (Inpatient). Status is Inpatient Admission. Condition is Stable. Problem is new. Symptoms have improved. dw
--- NOTE | 2020-04-07 17:22 | RAD REPORT ---
EXAM DESCRIPTION: Kati Single View04/07/2020 4:37 pm CLINICAL HISTORY: Cough COMPARISON: March 25 2020 FINDINGS: Mild right basilar opacity may indicate a mild pneumonia Left lung appears clear Heart is normal size
--- NOTE | 2020-04-07 17:38 | P.HP ---
Certification for Inpatient Patient admitted to: Inpatient With expected LOS: >2 Midnights Patient will require the following post-hospital care: None Practitioner: I am a practitioner with admitting privileges, knowledge of patient current condition, hospital course, and medical plan of care. Services: Services provided to patient in accordance with Admission requirements found in Title 42 Section 412.3 of the Code of Federal Regulations <Jay Ortez - Last Filed: 04/07/20 18:18> Patient History Date of Service: 04/07/20 Reason for admission: Pneumonia/urinary tract infection History of Present Illness: 69-year-old [facility] patient with a past medical history of depression with anxiety, muscular sclerosis, essential hypertension, seizure disorder, hypothyroidism, and chronic pain who with his brought to the emergency room via EMS with complaints of fever, cough and urinary symptoms. Patient was recently discharged from the hospital and sent back to the [facility]. At the time of discharge patient was negative for Covid. Patient was tested on SaturdayApril 04 at the [facility] which had indeterminate results. Patient was Re screened for Covid on this ER visit. Patient states that for the last 2-3 days she has had increasing urinary discomfort. Today she spiked a fever and a cough. Nursing staff became concerned and patient was brought to the ER. In the ER patient's lab work is fairly unremarkable with with no elevation of white cell count. D-dimer slightly elevated at 778 and UA shows positive nitrite, 3+ leukocyte esterase and white blood cells too numerous to count. Temperature was 101.5 on arrival. Chest x-ray with findings of mild basilar pneumonia and when compared to CT abdomen pelvis done approximately 1 week ago there was indication of atelectasis versus scarring. On physical exam patient is in no distress. She is on 2 L oxygen and doing well. States she feels a little better. Based on patient's history and being high risk as a [facility] patient we will admit to inpatient, start on IV antibiotics for UTI and possible pneumonia and further evaluate. Home medications list reviewed: No - Past Medical/Surgical History Diabetic: No -: Seizure disorder -: Multiple scleroses -: History of colorectal cancer -: Anemia -: Coronary artery disease -: History of nephrectomy -: Neurogenic bladder -: History of bowel obstructions now with PEG -: Chronic pain syndrome -: Depression with anxiety -: Bowel surgery -: PEG tube placement -: Kidney stone removed -: Tracheotomy -: Vein surgery Psychosocial/ Personal History: Patient has been a [facility] resident for 20 years. She has no children. Power of estate attorney is her brother. Patient is DNR. - Family History Family History: Reviewed- Non-Contributory - Social History Smoking Status: Never smoker Alcohol use: Yes CD- Drugs: No Caffeine use: No Place of Residence: [place] <Jay Ortez - Last Filed: 04/07/20 18:18> Date of Service: 04/07/20 <Adams Aguillon - Last Filed: 04/07/20 19:06> Allergies ampicillin Allergy (Verified 03/25/20 04:27) Anaphylaxis aspirin [From Amie Aspirin] Allergy (Verified 03/25/20 04:27) Hives diazepam Allergy (Verified 03/25/20 04:27) Hives Penicillins Allergy (Verified 03/25/20 04:27) Anaphylaxis red yeast rice Allergy (Verified 03/25/20 04:27) Hives bleach Allergy (Uncoded 11/15/16 07:48) Hives sulfa Allergy (Uncoded 11/15/16 07:48) Hives Home Medications: ALPRAZolam [Xanax*] 0.25 mg PO BID 03/25/20 Acetaminophen [Tylenol*] 650 mg PO Q6HP PRN 03/25/20 Alendronate Sodium [Fosamax] 70 mg PO EVERY 7TH DAY 03/25/20 Bethanechol Chloride 25 mg PO Q6HR 03/25/20 Cyanocobalamin (Vitamin B-12) [Vitamin B-12] 1,000 mcg PO DAILY 03/25/20 Diphenhydramine [Benadryl*] 25 mg PO BID PRN 03/25/20 Famotidine [Pepcid*] 20 mg PO BEDTIME 03/25/20 Fluticasone [Flonase 50MCG Nasal [place]*] 1 spr MARCEL BID 03/25/20 Gabapentin 300 mg PO Q8H 03/25/20 Guaifenesin [Mucus ER] 600 mg PO BID 03/25/20 Hydrocodone 10/APAP 325 [[place] 10/325*] 1 tab PO Q8HP PRN 03/25/20 Isosorbide Dinitrate 10 mg PO BID 03/25/20 Lactobacillus Acidophilus [Acidophilus Lactobacilli] 1 cap PO DAILY 03/25/20 Levothyroxine [Synthroid*] 0.088 mcg PO DAILY 03/25/20 Loperamide HCl [Loperamide] 2 mg PO Q4HP PRN 03/25/20 Mag Hydrox/Aluminum Hyd/Simeth [Neva-[place] Liquid] 30 m PO Q4HP PRN 03/25/20 Mag Hydroxide 8% [Milk Of Magnesia*] 30 ml PO DAILY PRN 03/25/20 Magnesium Oxide [Mag 0X*] 400 mg PO DAILY 03/25/20 Metoprolol Tartrate [Lopressor*] 25 mg PO DAILY 03/25/20 Multivitamin [Daily Multiple Vitamin] 1 tab PO DAILY 03/25/20 Naloxegol Oxalate [Movantik] 25 mg PO DAILY 03/25/20 Ondansetron [Zofran (Odt)*] 4 mg PO Q8HP PRN 03/25/20 PHENobarbitaL [Phenobarbital] 60 mg PO BID 03/25/20 Phenytoin [Dilantin] 150 mg PO Q8H 03/25/20 Promethazine Inj [Phenergan -Inj*] 25 mg IM Q8HP PRN 03/25/20 Propylene Glycol/Peg 400 [Lubricating Eye Drop] 1 drop EACH EYE Q12H 03/25/20 bisacodyL [Dulcolax*] 5 mg PO Q12HP PRN 03/25/20 traMADol HCL [Ultram*] 50 mg PO Q6HP PRN 03/25/20 Review of Systems General: As per HPI Eyes: Unremarkable ENT: Unremarkable Respiratory: Shortness of Breath Cardiovascular: Unremarkable Gastrointestinal: Unremarkable Genitourinary: Dysuria, Frequency, Urgency Musculoskeletal: Unremarkable Integumentary: Unremarkable Neurological: Unremarkable <Jay Ortez - Last Filed: 04/07/20 18:18> Physical Examination - Vital Signs Temperature: 101.5 F Blood Pressure: 109/70 Pulse: 109 Respirations: 28 Pulse Ox (%): 100 (2L NC) - Physical Exam General: Alert, In no apparent distress, Oriented x3, Cooperative HEENT: Atraumatic, PERRLA, Mucous membr. moist/pink Neck: Supple, Other (Trachea midline) Respiratory: Normal air movement Cardiovascular: No edema, Normal pulses, Regular rate/rhythm Capillary refill: <2 Seconds Gastrointestinal: Normal bowel sounds, Soft and benign, Non-distended Musculoskeletal: No swelling, Contractures (Lower extremity) Integumentary: No breakdown, No significant lesion, No tenderness/swelling Neurological: Normal tone, Sensation intact - Studies Laboratory Data (last 24 hrs) 04/07/20 15:40: PT 12.4, INR 1.05, APTT 31.5 04/07/20 15:40: WBC 3.2 L D, Hgb 13.4, Hct 41.3, Plt Count 258 D 04/07/20 15:40: Sodium 141, Potassium 4.2, BUN 13, Creatinine 0.60, Glucose 115 H, Total Bilirubin 0.1 L, AST 27, ALT 35, Alkaline Phosphatase 102, Lipase 137 Microbiology Data (last 24 hrs): 04/07/20 16:00 Throat Group A Streptococcus Rapid Screen - Final 04/07/20 16:00 Nasopharnyx Influenza Type A Antigen Screen - Final 04/07/20 16:00 Nasopharnyx Influenza Type B Antigen Screen - Final 04/07/20 16:05 Nasopharnyx Coronavirus COVID-19 PCR - Final <Jay Ortez - Last Filed: 04/07/20 18:18> - Studies Laboratory Data (last 24 hrs) 04/07/20 15:40: PT 12.4, INR 1.05, APTT 31.5 04/07/20 15:40: WBC 3.2 L D, Hgb 13.4, Hct 41.3, Plt Count 258 D 04/07/20 15:40: Sodium 141, Potassium 4.2, BUN 13, Creatinine 0.60, Glucose 115 H, Total Bilirubin 0.1 L, AST 27, ALT 35, Alkaline Phosphatase 102, Lipase 137 Microbiology Data (last 24 hrs): 04/07/20 16:00 Throat Group A Streptococcus Rapid Screen - Final 04/07/20 16:00 Nasopharnyx Influenza Type A Antigen Screen - Final 04/07/20 16:00 Nasopharnyx Influenza Type B Antigen Screen - Final 04/07/20 16:05 Nasopharnyx Coronavirus COVID-19 PCR - Final <Adams Aguillon - Last Filed: 04/07/20 19:06> Assessment and Plan - Plan Impression: Fever secondary to findings of urinary tract infection: Suspected pneumonia based on prior CT findings from 03/25/2020 and chest x-ray findings on this admission: History of multiple sclerosis: Essential hypertension: Depression with anxiety: History of seizure disorder: Hypothyroidism: Chronic pain: Plan: Fever secondary to findings of urinary tract infection: Will start patient on IV meropenem based on prior urine cultures. Will monitor urine culture and adjust antibiotics accordingly. Will monitor urine output. Will place patient on telemetry. Suspected pneumonia based on prior CT findings from 03/25/2020 and chest x-ray findings on this admission: Chest x-ray concerning for mild right lower lobe pneumonia. Patient had a CT abdomen pelvis with showed scarring versus atelecta sis in the right lower lobe approximately 1 week ago. This may be a developing pneumonia. We will treat accordingly with above antibiotic. We will monitor oxygen saturations and vitals. History of multiple sclerosis: Will resume home medications. Essential hypertension: Will monitor blood pressures and vitals. Will resume home medications. Depression with anxiety: Will resume home medications and monitor emotional state. History of seizure disorder: No history of seizures so far. Will resume home medications. Hypothyroidism: Will resume home medications. Chronic pain: Will resume home medication. Discharge Plan: Half-Way Plan to discharge in: 72 Hours - Advance Directives Does patient have a Living Will: No Does patient have a Durable POA for Healthcare: No - Code Status/Comfort Care Code Status Assessed: Yes Time Spent Managing Pts Care (In Minutes): 55 <Jay Ortez - Last Filed: 04/07/20 18:18> - Plan Case discussed with PA. Agree with evaluation, assessment and plan of care. F ever likely related to UTI. Will need to rule out resistant bacteria. CT also also suspicious for pneumonia. Patient recently hospitalized. She was negative for COVID at that time. Will retest. Likely discharge once improved. Will also provide IV fluids. I will turn the service over to the hospitalist team tomorrow. I will go over the plan of care with him. <Adams Aguillon - Last Filed: 04/07/20 19:06>
[2020-04-07] MEDS ORDERED: CEFTRIAXONE/SWI 1gm 1 GM/10 ML SYR ONE (17:47)
[2020-04-07] MEDS ORDERED: NA CHLORIDE 0.9% 100 ML IV ONE (17:47)
[2020-04-07] MEDS ORDERED: BISACODYL E.C. 5 MG TAB PO PRN (18:08)
[2020-04-07] MEDS ORDERED: DOCUSATE NA 100 MG CAP PO PRN (18:19)
[2020-04-07] MEDS ORDERED: Meropenem 1000 MG/VIAL IV SCH (21:00)
[2020-04-07] MEDS: Meropenem 1,000 MG in NA CHLORIDE 0.9% 100 ML IV SCH (21:00)
[2020-04-07] MEDS ORDERED: ACETAMINOPHEN 500 MG TAB PO PRN (21:04)
[2020-04-07 21:26] LABS: Blood Morphology Comment NOT SEEN (NOT SEEN); Platelet Estimate ADEQ; White Blood Cell Scan OK
[2020-04-07] MEDS: NA CHLORIDE 0.9% 1,000 ML IV SCH (22:04)
[2020-04-07] MEDS: HYDROCODONE/APAP 10/325 TAB PO PRN (23:42)
[2020-04-08 01:15] VITALS: BMI 24.9
[2020-04-08 06:34] LABS: Basophils % 0.7 % (0-1.3); Hematocrit 38.8 % (36.0-45.0); Lymphocytes % 40.2 % (15.3-44.8); MPV 8.7 fL (7.6-11.3); RBC Red Blood Cell Count 4.18 M/uL (3.86-4.86)
--- NOTE | 2020-04-08 06:47 | EKG ---
Test Date: 2020-04-07 Test Time: 14:55:43 Fagoter: LORE MEASUREMENT RESULTS: Intervals: Rate: 114 WY: 168 QRSD: 66 QT: 306 QTc: 421 [place]: P: 68 WY: 168 QRS: 27 T: 84 INTERPRETIVE STATEMENTS: Sinus tachycardia Nonspecific T wave abnormality Abnormal ECG Compared to ECG 08/18/2019 04:28:49 T-wave abnormality now present Electronically Signed On 04-08-20 06:45:38 CDT by Fazal Grande
[2020-04-08 07:17] LABS: BUN Blood Urea Nitrogen 15 mg/dL (7-18); Bicarbonate 23 mmol/L (21-32); Glucose Level 111 mg/dL (74-106); Magnesium 1.9 mg/dL (1.8-2.4); Sodium Level 142 mmol/L (136-145)
[2020-04-08] MEDS: ENOXAPARIN 40 MG/0.4 ML SQ SCH (07:55)
[2020-04-08] MEDS: HYDROCODONE/APAP 10/325 TAB PO PRN ×3 (07:55→22:30)
[2020-04-08] MEDS: NA CHLORIDE 0.9% 1,000 ML IV SCH (08:33)
[2020-04-08] MEDS: Meropenem 1,000 MG in NA CHLORIDE 0.9% 100 ML IV SCH ×2 (10:09→20:13)
--- NOTE | 2020-04-08 11:27 | P.PN ---
Subjective Date of Service: 04/08/20 Chief Complaint: Pneumonia/urinary tract infection Subjective: No new changes Review of Systems 10-point ROS is otherwise unremarkable Physical Examination - Vital Signs Temperature: 99.2 F Blood Pressure: 137/63 Pulse: 81 Respirations: 18 Pulse Ox (%): 97 - Physical Exam General: Alert HEENT: Atraumatic, Normocephalic Neck: Supple Respiratory: Diminished, Crackles/rales Cardiovascular: Normal pulses, Regular rate/rhythm Capillary refill: <2 Seconds Gastrointestinal: Soft and benign, W/out hepatosplenomegaly Musculoskeletal: No clubbing, No swelling Integumentary: No rashes Neurological: Other (Alert awake , Decreased range of motion) Lymphatics: No axilla or inguinal lymphadenopathy Urinary: Other (No bladder distention) - Studies Laboratory Data (last 24 hrs) 04/07/20 15:40: PT 12.4, INR 1.05, APTT 31.5 04/07/20 15:40: WBC 3.2 L D, Hgb 13.4, Hct 41.3, Plt Count 258 D 04/07/20 15:40: Sodium 141, Potassium 4.2, BUN 13, Creatinine 0.60, Glucose 115 H, Total Bilirubin 0.1 L, AST 27, ALT 35, Alkaline Phosphatase 102, Lipase 137 Microbiology Data (last 24 hrs): 04/07/20 15:40 Blood - Blood Anaerobic Blood Culture - Final 04/07/20 15:30 Blood - Blood Anaerobic Blood Culture - Final 04/07/20 16:00 Throat Group A Streptococcus Rapid Screen - Final 04/07/20 16:00 Nasopharnyx Influenza Type A Antigen Screen - Final 04/07/20 16:00 Nasopharnyx Influenza Type B Antigen Screen - Final 04/07/20 16:05 Nasopharnyx Coronavirus COVID-19 PCR - Final Assessment & Plan Physician Review Additional Text: Fever secondary to findings of urinary tract infection: Suspected pneumonia based on prior CT findings from 03/25/2020 and chest x-ray findings on this admission: History of multiple sclerosis: Essential hypertension: Depression with anxiety: History of seizure disorder: Hypothyroidism: Chronic pain: Plan: Fever secondary to findings of urinary tract infection: On IV antibiotics Patient had a resistant organism UTIin the past Will monitor cultures change antibiotic as per the sensitivity Monitor renal output Possible pneumonia based on prior CT findings from 03/25/2020 and chest x-ray findings on this admission: Chest x-ray concerning for mild right lower lobe pneumonia. CT abdomen pelvis with showed scarring versus atelectasis in the right lower lobe approximately 1 week ago. Will continue antibiotics Will get a speech eval to rule out any aspiration History of multiple sclerosis: Continue home medications. Essential hypertension: Titrate antihypertensives resume home medications. Depression with anxiety: resume home medications History of seizure disorder: resume home medications. Hypothyroidism: Will resume home medications. Chronic pain: Will resume home medication. Discharge Plan: Intermediate Time Spent Managing Pts Care (In Minutes): 42
[2020-04-08] MEDS: dexAMETHasone 10 MG/ML VIAL IV SCH (13:24)
[2020-04-08 14:09] LABS: Ferritin 278.8 ng/mL (8-388); Troponin I < 0.02 ng/mL (0.0-0.045)
--- NOTE | 2020-04-08 14:34 | RAD REPORT ---
EXAM DESCRIPTION: CT - Thorax Wo Con CLINICAL HISTORY: Chest pain PNA COMPARISON: Thorax Wo Con dated 05/02/2017; Chest Single View dated 04/07/2020 FINDINGS: Linear opacity is present with volume loss in the posterior right lower lobe and right karissa g base, favored to represent atelectasis. 17 x 14 mm lobulated pulmonary lesion in the superior segme nt right lower lobe appears unchanged in size since 2017. The left lung is hyperexpanded with mild pl eural thickening seen. No pleural effusion. No pericardial effusion. No pneumothorax. No axillary, mediastinal or hilar adenopathy. Thyroid goiter is present extending into the substernal region. No concerning bony finding. No gross upper abdominal finding. All CT scans are performed using dose optimization technique as appropriate and may include automated exposure control or mA/KV adjustment according to patient size. IMPRESSION: Opacities are present in the right lung base with right lung volume loss most likely rep resenting chronic atelectasis.17 mm lobulated pulmonary lesion in the superior segment right lower lo be is stable since 2017 comparative study. Thyroid goiter with substernal extension.
[2020-04-09] MEDS: NA CHLORIDE 0.9% 1,000 ML IV SCH ×3 (00:19→19:37)
[2020-04-09] MEDS: HYDROCODONE/APAP 10/325 TAB PO PRN (06:33)
[2020-04-09 07:19] LABS: BUN Blood Urea Nitrogen 13 mg/dL (7-18); Bicarbonate 22 mmol/L (21-32); Glucose Level 90 mg/dL (74-106); Potassium 4.1 mmol/L (3.5-5.1); Sodium Level 141 mmol/L (136-145)
[2020-04-09] MEDS: ENOXAPARIN 40 MG/0.4 ML SQ SCH (08:28)
[2020-04-09] MEDS ORDERED: AZTREONAM 1 GM/VIAL IV SCH (09:00)
[2020-04-09] MEDS: AZITHROMYCIN IV 500 MG in NA CHLORIDE 0.9% 250 ML IVPB SCH (10:26)
[2020-04-09] MEDS: dexAMETHasone 10 MG/ML VIAL IV SCH (10:27)
[2020-04-09] MEDS: AZTREONAM 1 GM in NA CHLORIDE 0.9% 50 ML IV SCH ×2 (10:38→16:20)
--- NOTE | 2020-04-09 11:06 | P.PN ---
Subjective Date of Service: 04/09/20 Chief Complaint: Pneumonia/urinary tract infection Subjective: No new changes Review of Systems 10-point ROS is otherwise unremarkable Physical Examination - Vital Signs Temperature: 98.2 F Blood Pressure: 137/60 Pulse: 76 Respirations: 20 Pulse Ox (%): 99 - Physical Exam General: Alert, In no apparent distress HEENT: Atraumatic, Normocephalic Neck: Supple Respiratory: Clear to auscultation bilaterally Cardiovascular: Regular rate/rhythm, Normal S1 S2 Capillary refill: <2 Seconds Gastrointestinal: Soft and benign, W/out hepatosplenomegaly Musculoskeletal: No clubbing Integumentary: No rashes Neurological: Other (Alert , Awake ) Lymphatics: No axilla or inguinal lymphadenopathy Urinary: Other (No bladder distention ) - Studies Microbiology Data (last 24 hrs): 04/07/20 16:00 Throat Culture & Sensitivity - Final NORMAL UPPER RESPIRATORY RODDY GROWN. 04/07/20 16:05 Clean Catch Urine [place] Count - Final >100,000 CFU/ML. 04/07/20 16:05 Clean Catch Urine - Final Escherichia Coli 04/07/20 15:30 Blood - Blood Anaerobic Blood Culture - Final 04/07/20 15:40 Blood - Blood Anaerobic Blood Culture - Final Assessment & Plan Physician Review Additional Text: Fever secondary to findings of urinary tract infection: Pneumonia History of multiple sclerosis: Essential hypertension: Depression with anxiety: History of seizure disorder: Hypothyroidism: Chronic pain: Plan: Fever secondary to findings of urinary tract infection: On IV antibiotics urine culture showed E. coli changed antibiotic as per the sensitivity Monitor renal output Pneumonia based on prior CT findings from 03/25/2020 and chest x-ray findings on this admission: Chest x-ray concerning for mild right lower lobe pneumonia. CT abdomen pelvis with showed scarring versus atelectasis in the right lower lobe approximately 1 week ago. Will continue antibiotics History of multiple sclerosis: Continue home medications. Essential hypertension: Titrate antihypertensives resume home medications. Depression with anxiety: resume home medications History of seizure disorder: resume home medications. Hypothyroidism: Will resume home medications. Chronic pain: Will resume home medication. Discharge Plan: [facility] Time Spent Managing Pts Care (In Minutes): 35
[2020-04-09] MEDS: HYDROCODONE/APAP 7.5/325 MG TAB PO PRN ×2 (13:50→21:28)
[2020-04-09 14:05] LABS: Absolute Lymphocytes (CBC) 0.6 K/uL (0.7-4.9); Basophils % 0.6 % (0-1.3); Hematocrit 39.4 % (36.0-45.0); Lymphocytes % 21.9 % (15.3-44.8); MPV 8.8 fL (7.6-11.3); RBC Red Blood Cell Count 4.24 M/uL (3.86-4.86)
[2020-04-10] MEDS: AZTREONAM 1 GM in NA CHLORIDE 0.9% 50 ML IV SCH ×2 (00:28→09:35)
[2020-04-10 06:57] LABS: Absolute Lymphocytes (CBC) 0.9 K/uL (0.7-4.9); Basophils % 0.4 % (0-1.3); Hematocrit 37.8 % (36.0-45.0); Lymphocytes % 52.9 % (15.3-44.8); MPV 8.2 fL (7.6-11.3); RBC Red Blood Cell Count 4.15 M/uL (3.86-4.86)
[2020-04-10] MEDS: dexAMETHasone 10 MG/ML VIAL IV SCH (07:37)
[2020-04-10] MEDS: AZITHROMYCIN IV 500 MG in NA CHLORIDE 0.9% 250 ML IVPB SCH (07:37)
[2020-04-10] MEDS: ENOXAPARIN 40 MG/0.4 ML SQ SCH (07:38)
[2020-04-10 08:15] LABS: Blood Morphology Comment NOT SEEN (NOT SEEN); Platelet Estimate ADEQ
[2020-04-10] MEDS: HYDROCODONE/APAP 7.5/325 MG TAB PO PRN (09:51)
--- NOTE | 2020-04-10 11:54 | P.PN ---
Subjective Date of Service: 04/10/20 Chief Complaint: Pneumonia/urinary tract infection Subjective: No new changes, Improving Review of Systems 10-point ROS is otherwise unremarkable Physical Examination - Vital Signs Temperature: 98.7 F Blood Pressure: 167/79 Pulse: 82 Respirations: 18 Pulse Ox (%): 98 - Physical Exam General: Alert, In no apparent distress HEENT: Atraumatic, Normocephalic Neck: Supple Respiratory: Clear to auscultation bilaterally Cardiovascular: Normal pulses, Regular rate/rhythm Capillary refill: <2 Seconds Gastrointestinal: Soft and benign, W/out hepatosplenomegaly Musculoskeletal: No clubbing, No swelling Integumentary: No rashes Neurological: Abnormal speech, Abnormal strength Lymphatics: No axilla or inguinal lymphadenopathy - Studies Microbiology Data (last 24 hrs): 04/07/20 16:00 Throat Culture & Sensitivity - Final NORMAL UPPER RESPIRATORY RODDY GROWN. 04/07/20 16:05 Clean Catch Urine [place] Count - Final >100,000 CFU/ML. 04/07/20 16:05 Clean Catch Urine - Final Escherichia Coli Assessment & Plan Physician Review Additional Text: Fever secondary to findings of urinary tract infection: Pneumonia History of multiple sclerosis: Essential hypertension: Depression with anxiety: History of seizure disorder: Hypothyroidism: Chronic pain: Plan: Fever secondary to findings of urinary tract infection: On IV antibiotics Urine culture showed E. coli Changed antibiotic as per the sensitivity Monitor renal output Pneumonia based on prior CT findings from 03/25/2020 and chest x-ray findings on this admission: Chest x-ray concerning for mild right lower lobe pneumonia. CT abdomen pelvis with showed scarring versus atelectasis in the right lower lobe approximately 1 week ago. History of multiple sclerosis: Continue home medications. Essential hypertension: Titrate antihypertensives resume home medications. Depression with anxiety: resume home medications History of seizure disorder: resume home medications. Hypothyroidism: Will resume home medications. Chronic pain: Will resume home medication. Discharge Plan: Alf Possible DC Time Spent Managing Pts Care (In Minutes): 38
[2020-04-10 12:29] VITALS: BP 167/79; TEMP 98.7
--- NOTE | 2020-04-10 14:05 | P.DS ---
Admission Date: 04/07/20 Discharge Date: 04/11/20 Disposition: TRANSFER TO [facility] Discharge Condition: GOOD Reason for Admission: Pneumonia/urinary tract infection Brief History of Present Illness: 69-year-old assisted patient with a past medical history of depression with anxiety, muscular sclerosis, essential hypertension, seizure disorder, hypothyroidism, and chronic pain who with his brought to the emergency room via EMS with complaints of fever, cough and urinary symptoms. Patient was recently discharged from the hospital and sent back to the assisted. At the time of discharge patient was negative for Covid. Patient was tested on SaturdayApril 04 at the assisted which had indeterminate results. Patient was Re screened for Covid on this ER visit. Patient states that for the last 2-3 days she has had increasing urinary discomfort. Today she spiked a fever and a cough. Nursing staff became concerned and patient was brought to the ER. In the ER patient's lab work is fairly unremarkable with with no elevation of white cell count. D-dimer slightly elevated at 778 and UA shows positive nitrite, 3+ leukocyte esterase and white blood cells too numerous to count. Temperature was 101.5 on arrival. Chest x-ray with findings of mild basilar pneumonia and when compared to CT abdomen pelvis done approximately 1 week ago there was indication of atelectasis versus scarring. On physical exam patient is in no distress. She is on 2 L oxygen and doing well. States she feels a little better. Based on patient's history and being high risk as a assisted patient we will admit to inpatient, start on IV antibiotics for UTI and possible pneumonia and further evaluate. Hospital Course: Fever secondary to findings of urinary tract infection: Pneumonia History of multiple sclerosis: Essential hypertension: Depression with anxiety: History of seizure disorder: Hypothyroidism: Chronic pain: Course The patient was admitted and was started on IV antibiotic. Urine culture showed E. coli Changed antibiotic as per the sensitivity Monitored renal output Pneumonia based on prior CT findings from 03/25/2020 and chest x-ray findings Chest x-ray concerning for mild right lower lobe pneumonia. CT abdomen pelvis with showed scarring versus atelectasis in the right lower lobe approximately 1 week ago. History of multiple sclerosis: Home medications continued . Essential hypertension: Titrated antihypertensives ,resume home medications. Depression with anxiety: resume home medications History of seizure disorder: resumed home medications. Hypothyroidism: Resumed home medications. Chronic pain: resumed home medication. The patient was admitted and was started on IV antibiotics and the cultures were obtained. Antibiotic streamlined with the sensitivity Patient responded well to the treatment and is being discharged assisted today in a stable condition with advice to follow up with PCP in 1 week time Vital Signs/Physical Exam: Temp Pulse Resp BP Pulse Ox 98.7 F 82 18 167/79 H 98 04/10/20 12:29 04/10/20 12:29 04/10/20 12:29 04/10/20 12:29 04/10/20 12:29 General: Alert, In no apparent distress HEENT: Atraumatic, Normocephalic Neck: Supple Respiratory: Clear to auscultation bilaterally, Normal air movement Cardiovascular: Regular rate/rhythm Gastrointestinal: Soft and benign, W/out hepatosplenomegaly Laboratory Data at Discharge: WBC 1.8 K/uL (4.3-10.9) L* D 04/10/20 06:24 Hgb 12.8 g/dL (12.0-15.0) 04/10/20 06:24 Hct 37.8 % (36.0-45.0) 04/10/20 06:24 Plt Count 151 K/uL (152-406) L 04/10/20 06:24 PT 12.4 SECONDS (9.5-12.5) 04/07/20 15:40 INR 1.05 04/07/20 15:40 APTT 31.5 SECONDS (24.3-36.9) 04/07/20 15:40 Sodium 141 mmol/L (136-145) 04/09/20 06:45 Potassium 4.1 mmol/L (3.5-5.1) 04/09/20 06:45 BUN 13 mg/dL (7-18) 04/09/20 06:45 Creatinine 0.39 mg/dL (0.55-1.3) L 04/09/20 06:45 Glucose 90 mg/dL (74-106) 04/09/20 06:45 Magnesium 1.9 mg/dL (1.8-2.4) 04/08/20 05:56 Total Bilirubin 0.1 mg/dL (0.2-1.0) L 04/07/20 15:40 AST 27 U/L (15-37) 04/07/20 15:40 ALT 35 U/L (12-78) 04/07/20 15:40 Alkaline Phosphatase 102 U/L (45-117) 04/07/20 15:40 Troponin I < 0.02 ng/mL (0.0-0.045) 04/08/20 13:15 Troponin I Cancelled 04/08/20 13:15 Lipase 137 U/L (73-393) 04/07/20 15:40 Home Medications: Promethazine Inj [Phenergan -Inj*] 25 mg IM Q8HP PRN 04/07/20 ALPRAZolam [Xanax*] 0.25 mg PO Q12HP PRN 04/08/20 Acetaminophen [Tylenol*] 650 mg PO Q6HP PRN 04/08/20 Acidophilus/Bifido Longum [Lactobacillus Capsule] 16 mg PO DAILY 04/08/20 Alendronate Sodium [Fosamax] 70 mg PO DAILY 04/08/20 Bethanechol Chloride 25 mg PO Q6H 04/08/20 Bisacodyl [Laxative Suppository] 10 mg RC DAILYPRN PRN 04/08/20 Carboxymethylcellulose Sodium [Lubricating Plus] 1 each OP Q12H 04/08/20 Clotrim/Betameth Cream [Lotrisone Cream*] 15 gm TP DAILYPRN PRN 04/08/20 Cyanocobalamin [Vitamin B-12*] 1,000 mcg PO DAILY 04/08/20 Cyclosporine [Restasis] 1 each OP Q12H 04/08/20 Duoneb Solution0.5-2.5(3)Mg/Ml 1 vial Q6HP PRN 04/08/20 Enema, Fleet Adult [Fleet Enema Adult*] 1 sukumar RC DAILYPRN PRN 04/08/20 Famotidine [Pepcid*] 20 mg PO BEDTIME 04/08/20 Gabapentin 300 mg PO Q8H 04/08/20 Hydrocodone 10/APAP 325 [Wendel 10/325*] 1 tab PO Q8HP PRN 04/08/20 Isosorbide Dinitrate 10 mg PO DAILY 04/08/20 Levothyroxine Sodium 88 mcg PO DAILY 04/08/20 Loperamide HCl [Loperamide] 2 mg PO Q4HP PRN 04/08/20 Mag Hydrox/Aluminum Hyd/Simeth [Neva-[place] Liquid] 30 ml PO Q4HP PRN 04/08/20 Mag Hydroxide 8% [Milk Of Magnesia*] 30 ml PO DAILYPRN PRN 04/08/20 Magnesium Citrate 150 ml PO DAILY 04/08/20 Magnesium Oxide [Mag 0X*] 400 mg PO DAILY 04/08/20 Metoprolol Tartrate [Lopressor*] 25 mg PO DAILY 04/08/20 Multivitamin with Minerals [Multivitamins with Minerals] 1 each PO DAILY 04/08/20 Naloxegol Oxalate [Movantik] 25 mg PO DAILY 04/08/20 Nystatin Cream [Mycostatin 100MU/Gm Cream*] 15 appl TOP DAILY 04/08/20 Ondansetron HCl [Zofran] 4 mg PO Q8HP 04/08/20 PHENobarbitaL [Phenobarbital] 60 mg PO Q12H 04/08/20 Phenol [Chloraseptic] 2 spray PO Q4HP PRN 04/08/20 Phenytoin [Dilantin] 3 tab PO Q8H 04/08/20 Sodium Chloride [Saline Nasal [place]] 2 spray NS Q12HP 04/08/20 Tramadol HCl [Ultram] 50 mg PO Q6HP PRN 04/08/20 Tylenol Suppository 650 mg LA Q6HP PRN 04/08/20 bisacodyL [Dulcolax*] 5 mg PO Q12HP PRN 04/08/20 Doxycycline Hyclate 100 mg PO BID #14 capsule 04/10/20 levoFLOXacin [Levofloxacin] 500 mg PO DAILY #7 tablet 04/10/20 predniSONE [Prednisone] 40 mg PO DAILY #14 tablet 04/10/20 New Medications: Doxycycline Hyclate 100 mg PO BID #14 capsule levoFLOXacin [Levofloxacin] 500 mg PO DAILY #7 tablet predniSONE [Prednisone] 40 mg PO DAILY #14 tablet Time spent managing pt's care (in minutes): 35
[2020-04-10 15:55] VITALS: O2SAT 98
== END 2020-04-10 15:55 | DRG 177 ==
LOC: ER 14:08 → ERHOLD 17:57 → 4TH 20:15
PROVIDERS: ADMIT Family Medicine; ATTEND Family Medicine
PROC: 8E0ZXY6 Isolation (ICD-10-PCS; principal; 2020-04-07)
DX: U07.1 COVID-19 (principal); J12.89 Other viral pneumonia; N39.0 Urinary tract infection, site not specified; I25.10 Atherosclerotic heart disease of native coronary artery without angina pectoris; E03.9 Hypothyroidism, unspecified; B96.20 Unspecified Escherichia coli [E. coli] as the cause of diseases classified elsewhere; G89.29 Other chronic pain; F41.8 Other specified anxiety disorders; I10 Essential (primary) hypertension; Z93.1 Gastrostomy status; Z66 Do not resuscitate; Z88.1 Allergy status to other antibiotic agents; Z88.0 Allergy status to penicillin; Z88.8 Allergy status to other drugs, medicaments and biological substances; Z91.018 Allergy to other foods; Z91.09 Other allergy status, other than to drugs and biological substances; Z79.01 Long term (current) use of anticoagulants; Z79.890 Hormone replacement therapy; Z79.899 Other long term (current) drug therapy
CPT/HCPCS: 36415; 51702; 71045; 71250; 80048; 80076; 81003; 81015; 82728; 83605; 83690; 83735; 84145; 84484; 85025; 85379; 85610; 85730; 86140; 87040; 87070; 87077; 87081; 87086; 87088; 87186; 87205; 87804; 93005; 96365; 99285; J0456; J0696; J1100; J1650; J2185; J7030; J7050; U0002

== ENCOUNTER 2023-05-20 02:08 | Inpatient (IN) | payer OTHER ==
--- OUTSIDE RECORDS SUMMARY | 2023-05-20 02:16 | XMS REPORT | Continuity of Care Document ---
:1950 Author Organization [facility] t Address [address] [facility] [address] [place] [address] Care Team Providers Name Role Phone Sylvain Smart MD Primary Care Physician ALIS ROMEO Attending Clinician Unavailable HAWA KING Attending Clinician Unavailable HAWA KING Attending Clinician Unavailable DIPIKA WONG Attending Clinician Unavailable Dipika Wong MD Attending Clinician LUIS PALMA Attending Clinician Unavailable Luis Palma OD Attending Clinician Doctor Unassigned, [place] Attending Clinician Unavailable Alis Romeo MD Attending Clinician Ez Barton MD Attending Clinician Pcp-Lab Attending Clinician Unavailable Andrea Silva MD Attending Clinician Clovis Alvares MD Attending Clinician Clovis Alvares MD Admitting Clinician Payers Payer Name Policy Type Policy Number Effective Date Expiration Date S jcarlos MEDICARE PART A [id number] 1981 \T\ B 00:00:00 MEDICAID OF [place] [id number] 2015 00:00:00 Problems Condition Condition Condition Status Onset Resolution Last Treating Co mments Source Name Details Category Date Date Treatment Clinician Date HCAP HCAP Disease Active Univers (healthcar (healthcar 10-23 it y of e-associat [place] 00 Medical pneumonia) pneumonia) Br anch Allergies, Adverse Reactions, Alerts Allergy Allergy Status Severity Reaction(s) Onset Inactive Treating Comm ents Source Name Type Date Date Clinician Seafood/ Propensi Active Anaphylaxis U nivers Fish ty to 10-25 ity of adverse 00:00: [place] reaction 00 Medical s Branch Pork Propensi Active Anaphylaxis Uni vers Derived ty to 10-25 ity of (Porcine adverse 00:00: [place] ) reaction 00 Medical s Branch SEAFOOD/ Food Active Anaphylaxis Uni vers FISH 10-25 ity of 00:00: [place] 00 Medical Branch PORK DRUG Active Anaphylaxis Unive rs DERIVED INGREDI 10-25 ity of (PORCINE 00:00: [place] ) 00 Medical Branch Aspirin Propensi Active Unknown - 0 Univ ers ty to See comments 03-26 ity of adverse 00:00: [place] reaction 00 Medical s Branch Diazepam Propensi Active Unknown - 0 Uni vers ty to See comments 03-26 ity of adverse 00:00: [place] reaction 00 Medical s Branch Penicill Propensi Active Unknown - 0 Uni vers in ty to See comments 03-26 ity of adverse 00:00: [place] reaction 00 Medical s Branch Sulfa Propensi Active Unknown - Unive rs (Sulfona ty to See comments 03-26 it y of mide adverse 00:00: [place] Antibiot reaction 00 Medica l ics) s Branch ASPIRIN DRUG Active Unknown-Cmnt 0 Uni vers INGREDI 03-26 ity of 00:00: [place] 00 Medical Branch DIAZEPAM DRUG Active Unknown-Cmnt 0 Un royal INGREDI 03-26 ity of 00:00: [place] 00 Medical Branch PENICILL DRUG Active Unknown-Cmnt 0 Un royal IN INGREDI 03-26 ity of 00:00: [place] 00 Medical Branch SULFA Drug Active Unknown-Cmnt 0 Univ ers (SULFONA Class 03-26 ity of MIDE 00:00: [place] ANTIBIOT 00 Medical ICS) Branch Penicill Propensi Active Unknown - 0 Uni vers in ty to See comments 03-26 ity of adverse 00:00: [place] reaction 00 Medical s Branch Sulfa Propensi Active Unknown - 0 Unive rs (Sulfona ty to See comments 03-26 it y of mide adverse 00:00: [place] Antibiot reaction 00 Medica l ics) s Branch Social History Social Habit Start Date Stop Date Quantity Comments Source History of tobacco Cigarette Smoker University of use [facility] Exposure to 2023-02-02 2023-02-12 Not sure University SARS-CoV-2 (event) 00:00:00 13:19:00 [facility] Alcohol intake 2023-01-03 2023-01-03 0 /d University 00:00:00 00:00:00 [facility] Cigarettes smoked 2022-08-23 2022-08-23 Univers ity of current (pack per 00:00:00 00:00:00 [facility] ) - Reported Branch Cigarette 2022-08-23 2022-08-23 University of pack-years 00:00:00 00:00:00 [facility] Tobacco use and 2022-08-23 2022-08-23 Smokeless Universit y of exposure 00:00:00 00:00:00 tobacco non-user [facility] [place] [facility] Sex Ass[birth year] Universit y of 00:00:00 00:00:00 [facility] Smoking Status Start Date Stop Date Source Ex-smoker 2022-08-23 00:00:00 2022-08-23 00:00:00 Universi ty of [place] [facility] Medications Ordered Filled Start Stop Current Ordering Indication Dosage Frequency Signature Comments Components Source Medication Medication Date Date Medication? Clinician (SIG) Name Name cycloSPORIN Yes 1[drp] Place 1 U nivers E 0.05 % 6-28 Drop in ity of drops 13:43: left eye [place] 49 every 12 Medical (twelve) Branch hours. cycloSPORIN Yes 1[drp] Place 1 U nivers E 0.05 % 6-28 Drop in ity of drops 13:43: left eye [place] 49 every 12 Medical (twelve) Branch hours. cycloSPORIN Yes 1[drp] Place 1 U nivers E 0.05 % 6-28 Drop in ity of drops 13:43: left eye [place] 49 every 12 Medical (twelve) Branch hours. hydrOXYchlo Yes [id number] 200mg Take 1 Univers roQUINE 200 4-13 tablet by ity of mg tablet 00:00: [place] 00 the Medical morning. Branch hydrOXYchlo 2023-0 Yes [id number] 200mg Take 1 Univers roQUINE 200 4-13 tablet by ity of mg tablet 00:00: [place] 00 the Medical morning. Branch hydrOXYchlo 2023-0 Yes [id number] 200mg Take 1 Univers roQUINE 200 4-13 tablet by ity of mg tablet 00:00: [place] 00 the Medical morning. Branch hydrOXYchlo 2023-0 Yes [id number] 200mg Take 1 Univers roQUINE 200 4-13 tablet by ity of mg tablet 00:00: [place] 00 the Medical morning. Branch hydrOXYchlo 2023-0 Yes [id number] 200mg Take 1 Univers roQUINE 200 4-13 tablet by ity of mg tablet 00:00: [place] the Medical morning. Branch hydrOXYchlo 2023-0 Yes [id number] 200mg Take 1 Univers roQUINE 200 4-13 tablet by ity of mg tablet 00:00: [place] the Medical morning. Branch hydrOXYchlo 2023-0 Yes [id number] 200mg Take 1 Univers roQUINE 200 4-13 tablet by ity of mg tablet 00:00: mouth [place] 00 the Medical morning. Branch hydrOXYchlo 2023-0 Yes [id number] 200mg Take 1 Univers roQUINE 200 4-13 tablet by ity of mg tablet 00:00: [place] 00 the Medical morning. Branch hydrOXYchlo 2023-0 Yes [id number] 200mg Take 1 Univers roQUINE 200 4-13 tablet by ity of mg tablet 00:00: mouth [place] 00 the Medical morning. Branch hydrOXYchlo 2023-0 Yes [id number] 200mg Take 1 Univers roQUINE 200 4-13 tablet by ity of mg tablet 00:00: mouth [place] 00 the Medical morning. Branch hydrOXYchlo 2023-0 Yes [id number] 200mg Take 1 Univers roQUINE 200 4-13 tablet by ity of mg tablet 00:00: mouth [place] 00 the Medical morning. Branch hydrOXYchlo 2023-0 Yes [id number] 200mg Take 1 Univers roQUINE 200 4-13 tablet by ity of mg tablet 00:00: mouth [place] 00 the Medical morning. Branch hydrOXYchlo 2022-0 Yes [id number] 200mg Take 1 Univers roQUINE 200 4-13 tablet by ity of mg tablet 00:00: [place] 00 the Medical morning. Branch bethanechol 2020-0 Yes 25mg Take 25 mg Univers (URECHOLINE 5-22 through ity o f ) 25 mg 18:51: feeding [place] tablet 35 tube 4 Medical (four) Branch times daily. PHENobarbit 2020-0 Yes 60mg Take 60 mg Univers al 20 mg/5 5-22 through ity of mL (4 18:51: enteral [place] mg/mL) 35 tube 2 Medical elixir (two) Branch times daily. isosorbide 2020-0 Yes 10mg Take 10 mg U nivers dinitrate 5-22 through ity of (ISORDIL) 18:51: enteral [place] 10 mg 35 tube 2 Medical tablet (two) Branch times daily. metoprolol 2020-0 Yes 25mg Take 25 mg U nivers tartrate 5-22 through ity of (LOPRESSOR) 18:51: enteral [place] 25 mg 35 tube Medical tablet daily. Branch metoprolol 2020-0 Yes 50mg Take 50 mg U nivers tartrate 5-22 by mouth ity of (LOPRESSOR) 18:51: at [place] 50 mg 35 bedtime. Medical tablet Branch CALCIUM 2020-0 Yes Take Univers CARBONATE 5-22 through ity of ORAL 18:51: feeding [place] 35 tube. Medical Branch phenytoin 2020-0 Yes 125mg Take 125 Uni vers (DILANTIN) 5-22 mg through ity of 125 mg/5 mL 18:51: enteral [place] suspension 35 tube 2 Medical (two) Branch times daily. lactulose 2020-0 Yes 30mL Take 30 mL Un royal 10 gram/15 5-22 through ity of mL (15 mL) 18:51: feeding [place] Soln 35 tube 2 Medical (two) Branch times daily. Indication s: feeding tube dextran 2020-0 Yes 1[drp] Place 1 Unive rs 70-hypromel 5-22 Drop in ity o f lose 18:51: both eyes [place] (ARTIFICIAL 35 2 (two) Medic al TEARS) times Branch ophthalmic daily. solution gabapentin 2020-0 Yes 300mg Take 300 Un royal (NEURONTIN) 5-22 mg through it y of 300 mg 18:51: feeding [place] capsule 35 tube 3 Medical (three) Branch times daily. RANITIDINE 2020-0 Yes 300mg Take 300 Un royal HCL ORAL 5-22 mg through ity o f 18:51: feeding [place] 35 tube at Medical bedtime. Branch oxybutynin 2020-0 Yes 5mg Take 5 mg Un royal chloride 5-22 through ity of (DITROPAN) 18:51: enteral [place] 5 mg tablet 35 tube at Medic al bedtime. Branch magnesium 2020-0 Yes 150mL Take 150 Uni vers citrate 5-22 mL through ity of solution 18:51: enteral [place] 35 tube at Medical bedtime. Branch bisacodyl 2020-0 Yes 10mg Insert 10 Uni vers (DULCOLAX) 5-22 mg into ity of 10 mg 18:51: rectum at [place] suppository 35 bedtime as Me dical needed. Branch acetaminoph 2020-0 Yes 500mg Take 500 U nivers en 5-22 mg through ity of (TYLENOL) 18:51: feeding [place] 100 mg/mL 35 tube every Medi radha solution 6 (six) Branch hours as needed for Fever. Indication s: For elevated temp meclizine 2020-0 Yes 12.5mg Take 12.5 U nivers (ANTIVERT) 5-22 mg through ity of 12.5 mg 18:51: enteral [place] tablet 35 tube 4 Medical (four) Branch times daily as needed. ALPRAZolam 2020-0 Yes .5mg Take 0.5 Uni vers (XANAX) 0.5 5-22 mg through it y of mg tablet 18:51: enteral [place] 35 tube 2 Medical (two) Branch times daily. ziprasidone 2020-0 Yes 20mg Take 20 mg Univers (GEODON) 20 5-22 through ity o f mg capsule 18:51: feeding [place] 35 tube at Medical bedtime. Branch ipratropium 2020-0 Yes 1{ampul Inhale 1 Univers -albuterol 5-22 e} Ampule ity of (DUONEB) 18:51: every 6 [place] 0.5 mg-3 35 (six) Medical mg(2.5 mg hours as Branch base)/3 mL needed for nebulizer Wheezing. solution triamcinolo 2020-0 Yes 1{dose} Apply 1 Univers ne 5-22 Dose to ity of (KENALOG) 18:51: area[place] 0.1 % 35 needed. Medical lotion Branch cyanocobala 2020-0 Yes 500ug 500 mcg by Univers min, 5-22 Intramuscu ity of vitamin 18:51: lar route [place] B-12, 35 once every Medical (PHYSICIANS month. Branch EZ USE B-12) 1,000 mcg/mL injection ketoconazol 2020-0 Yes 1{dose} Apply 1 Univers e (NIZORAL) 5-22 Dose to ity o f 2 % cream 18:51: area(s[place] 35 needed Medical (apply to Branch facial rash as needed). traMADOL 50 2020-0 Yes 50mg Take 50 mg Univers mg tablet 5-22 by mouth ity of 18:51: every 6 [place] 35 (six) Medical hours as Branch needed. FENTanyl 25 2020-0 Yes 1{patch Apply 1 Univers mcg/hr 5-22 } Patch to ity of patch 18:51: skin every [place] 35 72 Medical (seventy-t Branch wo) hours. HYDROcodone 2020-0 Yes 1{tbl} Take 1 Un royal -acetaminop 5-22 tablet by ity of hen 7.5-325 18:51: mouth [place] mg per 35 every 6 Medical tablet (six) Branch hours as needed for Pain. cycloSPORIN 2020-0 Yes 1[drp] Place 1 U nivers E 5-22 Drop in ity of (RESTASIS) 18:51: left eye [place] 0.05 % 35 every 12 Medical drops (twelve) Branch hours. magnesium 2020-0 Yes 400mg Take 400 Uni vers oxide 400 5-22 mg by ity of mg tablet 18:51: mouth [place] 35 daily. Medical Branch levothyroxi 2020-0 Yes 88ug Take 88 Uni vers ne 88 mcg 5-22 mcg by ity of tablet 18:51: mouth [place] 35 every Medical morning. Branch multivitami 2020-0 Yes 15mL Take 15 mL Univers n solution 5-22 by mouth ity o f 18:51: daily. [place] 35 Medical Branch Artificial 2020-0 Yes 1[drp] Place 1 Un royal Tear, 5-22 Drop in ity of Hypromellos 18:51: each eye 2 [place] e, 0.4 % 35 (two) Medical Drop times Branch daily. Loperamide 2020-0 Yes 30mL Take 30 mL U nivers 1 mg/7.5 mL 5-22 by mouth ity of Liqd 18:51: as needed. [place] 35 Medical Branch acetaminoph 2020-0 Yes 650mg Take 650 U nivers en 325 mg 5-22 mg by ity of tablet 18:51: mouth [place] 35 every 6 Medical (six) Branch hours as needed for Pain (scale 1-3), Pain (scale 4-6) or Temp > 38.5 C. magnesium 2020-0 Yes 30mL Take 30 mL Un royal hydroxide 5-22 by mouth ity of concentrate 18:51: once daily [place] 35 as needed Medical for Branch Constipati on. sodium 2020-0 Yes 2{spray Use 2 Univers chloride 5-22 } Sprays in ity of (SALINE 18:51: each [place] NASAL) 0.65 35 nostril 2 Med ical % nasal (two) Branch spray times daily as needed. CHLORASEPTI 2020-0 Yes 2{spray Take 2 U nivers C, phenol 5-22 } Sprays by ity o f 1.4%, 18:51: mouth [place] mouthwash 35 every 4 Medical (four) Branch hours as needed for Sore throat. alum-mag 2020-0 Yes 30mL Take 30 mL Uni vers hydroxide-s 5-22 by mouth ity of imeth 18:51: every 6 [place] (URVASHI-LANTA 35 (six) Medical ) hours as Branch 200-200-20 needed for mg/5 mL Indigestio suspension n. guaiFENesin 2020-0 Yes 100mg Take 100 U nivers (URVASIH-TUSSI 5-22 mg by ity of N) 100 mg/5 18:51: mouth [place] mL solution 35 every 6 Medic al (six) Branch hours as needed for Cough. acetaminoph 2020-0 Yes 650mg Insert 650 Univers en 650 mg 5-22 mg into ity of suppository 18:51: rectum [place] 35 every 6 Medical (six) Branch hours as needed for Fever. sodium 2020-0 Yes 1{enema Insert 1 Univ ers phosphates 5-22 } Enema into ity of (FLEET 18:51: rectum [place] ENEMA) 19-7 35 once daily Me dical gram/118 mL as needed [facility] enema for Constipati on. Follow package directions lactated 2020-0 Yes 1000mL at 75 Univer s ringers IV 5-22 mL/hr, ity of infusion 17:15: 1,000 mL, [place] 1,000 mL 00 IV Medical Infusion, Branch CONTINUOUS , Starting 02/12/20 at 1215, Until Discontinu ed, Routine, PACU water for 2020-0 Yes PRN, Univers irrigation 02-11 Starting ity o f irrigation 17:13: Fri [place] solution 00 02/12/20 at Medic al 1213, Branch Until Discontinu ed, Routine, Intra-op simethicone 2020-0 Yes PRN, Univer s (GAS RELIEF 02-11 Starting ity of (SIMETHICON 17:13: Fri [place] E)) 40 00 02/12/20 at Medical mg/0.6 mL 1213, Branch drops Until Discontinu ed, Routine, Intra-op vancomycin 2019-0 2020- No 500mg 500 mg, IV Univers (VANCOCIN) 02-11 05-22 Piggyback, it y of 500 mg in 15:00: 17:20 ONCE, 1 [place] NaCl 0.9% 00 :00 dose, Sat Medic al (NS) 100 mL 02/12/20 at Br anch MINI-BAG 1000, 100 mL
Reas on for Anti-Infec tive: Surgical Prophylaxi s
Surgi radha Prophylaxi s: Abdominal< br>Duratio n of therapy: within 24 hours of surgery lactated 2020-0 2020- No 1000mL at 20 Unive rs ringers IV - 05-22 mL/hr, ity of infusion 14:15: 15:50 1,000 mL, [place] 1,000 mL 00 :00 IV Medical Infusion, Branch ONCE, 1 dose, Sat02/12/20 at 0915, Routine, Endo Pre-op PHENobarbit 2020-0 Yes 60mg Take 60 mg Univers al 20 mg/5 02-11 through ity of mL (4 13:51: enteral [place] mg/mL) 35 tube 2 Medical elixir (two) Branch times daily. isosorbide 2020-0 Yes 10mg Take 10 mg U nivers dinitrate 02-11 through ity of (ISORDIL) 13:51: enteral [place] 10 mg 35 tube 2 Medical tablet (two) Branch times daily. metoprolol 2020-0 Yes 25mg Take 25 mg U nivers tartrate 5-22 through ity of (LOPRESSOR) 13:51: enteral [place] 25 mg 35 tube Medical tablet daily. Branch metoprolol 2020-0 Yes 50mg Take 50 mg U nivers tartrate 5-22 by mouth ity of (LOPRESSOR) 13:51: at [place] 50 mg 35 bedtime. Medical tablet Branch CALCIUM 2020-0 Yes Take Univers CARBONATE 5-22 through ity of ORAL 13:51: feeding [place] 35 tube. Medical Branch phenytoin 2020-0 Yes 125mg Take 125 Uni vers (DILANTIN) 5-22 mg through ity of 125 mg/5 mL 13:51: enteral [place] suspension 35 tube 2 Medical (two) Branch times daily. lactulose 2020-0 Yes 30mL Take 30 mL Un royal 10 gram/15 5-22 through ity of mL (15 mL) 13:51: feeding [place] Soln 35 tube 2 Medical (two) Branch times daily. Indication s: feeding tube dextran 2020-0 Yes 1[drp] Place 1 Unive rs 70-hypromel 5-22 Drop in ity o f lose 13:51: both eyes [place] (ARTIFICIAL 35 2 (two) Medic al TEARS) times Branch ophthalmic daily. solution gabapentin 2020-0 Yes 300mg Take 300 Un royal (NEURONTIN) 5-22 mg through it y of 300 mg 13:51: feeding [place] capsule 35 tube 3 Medical (three) Branch times daily. RANITIDINE 2020-0 Yes 300mg Take 300 Un royal HCL ORAL 5-22 mg through ity o f 13:51: feeding [place] 35 tube at Medical bedtime. Branch oxybutynin 2020-0 Yes 5mg Take 5 mg Un royal chloride 5-22 through ity of (DITROPAN) 13:51: enteral [place] 5 mg tablet 35 tube at Medic al bedtime. Branch magnesium 2020-0 Yes 150mL Take 150 Uni vers citrate 5-22 mL through ity of solution 13:51: enteral [place] 35 tube at Medical bedtime. Branch bisacodyl 2020-0 Yes 10mg Insert 10 Uni vers (DULCOLAX) 5-22 mg into ity of 10 mg 13:51: rectum at [place] suppository 35 bedtime as Me dical needed. Branch acetaminoph 2020-0 Yes 500mg Take 500 U nivers en 5-22 mg through ity of (TYLENOL) 13:51: feeding [place] 100 mg/mL 35 tube every Medi radha solution 6 (six) Branch hours as needed for Fever. Indication s: For elevated temp meclizine 2020-0 Yes 12.5mg Take 12.5 U nivers (ANTIVERT) 5-22 mg through ity of 12.5 mg 13:51: enteral [place] tablet 35 tube 4 Medical (four) Branch times daily as needed. ALPRAZolam 2020-0 Yes .5mg Take 0.5 Uni vers (XANAX) 0.5 5-22 mg through it y of mg tablet 13:51: enteral [place] 35 tube 2 Medical (two) Branch times daily. ziprasidone 2020-0 Yes 20mg Take 20 mg Univers (GEODON) 20 5-22 through ity o f mg capsule 13:51: feeding [place] 35 tube at Medical bedtime. Branch ipratropium 2019-0 Yes 1{ampul Inhale 1 Univers -albuterol 5-22 e} Ampule ity of (DUONEB) 13:51: every 6 [place] 0.5 mg-3 35 (six) Medical mg(2.5 mg hours as Branch base)/3 mL needed for nebulizer Wheezing. solution triamcinolo 2019-0 Yes 1{dose} Apply 1 Univers ne 5-22 Dose to ity of (KENALOG) 13:51: area[place] as [place] 0.1 % 35 needed. Medical lotion Branch cyanocobala 2019-0 Yes 500ug 500 mcg by Univers min, 5-22 Intramuscu ity of vitamin 13:51: lar route [place] B-12, 35 once every Medical (PHYSICIANS month. Branch EZ USE B-12) 1,000 mcg/mL injection ketoconazol 2019-0 Yes 1{dose} Apply 1 Univers e (NIZORAL) 5-22 Dose to ity o f 2 % cream 13:51: area(s[place] as [place] 35 needed Medical (apply to Branch facial rash as needed). traMADOL 50 2020-0 Yes 50mg Take 50 mg Univers mg tablet 5-22 by mouth ity of 13:51: every 6 [place] 35 (six) Medical hours as Branch needed. FENTanyl 25 2020-0 Yes 1{patch Apply 1 Univers mcg/hr 5-22 } Patch to ity of patch 13:51: skin every [place] 35 72 Medical (seventy-t Branch wo) hours. HYDROcodone 2020-0 Yes 1{tbl} Take 1 Un royal -acetaminop 5-22 tablet by ity of hen 7.5-325 13:51: mouth [place] mg per 35 every 6 Medical tablet (six) Branch hours as needed for Pain. cycloSPORIN 2020-0 Yes 1[drp] Place 1 U nivers E 5-22 Drop in ity of (RESTASIS) 13:51: left eye [place] 0.05 % 35 every 12 Medical drops (twelve) Branch hours. magnesium 2020-0 Yes 400mg Take 400 Uni vers oxide 400 5-22 mg by ity of mg tablet 13:51: mouth [place] 35 daily. Medical Branch levothyroxi 2020-0 Yes 88ug Take 88 Uni vers ne 88 mcg 5-22 mcg by ity of tablet 13:51: mouth [place] 35 every Medical morning. Branch multivitami 2020-0 Yes 15mL Take 15 mL Univers n solution 5-22 by mouth ity o f 13:51: daily. [place] [id number] Medical Branch Artificial 2020-0 Yes 1[drp] Place 1 Un royal Tear, 5-22 Drop in ity of Hypromellos 13:51: each eye 2 [place] e, 0.4 % 35 (two) Medical Drop times Branch daily. Loperamide 2020-0 Yes 30mL Take 30 mL U nivers 1 mg/7.5 mL 5-22 by mouth ity of Liqd 13:51: as needed. [address] Branch acetaminoph 2020-0 Yes 650mg Take 650 U nivers en 325 mg 5-22 mg by ity of tablet 13:51: mouth [place] 35 every 6 Medical (six) Branch hours as needed for Pain (scale 1-3), Pain (scale 4-6) or Temp > 38.5 C. magnesium 2020-0 Yes 30mL Take 30 mL Un royal hydroxide 5-22 by mouth ity of concentrate 13:51: once daily [place] [id number] as needed Medical for Branch Constipati on. sodium 2020-0 Yes 2{spray Use 2 Univers chloride 5-22 } Sprays in ity of (SALINE 13:51: each [place] NASAL) 0.65 35 nostril 2 Med ical % nasal (two) Branch spray times daily as needed. CHLORASEPTI 2020-0 Yes 2{spray Take 2 U nivers C, phenol 5-22 } Sprays by ity o f 1.4%, 13:51: mouth [place] mouthwash 35 every 4 Medical (four) Branch hours as needed for Sore throat. alum-mag 2020-0 Yes 30mL Take 30 mL Uni vers hydroxide-s 5-22 by mouth ity of imeth 13:51: every 6 [place] (URVASHI-LANTA 35 (six) Medical ) hours as Branch 200-200-20 needed for mg/5 mL Indigestio suspension n. guaiFENesin 2020-0 Yes 100mg Take 100 U nivers (URVASHI-TUSSI 5-22 mg by ity of N) 100 mg/5 13:51: mouth [place] mL solution 35 every 6 Medic al (six) Branch hours as needed for Cough. acetaminoph 2020-0 Yes 650mg Insert 650 Univers en 650 mg 5-22 mg into ity of suppository 13:51: rectum [place] 35 every 6 Medical (six) Branch hours as needed for Fever. sodium 2020-0 Yes 1{enema Insert 1 Univ ers phosphates 5-22 } Enema into ity of (FLEET 13:51: rectum [place] ENEMA) 19-7 35 once daily Me dical gram/118 mL as needed [facility] enema for Constipati on. Follow package directions bethanechol 2020-0 Yes 25mg Take 25 mg Univers (URECHOLINE 5-22 through ity o f ) 25 mg 13:51: feeding [place] tablet 35 tube 4 Medical (four) Branch times daily. PHENobarbit 2020-0 Yes 60mg Take 60 mg Univers al 20 mg/5 5-22 through ity of mL (4 13:51: enteral [place] mg/mL) 35 tube 2 Medical elixir (two) Branch times daily. isosorbide 2020-0 Yes 10mg Take 10 mg U nivers dinitrate 5-22 through ity of (ISORDIL) 13:51: enteral [place] 10 mg 35 tube 2 Medical tablet (two) Branch times daily. metoprolol 2020-0 Yes 25mg Take 25 mg U nivers tartrate 5-22 through ity of (LOPRESSOR) 13:51: enteral [place] 25 mg 35 tube Medical tablet daily. Branch metoprolol 2020-0 Yes 50mg Take 50 mg U nivers tartrate 5-22 by mouth ity of (LOPRESSOR) 13:51: at [place] 50 mg 35 bedtime. Medical tablet Branch CALCIUM 2020-0 Yes Take Univers CARBONATE 5-22 through ity of ORAL 13:51: feeding [place] 35 tube. Medical Branch phenytoin 2020-0 Yes 125mg Take 125 Uni vers (DILANTIN) 5-22 mg through ity of 125 mg/5 mL 13:51: enteral [place] suspension 35 tube 2 Medical (two) Branch times daily. lactulose 2020-0 Yes 30mL Take 30 mL Un royal 10 gram/15 5-22 through ity of mL (15 mL) 13:51: feeding [place] Soln 35 tube 2 Medical (two) Branch times daily. Indication s: feeding tube dextran 2020-0 Yes 1[drp] Place 1 Unive rs 70-hypromel 5-22 Drop in ity o f lose 13:51: both eyes [place] (ARTIFICIAL 35 2 (two) Medic al TEARS) times Branch ophthalmic daily. solution gabapentin 2020-0 Yes 300mg Take 300 Un royal (NEURONTIN) 5-22 mg through it y of 300 mg 13:51: feeding [place] capsule 35 tube 3 Medical (three) Branch times daily. RANITIDINE 2020-0 Yes 300mg Take 300 Un royal HCL ORAL 5-22 mg through ity o f 13:51: feeding [place] 35 tube at Medical bedtime. Branch oxybutynin 2020-0 Yes 5mg Take 5 mg Un royal chloride 5-22 through ity of (DITROPAN) 13:51: enteral [place] 5 mg tablet 35 tube at Medic al bedtime. Branch magnesium 2020-0 Yes 150mL Take 150 Uni vers citrate 5-22 mL through ity of solution 13:51: enteral [place] 35 tube at Medical bedtime. Branch bisacodyl 2020-0 Yes 10mg Insert 10 Uni vers (DULCOLAX) 5-22 mg into ity of 10 mg 13:51: rectum at [place] suppository 35 bedtime as Me dical needed. Branch acetaminoph 2020-0 Yes 500mg Take 500 U nivers en 5-22 mg through ity of (TYLENOL) 13:51: feeding [place] 100 mg/mL 35 tube every Medi radha solution 6 (six) Branch hours as needed for Fever. Indication s: For elevated temp meclizine 2020-0 Yes 12.5mg Take 12.5 U nivers (ANTIVERT) 5-22 mg through ity of 12.5 mg 13:51: enteral [place] tablet 35 tube 4 Medical (four) Branch times daily as needed. ALPRAZolam 2020-0 Yes .5mg Take 0.5 Uni vers (XANAX) 0.5 5-22 mg through it y of mg tablet 13:51: enteral [place] 35 tube 2 Medical (two) Branch times daily. ziprasidone 2020-0 Yes 20mg Take 20 mg Univers (GEODON) 20 5-22 through ity o f mg capsule 13:51: feeding [place] 35 tube at Medical bedtime. Branch ipratropium 2020-0 Yes 1{ampul Inhale 1 Univers -albuterol 5-22 e} Ampule ity of (DUONEB) 13:51: every 6 [place] 0.5 mg-3 35 (six) Medical mg(2.5 mg hours as Branch base)/3 mL needed for nebulizer Wheezing. solution triamcinolo 2020-0 Yes 1{dose} Apply 1 Univers ne 5-22 Dose to ity of (KENALOG) 13:51: area(s[place] 0.1 % 35 needed. Medical lotion Branch cyanocobala 2019-0 Yes 500ug 500 mcg by [facility] min, 5-22 Intramuscu ity of vitamin 13:51: lar route [place] B-12, 35 once every Medical (PHYSICIANS month. Branch EZ USE B-12) 1,000 mcg/mL injection ketoconazol 2020-0 Yes 1{dose} Apply 1 [facility] e (NIZORAL) 5-22 Dose to ity o f 2 % cream 13:51: area(s[place] 35 needed Medical (apply to Branch facial rash as needed). traMADOL 50 2020-0 Yes 50mg Take 50 mg [facility] mg tablet 5-22 by mouth ity of 13:51: every 6 [place] 35 (six) Medical hours as Branch needed. FENTanyl 25 2020-0 Yes 1{patch Apply 1 [facility] mcg/hr 5-22 } Patch to ity of patch 13:51: skin every [place] 35 72 Medical (seventy-t Branch wo) hours. HYDROcodone 2020-0 Yes 1{tbl} Take 1 Un [facility] -acetaminop 5-22 tablet by ity of hen 7.5-325 13:51: mouth [place] mg per 35 every 6 Medical tablet (six) Branch hours as needed for Pain. cycloSPORIN 2020-0 Yes 1[drp] Place 1 U nivers E 5-22 Drop in ity of (RESTASIS) 13:51: left eye [place] 0.05 % 35 every 12 Medical drops (twelve) Branch hours. magnesium 2020-0 Yes 400mg Take 400 Uni vers oxide 400 5-22 mg by ity of mg tablet 13:51: mouth [place] 35 daily. Medical Branch levothyroxi 2020-0 Yes 88ug Take 88 Uni vers ne 88 mcg 5-22 mcg by ity of tablet 13:51: mouth [place] 35 every Medical morning. Branch multivitami 2020-0 Yes 15mL Take 15 mL [facility] n solution 5-22 by mouth ity o f 13:51: daily. [place] [address] Medical Branch Artificial 2020-0 Yes 1[drp] Place 1 Un royal Tear, 5-22 Drop in ity of Hypromellos 13:51: each eye 2 [place] e, 0.4 % 35 (two) Medical Drop times Branch daily. Loperamide 2020-0 Yes 30mL Take 30 mL U nivers 1 mg/7.5 mL 5-22 by mouth ity of Liqd 13:51: as needed. [place] [address] Medical Branch acetaminoph 2020-0 Yes 650mg Take 650 U nivers en 325 mg 5-22 mg by ity of tablet 13:51: mouth [place] 35 every 6 Medical (six) Branch hours as needed for Pain (scale 1-3), Pain (scale 4-6) or Temp > 38.5 C. magnesium 2020-0 Yes 30mL Take 30 mL [facility] royal hydroxide 5-22 by mouth ity of concentrate 13:51: once daily [place] 35 as needed Medical for Branch Constipati on. sodium 2020-0 Yes 2{spray Use 2 [facility] chloride 5-22 } Sprays in ity of (SALINE 13:51: each [place] NASAL) 0.65 35 nostril 2 Med ical % nasal (two) Branch spray times daily as needed. CHLORASEPTI 2020-0 Yes 2{spray Take 2 U nivers C, phenol 5-22 } Sprays by ity o f 1.4%, 13:51: mouth [place] mouthwash 35 every 4 Medical (four) Branch hours as needed for Sore throat. alum-mag 2020-0 Yes 30mL Take 30 mL Uni vers hydroxide-s 5-22 by mouth ity of imeth 13:51: every 6 [place] (URVASHI-LANTA 35 (six) Medical ) hours as Branch 200-200-20 needed for mg/5 mL Indigestio suspension n. guaiFENesin 2020-0 Yes 100mg Take 100 U nivers (URVASHI-TUSSI 5-22 mg by ity of N) 100 mg/5 13:51: mouth [place] mL solution 35 every 6 Medic al (six) Branch hours as needed for Cough. acetaminoph 2020-0 Yes 650mg Insert 650 [facility] en 650 mg 5-22 mg into ity of suppository 13:51: rectum [place] 35 every 6 Medical (six) Branch hours as needed for Fever. sodium 2020-0 Yes 1{enema Insert 1 [facility] ers phosphates 5-22 } Enema into ity of (FLEET 13:51: rectum [place] ENEMA) 19-7 35 once daily Me dical gram/118 mL as needed [facility] enema for Constipati on. Follow package directions bethanechol 2020-0 Yes 25mg Take 25 mg [facility] (URECHOLINE 5-22 through ity o f ) 25 mg 13:51: feeding [place] tablet 35 tube 4 Medical (four) Branch times daily. PHENobarbit 2020-0 Yes 60mg Take 60 mg [facility] al 20 mg/5 5-22 through ity of mL (4 13:51: enteral [place] mg/mL) 35 tube 2 Medical elixir (two) Branch times daily. isosorbide 2020-0 Yes 10mg Take 10 mg U nivers dinitrate 5-22 through ity of (ISORDIL) 13:51: enteral [place] 10 mg 35 tube 2 Medical tablet (two) Branch times daily. metoprolol 2020-0 Yes 25mg Take 25 mg U nivers tartrate 5-22 through ity of (LOPRESSOR) 13:51: enteral [place] 25 mg 35 tube Medical tablet daily. Branch metoprolol 2020-0 Yes 50mg Take 50 mg U nivers tartrate 5-22 by mouth ity of (LOPRESSOR) 13:51: at [place] 50 mg 35 bedtime. Medical tablet Branch CALCIUM 2020-0 Yes Take [facility] CARBONATE 5-22 through ity of ORAL 13:51: feeding [place] 35 tube. Medical Branch phenytoin 2020-0 Yes 125mg Take 125 Uni vers (DILANTIN) 5-22 mg through ity of 125 mg/5 mL 13:51: enteral [place] 35 tube 2 Medical (two) Branch times daily. lactulose 2020-0 Yes 30mL Take 30 mL [facility] royal 10 gram/15 5-22 through ity of mL (15 mL) 13:51: feeding [place] Soln 35 tube 2 Medical (two) Branch times daily. Indication s: feeding tube dextran 2020-0 Yes 1[drp] Place 1 Unive rs 70-hypromel 5-22 Drop in ity o f lose 13:51: both eyes [place] (ARTIFICIAL 35 2 (two) Medic al TEARS) times Branch ophthalmic daily. solution gabapentin 2020-0 Yes 300mg Take 300 Un royal (NEURONTIN) 5-22 mg through it y of 300 mg 13:51: feeding [place] capsule 35 tube 3 Medical (three) Branch times daily. RANITIDINE 2020-0 Yes 300mg Take 300 Un royal HCL ORAL 5-22 mg through ity o f 13:51: feeding [place] 35 tube at Medical bedtime. Branch oxybutynin 2020-0 Yes 5mg Take 5 mg [facility] royal chloride 5-22 through ity of (DITROPAN) 13:51: enteral [place] 5 mg tablet 35 tube at Medic al bedtime. Branch magnesium 2020-0 Yes 150mL Take 150 Uni vers citrate 5-22 mL through ity of solution 13:51: enteral [place] 35 tube at Medical bedtime. Branch bisacodyl 2020-0 Yes 10mg Insert 10 [facility] vers (DULCOLAX) 5-22 mg into ity of 10 mg 13:51: rectum at [place] suppository 35 bedtime as Me dical needed. Branch acetaminoph 2020-0 Yes 500mg Take 500 U nivers en 5-22 mg through ity of (TYLENOL) 13:51: feeding [place] 100 mg/mL 35 tube every Medi radha solution 6 (six) Branch hours as needed for Fever. Indication s: For elevated temp meclizine 2020-0 Yes 12.5mg Take 12.5 U nivers (ANTIVERT) 5-22 mg through ity of 12.5 mg 13:51: enteral [place] tablet 35 tube 4 Medical (four) Branch times daily as needed. ALPRAZolam 2020-0 Yes .5mg Take 0.5 Uni vers (XANAX) 0.5 5-22 mg through it y of mg tablet 13:51: enteral [place] 35 tube 2 Medical (two) Branch times daily. ziprasidone 2020-0 Yes 20mg Take 20 mg [facility] (GEODON) 20 5-22 through ity o f mg capsule 13:51: feeding [place] 35 tube at Medical bedtime. Branch ipratropium 2020-0 Yes 1{ampul Inhale 1 [facility] -albuterol 5-22 e} Ampule ity of (DUONEB) 13:51: every 6 [place] 0.5 mg-3 35 (six) Medical mg(2.5 mg hours as Branch base)/3 mL needed for nebulizer Wheezing. solution triamcinolo 2020-0 Yes 1{dose} Apply 1 [facility] ne 5-22 Dose to ity of (KENALOG) 13:51: area(s[place] 0.1 % 35 needed. Medical lotion Branch cyanocobala 2019-0 Yes 500ug 500 mcg by [facility] min, 5-22 Intramuscu ity of vitamin 13:51: lar route [place] B-12, 35 once every Medical (PHYSICIANS month. Branch EZ USE B-12) 1,000 mcg/mL injection ketoconazol 2020-0 Yes 1{dose} Apply 1 [facility] e (NIZORAL) 5-22 Dose to ity o f 2 % cream 13:51: area(s[place] 35 needed Medical (apply to Branch facial rash as needed). traMADOL 50 2020-0 Yes 50mg Take 50 mg [facility] mg tablet 5-22 by mouth ity of 13:51: every 6 [place] 35 (six) Medical hours as Branch needed. FENTanyl 25 2020-0 Yes 1{patch Apply 1 [facility] mcg/hr 5-22 } Patch to ity of patch 13:51: skin every [place] 35 72 Medical (seventy-t Branch wo) hours. HYDROcodone 2020-0 Yes 1{tbl} Take 1 Un royal -acetaminop 5-22 tablet by ity of hen 7.5-325 13:51: mouth [place] mg per 35 every 6 Medical tablet (six) Branch hours as needed for Pain. cycloSPORIN 2020-0 Yes 1[drp] Place 1 U nivers E 5-22 Drop in ity of (RESTASIS) 13:51: left eye [place] 0.05 % 35 every 12 Medical drops (twelve) Branch hours. magnesium 2020-0 Yes 400mg Take 400 Uni vers oxide 400 5-22 mg by ity of mg tablet 13:51: mouth [place] 35 daily. Medical Branch levothyroxi 2020-0 Yes 88ug Take 88 Uni vers ne 88 mcg 5-22 mcg by ity of tablet 13:51: mouth [place] 35 every Medical morning. Branch multivitami 2020-0 Yes 15mL Take 15 mL [facility] n solution 5-22 by mouth ity o f 13:51: daily. [place] [address] Medical Branch Artificial 2020-0 Yes 1[drp] Place 1 Un royal Tear, 5-22 Drop in ity of Hypromellos 13:51: each eye 2 [place] e, 0.4 % 35 (two) Medical Drop times Branch daily. Loperamide 2020-0 Yes 30mL Take 30 mL U nivers 1 mg/7.5 mL 5-22 by mouth ity of Liqd 13:51: as needed. [place] [address] Medical Branch acetaminoph 2020-0 Yes 650mg Take 650 U nivers en 325 mg 5-22 mg by ity of tablet 13:51: mouth [place] 35 every 6 Medical (six) Branch hours as needed for Pain (scale 1-3), Pain (scale 4-6) or Temp > 38.5 C. magnesium 2020-0 Yes 30mL Take 30 mL Un royal hydroxide 5-22 by mouth ity of concentrate 13:51: once daily [place] 35 as needed Medical for Branch Constipati on. sodium 2020-0 Yes 2{spray Use 2 [facility] chloride 5-22 } Sprays in ity of (SALINE 13:51: each [place] NASAL) 0.65 35 nostril 2 Med ical % nasal (two) Branch spray times daily as needed. CHLORASEPTI 2020-0 Yes 2{spray Take 2 U nivers C, phenol 5-22 } Sprays by ity o f 1.4%, 13:51: mouth [place] mouthwash 35 every 4 Medical (four) Branch hours as needed for Sore throat. alum-mag 2020-0 Yes 30mL Take 30 mL Uni vers hydroxide-s 5-22 by mouth ity of imeth 13:51: every 6 [place] (URVASHI-LANTA 35 (six) Medical ) hours as Branch 200-200-20 needed for mg/5 mL Indigestio suspension n. guaiFENesin 2020-0 Yes 100mg Take 100 U nivers (URVASHI-TUSSI 5-22 mg by ity of N) 100 mg/5 13:51: mouth [place] mL solution 35 every 6 Medic al (six) Branch hours as needed for Cough. acetaminoph 2020-0 Yes 650mg Insert 650 [facility] en 650 mg 5-22 mg into ity of suppository 13:51: rectum [place] 35 every 6 Medical (six) Branch hours as needed for Fever. sodium 2020-0 Yes 1{enema Insert 1 Univ ers phosphates 5-22 } Enema into ity of (FLEET 13:51: rectum [place] ENEMA) 19-7 35 once daily Me dical gram/118 mL as needed [facility] enema for Constipati on. Follow package directions bethanechol 2020-0 Yes 25mg Take 25 mg [facility] (URECHOLINE 5-22 through ity o f ) 25 mg 13:51: feeding [place] tablet 35 tube 4 Medical (four) Branch times daily. PHENobarbit 2020-0 Yes 60mg Take 60 mg [facility] al 20 mg/5 5-22 through ity of mL (4 13:51: enteral [place] mg/mL) 35 tube 2 Medical elixir (two) Branch times daily. isosorbide 2020-0 Yes 10mg Take 10 mg U nivers dinitrate 5-22 through ity of (ISORDIL) 13:51: enteral [place] 10 mg 35 tube 2 Medical tablet (two) Branch times daily. metoprolol 2020-0 Yes 25mg Take 25 mg U nivers tartrate 5-22 through ity of (LOPRESSOR) 13:51: enteral [place] 25 mg 35 tube Medical tablet daily. Branch metoprolol 2020-0 Yes 50mg Take 50 mg U nivers tartrate 5-22 by mouth ity of (LOPRESSOR) 13:51: at [place] 50 mg 35 bedtime. Medical tablet Branch CALCIUM 2020-0 Yes Take [facility] CARBONATE 5-22 through ity of ORAL 13:51: feeding [place] 35 tube. Medical Branch phenytoin 2020-0 Yes 125mg Take 125 Uni vers (DILANTIN) 5-22 mg through ity of 125 mg/5 mL 13:51: enteral [place] 35 tube 2 Medical (two) Branch times daily. lactulose 2020-0 Yes 30mL Take 30 mL Un royal 10 gram/15 5-22 through ity of mL (15 mL) 13:51: feeding [place] Soln 35 tube 2 Medical (two) Branch times daily. Indication s: feeding tube dextran 2020-0 Yes 1[drp] Place 1 Unive rs 70-hypromel 5-22 Drop in ity o f lose 13:51: both eyes [place] (ARTIFICIAL 35 2 (two) Medic al TEARS) times Branch ophthalmic daily. solution gabapentin 2020-0 Yes 300mg Take 300 Un royal (NEURONTIN) 5-22 mg through it y of 300 mg 13:51: feeding [place] capsule 35 tube 3 Medical (three) Branch times daily. RANITIDINE 2020-0 Yes 300mg Take 300 Un royal HCL ORAL 5-22 mg through ity o f 13:51: feeding [place] 35 tube at Medical bedtime. Branch oxybutynin 2020-0 Yes 5mg Take 5 mg [facility] chloride 5-22 through ity of (DITROPAN) 13:51: enteral [place] 5 mg tablet 35 tube at Medic al bedtime. Branch magnesium 2020-0 Yes 150mL Take 150 Uni vers citrate 5-22 mL through ity of solution 13:51: enteral [place] 35 tube at Medical bedtime. Branch bethanechol 2020-0 Yes 25mg Take 25 mg [facility] (URECHOLINE 5-22 through ity o f ) 25 mg 13:51: feeding [place] tablet 35 tube 4 Medical (four) Branch times daily. bisacodyl 2020-0 Yes 10mg Insert 10 Uni vers (DULCOLAX) 5-22 mg into ity of 10 mg 13:51: rectum at [place] suppository 35 bedtime as Me dical needed. Branch acetaminoph 2020-0 Yes 500mg Take 500 U nivers en 5-22 mg through ity of (TYLENOL) 13:51: feeding [place] 100 mg/mL 35 tube every Medi radha solution 6 (six) Branch hours as needed for Fever. Indication s: For elevated temp meclizine 2020-0 Yes 12.5mg Take 12.5 U nivers (ANTIVERT) 5-22 mg through ity of 12.5 mg 13:51: enteral [place] tablet 35 tube 4 Medical (four) Branch times daily as needed. ALPRAZolam 2020-0 Yes .5mg Take 0.5 Uni vers (XANAX) 0.5 5-22 mg through it y of mg tablet 13:51: enteral [place] 35 tube 2 Medical (two) Branch times daily. ziprasidone 2020-0 Yes 20mg Take 20 mg [facility] (GEODON) 20 5-22 through ity o f mg capsule 13:51: feeding [place] 35 tube at Medical bedtime. Branch ipratropium 2020-0 Yes 1{ampul Inhale 1 [facility] -albuterol 5-22 e} Ampule ity of (DUONEB) 13:51: every 6 [place] 0.5 mg-3 35 (six) Medical mg(2.5 mg hours as Branch base)/3 mL needed for nebulizer Wheezing. solution triamcinolo 2020-0 Yes 1{dose} Apply 1 [facility] ne 5-22 Dose to ity of (KENALOG) 13:51: area(s[place] 0.1 % 35 needed. Medical lotion Branch cyanocobala 2020-0 Yes 500ug 500 mcg by [facility] min, 5-22 Intramuscu ity of vitamin 13:51: lar route [place] B-12, 35 once every Medical (PHYSICIANS month. Branch EZ USE B-12) 1,000 mcg/mL injection ketoconazol 2020-0 Yes 1{dose} Apply 1 [facility] e (NIZORAL) 5-22 Dose to ity o f 2 % cream 13:51: area(s[place] 35 needed Medical (apply to Branch facial rash as needed). traMADOL 50 2020-0 Yes 50mg Take 50 mg [facility] mg tablet 5-22 by mouth ity of 13:51: every 6 [place] 35 (six) Medical hours as Branch needed. PHENobarbit 2020-0 Yes 60mg Take 60 mg [facility] al 20 mg/5 5-22 through ity of mL (4 13:51: enteral [place] mg/mL) 35 tube 2 Medical elixir (two) Branch times daily. FENTanyl 25 2020-0 Yes 1{patch Apply 1 [facility] mcg/hr 5-22 } Patch to ity of patch 13:51: skin every [place] 35 72 Medical (seventy-t Branch wo) hours. HYDROcodone 2020-0 Yes 1{tbl} Take 1 Un royal -acetaminop 5-22 tablet by ity of hen 7.5-325 13:51: mouth [place] mg per 35 every 6 Medical tablet (six) Branch hours as needed for Pain. magnesium 2020-0 Yes 400mg Take 400 Uni vers oxide 400 5-22 mg by ity of mg tablet 13:51: mouth [place] 35 daily. Medical Branch levothyroxi 2020-0 Yes 88ug Take 88 Uni vers ne 88 mcg 5-22 mcg by ity of tablet 13:51: mouth [place] 35 every Medical morning. Branch multivitami 2020-0 Yes 15mL Take 15 mL [facility] n solution 5-22 by mouth ity o f 13:51: daily. [place] [address] Medical Branch Artificial 2020-0 Yes 1[drp] Place 1 Un royal Tear, 5-22 Drop in ity of Hypromellos 13:51: each eye 2 [place] e, 0.4 % 35 (two) Medical Drop times Branch daily. Loperamide 2020-0 Yes 30mL Take 30 mL U nivers 1 mg/7.5 mL 5-22 by mouth ity of Liqd 13:51: as needed. [address] Branch acetaminoph 2020-0 Yes 650mg Take 650 U nivers en 325 mg 5-22 mg by ity of tablet 13:51: mouth [place] 35 every 6 Medical (six) Branch hours as needed for Pain (scale 1-3), Pain (scale 4-6) or Temp > 38.5 C. magnesium 2020-0 Yes 30mL Take 30 mL Un royal hydroxide 5-22 by mouth ity of concentrate 13:51: once daily [place] 35 as needed Medical for Branch Constipati on. isosorbide 2020-0 Yes 10mg Take 10 mg U nivers dinitrate 5-22 through ity of (ISORDIL) 13:51: enteral [place] 10 mg 35 tube 2 Medical tablet (two) Branch times daily. sodium 2020-0 Yes 2{spray Use 2 [facility] chloride 5-22 } Sprays in ity of (SALINE 13:51: each [place] NASAL) 0.65 35 nostril 2 Med ical % nasal (two) Branch spray times daily as needed. CHLORASEPTI 2020-0 Yes 2{spray Take 2 U nivers C, phenol 5-22 } Sprays by ity o f 1.4%, 13:51: mouth [place] mouthwash 35 every 4 Medical (four) Branch hours as needed for Sore throat. alum-mag 2020-0 Yes 30mL Take 30 mL Uni vers hydroxide-s 5-22 by mouth ity of imeth 13:51: every 6 [place] (URVASHI-LANTA 35 (six) Medical ) hours as Branch 200-200-20 needed for mg/5 mL Indigestio suspension n. guaiFENesin 2020-0 Yes 100mg Take 100 U nivers (URVASHI-TUSSI 5-22 mg by ity of N) 100 mg/5 13:51: mouth [place] mL solution 35 every 6 Medic al (six) Branch hours as needed for Cough. acetaminoph 2020-0 Yes 650mg Insert 650 [facility] en 650 mg 5-22 mg into ity of suppository 13:51: rectum [place] 35 every 6 Medical (six) Branch hours as needed for Fever. sodium 2020-0 Yes 1{enema Insert 1 Univ ers phosphates 5-22 } Enema into ity of (FLEET 13:51: rectum [place] ENEMA) 19-7 35 once daily Me dical gram/118 mL as needed [facility] enema for Constipati on. Follow package directions metoprolol 2020-0 Yes 25mg Take 25 mg U nivers tartrate 5-22 through ity of (LOPRESSOR) 13:51: enteral [place] 25 mg 35 tube Medical tablet daily. Branch bethanechol 2020-0 Yes 25mg Take 25 mg [facility] (URECHOLINE 5-22 through ity o f ) 25 mg 13:51: feeding [place] tablet 35 tube 4 Medical (four) Branch times daily. PHENobarbit 2020-0 Yes 60mg Take 60 mg [facility] al 20 mg/5 5-22 through ity of mL (4 13:51: enteral [place] mg/mL) 35 tube 2 Medical elixir (two) Branch times daily. isosorbide 2020-0 Yes 10mg Take 10 mg U nivers dinitrate 5-22 through ity of (ISORDIL) 13:51: enteral [place] 10 mg 35 tube 2 Medical tablet (two) Branch times daily. metoprolol 2020-0 Yes 25mg Take 25 mg U nivers tartrate 5-22 through ity of (LOPRESSOR) 13:51: enteral [place] 25 mg 35 tube Medical tablet daily. Branch metoprolol 2020-0 Yes 50mg Take 50 mg U nivers tartrate 5-22 by mouth ity of (LOPRESSOR) 13:51: at [place] 50 mg 35 bedtime. Medical tablet Branch CALCIUM 2020-0 Yes Take [facility] CARBONATE 5-22 through ity of ORAL 13:51: feeding [place] 35 tube. Medical Branch phenytoin 2020-0 Yes 125mg Take 125 Uni vers (DILANTIN) 5-22 mg through ity of 125 mg/5 mL 13:51: enteral [place] 35 tube 2 Medical (two) Branch times daily. lactulose 2020-0 Yes 30mL Take 30 mL Un royal 10 gram/15 5-22 through ity of mL (15 mL) 13:51: feeding [place] Soln 35 tube 2 Medical (two) Branch times daily. Indication s: feeding tube dextran 2020-0 Yes 1[drp] Place 1 Unive rs 70-hypromel 5-22 Drop in ity o f lose 13:51: both eyes [place] (ARTIFICIAL 35 2 (two) Medic al TEARS) times Branch ophthalmic daily. solution gabapentin 2020-0 Yes 300mg Take 300 Un royal (NEURONTIN) 5-22 mg through it y of 300 mg 13:51: feeding [place] capsule 35 tube 3 Medical (three) Branch times daily. metoprolol 2020-0 Yes 50mg Take 50 mg U nivers tartrate 5-22 by mouth ity of (LOPRESSOR) 13:51: at [place] 50 mg 35 bedtime. Medical tablet Branch RANITIDINE 2020-0 Yes 300mg Take 300 Un royal HCL ORAL 5-22 mg through ity o f 13:51: feeding [place] 35 tube at Medical bedtime. Branch oxybutynin 2020-0 Yes 5mg Take 5 mg Un [facility] chloride 5-22 through ity of (DITROPAN) 13:51: enteral [place] 5 mg tablet 35 tube at Medic al bedtime. Branch magnesium 2020-0 Yes 150mL Take 150 Uni vers citrate 5-22 mL through ity of solution 13:51: enteral [place] 35 tube at Medical bedtime. Branch bisacodyl 2020-0 Yes 10mg Insert 10 Uni vers (DULCOLAX) 5-22 mg into ity of 10 mg 13:51: rectum at [place] suppository 35 bedtime as Me dical needed. Branch acetaminoph 2020-0 Yes 500mg Take 500 U nivers en 5-22 mg through ity of (TYLENOL) 13:51: feeding [place] 100 mg/mL 35 tube every Medi radha solution 6 (six) Branch hours as needed for Fever. Indication s: For elevated temp meclizine 2020-0 Yes 12.5mg Take 12.5 U nivers (ANTIVERT) 5-22 mg through ity of 12.5 mg 13:51: enteral [place] tablet 35 tube 4 Medical (four) Branch times daily as needed. ALPRAZolam 2020-0 Yes .5mg Take 0.5 Uni vers (XANAX) 0.5 5-22 mg through it y of mg tablet 13:51: enteral [place] 35 tube 2 Medical (two) Branch times daily. ziprasidone 2020-0 Yes 20mg Take 20 mg [facility] (GEODON) 20 5-22 through ity o f mg capsule 13:51: feeding [place] 35 tube at Medical bedtime. Branch ipratropium 2019-0 Yes 1{ampul Inhale 1 [facility] -albuterol 5-22 e} Ampule ity of (DUONEB) 13:51: every 6 [place] 0.5 mg-3 35 (six) Medical mg(2.5 mg hours as Branch base)/3 mL needed for nebulizer Wheezing. solution triamcinolo 2019-0 Yes 1{dose} Apply 1 [facility] ne 5-22 Dose to ity of (KENALOG) 13:51: area[place] 0.1 % 35 needed. Medical lotion Branch CALCIUM 2019-0 Yes Take [facility] CARBONATE 5-22 through ity of ORAL 13:51: feeding [place] 35 tube. Medical Branch cyanocobala 2019-0 Yes 500ug 500 mcg by [facility] min, 5-22 Intramuscu ity of vitamin 13:51: lar route [place] B-12, 35 once every Medical (PHYSICIANS month. Branch EZ USE B-12) 1,000 mcg/mL injection ketoconazol 2019-0 Yes 1{dose} Apply 1 [facility] e (NIZORAL) 5-22 Dose to ity o f 2 % cream 13:51: area[place] 35 needed Medical (apply to Branch facial rash as needed). traMADOL 50 2020-0 Yes 50mg Take 50 mg [facility] mg tablet 5-22 by mouth ity of 13:51: every 6 [place] 35 (six) Medical hours as Branch needed. FENTanyl 25 2020-0 Yes 1{patch Apply 1 [facility] mcg/hr 5-22 } Patch to ity of patch 13:51: skin every [place] 35 72 Medical (seventy-t Branch wo) hours. HYDROcodone 2020-0 Yes 1{tbl} Take 1 Un royal -acetaminop 5-22 tablet by ity of hen 7.5-325 13:51: mouth [place] mg per 35 every 6 Medical tablet (six) Branch hours as needed for Pain. magnesium 2020-0 Yes 400mg Take 400 Uni vers oxide 400 5-22 mg by ity of mg tablet 13:51: mouth [place] 35 daily. Medical Branch levothyroxi 2020-0 Yes 88ug Take 88 Uni vers ne 88 mcg 5-22 mcg by ity of tablet 13:51: mouth [place] 35 every Medical morning. Branch multivitami 2020-0 Yes 15mL Take 15 mL [facility] n solution 5-22 by mouth ity o f 13:51: daily. [place] [address] Medical Branch Artificial 2020-0 Yes 1[drp] Place 1 Un royal Tear, 5-22 Drop in ity of Hypromellos 13:51: each eye 2 [place] e, 0.4 % 35 (two) Medical Drop times Branch daily. phenytoin 2020-0 Yes 125mg Take 125 Uni vers (DILANTIN) 5-22 mg through ity of 125 mg/5 mL 13:51: enteral [place] 35 tube 2 Medical (two) Branch times daily. Loperamide 2020-0 Yes 30mL Take 30 mL U nivers 1 mg/7.5 mL 5-22 by mouth ity of Liqd 13:51: as needed. [place] [address] Medical Branch acetaminoph 2020-0 Yes 650mg Take 650 U nivers en 325 mg 5-22 mg by ity of tablet 13:51: mouth [place] 35 every 6 Medical (six) Branch hours as needed for Pain (scale 1-3), Pain (scale 4-6) or Temp > 38.5 C. magnesium 2020-0 Yes 30mL Take 30 mL Un royal hydroxide 5-22 by mouth ity of concentrate 13:51: once daily [place] 35 as needed Medical for Branch Constipati on. sodium 2020-0 Yes 2{spray Use 2 [facility] chloride 5-22 } Sprays in ity of (SALINE 13:51: each [place] NASAL) 0.65 35 nostril 2 Med ical % nasal (two) Branch spray times daily as needed. CHLORASEPTI 2020-0 Yes 2{spray Take 2 U nivers C, phenol 5-22 } Sprays by ity o f 1.4%, 13:51: mouth [place] mouthwash 35 every 4 Medical (four) Branch hours as needed for Sore throat. alum-mag 2020-0 Yes 30mL Take 30 mL Uni vers hydroxide-s 5-22 by mouth ity of imeth 13:51: every 6 [place] (URVASHI-LANTA 35 (six) Medical ) hours as Branch 200-200-20 needed for mg/5 mL Indigestio suspension n. guaiFENesin 2020-0 Yes 100mg Take 100 U nivers (URVASHI-TUSSI 5-22 mg by ity of N) 100 mg/5 13:51: mouth [place] mL solution 35 every 6 Medic al (six) Branch hours as needed for Cough. acetaminoph 2020-0 Yes 650mg Insert 650 [facility] en 650 mg 5-22 mg into ity of suppository 13:51: rectum [place] 35 every 6 Medical (six) Branch hours as needed for Fever. sodium 2020-0 Yes 1{enema Insert 1 Univ ers phosphates 5-22 } Enema into ity of (FLEET 13:51: rectum [place] ENEMA) 19-7 35 once daily Me dical gram/118 mL as needed [facility] enema for Constipati on. Follow package directions lactulose 2020-0 Yes 30mL Take 30 mL Un royal 10 gram/15 5-22 through ity of mL (15 mL) 13:51: feeding [place] Soln 35 tube 2 Medical (two) Branch times daily. Indication s: feeding tube bethanechol 2020-0 Yes 25mg Take 25 mg [facility] (URECHOLINE 5-22 through ity o f ) 25 mg 13:51: feeding [place] tablet 35 tube 4 Medical (four) Branch times daily. PHENobarbit 2020-0 Yes 60mg Take 60 mg Univers al 20 mg/5 5-22 through ity of mL (4 13:51: enteral [place] mg/mL) 35 tube 2 Medical elixir (two) Branch times daily. isosorbide 2020-0 Yes 10mg Take 10 mg [facility] n[facility] dinitrate 5-22 through ity of (ISORDIL) 13:51: enteral [place] 10 mg 35 tube 2 Medical tablet (two) Branch times daily. metoprolol 2020-0 Yes 25mg Take 25 mg [facility] nivers tartrate 5-22 through ity of (LOPRESSOR) 13:51: enteral [place] 25 mg 35 tube Medical tablet daily. Branch metoprolol 2020-0 Yes 50mg Take 50 mg [facility] nivers tartrate 5-22 by mouth ity of (LOPRESSOR) 13:51: at [place] 50 mg 35 bedtime. Medical tablet Branch CALCIUM 2020-0 Yes Take [facility] CARBONATE 5-22 through ity of ORAL 13:51: feeding [place] 35 tube. Medical Branch phenytoin 2020-0 Yes 125mg Take 125 Uni vers (DILANTIN) 5-22 mg through ity of 125 mg/5 mL 13:51: enteral [place] 35 tube 2 Medical (two) Branch times daily. lactulose 2020-0 Yes 30mL Take 30 mL [facility] royal 10 gram/15 5-22 through ity of mL (15 mL) 13:51: feeding [place] Sol[place] 35 tube 2 Medical (two) Branch times daily. Indication s: feeding tube dextran 2020-0 Yes 1[drp] Place 1 Unive rs 70-hypromel 5-22 Drop in ity o f lose 13:51: both eyes [place] (ARTIFICIAL 35 2 (two) Medic al TEARS) times Branch ophthalmic daily. solution dextran 2020-0 Yes 1[drp] Place 1 Unive rs 70-hypromel 5-22 Drop in ity o f lose 13:51: both eyes [place] (ARTIFICIAL 35 2 (two) Medic al TEARS) times Branch ophthalmic daily. solution gabapentin 2020-0 Yes 300mg Take 300 Un [facility] (NEURONTIN) 5-22 mg through it y of 300 mg 13:51: feeding [place] capsule 35 tube 3 Medical (three) Branch times daily. RANITIDINE 2020-0 Yes 300mg Take 300 [facility] HCL ORAL 5-22 mg through ity o f 13:51: feeding [place] 35 tube at Medical bedtime. Branch oxybutynin 2020-0 Yes 5mg Take 5 mg [facility] chloride 5-22 through ity of (DITROPAN) 13:51: enteral [place] 5 mg tablet 35 tube at Medic al bedtime. Branch magnesium 2020-0 Yes 150mL Take 150 Uni vers citrate 5-22 mL through ity of solution 13:51: enteral [place] 35 tube at Medical bedtime. Branch bisacodyl 2020-0 Yes 10mg Insert 10 [facility] vers (DULCOLAX) 5-22 mg into ity of 10 mg 13:51: rectum at [place] suppository 35 bedtime as Me dical needed. Branch acetaminoph 2020-0 Yes 500mg Take 500 U nivers en 5-22 mg through ity of (TYLENOL) 13:51: feeding [place] 100 mg/mL 35 tube every Medi radha solution 6 (six) Branch hours as needed for Fever. Indication s: For elevated temp meclizine 2020-0 Yes 12.5mg Take 12.5 [facility] nivers (ANTIVERT) 5-22 mg through ity of 12.5 mg 13:51: enteral [place] tablet 35 tube 4 Medical (four) Branch times daily as needed. ALPRAZolam 2020-0 Yes .5mg Take 0.5 Uni vers (XANAX) 0.5 5-22 mg through it y of mg tablet 13:51: enteral [place] 35 tube 2 Medical (two) Branch times daily. ziprasidone 2020-0 Yes 20mg Take 20 mg [facility] (GEODON) 20 5-22 through ity o f mg capsule 13:51: feeding [place] 35 tube at Medical bedtime. Branch ipratropium 2020-0 Yes 1{ampul Inhale 1 [facility] -albuterol 5-22 e} Ampule ity of (DUONEB) 13:51: every 6 [place] 0.5 mg-3 35 (six) Medical mg(2.5 mg hours as Branch base)/3 mL needed for nebulizer Wheezing. solution gabapentin 2020-0 Yes 300mg Take 300 Un royal (NEURONTIN) 5-22 mg through it y of 300 mg 13:51: feeding [place] capsule 35 tube 3 Medical (three) Branch times daily. triamcinolo 2020-0 Yes 1{dose} Apply 1 [facility] ne 5-22 Dose to ity of (KENALOG) 13:51: area(s[place] 0.1 % 35 needed. Medical lotion Branch cyanocobala 2020-0 Yes 500ug 500 mcg by [facility] min, 5-22 Intramuscu ity of vitamin 13:51: lar route [place] B-12, 35 once every Medical (PHYSICIANS month. Branch EZ USE B-12) 1,000 mcg/mL injection ketoconazol 2020-0 Yes 1{dose} Apply 1 [facility] e (NIZORAL) 5-22 Dose to ity o f 2 % cream 13:51: area(s[place] as [place] 35 needed Medical (apply to Branch facial rash as needed). traMADOL 50 2020-0 Yes 50mg Take 50 mg [facility] mg tablet 5-22 by mouth ity of 13:51: every 6 [place] 35 (six) Medical hours as Branch needed. FENTanyl 25 2020-0 Yes 1{patch Apply 1 [facility] mcg/hr 5-22 } Patch to ity of patch 13:51: skin every [place] 35 72 Medical (seventy-t Branch wo) hours. HYDROcodone 2020-0 Yes 1{tbl} Take 1 Un royal -acetaminop 5-22 tablet by ity of hen 7.5-325 13:51: mouth [place] mg per 35 every 6 Medical tablet (six) Branch hours as needed for Pain. magnesium 2020-0 Yes 400mg Take 400 Uni vers oxide 400 5-22 mg by ity of mg tablet 13:51: mouth [place] 35 daily. Medical Branch levothyroxi 2020-0 Yes 88ug Take 88 Uni vers ne 88 mcg 5-22 mcg by ity of tablet 13:51: mouth [place] 35 every Medical morning. Branch multivitami 2020-0 Yes 15mL Take 15 mL [facility] n solution 5-22 by mouth ity o f 13:51: daily. [place] [address] Medical Branch RANITIDINE 2020-0 Yes 300mg Take 300 Un royal HCL ORAL 5-22 mg through ity o f 13:51: feeding [place] [address] tube at Medical bedtime. Branch Artificial 2020-0 Yes 1[drp] Place 1 Un royal Tear, 5-22 Drop in ity of Hypromellos 13:51: each eye 2 [place] e, 0.4 % 35 (two) Medical Drop times Branch daily. Loperamide 2020-0 Yes 30mL Take 30 mL [facility] nivers 1 mg/7.5 mL 5-22 by mouth ity of Liqd 13:51: as needed. [place] [address] Medical Branch acetaminoph 2020-0 Yes 650mg Take 650 U nivers en 325 mg 5-22 mg by ity of tablet 13:51: mouth [place] 35 every 6 Medical (six) Branch hours as needed for Pain (scale 1-3), Pain (scale 4-6) or Temp > 38.5 C. magnesium 2020-0 Yes 30mL Take 30 mL [facility] royal hydroxide 5-22 by mouth ity of concentrate 13:51: once daily [place] 35 as needed Medical for Branch Constipati on. sodium 2020-0 Yes 2{spray Use 2 [facility] chloride 5-22 } Sprays in ity of (SALINE 13:51: each [place] NASAL) 0.65 35 nostril 2 Med ical % nasal (two) Branch spray times daily as needed. CHLORASEPTI 2020-0 Yes 2{spray Take 2 U nivers C, phenol 5-22 } Sprays by ity o f 1.4%, 13:51: mouth [place] mouthwash 35 every 4 Medical (four) Branch hours as needed for Sore throat. alum-mag 2020-0 Yes 30mL Take 30 mL Uni vers hydroxide-s 5-22 by mouth ity of imeth 13:51: every 6 [place] (URVASHI-LANTA 35 (six) Medical ) hours as Branch 200-200-20 needed for mg/5 mL Indigestio suspension n. guaiFENesin 2020-0 Yes 100mg Take 100 U nivers (URVASHI-TUSSI 5-22 mg by ity of N) 100 mg/5 13:51: mouth [place] mL solution 35 every 6 Medic al (six) Branch hours as needed for Cough. acetaminoph 2020-0 Yes 650mg Insert 650 [facility] en 650 mg 5-22 mg into ity of suppository 13:51: rectum [place] 35 every 6 Medical (six) Branch hours as needed for Fever. sodium 2020-0 Yes 1{enema Insert 1 Univ ers phosphates 5-22 } Enema into ity of (FLEET 13:51: rectum [place] ENEMA) 19-7 35 once daily Me dical gram/118 mL as needed [facility] enema for Constipati on. Follow package directions oxybutynin 2020-0 Yes 5mg Take 5 mg [facility] chloride 5-22 through ity of (DITROPAN) 13:51: enteral [place] 5 mg tablet 35 tube at Medic al bedtime. Branch magnesium 2020-0 Yes 150mL Take 150 Uni vers citrate 5-22 mL through ity of solution 13:51: enteral [place] 35 tube at Medical bedtime. Branch bisacodyl 2020-0 Yes 10mg Insert 10 Uni vers (DULCOLAX) 5-22 mg into ity of 10 mg 13:51: rectum at [place] suppository 35 bedtime as Me dical needed. Branch acetaminoph 2020-0 Yes 500mg Take 500 U nivers en 5-22 mg through ity of (TYLENOL) 13:51: feeding [place] 100 mg/mL 35 tube every Medi radha solution 6 (six) Branch hours as needed for Fever. Indication s: For elevated temp meclizine 2019-0 Yes 12.5mg Take 12.5 [facility] nivers (ANTIVERT) 5-22 mg through ity of 12.5 mg 13:51: enteral [place] tablet 35 tube 4 Medical (four) Branch times daily as needed. ALPRAZolam 2020-0 Yes .5mg Take 0.5 Uni vers (XANAX) 0.5 5-22 mg through it y of mg tablet 13:51: enteral [place] 35 tube 2 Medical (two) Branch times daily. ziprasidone 2019-0 Yes 20mg Take 20 mg [facility] (GEODON) 20 5-22 through ity o f mg capsule 13:51: feeding [place] 35 tube at Medical bedtime. Branch ipratropium 2019-0 Yes 1{ampul Inhale 1 [facility] -albuterol 5-22 e} Ampule ity of (DUONEB) 13:51: every 6 [place] 0.5 mg-3 35 (six) Medical mg(2.5 mg hours as Branch base)/3 mL needed for nebulizer Wheezing. solution triamcinolo 2019-0 Yes 1{dose} Apply 1 [facility] ne 5-22 Dose to ity of (KENALOG) 13:51: area(s[place] as [place] 0.1 % 35 needed. Medical lotion Branch cyanocobala 2019-0 Yes 500ug 500 mcg by [facility] min, 5-22 Intramuscu ity of vitamin 13:51: lar route [place] B-12, 35 once every Medical (PHYSICIANS month. Branch EZ USE B-12) 1,000 mcg/mL injection ketoconazol 2019-0 Yes 1{dose} Apply 1 [facility] e (NIZORAL) 5-22 Dose to ity o f 2 % cream 13:51: area(s[place] as [place] 35 needed Medical (apply to Branch facial rash as needed). traMADOL 50 2019-0 Yes 50mg Take 50 mg [facility] mg tablet 5-22 by mouth ity of 13:51: every 6 [place] 35 (six) Medical hours as Branch needed. FENTanyl 25 2020-0 Yes 1{patch Apply 1 [facility] mcg/hr 5-22 } Patch to ity of patch 13:51: skin every [place] 35 72 Medical (seventy-t Branch wo) hours. HYDROcodone 2020-0 Yes 1{tbl} Take 1 Un royal -acetaminop 5-22 tablet by ity of hen 7.5-325 13:51: mouth [place] mg per 35 every 6 Medical tablet (six) Branch hours as needed for Pain. cycloSPORIN 2020-0 Yes 1[drp] Place 1 U nivers E 5-22 Drop in ity of (RESTASIS) 13:51: left eye [place] 0.05 % 35 every 12 Medical drops (twelve) Branch hours. magnesium 2020-0 Yes 400mg Take 400 Uni vers oxide 400 5-22 mg by ity of mg tablet 13:51: mouth [place] 35 daily. Medical Branch levothyroxi 2019-0 Yes 88ug Take 88 Uni vers ne 88 mcg 5-22 mcg by ity of tablet 13:51: mouth [place] 35 every Medical morning. Branch multivitami 2020-0 Yes 15mL Take 15 mL [facility] n solution 5-22 by mouth ity o f 13:51: daily. [place] [address] Medical Branch Artificial 2020-0 Yes 1[drp] Place 1 Un royal Tear, 5-22 Drop in ity of Hypromellos 13:51: each eye 2 [place] e, 0.4 % 35 (two) Medical Drop times Branch daily. Loperamide 2020-0 Yes 30mL Take 30 mL U nivers 1 mg/7.5 mL 5-22 by mouth ity of Liqd 13:51: as needed. [address] Branch acetaminoph 2020-0 Yes 650mg Take 650 U nivers en 325 mg 5-22 mg by ity of tablet 13:51: mouth [place] 35 every 6 Medical (six) Branch hours as needed for Pain (scale 1-3), Pain (scale 4-6) or Temp > 38.5 C. magnesium 2020-0 Yes 30mL Take 30 mL Un royal hydroxide 5-22 by mouth ity of concentrate 13:51: once daily [place] [address] as needed Medical for Branch Constipati on. sodium 2020-0 Yes 2{spray Use 2 [facility] chloride 5-22 } Sprays in ity of (SALINE 13:51: each [place] NASAL) 0.65 35 nostril 2 Med ical % nasal (two) Branch spray times daily as needed. CHLORASEPTI 2020-0 Yes 2{spray Take 2 U nivers C, phenol 5-22 } Sprays by ity o f 1.4%, 13:51: mouth [place] mouthwash 35 every 4 Medical (four) Branch hours as needed for Sore throat. alum-mag 2020-0 Yes 30mL Take 30 mL Uni vers hydroxide-s 5-22 by mouth ity of imeth 13:51: every 6 [place] (URVASHI-LANTA 35 (six) Medical ) hours as Branch 200-200-20 needed for mg/5 mL Indigestio suspension n. guaiFENesin 2020-0 Yes 100mg Take 100 U nivers (URVASHI-TUSSI 5-22 mg by ity of N) 100 mg/5 13:51: mouth [place] mL solution 35 every 6 Medic al (six) Branch hours as needed for Cough. acetaminoph 2020-0 Yes 650mg Insert 650 [facility] en 650 mg 5-22 mg into ity of suppository 13:51: rectum [place] 35 every 6 Medical (six) Branch hours as needed for Fever. sodium 2020-0 Yes 1{enema Insert 1 Univ ers phosphates 5-22 } Enema into ity of (FLEET 13:51: rectum [place] ENEMA) 19-7 35 once daily Me dical gram/118 mL as needed [facility] enema for Constipati on. Follow package directions bethanechol 2020-0 Yes 25mg Take 25 mg Univers (URECHOLINE 5-22 through ity o f ) 25 mg 13:51: feeding [place] tablet 35 tube 4 Medical (four) Branch times daily. PHENobarbit 2020-0 Yes 60mg Take 60 mg [facility] al 20 mg/5 5-22 through ity of mL (4 13:51: enteral [place] mg/mL) 35 tube 2 Medical elixir (two) Branch times daily. isosorbide 2020-0 Yes 10mg Take 10 mg U nivers dinitrate 5-22 through ity of (ISORDIL) 13:51: enteral [place] 10 mg 35 tube 2 Medical tablet (two) Branch times daily. metoprolol 2020-0 Yes 25mg Take 25 mg U nivers tartrate 5-22 through ity of (LOPRESSOR) 13:51: enteral [place] 25 mg 35 tube Medical tablet daily. Branch metoprolol 2020-0 Yes 50mg Take 50 mg U nivers tartrate 5-22 by mouth ity of (LOPRESSOR) 13:51: at [place] 50 mg 35 bedtime. Medical tablet Branch CALCIUM 2020-0 Yes Take [facility] CARBONATE 5-22 through ity of ORAL 13:51: feeding [place] 35 tube. Medical Branch phenytoin 2020-0 Yes 125mg Take 125 Uni vers (DILANTIN) 5-22 mg through ity of 125 mg/5 mL 13:51: enteral [place] suspension 35 tube 2 Medical (two) Branch times daily. lactulose 2020-0 Yes 30mL Take 30 mL Un royal 10 gram/15 5-22 through ity of mL (15 mL) 13:51: feeding [place] Sol[place] 35 tube 2 Medical (two) Branch times daily. Indication s: feeding tube dextran 2020-0 Yes 1[drp] Place 1 Unive rs 70-hypromel 5-22 Drop in ity o f lose 13:51: both eyes [place] (ARTIFICIAL 35 2 (two) Medic al TEARS) times Branch ophthalmic daily. solution gabapentin 2020-0 Yes 300mg Take 300 Un royal (NEURONTIN) 5-22 mg through it y of 300 mg 13:51: feeding [place] capsule 35 tube 3 Medical (three) Branch times daily. RANITIDINE 2020-0 Yes 300mg Take 300 Un royal HCL ORAL 5-22 mg through ity o f 13:51: feeding [place] 35 tube at Medical bedtime. Branch oxybutynin 2020-0 Yes 5mg Take 5 mg Un [facility] chloride 5-22 through ity of (DITROPAN) 13:51: enteral [place] 5 mg tablet 35 tube at Medic al bedtime. Branch magnesium 2020-0 Yes 150mL Take 150 Uni vers citrate 5-22 mL through ity of solution 13:51: enteral [place] 35 tube at Medical bedtime. Branch bisacodyl 2020-0 Yes 10mg Insert 10 Uni vers (DULCOLAX) 5-22 mg into ity of 10 mg 13:51: rectum at [place] suppository 35 bedtime as Me dical needed. Branch acetaminoph 2020-0 Yes 500mg Take 500 U nivers en 5-22 mg through ity of (TYLENOL) 13:51: feeding [place] 100 mg/mL 35 tube every Medi radha solution 6 (six) Branch hours as needed for Fever. Indication s: For elevated temp meclizine 2020-0 Yes 12.5mg Take 12.5 U nivers (ANTIVERT) 5-22 mg through ity of 12.5 mg 13:51: enteral [place] tablet 35 tube 4 Medical (four) Branch times daily as needed. ALPRAZolam 2020-0 Yes .5mg Take 0.5 Uni vers (XANAX) 0.5 5-22 mg through it y of mg tablet 13:51: enteral [place] 35 tube 2 Medical (two) Branch times daily. ziprasidone 2020-0 Yes 20mg Take 20 mg [facility] (GEODON) 20 5-22 through ity o f mg capsule 13:51: feeding [place] 35 tube at Medical bedtime. Branch ipratropium 2019-0 Yes 1{ampul Inhale 1 Univers -albuterol 5-22 e} Ampule ity of (DUONEB) 13:51: every 6 [place] 0.5 mg-3 35 (six) Medical mg(2.5 mg hours as Branch base)/3 mL needed for nebulizer Wheezing. solution triamcinolo 2019-0 Yes 1{dose} Apply 1 [facility] ne 5-22 Dose to ity of (KENALOG) 13:51: area(s[place] as [place] 0.1 % 35 needed. Medical lotion Branch cyanocobala 2019-0 Yes 500ug 500 mcg by [facility] min, 5-22 Intramuscu ity of vitamin 13:51: lar route [place] B-12, 35 once every Medical (PHYSICIANS month. Branch EZ USE B-12) 1,000 mcg/mL injection ketoconazol 2019-0 Yes 1{dose} Apply 1 [facility] e (NIZORAL) 5-22 Dose to ity o f 2 % cream 13:51: area(s[place] as [place] 35 needed Medical (apply to Branch facial rash as needed). traMADOL 50 2020-0 Yes 50mg Take 50 mg [facility] mg tablet 5-22 by mouth ity of 13:51: every 6 [place] 35 (six) Medical hours as Branch needed. FENTanyl 25 2020-0 Yes 1{patch Apply 1 [facility] mcg/hr 5-22 } Patch to ity of patch 13:51: skin every [place] 35 72 Medical (seventy-t Branch wo) hours. HYDROcodone 2020-0 Yes 1{tbl} Take 1 Un royal -acetaminop 5-22 tablet by ity of hen 7.5-325 13:51: mouth [place] mg per 35 every 6 Medical tablet (six) Branch hours as needed for Pain. cycloSPORIN 2020-0 Yes 1[drp] Place 1 U nivers E 5-22 Drop in ity of (RESTASIS) 13:51: left eye [place] 0.05 % 35 every 12 Medical drops (twelve) Branch hours. magnesium 2020-0 Yes 400mg Take 400 Uni vers oxide 400 5-22 mg by ity of mg tablet 13:51: mouth [place] 35 daily. Medical Branch levothyroxi 2020-0 Yes 88ug Take 88 Uni vers ne 88 mcg 5-22 mcg by ity of tablet 13:51: mouth [place] 35 every Medical morning. Branch multivitami 2020-0 Yes 15mL Take 15 mL [facility] n solution 5-22 by mouth ity o f 13:51: daily. [place] [address] Medical Branch Artificial 2020-0 Yes 1[drp] Place 1 Un royal Tear, 5-22 Drop in ity of Hypromellos 13:51: each eye 2 [place] e, 0.4 % 35 (two) Medical Drop times Branch daily. Loperamide 2020-0 Yes 30mL Take 30 mL U nivers 1 mg/7.5 mL 5-22 by mouth ity of Liqd 13:51: as needed. [address] Branch acetaminoph 2020-0 Yes 650mg Take 650 U nivers en 325 mg 5-22 mg by ity of tablet 13:51: mouth [place] 35 every 6 Medical (six) Branch hours as needed for Pain (scale 1-3), Pain (scale 4-6) or Temp > 38.5 C. magnesium 2020-0 Yes 30mL Take 30 mL Un royal hydroxide 5-22 by mouth ity of concentrate 13:51: once daily [place] [address] as needed Medical for Branch Constipati on. sodium 2020-0 Yes 2{spray Use 2 [facility] chloride 5-22 } Sprays in ity of (SALINE 13:51: each [place] NASAL) 0.65 35 nostril 2 Med ical % nasal (two) Branch spray times daily as needed. CHLORASEPTI 2020-0 Yes 2{spray Take 2 U nivers C, phenol 5-22 } Sprays by ity o f 1.4%, 13:51: mouth [place] mouthwash 35 every 4 Medical (four) Branch hours as needed for Sore throat. alum-mag 2020-0 Yes 30mL Take 30 mL Uni vers hydroxide-s 5-22 by mouth ity of imeth 13:51: every 6 [place] (URVASHI-LANTA 35 (six) Medical ) hours as Branch 200-200-20 needed for mg/5 mL Indigestio suspension n. guaiFENesin 2020-0 Yes 100mg Take 100 U nivers (URVASHI-TUSSI 5-22 mg by ity of N) 100 mg/5 13:51: mouth [place] mL solution 35 every 6 Medic al (six) Branch hours as needed for Cough. acetaminoph 2020-0 Yes 650mg Insert 650 [facility] en 650 mg 5-22 mg into ity of suppository 13:51: rectum [place] 35 every 6 Medical (six) Branch hours as needed for Fever. sodium 2020-0 Yes 1{enema Insert 1 Univ ers phosphates 5-22 } Enema into ity of (FLEET 13:51: rectum [place] ENEMA) 19-7 35 once daily Me dical gram/118 mL as needed [facility] enema for Constipati on. Follow package directions bethanechol 2020-0 Yes 25mg Take 25 mg [facility] (URECHOLINE 5-22 through ity o f ) 25 mg 13:51: feeding [place] tablet 35 tube 4 Medical (four) Branch times daily. PHENobarbit 2020-0 Yes 60mg Take 60 mg Univers al 20 mg/5 5-22 through ity of mL (4 13:51: enteral [place] mg/mL) 35 tube 2 Medical elixir (two) Branch times daily. isosorbide 2020-0 Yes 10mg Take 10 mg U nivers dinitrate 5-22 through ity of (ISORDIL) 13:51: enteral [place] 10 mg 35 tube 2 Medical tablet (two) Branch times daily. metoprolol 2020-0 Yes 25mg Take 25 mg U nivers tartrate 5-22 through ity of (LOPRESSOR) 13:51: enteral [place] 25 mg 35 tube Medical tablet daily. Branch metoprolol 2020-0 Yes 50mg Take 50 mg U nivers tartrate 5-22 by mouth ity of (LOPRESSOR) 13:51: at [place] 50 mg 35 bedtime. Medical tablet Branch CALCIUM 2020-0 Yes Take [facility] CARBONATE 5-22 through ity of ORAL 13:51: feeding [place] 35 tube. Medical Branch phenytoin 2020-0 Yes 125mg Take 125 Uni vers (DILANTIN) 5-22 mg through ity of 125 mg/5 mL 13:51: enteral [place] suspension 35 tube 2 Medical (two) Branch times daily. lactulose 2020-0 Yes 30mL Take 30 mL Un royal 10 gram/15 5-22 through ity of mL (15 mL) 13:51: feeding [place] Soln 35 tube 2 Medical (two) Branch times daily. Indication s: feeding tube dextran 2020-0 Yes 1[drp] Place 1 Unive rs 70-hypromel 5-22 Drop in ity o f lose 13:51: both eyes [place] (ARTIFICIAL 35 2 (two) Medic al TEARS) times Branch ophthalmic daily. solution gabapentin 2020-0 Yes 300mg Take 300 Un royal (NEURONTIN) 5-22 mg through it y of 300 mg 13:51: feeding [place] capsule 35 tube 3 Medical (three) Branch times daily. RANITIDINE 2020-0 Yes 300mg Take 300 Un royal HCL ORAL 5-22 mg through ity o f 13:51: feeding [place] 35 tube at Medical bedtime. Branch oxybutynin 2020-0 Yes 5mg Take 5 mg Un [facility] chloride 5-22 through ity of (DITROPAN) 13:51: enteral [place] 5 mg tablet 35 tube at Medic al bedtime. Branch magnesium 2020-0 Yes 150mL Take 150 Uni vers citrate 5-22 mL through ity of solution 13:51: enteral [place] 35 tube at Medical bedtime. Branch bisacodyl 2020-0 Yes 10mg Insert 10 Uni vers (DULCOLAX) 5-22 mg into ity of 10 mg 13:51: rectum at [place] suppository 35 bedtime as Me dical needed. Branch acetaminoph 2020-0 Yes 500mg Take 500 U nivers en 5-22 mg through ity of (TYLENOL) 13:51: feeding [place] 100 mg/mL 35 tube every Medi radha solution 6 (six) Branch hours as needed for Fever. Indication s: For elevated temp meclizine 2020-0 Yes 12.5mg Take 12.5 U nivers (ANTIVERT) 5-22 mg through ity of 12.5 mg 13:51: enteral [place] tablet 35 tube 4 Medical (four) Branch times daily as needed. ALPRAZolam 2020-0 Yes .5mg Take 0.5 Uni vers (XANAX) 0.5 5-22 mg through it y of mg tablet 13:51: enteral [place] 35 tube 2 Medical (two) Branch times daily. ziprasidone 2020-0 Yes 20mg Take 20 mg [facility] (GEODON) 20 5-22 through ity o f mg capsule 13:51: feeding [place] 35 tube at Medical bedtime. Branch ipratropium 2020-0 Yes 1{ampul Inhale 1 [facility] -albuterol 5-22 e} Ampule ity of (DUONEB) 13:51: every 6 [place] 0.5 mg-3 35 (six) Medical mg(2.5 mg hours as Branch base)/3 mL needed for nebulizer Wheezing. solution triamcinolo 2020-0 Yes 1{dose} Apply 1 [facility] ne 5-22 Dose to ity of (KENALOG) 13:51: area[place] 0.1 % 35 needed. Medical lotion Branch cyanocobala 2019-0 Yes 500ug 500 mcg by [facility] min, 5-22 Intramuscu ity of vitamin 13:51: lar route [place] B-12, 35 once every Medical (PHYSICIANS month. Branch EZ USE B-12) 1,000 mcg/mL injection ketoconazol 2020-0 Yes 1{dose} Apply 1 [facility] e (NIZORAL) 5-22 Dose to ity o f 2 % cream 13:51: area[place] 35 needed Medical (apply to Branch facial rash as needed). traMADOL 50 2020-0 Yes 50mg Take 50 mg [facility] mg tablet 5-22 by mouth ity of 13:51: every 6 [place] 35 (six) Medical hours as Branch needed. FENTanyl 25 2020-0 Yes 1{patch Apply 1 [facility] mcg/hr 5-22 } Patch to ity of patch 13:51: skin every [place] 35 72 Medical (seventy-t Branch wo) hours. HYDROcodone 2020-0 Yes 1{tbl} Take 1 Un royal -acetaminop 5-22 tablet by ity of hen 7.5-325 13:51: mouth [place] mg per 35 every 6 Medical tablet (six) Branch hours as needed for Pain. cycloSPORIN 2020-0 Yes 1[drp] Place 1 U nivers E 5-22 Drop in ity of (RESTASIS) 13:51: left eye [place] 0.05 % 35 every 12 Medical drops (twelve) Branch hours. magnesium 2020-0 Yes 400mg Take 400 Uni vers oxide 400 5-22 mg by ity of mg tablet 13:51: mouth [place] 35 daily. Medical Branch levothyroxi 2020-0 Yes 88ug Take 88 Uni vers ne 88 mcg 5-22 mcg by ity of tablet 13:51: mouth [place] 35 every Medical morning. Branch multivitami 2020-0 Yes 15mL Take 15 mL Univers n solution 5-22 by mouth ity o f 13:51: daily. [place] [address] Medical Branch Artificial 2020-0 Yes 1[drp] Place 1 Un royal Tear, 5-22 Drop in ity of Hypromellos 13:51: each eye 2 [place] e, 0.4 % 35 (two) Medical Drop times Branch daily. Loperamide 2020-0 Yes 30mL Take 30 mL U nivers 1 mg/7.5 mL 5-22 by mouth ity of Liqd 13:51: as needed. [place] [address] Medical Branch acetaminoph 2020-0 Yes 650mg Take 650 U nivers en 325 mg 5-22 mg by ity of tablet 13:51: mouth [place] 35 every 6 Medical (six) Branch hours as needed for Pain (scale 1-3), Pain (scale 4-6) or Temp > 38.5 C. magnesium 2020-0 Yes 30mL Take 30 mL Un royal hydroxide 5-22 by mouth ity of concentrate 13:51: once daily [place] 35 as needed Medical for Branch Constipati on. sodium 2020-0 Yes 2{spray Use 2 [facility] chloride 5-22 } Sprays in ity of (SALINE 13:51: each [place] NASAL) 0.65 35 nostril 2 Med ical % nasal (two) Branch spray times daily as needed. CHLORASEPTI 2020-0 Yes 2{spray Take 2 U nivers C, phenol 5-22 } Sprays by ity o f 1.4%, 13:51: mouth [place] mouthwash 35 every 4 Medical (four) Branch hours as needed for Sore throat. alum-mag 2020-0 Yes 30mL Take 30 mL Uni vers hydroxide-s 5-22 by mouth ity of imeth 13:51: every 6 [place] (URVASHI-LANTA 35 (six) Medical ) hours as Branch 200-200-20 needed for mg/5 mL Indigestio suspension n. guaiFENesin 2020-0 Yes 100mg Take 100 U nivers (URVASHI-TUSSI 5-22 mg by ity of N) 100 mg/5 13:51: mouth [place] mL solution 35 every 6 Medic al (six) Branch hours as needed for Cough. acetaminoph 2020-0 Yes 650mg Insert 650 [facility] en 650 mg 5-22 mg into ity of suppository 13:51: rectum [place] 35 every 6 Medical (six) Branch hours as needed for Fever. sodium 2020-0 Yes 1{enema Insert 1 [facility] ers phosphates 5-22 } Enema into ity of (FLEET 13:51: rectum [place] ENEMA) 19-7 35 once daily Me dical gram/118 mL as needed [facility] enema for Constipati on. Follow package directions bethanechol 2020-0 Yes 25mg Take 25 mg [facility] (URECHOLINE 5-22 through ity o f ) 25 mg 13:51: feeding [place] tablet 35 tube 4 Medical (four) Branch times daily. PHENobarbit 2020-0 Yes 60mg Take 60 mg [facility] al 20 mg/5 5-22 through ity of mL (4 13:51: enteral [place] mg/mL) 35 tube 2 Medical elixir (two) Branch times daily. isosorbide 2020-0 Yes 10mg Take 10 mg U nivers dinitrate 5-22 through ity of (ISORDIL) 13:51: enteral [place] 10 mg 35 tube 2 Medical tablet (two) Branch times daily. metoprolol 2020-0 Yes 25mg Take 25 mg U nivers tartrate 5-22 through ity of (LOPRESSOR) 13:51: enteral [place] 25 mg 35 tube Medical tablet daily. Branch metoprolol 2020-0 Yes 50mg Take 50 mg [facility] nivers tartrate 5-22 by mouth ity of (LOPRESSOR) 13:51: at [place] 50 mg 35 bedtime. Medical tablet Branch CALCIUM 2020-0 Yes Take [facility] CARBONATE 5-22 through ity of ORAL 13:51: feeding [place] 35 tube. Medical Branch phenytoin 2020-0 Yes 125mg Take 125 Uni vers (DILANTIN) 5-22 mg through ity of 125 mg/5 mL 13:51: enteral [place] 35 tube 2 Medical (two) Branch times daily. lactulose 2020-0 Yes 30mL Take 30 mL [facility] royal 10 gram/15 5-22 through ity of mL (15 mL) 13:51: feeding [place] Sol[place] 35 tube 2 Medical (two) Branch times daily. Indication s: feeding tube dextran 2020-0 Yes 1[drp] Place 1 Unive rs 70-hypromel 5-22 Drop in ity o f lose 13:51: both eyes [place] (ARTIFICIAL 35 2 (two) Medic al TEARS) times Branch ophthalmic daily. solution gabapentin 2020-0 Yes 300mg Take 300 Un royal (NEURONTIN) 5-22 mg through it y of 300 mg 13:51: feeding [place] capsule 35 tube 3 Medical (three) Branch times daily. RANITIDINE 2020-0 Yes 300mg Take 300 Un royal HCL ORAL 5-22 mg through ity o f 13:51: feeding [place] 35 tube at Medical bedtime. Branch oxybutynin 2020-0 Yes 5mg Take 5 mg [facility] chloride 5-22 through ity of (DITROPAN) 13:51: enteral [place] 5 mg tablet 35 tube at Medic al bedtime. Branch magnesium 2020-0 Yes 150mL Take 150 Uni vers citrate 5-22 mL through ity of solution 13:51: enteral [place] 35 tube at Medical bedtime. Branch bisacodyl 2020-0 Yes 10mg Insert 10 [facility] vers (DULCOLAX) 5-22 mg into ity of 10 mg 13:51: rectum at [place] suppository 35 bedtime as Me dical needed. Branch acetaminoph 2020-0 Yes 500mg Take 500 U nivers en 5-22 mg through ity of (TYLENOL) 13:51: feeding [place] 100 mg/mL 35 tube every Medi radha solution 6 (six) Branch hours as needed for Fever. Indication s: For elevated temp meclizine 2020-0 Yes 12.5mg Take 12.5 [facility] nivers (ANTIVERT) 5-22 mg through ity of 12.5 mg 13:51: enteral [place] tablet 35 tube 4 Medical (four) Branch times daily as needed. ALPRAZolam 2020-0 Yes .5mg Take 0.5 Uni vers (XANAX) 0.5 5-22 mg through it y of mg tablet 13:51: enteral [place] 35 tube 2 Medical (two) Branch times daily. ziprasidone 2020-0 Yes 20mg Take 20 mg [facility] (GEODON) 20 5-22 through ity o f mg capsule 13:51: feeding [place] 35 tube at Medical bedtime. Branch ipratropium 2020-0 Yes 1{ampul Inhale 1 [facility] -albuterol 5-22 e} Ampule ity of (DUONEB) 13:51: every 6 [place] 0.5 mg-3 35 (six) Medical mg(2.5 mg hours as Branch base)/3 mL needed for nebulizer Wheezing. solution triamcinolo 2020-0 Yes 1{dose} Apply 1 [facility] ne 5-22 Dose to ity of (KENALOG) 13:51: area(s[place] 0.1 % 35 needed. Medical lotion Branch cyanocobala 2019-0 Yes 500ug 500 mcg by [facility] min, 5-22 Intramuscu ity of vitamin 13:51: lar route [place] B-12, 35 once every Medical (PHYSICIANS month. Branch EZ USE B-12) 1,000 mcg/mL injection ketoconazol 2020-0 Yes 1{dose} Apply 1 [facility] e (NIZORAL) 5-22 Dose to ity o f 2 % cream 13:51: area(s[place] 35 needed Medical (apply to Branch facial rash as needed). traMADOL 50 2020-0 Yes 50mg Take 50 mg [facility] mg tablet 5-22 by mouth ity of 13:51: every 6 [place] 35 (six) Medical hours as Branch needed. FENTanyl 25 2020-0 Yes 1{patch Apply 1 [facility] mcg/hr 5-22 } Patch to ity of patch 13:51: skin every [place] 35 72 Medical (seventy-t Branch wo) hours. HYDROcodone 2020-0 Yes 1{tbl} Take 1 Un royal -acetaminop 5-22 tablet by ity of hen 7.5-325 13:51: mouth [place] mg per 35 every 6 Medical tablet (six) Branch hours as needed for Pain. cycloSPORIN 2020-0 Yes 1[drp] Place 1 U nivers E 5-22 Drop in ity of (RESTASIS) 13:51: left eye [place] 0.05 % 35 every 12 Medical drops (twelve) Branch hours. magnesium 2020-0 Yes 400mg Take 400 Uni vers oxide 400 5-22 mg by ity of mg tablet 13:51: mouth [place] 35 daily. Medical Branch levothyroxi 2020-0 Yes 88ug Take 88 Uni vers ne 88 mcg 5-22 mcg by ity of tablet 13:51: mouth [place] 35 every Medical morning. Branch multivitami 2020-0 Yes 15mL Take 15 mL [facility] n solution 5-22 by mouth ity o f 13:51: daily. [place] [address] Medical Branch Artificial 2020-0 Yes 1[drp] Place 1 Un royal Tear, 5-22 Drop in ity of Hypromellos 13:51: each eye 2 [place] e, 0.4 % 35 (two) Medical Drop times Branch daily. Loperamide 2020-0 Yes 30mL Take 30 mL U nivers 1 mg/7.5 mL 5-22 by mouth ity of Liqd 13:51: as needed. [place] [address] Medical Branch acetaminoph 2020-0 Yes 650mg Take 650 U nivers en 325 mg 5-22 mg by ity of tablet 13:51: mouth [place] 35 every 6 Medical (six) Branch hours as needed for Pain (scale 1-3), Pain (scale 4-6) or Temp > 38.5 C. magnesium 2020-0 Yes 30mL Take 30 mL Un royal hydroxide 5-22 by mouth ity of concentrate 13:51: once daily [place] 35 as needed Medical for Branch Constipati on. sodium 2020-0 Yes 2{spray Use 2 [facility] chloride 5-22 } Sprays in ity of (SALINE 13:51: each [place] NASAL) 0.65 35 nostril 2 Med ical % nasal (two) Branch spray times daily as needed. CHLORASEPTI 2020-0 Yes 2{spray Take 2 U nivers C, phenol 5-22 } Sprays by ity o f 1.4%, 13:51: mouth [place] mouthwash 35 every 4 Medical (four) Branch hours as needed for Sore throat. alum-mag 2020-0 Yes 30mL Take 30 mL Uni vers hydroxide-s 5-22 by mouth ity of imeth 13:51: every 6 [place] (URVASHI-LANTA 35 (six) Medical ) hours as Branch 200-200-20 needed for mg/5 mL Indigestio suspension n. guaiFENesin 2020-0 Yes 100mg Take 100 U nivers (URVASHI-TUSSI 5-22 mg by ity of N) 100 mg/5 13:51: mouth [place] mL solution 35 every 6 Medic al (six) Branch hours as needed for Cough. acetaminoph 2020-0 Yes 650mg Insert 650 [facility] en 650 mg 5-22 mg into ity of suppository 13:51: rectum [place] 35 every 6 Medical (six) Branch hours as needed for Fever. sodium 2020-0 Yes 1{enema Insert 1 [facility] ers phosphates 5-22 } Enema into ity of (FLEET 13:51: rectum [place] ENEMA) 19-7 35 once daily Me dical gram/118 mL as needed [facility] enema for Constipati on. Follow package directions bethanechol 2020-0 Yes 25mg Take 25 mg [facility] (URECHOLINE 5-22 through ity o f ) 25 mg 13:51: feeding [place] tablet 35 tube 4 Medical (four) Branch times daily. PHENobarbit 2020-0 Yes 60mg Take 60 mg [facility] al 20 mg/5 5-22 through ity of mL (4 13:51: enteral [place] mg/mL) 35 tube 2 Medical elixir (two) Branch times daily. isosorbide 2020-0 Yes 10mg Take 10 mg U nivers dinitrate 5-22 through ity of (ISORDIL) 13:51: enteral [place] 10 mg 35 tube 2 Medical tablet (two) Branch times daily. metoprolol 2020-0 Yes 25mg Take 25 mg U nivers tartrate 5-22 through ity of (LOPRESSOR) 13:51: enteral [place] 25 mg 35 tube Medical tablet daily. Branch metoprolol 2020-0 Yes 50mg Take 50 mg U nivers tartrate 5-22 by mouth ity of (LOPRESSOR) 13:51: at [place] 50 mg 35 bedtime. Medical tablet Branch CALCIUM 2020-0 Yes Take [facility] CARBONATE 5-22 through ity of ORAL 13:51: feeding [place] 35 tube. Medical Branch phenytoin 2020-0 Yes 125mg Take 125 Uni vers (DILANTIN) 5-22 mg through ity of 125 mg/5 mL 13:51: enteral [place] 35 tube 2 Medical (two) Branch times daily. lactulose 2020-0 Yes 30mL Take 30 mL Un royal 10 gram/15 5-22 through ity of mL (15 mL) 13:51: feeding [place] Sol[place] 35 tube 2 Medical (two) Branch times daily. Indication s: feeding tube dextran 2020-0 Yes 1[drp] Place 1 Unive rs 70-hypromel 5-22 Drop in ity o f lose 13:51: both eyes [place] (ARTIFICIAL 35 2 (two) Medic al TEARS) times Branch ophthalmic daily. solution gabapentin 2020-0 Yes 300mg Take 300 Un royal (NEURONTIN) 5-22 mg through it y of 300 mg 13:51: feeding [place] capsule 35 tube 3 Medical (three) Branch times daily. RANITIDINE 2020-0 Yes 300mg Take 300 Un royal HCL ORAL 5-22 mg through ity o f 13:51: feeding [place] 35 tube at Medical bedtime. Branch oxybutynin 2020-0 Yes 5mg Take 5 mg [facility] royal chloride 5-22 through ity of (DITROPAN) 13:51: enteral [place] 5 mg tablet 35 tube at Medic al bedtime. Branch magnesium 2020-0 Yes 150mL Take 150 Uni vers citrate 5-22 mL through ity of solution 13:51: enteral [place] 35 tube at Medical bedtime. Branch bisacodyl 2020-0 Yes 10mg Insert 10 Uni vers (DULCOLAX) 5-22 mg into ity of 10 mg 13:51: rectum at [place] suppository 35 bedtime as Me dical needed. Branch acetaminoph 2020-0 Yes 500mg Take 500 U nivers en 5-22 mg through ity of (TYLENOL) 13:51: feeding [place] 100 mg/mL 35 tube every Medi radha solution 6 (six) Branch hours as needed for Fever. Indication s: For elevated temp meclizine 2020-0 Yes 12.5mg Take 12.5 U nivers (ANTIVERT) 5-22 mg through ity of 12.5 mg 13:51: enteral [place] tablet 35 tube 4 Medical (four) Branch times daily as needed. ALPRAZolam 2020-0 Yes .5mg Take 0.5 Uni vers (XANAX) 0.5 5-22 mg through it y of mg tablet 13:51: enteral [place] 35 tube 2 Medical (two) Branch times daily. ziprasidone 2020-0 Yes 20mg Take 20 mg [facility] (GEODON) 20 5-22 through ity o f mg capsule 13:51: feeding [place] 35 tube at Medical bedtime. Branch ipratropium 2020-0 Yes 1{ampul Inhale 1 [facility] -albuterol 5-22 e} Ampule ity of (DUONEB) 13:51: every 6 [place] 0.5 mg-3 35 (six) Medical mg(2.5 mg hours as Branch base)/3 mL needed for nebulizer Wheezing. solution triamcinolo 2020-0 Yes 1{dose} Apply 1 [facility] ne 5-22 Dose to ity of (KENALOG) 13:51: area(s[place] 0.1 % 35 needed. Medical lotion Branch cyanocobala 2020-0 Yes 500ug 500 mcg by [facility] min, 5-22 Intramuscu ity of vitamin 13:51: lar route [place] B-12, 35 once every Medical (PHYSICIANS month. Branch EZ USE B-12) 1,000 mcg/mL injection ketoconazol 2020-0 Yes 1{dose} Apply 1 [facility] e (NIZORAL) 5-22 Dose to ity o f 2 % cream 13:51: area(s[place] as [place] 35 needed Medical (apply to Branch facial rash as needed). traMADOL 50 2020-0 Yes 50mg Take 50 mg [facility] mg tablet 5-22 by mouth ity of 13:51: every 6 [place] 35 (six) Medical hours as Branch needed. FENTanyl 25 2020-0 Yes 1{patch Apply 1 [facility] mcg/hr 5-22 } Patch to ity of patch 13:51: skin every [place] 35 72 Medical (seventy-t Branch wo) hours. HYDROcodone 2020-0 Yes 1{tbl} Take 1 Un royal -acetaminop 5-22 tablet by ity of hen 7.5-325 13:51: mouth [place] mg per 35 every 6 Medical tablet (six) Branch hours as needed for Pain. cycloSPORIN 2020-0 Yes 1[drp] Place 1 U nivers E 5-22 Drop in ity of (RESTASIS) 13:51: left eye [place] 0.05 % 35 every 12 Medical drops (twelve) Branch hours. magnesium 2020-0 Yes 400mg Take 400 Uni vers oxide 400 5-22 mg by ity of mg tablet 13:51: mouth [place] 35 daily. Medical Branch levothyroxi 2020-0 Yes 88ug Take 88 Uni vers ne 88 mcg 5-22 mcg by ity of tablet 13:51: mouth [place] 35 every Medical morning. Branch multivitami 2020-0 Yes 15mL Take 15 mL [facility] n solution 5-22 by mouth ity o f 13:51: daily. [place] [address] Medical Branch Artificial 2020-0 Yes 1[drp] Place 1 Un royal Tear, 5-22 Drop in ity of Hypromellos 13:51: each eye 2 [place] e, 0.4 % 35 (two) Medical Drop times Branch daily. Loperamide 2020-0 Yes 30mL Take 30 mL U nivers 1 mg/7.5 mL 5-22 by mouth ity of Liqd 13:51: as needed. [place] [address] Medical Branch acetaminoph 2020-0 Yes 650mg Take 650 U nivers en 325 mg 5-22 mg by ity of tablet 13:51: mouth [place] 35 every 6 Medical (six) Branch hours as needed for Pain (scale 1-3), Pain (scale 4-6) or Temp > 38.5 C. magnesium 2020-0 Yes 30mL Take 30 mL Un royal hydroxide 5-22 by mouth ity of concentrate 13:51: once daily [place] 35 as needed Medical for Branch Constipati on. sodium 2020-0 Yes 2{spray Use 2 [facility] chloride 5-22 } Sprays in ity of (SALINE 13:51: each [place] NASAL) 0.65 35 nostril 2 Med ical % nasal (two) Branch spray times daily as needed. CHLORASEPTI 2020-0 Yes 2{spray Take 2 U nivers C, phenol 5-22 } Sprays by ity o f 1.4%, 13:51: mouth [place] mouthwash 35 every 4 Medical (four) Branch hours as needed for Sore throat. alum-mag 2020-0 Yes 30mL Take 30 mL Uni vers hydroxide-s 5-22 by mouth ity of imeth 13:51: every 6 [place] (URVASHI-LANTA 35 (six) Medical ) hours as Branch 200-200-20 needed for mg/5 mL Indigestio suspension n. guaiFENesin 2020-0 Yes 100mg Take 100 U nivers (URVASHI-TUSSI 5-22 mg by ity of N) 100 mg/5 13:51: mouth [place] mL solution 35 every 6 Medic al (six) Branch hours as needed for Cough. acetaminoph 2020-0 Yes 650mg Insert 650 [facility] en 650 mg 5-22 mg into ity of suppository 13:51: rectum [place] 35 every 6 Medical (six) Branch hours as needed for Fever. sodium 2020-0 Yes 1{enema Insert 1 Univ ers phosphates 5-22 } Enema into ity of (FLEET 13:51: rectum [place] ENEMA) 19-7 35 once daily Me dical gram/118 mL as needed [facility] enema for Constipati on. Follow package directions bethanechol 2020-0 Yes 25mg Take 25 mg [facility] (URECHOLINE 5-22 through ity o f ) 25 mg 13:51: feeding [place] tablet 35 tube 4 Medical (four) Branch times daily. PHENobarbit 2020-0 Yes 60mg Take 60 mg [facility] al 20 mg/5 5-22 through ity of mL (4 13:51: enteral [place] mg/mL) 35 tube 2 Medical elixir (two) Branch times daily. isosorbide 2020-0 Yes 10mg Take 10 mg U nivers dinitrate 5-22 through ity of (ISORDIL) 13:51: enteral [place] 10 mg 35 tube 2 Medical tablet (two) Branch times daily. metoprolol 2020-0 Yes 25mg Take 25 mg U nivers tartrate 5-22 through ity of (LOPRESSOR) 13:51: enteral [place] 25 mg 35 tube Medical tablet daily. Branch metoprolol 2020-0 Yes 50mg Take 50 mg U nivers tartrate 5-22 by mouth ity of (LOPRESSOR) 13:51: at [place] 50 mg 35 bedtime. Medical tablet Branch CALCIUM 2020-0 Yes Take [facility] CARBONATE 5-22 through ity of ORAL 13:51: feeding [place] 35 tube. Medical Branch phenytoin 2020-0 Yes 125mg Take 125 Uni vers (DILANTIN) 5-22 mg through ity of 125 mg/5 mL 13:51: enteral [place] suspension 35 tube 2 Medical (two) Branch times daily. lactulose 2020-0 Yes 30mL Take 30 mL Un royal 10 gram/15 5-22 through ity of mL (15 mL) 13:51: feeding [place] Sol[place] 35 tube 2 Medical (two) Branch times daily. Indication s: feeding tube dextran 2020-0 Yes 1[drp] Place 1 Unive rs 70-hypromel 5-22 Drop in ity o f lose 13:51: both eyes [place] (ARTIFICIAL 35 2 (two) Medic al TEARS) times Branch ophthalmic daily. solution gabapentin 2020-0 Yes 300mg Take 300 Un royal (NEURONTIN) 5-22 mg through it y of 300 mg 13:51: feeding [place] capsule 35 tube 3 Medical (three) Branch times daily. RANITIDINE 2020-0 Yes 300mg Take 300 Un royal HCL ORAL 5-22 mg through ity o f 13:51: feeding [place] 35 tube at Medical bedtime. Branch oxybutynin 2020-0 Yes 5mg Take 5 mg Un [facility] chloride 5-22 through ity of (DITROPAN) 13:51: enteral [place] 5 mg tablet 35 tube at Medic al bedtime. Branch magnesium 2020-0 Yes 150mL Take 150 Uni vers citrate 5-22 mL through ity of solution 13:51: enteral [place] 35 tube at Medical bedtime. Branch bisacodyl 2020-0 Yes 10mg Insert 10 Uni vers (DULCOLAX) 5-22 mg into ity of 10 mg 13:51: rectum at [place] suppository 35 bedtime as Me dical needed. Branch acetaminoph 2020-0 Yes 500mg Take 500 U nivers en 5-22 mg through ity of (TYLENOL) 13:51: feeding [place] 100 mg/mL 35 tube every Medi radha solution 6 (six) Branch hours as needed for Fever. Indication s: For elevated temp meclizine 2020-0 Yes 12.5mg Take 12.5 U nivers (ANTIVERT) 5-22 mg through ity of 12.5 mg 13:51: enteral [place] tablet 35 tube 4 Medical (four) Branch times daily as needed. ALPRAZolam 2020-0 Yes .5mg Take 0.5 Uni vers (XANAX) 0.5 5-22 mg through it y of mg tablet 13:51: enteral [place] 35 tube 2 Medical (two) Branch times daily. ziprasidone 2020-0 Yes 20mg Take 20 mg [facility] (GEODON) 20 5-22 through ity o f mg capsule 13:51: feeding [place] 35 tube at Medical bedtime. Branch ipratropium 2020-0 Yes 1{ampul Inhale 1 [facility] -albuterol 5-22 e} Ampule ity of (DUONEB) 13:51: every 6 [place] 0.5 mg-3 35 (six) Medical mg(2.5 mg hours as Branch base)/3 mL needed for nebulizer Wheezing. solution triamcinolo 2020-0 Yes 1{dose} Apply 1 [facility] ne 5-22 Dose to ity of (KENALOG) 13:51: area(s[place] 0.1 % 35 needed. Medical lotion Branch cyanocobala 2020-0 Yes 500ug 500 mcg by [facility] min, 5-22 Intramuscu ity of vitamin 13:51: lar route [place] B-12, 35 once every Medical (PHYSICIANS month. Branch EZ USE B-12) 1,000 mcg/mL injection ketoconazol 2020-0 Yes 1{dose} Apply 1 [facility] e (NIZORAL) 5-22 Dose to ity o f 2 % cream 13:51: area(s[place] as [place] 35 needed Medical (apply to Branch facial rash as needed). traMADOL 50 2020-0 Yes 50mg Take 50 mg [facility] mg tablet 5-22 by mouth ity of 13:51: every 6 [place] 35 (six) Medical hours as Branch needed. FENTanyl 25 2020-0 Yes 1{patch Apply 1 [facility] mcg/hr 5-22 } Patch to ity of patch 13:51: skin every [place] 35 72 Medical (seventy-t Branch wo) hours. HYDROcodone 2020-0 Yes 1{tbl} Take 1 Un royal -acetaminop 5-22 tablet by ity of hen 7.5-325 13:51: mouth [place] mg per 35 every 6 Medical tablet (six) Branch hours as needed for Pain. cycloSPORIN 2020-0 Yes 1[drp] Place 1 U nivers E 5-22 Drop in ity of (RESTASIS) 13:51: left eye [place] 0.05 % 35 every 12 Medical drops (twelve) Branch hours. magnesium 2020-0 Yes 400mg Take 400 Uni vers oxide 400 5-22 mg by ity of mg tablet 13:51: mouth [place] 35 daily. Medical Branch levothyroxi 2020-0 Yes 88ug Take 88 Uni vers ne 88 mcg 5-22 mcg by ity of tablet 13:51: mouth [place] 35 every Medical morning. Branch multivitami 2020-0 Yes 15mL Take 15 mL [facility] n solution 5-22 by mouth ity o f 13:51: daily. [place] [address] Medical Branch Artificial 2020-0 Yes 1[drp] Place 1 Un royal Tear, 5-22 Drop in ity of Hypromellos 13:51: each eye 2 [place] e, 0.4 % 35 (two) Medical Drop times Branch daily. Loperamide 2020-0 Yes 30mL Take 30 mL U nivers 1 mg/7.5 mL 5-22 by mouth ity of Liqd 13:51: as needed. [address] Branch acetaminoph 2020-0 Yes 650mg Take 650 U nivers en 325 mg 5-22 mg by ity of tablet 13:51: mouth [place] 35 every 6 Medical (six) Branch hours as needed for Pain (scale 1-3), Pain (scale 4-6) or Temp > 38.5 C. magnesium 2020-0 Yes 30mL Take 30 mL Un royal hydroxide 5-22 by mouth ity of concentrate 13:51: once daily [place] [address] as needed Medical for Branch Constipati on. sodium 2020-0 Yes 2{spray Use 2 [facility] chloride 5-22 } Sprays in ity of (SALINE 13:51: each [place] NASAL) 0.65 35 nostril 2 Med ical % nasal (two) Branch spray times daily as needed. CHLORASEPTI 2020-0 Yes 2{spray Take 2 U nivers C, phenol 5-22 } Sprays by ity o f 1.4%, 13:51: mouth [place] mouthwash 35 every 4 Medical (four) Branch hours as needed for Sore throat. alum-mag 2020-0 Yes 30mL Take 30 mL Uni vers hydroxide-s 5-22 by mouth ity of imeth 13:51: every 6 [place] (URVASHI-LANTA 35 (six) Medical ) hours as Branch 200-200-20 needed for mg/5 mL Indigestio suspension n. guaiFENesin 2020-0 Yes 100mg Take 100 U nivers (URVASHI-TUSSI 5-22 mg by ity of N) 100 mg/5 13:51: mouth [place] mL solution 35 every 6 Medic al (six) Branch hours as needed for Cough. acetaminoph 2020-0 Yes 650mg Insert 650 [facility] en 650 mg 5-22 mg into ity of suppository 13:51: rectum [place] 35 every 6 Medical (six) Branch hours as needed for Fever. sodium 2020-0 Yes 1{enema Insert 1 Univ ers phosphates 5-22 } Enema into ity of (FLEET 13:51: rectum [place] ENEMA) 19-7 35 once daily Me dical gram/118 mL as needed [facility] enema for Constipati on. Follow package directions bethanechol 2020-0 Yes 25mg Take 25 mg [facility] (URECHOLINE 5-22 through ity o f ) 25 mg 13:51: feeding [place] tablet 35 tube 4 Medical (four) Branch times daily. PHENobarbit 2020-0 Yes 60mg Take 60 mg [facility] al 20 mg/5 5-22 through ity of mL (4 13:51: enteral [place] mg/mL) 35 tube 2 Medical elixir (two) Branch times daily. isosorbide 2020-0 Yes 10mg Take 10 mg U nivers dinitrate 5-22 through ity of (ISORDIL) 13:51: enteral [place] 10 mg 35 tube 2 Medical tablet (two) Branch times daily. metoprolol 2020-0 Yes 25mg Take 25 mg U nivers tartrate 5-22 through ity of (LOPRESSOR) 13:51: enteral [place] 25 mg 35 tube Medical tablet daily. Branch metoprolol 2020-0 Yes 50mg Take 50 mg U nivers tartrate 5-22 by mouth ity of (LOPRESSOR) 13:51: at [place] 50 mg 35 bedtime. Medical tablet Branch CALCIUM 2020-0 Yes Take [facility] CARBONATE 5-22 through ity of ORAL 13:51: feeding [place] 35 tube. Medical Branch phenytoin 2020-0 Yes 125mg Take 125 Uni vers (DILANTIN) 5-22 mg through ity of 125 mg/5 mL 13:51: enteral [place] suspension 35 tube 2 Medical (two) Branch times daily. lactulose 2020-0 Yes 30mL Take 30 mL Un royal 10 gram/15 5-22 through ity of mL (15 mL) 13:51: feeding [place] Sol[place] 35 tube 2 Medical (two) Branch times daily. Indication s: feeding tube dextran 2020-0 Yes 1[drp] Place 1 Unive rs 70-hypromel 5-22 Drop in ity o f lose 13:51: both eyes [place] (ARTIFICIAL 35 2 (two) Medic al TEARS) times Branch ophthalmic daily. solution gabapentin 2020-0 Yes 300mg Take 300 Un royal (NEURONTIN) 5-22 mg through it y of 300 mg 13:51: feeding [place] capsule 35 tube 3 Medical (three) Branch times daily. RANITIDINE 2020-0 Yes 300mg Take 300 Un royal HCL ORAL 5-22 mg through ity o f 13:51: feeding [place] 35 tube at Medical bedtime. Branch oxybutynin 2020-0 Yes 5mg Take 5 mg Un [facility] chloride 5-22 through ity of (DITROPAN) 13:51: enteral [place] 5 mg tablet 35 tube at Medic al bedtime. Branch magnesium 2020-0 Yes 150mL Take 150 Uni vers citrate 5-22 mL through ity of solution 13:51: enteral [place] 35 tube at Medical bedtime. Branch bisacodyl 2020-0 Yes 10mg Insert 10 Uni vers (DULCOLAX) 5-22 mg into ity of 10 mg 13:51: rectum at [place] suppository 35 bedtime as Me dical needed. Branch acetaminoph 2020-0 Yes 500mg Take 500 U nivers en 5-22 mg through ity of (TYLENOL) 13:51: feeding [place] 100 mg/mL 35 tube every Medi radha solution 6 (six) Branch hours as needed for Fever. Indication s: For elevated temp meclizine 2020-0 Yes 12.5mg Take 12.5 U nivers (ANTIVERT) 5-22 mg through ity of 12.5 mg 13:51: enteral [place] tablet 35 tube 4 Medical (four) Branch times daily as needed. ALPRAZolam 2020-0 Yes .5mg Take 0.5 Uni vers (XANAX) 0.5 5-22 mg through it y of mg tablet 13:51: enteral [place] 35 tube 2 Medical (two) Branch times daily. ziprasidone 2020-0 Yes 20mg Take 20 mg [facility] (GEODON) 20 5-22 through ity o f mg capsule 13:51: feeding [place] 35 tube at Medical bedtime. Branch ipratropium 2020-0 Yes 1{ampul Inhale 1 [facility] -albuterol 5-22 e} Ampule ity of (DUONEB) 13:51: every 6 [place] 0.5 mg-3 35 (six) Medical mg(2.5 mg hours as Branch base)/3 mL needed for nebulizer Wheezing. solution triamcinolo 2020-0 Yes 1{dose} Apply 1 [facility] ne 5-22 Dose to ity of (KENALOG) 13:51: area[place] 0.1 % 35 needed. Medical lotion Branch cyanocobala 2020-0 Yes 500ug 500 mcg by [facility] min, 5-22 Intramuscu ity of vitamin 13:51: lar route [place] B-12, 35 once every Medical (PHYSICIANS month. Branch EZ USE B-12) 1,000 mcg/mL injection ketoconazol 2020-0 Yes 1{dose} Apply 1 [facility] e (NIZORAL) 5-22 Dose to ity o f 2 % cream 13:51: area[place] 35 needed Medical (apply to Branch facial rash as needed). traMADOL 50 2020-0 Yes 50mg Take 50 mg [facility] mg tablet 5-22 by mouth ity of 13:51: every 6 [place] 35 (six) Medical hours as Branch needed. FENTanyl 25 2020-0 Yes 1{patch Apply 1 [facility] mcg/hr 5-22 } Patch to ity of patch 13:51: skin every [place] 35 72 Medical (seventy-t Branch wo) hours. HYDROcodone 2020-0 Yes 1{tbl} Take 1 Un royal -acetaminop 5-22 tablet by ity of hen 7.5-325 13:51: mouth [place] mg per 35 every 6 Medical tablet (six) Branch hours as needed for Pain. cycloSPORIN 2020-0 Yes 1[drp] Place 1 U nivers E 5-22 Drop in ity of (RESTASIS) 13:51: left eye [place] 0.05 % 35 every 12 Medical drops (twelve) Branch hours. magnesium 2020-0 Yes 400mg Take 400 Uni vers oxide 400 5-22 mg by ity of mg tablet 13:51: mouth [place] 35 daily. Medical Branch levothyroxi 2020-0 Yes 88ug Take 88 [facility] vers ne 88 mcg 5-22 mcg by ity of tablet 13:51: mouth [place] 35 every Medical morning. Branch multivitami 2020-0 Yes 15mL Take 15 mL [facility] n solution 5-22 by mouth ity o f 13:51: daily. [place] 35 Medical Branch Artificial 2020-0 Yes 1[drp] Place 1 Un royal Tear, 5-22 Drop in ity of Hypromellos 13:51: each eye 2 [place] e, 0.4 % 35 (two) Medical Drop times Branch daily. Loperamide 2020-0 Yes 30mL Take 30 mL U nivers 1 mg/7.5 mL 5-22 by mouth ity of Liqd 13:51: as needed. [place] 35 Medical Branch acetaminoph 2020-0 Yes 650mg Take 650 U nivers en 325 mg 5-22 mg by ity of tablet 13:51: mouth [place] 35 every 6 Medical (six) Branch hours as needed for Pain (scale 1-3), Pain (scale 4-6) or Temp > 38.5 C. magnesium 2020-0 Yes 30mL Take 30 mL [facility] royal hydroxide 5-22 by mouth ity of concentrate 13:51: once daily [place] 35 as needed Medical for Branch Constipati on. sodium 2020-0 Yes 2{spray Use 2 [facility] chloride 5-22 } Sprays in ity of (SALINE 13:51: each [place] NASAL) 0.65 35 nostril 2 Med ical % nasal (two) Branch spray times daily as needed. CHLORASEPTI 2020-0 Yes 2{spray Take 2 U nivers C, phenol 5-22 } Sprays by ity o f 1.4%, 13:51: mouth [place] mouthwash 35 every 4 Medical (four) Branch hours as needed for Sore throat. alum-mag 2020-0 Yes 30mL Take 30 mL Uni vers hydroxide-s 5-22 by mouth ity of imeth 13:51: every 6 [place] (URVASHI-LANTA 35 (six) Medical ) hours as Branch 200-200-20 needed for mg/5 mL Indigestio suspension n. guaiFENesin 2020-0 Yes 100mg Take 100 U nivers (URVASHI-TUSSI 5-22 mg by ity of N) 100 mg/5 13:51: mouth [place] mL solution 35 every 6 Medic al (six) Branch hours as needed for Cough. acetaminoph 2020-0 Yes 650mg Insert 650 [facility] en 650 mg 5-22 mg into ity of suppository 13:51: rectum [place] 35 every 6 Medical (six) Branch hours as needed for Fever. sodium 2020-0 Yes 1{enema Insert 1 Univ ers phosphates 5-22 } Enema into ity of (FLEET 13:51: rectum [place] ENEMA) 19-7 35 once daily Me dical gram/118 mL as needed [facility] enema for Constipati on. Follow package directions bethanechol 2020-0 Yes 25mg Take 25 mg [facility] (URECHOLINE 5-22 through ity o f ) 25 mg 13:51: feeding [place] tablet 35 tube 4 Medical (four) Branch times daily. PHENobarbit 2020-0 Yes 60mg Take 60 mg [facility] al 20 mg/5 5-22 through ity of mL (4 13:51: enteral [place] mg/mL) 35 tube 2 Medical elixir (two) Branch times daily. isosorbide 2020-0 Yes 10mg Take 10 mg U nivers dinitrate 5-22 through ity of (ISORDIL) 13:51: enteral [place] 10 mg 35 tube 2 Medical tablet (two) Branch times daily. metoprolol 2020-0 Yes 25mg Take 25 mg U nivers tartrate 5-22 through ity of (LOPRESSOR) 13:51: enteral [place] 25 mg 35 tube Medical tablet daily. Branch metoprolol 2020-0 Yes 50mg Take 50 mg U nivers tartrate 5-22 by mouth ity of (LOPRESSOR) 13:51: at [place] 50 mg 35 bedtime. Medical tablet Branch CALCIUM 2020-0 Yes Take [facility] CARBONATE 5-22 through ity of ORAL 13:51: feeding [place] 35 tube. Medical Branch phenytoin 2020-0 Yes 125mg Take 125 Uni vers (DILANTIN) 5-22 mg through ity of 125 mg/5 mL 13:51: enteral [place] 35 tube 2 Medical (two) Branch times daily. lactulose 2020-0 Yes 30mL Take 30 mL [facility] royal 10 gram/15 5-22 through ity of mL (15 mL) 13:51: feeding [place] Soln 35 tube 2 Medical (two) Branch times daily. Indication s: feeding tube dextran 2020-0 Yes 1[drp] Place 1 Unive rs 70-hypromel 5-22 Drop in ity o f lose 13:51: both eyes [place] (ARTIFICIAL 35 2 (two) Medic al TEARS) times Branch ophthalmic daily. solution gabapentin 2020-0 Yes 300mg Take 300 Un royal (NEURONTIN) 5-22 mg through it y of 300 mg 13:51: feeding [place] capsule 35 tube 3 Medical (three) Branch times daily. RANITIDINE 2020-0 Yes 300mg Take 300 Un royal HCL ORAL 5-22 mg through ity o f 13:51: feeding [place] 35 tube at Medical bedtime. Branch oxybutynin 2020-0 Yes 5mg Take 5 mg [facility] royal chloride 5-22 through ity of (DITROPAN) 13:51: enteral [place] 5 mg tablet 35 tube at Medic al bedtime. Branch magnesium 2020-0 Yes 150mL Take 150 Uni vers citrate 5-22 mL through ity of solution 13:51: enteral [place] 35 tube at Medical bedtime. Branch bisacodyl 2020-0 Yes 10mg Insert 10 [facility] vers (DULCOLAX) 5-22 mg into ity of 10 mg 13:51: rectum at [place] suppository 35 bedtime as Me dical needed. Branch acetaminoph 2020-0 Yes 500mg Take 500 U nivers en 5-22 mg through ity of (TYLENOL) 13:51: feeding [place] 100 mg/mL 35 tube every Medi radha solution 6 (six) Branch hours as needed for Fever. Indication s: For elevated temp meclizine 2020-0 Yes 12.5mg Take 12.5 U nivers (ANTIVERT) 5-22 mg through ity of 12.5 mg 13:51: enteral [place] tablet 35 tube 4 Medical (four) Branch times daily as needed. ALPRAZolam 2020-0 Yes .5mg Take 0.5 Uni vers (XANAX) 0.5 5-22 mg through it y of mg tablet 13:51: enteral [place] 35 tube 2 Medical (two) Branch times daily. ziprasidone 2020-0 Yes 20mg Take 20 mg [facility] (GEODON) 20 5-22 through ity o f mg capsule 13:51: feeding [place] 35 tube at Medical bedtime. Branch ipratropium 2020-0 Yes 1{ampul Inhale 1 [facility] -albuterol 5-22 e} Ampule ity of (DUONEB) 13:51: every 6 [place] 0.5 mg-3 35 (six) Medical mg(2.5 mg hours as Branch base)/3 mL needed for nebulizer Wheezing. solution triamcinolo 2020-0 Yes 1{dose} Apply 1 [facility] ne 5-22 Dose to ity of (KENALOG) 13:51: area[place] 0.1 % 35 needed. Medical lotion Branch cyanocobala 2020-0 Yes 500ug 500 mcg by [facility] min, 5-22 Intramuscu ity of vitamin 13:51: lar route [place] B-12, 35 once every Medical (PHYSICIANS month. Branch EZ USE B-12) 1,000 mcg/mL injection ketoconazol 2020-0 Yes 1{dose} Apply 1 [facility] e (NIZORAL) 5-22 Dose to ity o f 2 % cream 13:51: area(s[place] as [place] 35 needed Medical (apply to Branch facial rash as needed). traMADOL 50 2020-0 Yes 50mg Take 50 mg [facility] mg tablet 5-22 by mouth ity of 13:51: every 6 [place] 35 (six) Medical hours as Branch needed. FENTanyl 25 2020-0 Yes 1{patch Apply 1 [facility] mcg/hr 5-22 } Patch to ity of patch 13:51: skin every [place] 35 72 Medical (seventy-t Branch wo) hours. HYDROcodone 2020-0 Yes 1{tbl} Take 1 Un royal -acetaminop 5-22 tablet by ity of hen 7.5-325 13:51: mouth [place] mg per 35 every 6 Medical tablet (six) Branch hours as needed for Pain. cycloSPORIN 2020-0 Yes 1[drp] Place 1 U nivers E 5-22 Drop in ity of (RESTASIS) 13:51: left eye [place] 0.05 % 35 every 12 Medical drops (twelve) Branch hours. magnesium 2020-0 Yes 400mg Take 400 Uni vers oxide 400 5-22 mg by ity of mg tablet 13:51: mouth [place] 35 daily. Medical Branch levothyroxi 2020-0 Yes 88ug Take 88 Uni vers ne 88 mcg 5-22 mcg by ity of tablet 13:51: mouth [place] 35 every Medical morning. Branch multivitami 2020-0 Yes 15mL Take 15 mL [facility] n solution 5-22 by mouth ity o f 13:51: daily. [place] 35 Medical Branch Artificial 2020-0 Yes 1[drp] Place 1 Un royal Tear, 5-22 Drop in ity of Hypromellos 13:51: each eye 2 [place] e, 0.4 % 35 (two) Medical Drop times Branch daily. Loperamide 2020-0 Yes 30mL Take 30 mL U nivers 1 mg/7.5 mL 5-22 by mouth ity of Liqd 13:51: as needed. [place] 35 Medical Branch acetaminoph 2020-0 Yes 650mg Take 650 U nivers en 325 mg 5-22 mg by ity of tablet 13:51: mouth [place] 35 every 6 Medical (six) Branch hours as needed for Pain (scale 1-3), Pain (scale 4-6) or Temp > 38.5 C. magnesium 2020-0 Yes 30mL Take 30 mL Un royal hydroxide 5-22 by mouth ity of concentrate 13:51: once daily [place] 35 as needed Medical for Branch Constipati on. sodium 2020-0 Yes 2{spray Use 2 [facility] chloride 5-22 } Sprays in ity of (SALINE 13:51: each [place] NASAL) 0.65 35 nostril 2 Med ical % nasal (two) Branch spray times daily as needed. CHLORASEPTI 2020-0 Yes 2{spray Take 2 U nivers C, phenol 5-22 } Sprays by ity o f 1.4%, 13:51: mouth [place] mouthwash 35 every 4 Medical (four) Branch hours as needed for Sore throat. alum-mag 2020-0 Yes 30mL Take 30 mL Uni vers hydroxide-s 5-22 by mouth ity of imeth 13:51: every 6 [place] (URVASHI-LANTA 35 (six) Medical ) hours as Branch 200-200-20 needed for mg/5 mL Indigestio suspension n. guaiFENesin 2020-0 Yes 100mg Take 100 U nivers (URVASHI-TUSSI 5-22 mg by ity of N) 100 mg/5 13:51: mouth [place] mL solution 35 every 6 Medic al (six) Branch hours as needed for Cough. acetaminoph 2020-0 Yes 650mg Insert 650 [facility] en 650 mg 5-22 mg into ity of suppository 13:51: rectum [place] 35 every 6 Medical (six) Branch hours as needed for Fever. sodium 2020-0 Yes 1{enema Insert 1 Univ ers phosphates 5-22 } Enema into ity of (FLEET 13:51: rectum [place] ENEMA) 19-7 35 once daily Me dical gram/118 mL as needed [facility] enema for Constipati on. Follow package directions bethanechol 2020-0 Yes 25mg Take 25 mg [facility] (URECHOLINE 5-22 through ity o f ) 25 mg 13:51: feeding [place] tablet 35 tube 4 Medical (four) Branch times daily. PHENobarbit 2020-0 Yes 60mg Take 60 mg [facility] al 20 mg/5 5-22 through ity of mL (4 13:51: enteral [place] mg/mL) 35 tube 2 Medical elixir (two) Branch times daily. isosorbide 2020-0 Yes 10mg Take 10 mg U nivers dinitrate 5-22 through ity of (ISORDIL) 13:51: enteral [place] 10 mg 35 tube 2 Medical tablet (two) Branch times daily. metoprolol 2020-0 Yes 25mg Take 25 mg U nivers tartrate 5-22 through ity of (LOPRESSOR) 13:51: enteral [place] 25 mg 35 tube Medical tablet daily. Branch metoprolol 2020-0 Yes 50mg Take 50 mg U nivers tartrate 5-22 by mouth ity of (LOPRESSOR) 13:51: at [place] 50 mg 35 bedtime. Medical tablet Branch CALCIUM 2020-0 Yes Take [facility] CARBONATE 5-22 through ity of ORAL 13:51: feeding [place] 35 tube. Medical Branch phenytoin 2020-0 Yes 125mg Take 125 Uni vers (DILANTIN) 5-22 mg through ity of 125 mg/5 mL 13:51: enteral [place] 35 tube 2 Medical (two) Branch times daily. lactulose 2020-0 Yes 30mL Take 30 mL Un royal 10 gram/15 5-22 through ity of mL (15 mL) 13:51: feeding [place] Soln 35 tube 2 Medical (two) Branch times daily. Indication s: feeding tube dextran 2020-0 Yes 1[drp] Place 1 Unive rs 70-hypromel 5-22 Drop in ity o f lose 13:51: both eyes [place] (ARTIFICIAL 35 2 (two) Medic al TEARS) times Branch ophthalmic daily. solution gabapentin 2020-0 Yes 300mg Take 300 Un royal (NEURONTIN) 5-22 mg through it y of 300 mg 13:51: feeding [place] capsule 35 tube 3 Medical (three) Branch times daily. RANITIDINE 2020-0 Yes 300mg Take 300 Un royal HCL ORAL 5-22 mg through ity o f 13:51: feeding [place] 35 tube at Medical bedtime. Branch oxybutynin 2020-0 Yes 5mg Take 5 mg Un royal chloride 5-22 through ity of (DITROPAN) 13:51: enteral [place] 5 mg tablet 35 tube at Medic al bedtime. Branch magnesium 2020-0 Yes 150mL Take 150 Uni vers citrate 5-22 mL through ity of solution 13:51: enteral [place] 35 tube at Medical bedtime. Branch bisacodyl 2020-0 Yes 10mg Insert 10 Uni vers (DULCOLAX) 5-22 mg into ity of 10 mg 13:51: rectum at [place] suppository 35 bedtime as Me dical needed. Branch acetaminoph 2020-0 Yes 500mg Take 500 U nivers en 5-22 mg through ity of (TYLENOL) 13:51: feeding [place] 100 mg/mL 35 tube every Medi radha solution 6 (six) Branch hours as needed for Fever. Indication s: For elevated temp meclizine 2020-0 Yes 12.5mg Take 12.5 U nivers (ANTIVERT) 5-22 mg through ity of 12.5 mg 13:51: enteral [place] tablet 35 tube 4 Medical (four) Branch times daily as needed. ALPRAZolam 2020-0 Yes .5mg Take 0.5 Uni vers (XANAX) 0.5 5-22 mg through it y of mg tablet 13:51: enteral [place] 35 tube 2 Medical (two) Branch times daily. ziprasidone 2020-0 Yes 20mg Take 20 mg [facility] (GEODON) 20 5-22 through ity o f mg capsule 13:51: feeding [place] 35 tube at Medical bedtime. Branch ipratropium 2020-0 Yes 1{ampul Inhale 1 Univers -albuterol 5-22 e} Ampule ity of (DUONEB) 13:51: every 6 [place] 0.5 mg-3 35 (six) Medical mg(2.5 mg hours as Branch base)/3 mL needed for nebulizer Wheezing. solution triamcinolo 2020-0 Yes 1{dose} Apply 1 [facility] ne 5-22 Dose to ity of (KENALOG) 13:51: area(s[place] as [place] 0.1 % 35 needed. Medical lotion Branch cyanocobala 2020-0 Yes 500ug 500 mcg by [facility] min, 5-22 Intramuscu ity of vitamin 13:51: lar route [place] B-12, 35 once every Medical (PHYSICIANS month. Branch EZ USE B-12) 1,000 mcg/mL injection ketoconazol 2020-0 Yes 1{dose} Apply 1 Univers e (NIZORAL) 5-22 Dose to ity o f 2 % cream 13:51: area(s[place] as [place] 35 needed Medical (apply to Branch facial rash as needed). traMADOL 50 2020-0 Yes 50mg Take 50 mg [facility] mg tablet 5-22 by mouth ity of 13:51: every 6 [place] 35 (six) Medical hours as Branch needed. FENTanyl 25 2020-0 Yes 1{patch Apply 1 [facility] mcg/hr 5-22 } Patch to ity of patch 13:51: skin every [place] 35 72 Medical (seventy-t Branch wo) hours. HYDROcodone 2020-0 Yes 1{tbl} Take 1 Un royal -acetaminop 5-22 tablet by ity of hen 7.5-325 13:51: mouth [place] mg per 35 every 6 Medical tablet (six) Branch hours as needed for Pain. cycloSPORIN 2020-0 Yes 1[drp] Place 1 U nivers E 5-22 Drop in ity of (RESTASIS) 13:51: left eye [place] 0.05 % 35 every 12 Medical drops (twelve) Branch hours. magnesium 2020-0 Yes 400mg Take 400 Uni vers oxide 400 5-22 mg by ity of mg tablet 13:51: mouth [place] 35 daily. Medical Branch levothyroxi 2020-0 Yes 88ug Take 88 Uni vers ne 88 mcg 5-22 mcg by ity of tablet 13:51: mouth [place] 35 every Medical morning. Branch multivitami 2020-0 Yes 15mL Take 15 mL [facility] n solution 5-22 by mouth ity o f 13:51: daily. [place] [id number] Medical Branch Artificial 2020-0 Yes 1[drp] Place 1 Un royal Tear, 5-22 Drop in ity of Hypromellos 13:51: each eye 2 [place] e, 0.4 % 35 (two) Medical Drop times Branch daily. Loperamide 2020-0 Yes 30mL Take 30 mL U nivers 1 mg/7.5 mL 5-22 by mouth ity of Liqd 13:51: as needed. [place] [address] Medical Branch acetaminoph 2020-0 Yes 650mg Take 650 U nivers en 325 mg 5-22 mg by ity of tablet 13:51: mouth [place] 35 every 6 Medical (six) Branch hours as needed for Pain (scale 1-3), Pain (scale 4-6) or Temp > 38.5 C. magnesium 2020-0 Yes 30mL Take 30 mL Un royal hydroxide 5-22 by mouth ity of concentrate 13:51: once daily [place] 35 as needed Medical for Branch Constipati on. sodium 2020-0 Yes 2{spray Use 2 [facility] chloride 5-22 } Sprays in ity of (SALINE 13:51: each [place] NASAL) 0.65 35 nostril 2 Med ical % nasal (two) Branch spray times daily as needed. CHLORASEPTI 2020-0 Yes 2{spray Take 2 U nivers C, phenol 5-22 } Sprays by ity o f 1.4%, 13:51: mouth [place] mouthwash 35 every 4 Medical (four) Branch hours as needed for Sore throat. alum-mag 2020-0 Yes 30mL Take 30 mL Uni vers hydroxide-s 5-22 by mouth ity of imeth 13:51: every 6 [place] (URVASHI-LANTA 35 (six) Medical ) hours as Branch 200-200-20 needed for mg/5 mL Indigestio suspension n. guaiFENesin 2020-0 Yes 100mg Take 100 U nivers (URVASHI-TUSSI 5-22 mg by ity of N) 100 mg/5 13:51: mouth [place] mL solution 35 every 6 Medic al (six) Branch hours as needed for Cough. acetaminoph 2020-0 Yes 650mg Insert 650 [facility] en 650 mg 5-22 mg into ity of suppository 13:51: rectum [place] 35 every 6 Medical (six) Branch hours as needed for Fever. sodium 2020-0 Yes 1{enema Insert 1 Univ ers phosphates 5-22 } Enema into ity of (FLEET 13:51: rectum [place] ENEMA) 19-7 35 once daily Me dical gram/118 mL as needed [facility] enema for Constipati on. Follow package directions bethanechol 2020-0 Yes 25mg Take 25 mg [facility] (URECHOLINE 5-22 through ity o f ) 25 mg 13:51: feeding [place] tablet 35 tube 4 Medical (four) Branch times daily. PHENobarbit 2020-0 Yes 60mg Take 60 mg [facility] al 20 mg/5 5-22 through ity of mL (4 13:51: enteral [place] mg/mL) 35 tube 2 Medical elixir (two) Branch times daily. isosorbide 2020-0 Yes 10mg Take 10 mg U nivers dinitrate 5-22 through ity of (ISORDIL) 13:51: enteral [place] 10 mg 35 tube 2 Medical tablet (two) Branch times daily. metoprolol 2020-0 Yes 25mg Take 25 mg U nivers tartrate 5-22 through ity of (LOPRESSOR) 13:51: enteral [place] 25 mg 35 tube Medical tablet daily. Branch metoprolol 2020-0 Yes 50mg Take 50 mg U nivers tartrate 5-22 by mouth ity of (LOPRESSOR) 13:51: at [place] 50 mg 35 bedtime. Medical tablet Branch CALCIUM 2020-0 Yes Take [facility] CARBONATE 5-22 through ity of ORAL 13:51: feeding [place] 35 tube. Medical Branch phenytoin 2020-0 Yes 125mg Take 125 Uni vers (DILANTIN) 5-22 mg through ity of 125 mg/5 mL 13:51: enteral [place] suspension 35 tube 2 Medical (two) Branch times daily. lactulose 2020-0 Yes 30mL Take 30 mL Un royal 10 gram/15 5-22 through ity of mL (15 mL) 13:51: feeding [place] Soln 35 tube 2 Medical (two) Branch times daily. Indication s: feeding tube dextran 2020-0 Yes 1[drp] Place 1 Unive rs 70-hypromel 5-22 Drop in ity o f lose 13:51: both eyes [place] (ARTIFICIAL 35 2 (two) Medic al TEARS) times Branch ophthalmic daily. solution gabapentin 2020-0 Yes 300mg Take 300 Un royal (NEURONTIN) 5-22 mg through it y of 300 mg 13:51: feeding [place] capsule 35 tube 3 Medical (three) Branch times daily. RANITIDINE 2020-0 Yes 300mg Take 300 Un royal HCL ORAL 5-22 mg through ity o f 13:51: feeding [place] 35 tube at Medical bedtime. Branch oxybutynin 2020-0 Yes 5mg Take 5 mg Un royal chloride 5-22 through ity of (DITROPAN) 13:51: enteral [place] 5 mg tablet 35 tube at Medic al bedtime. Branch magnesium 2020-0 Yes 150mL Take 150 Uni vers citrate 5-22 mL through ity of solution 13:51: enteral [place] 35 tube at Medical bedtime. Branch bisacodyl 2020-0 Yes 10mg Insert 10 Uni vers (DULCOLAX) 5-22 mg into ity of 10 mg 13:51: rectum at [place] suppository 35 bedtime as Me dical needed. Branch acetaminoph 2020-0 Yes 500mg Take 500 U nivers en 5-22 mg through ity of (TYLENOL) 13:51: feeding [place] 100 mg/mL 35 tube every Medi radha solution 6 (six) Branch hours as needed for Fever. Indication s: For elevated temp meclizine 2020-0 Yes 12.5mg Take 12.5 U nivers (ANTIVERT) 5-22 mg through ity of 12.5 mg 13:51: enteral [place] tablet 35 tube 4 Medical (four) Branch times daily as needed. ALPRAZolam 2020-0 Yes .5mg Take 0.5 Uni vers (XANAX) 0.5 5-22 mg through it y of mg tablet 13:51: enteral [place] 35 tube 2 Medical (two) Branch times daily. ziprasidone 2020-0 Yes 20mg Take 20 mg [facility] (GEODON) 20 5-22 through ity o f mg capsule 13:51: feeding [place] 35 tube at Medical bedtime. Branch ipratropium 2020-0 Yes 1{ampul Inhale 1 Univers -albuterol 5-22 e} Ampule ity of (DUONEB) 13:51: every 6 [place] 0.5 mg-3 35 (six) Medical mg(2.5 mg hours as Branch base)/3 mL needed for nebulizer Wheezing. solution triamcinolo 2020-0 Yes 1{dose} Apply 1 [facility] ne 5-22 Dose to ity of (KENALOG) 13:51: area(s[place] as [place] 0.1 % 35 needed. Medical lotion Branch cyanocobala 2020-0 Yes 500ug 500 mcg by [facility] min, 5-22 Intramuscu ity of vitamin 13:51: lar route [place] B-12, 35 once every Medical (PHYSICIANS month. Branch EZ USE B-12) 1,000 mcg/mL injection ketoconazol 2020-0 Yes 1{dose} Apply 1 [facility] e (NIZORAL) 5-22 Dose to ity o f 2 % cream 13:51: area(s[place] as [place] 35 needed Medical (apply to Branch facial rash as needed). traMADOL 50 2020-0 Yes 50mg Take 50 mg [facility] mg tablet 5-22 by mouth ity of 13:51: every 6 [place] 35 (six) Medical hours as Branch needed. FENTanyl 25 2020-0 Yes 1{patch Apply 1 [facility] mcg/hr 5-22 } Patch to ity of patch 13:51: skin every [place] 35 72 Medical (seventy-t Branch wo) hours. HYDROcodone 2020-0 Yes 1{tbl} Take 1 Un royal -acetaminop 5-22 tablet by ity of hen 7.5-325 13:51: mouth [place] mg per 35 every 6 Medical tablet (six) Branch hours as needed for Pain. cycloSPORIN 2020-0 Yes 1[drp] Place 1 U nivers E 5-22 Drop in ity of (RESTASIS) 13:51: left eye [place] 0.05 % 35 every 12 Medical drops (twelve) Branch hours. magnesium 2020-0 Yes 400mg Take 400 Uni vers oxide 400 5-22 mg by ity of mg tablet 13:51: mouth [place] 35 daily. Medical Branch levothyroxi 2020-0 Yes 88ug Take 88 Uni vers ne 88 mcg 5-22 mcg by ity of tablet 13:51: mouth [place] 35 every Medical morning. Branch multivitami 2020-0 Yes 15mL Take 15 mL [facility] n solution 5-22 by mouth ity o f 13:51: daily. [place] [address] Medical Branch Artificial 2020-0 Yes 1[drp] Place 1 Un royal Tear, 5-22 Drop in ity of Hypromellos 13:51: each eye 2 [place] e, 0.4 % 35 (two) Medical Drop times Branch daily. Loperamide 2020-0 Yes 30mL Take 30 mL U nivers 1 mg/7.5 mL 5-22 by mouth ity of Liqd 13:51: as needed. [place] [address] Medical Branch acetaminoph 2020-0 Yes 650mg Take 650 U nivers en 325 mg 5-22 mg by ity of tablet 13:51: mouth [place] 35 every 6 Medical (six) Branch hours as needed for Pain (scale 1-3), Pain (scale 4-6) or Temp > 38.5 C. magnesium 2020-0 Yes 30mL Take 30 mL Un royal hydroxide 5-22 by mouth ity of concentrate 13:51: once daily [place] 35 as needed Medical for Branch Constipati on. sodium 2020-0 Yes 2{spray Use 2 [facility] chloride 5-22 } Sprays in ity of (SALINE 13:51: each [place] NASAL) 0.65 35 nostril 2 Med ical % nasal (two) Branch spray times daily as needed. CHLORASEPTI 2020-0 Yes 2{spray Take 2 U nivers C, phenol 5-22 } Sprays by ity o f 1.4%, 13:51: mouth [place] mouthwash 35 every 4 Medical (four) Branch hours as needed for Sore throat. alum-mag 2020-0 Yes 30mL Take 30 mL Uni vers hydroxide-s 5-22 by mouth ity of imeth 13:51: every 6 [place] (URVASHI-LANTA 35 (six) Medical ) hours as Branch 200-200-20 needed for mg/5 mL Indigestio suspension n. guaiFENesin 2020-0 Yes 100mg Take 100 U nivers (URVASHI-TUSSI 5-22 mg by ity of N) 100 mg/5 13:51: mouth [place] mL solution 35 every 6 Medic al (six) Branch hours as needed for Cough. acetaminoph 2020-0 Yes 650mg Insert 650 [facility] en 650 mg 5-22 mg into ity of suppository 13:51: rectum [place] 35 every 6 Medical (six) Branch hours as needed for Fever. sodium 2020-0 Yes 1{enema Insert 1 Univ ers phosphates 5-22 } Enema into ity of (FLEET 13:51: rectum [place] ENEMA) 19-7 35 once daily Me dical gram/118 mL as needed [facility] enema for Constipati on. Follow package directions bethanechol 2020-0 Yes 25mg Take 25 mg [facility] (URECHOLINE 5-22 through ity o f ) 25 mg 13:51: feeding [place] tablet 35 tube 4 Medical (four) Branch times daily. PHENobarbit 2020-0 Yes 60mg Take 60 mg Univers al 20 mg/5 5-22 through ity of mL (4 13:51: enteral [place] mg/mL) 35 tube 2 Medical elixir (two) Branch times daily. isosorbide 2020-0 Yes 10mg Take 10 mg U nivers dinitrate 5-22 through ity of (ISORDIL) 13:51: enteral [place] 10 mg 35 tube 2 Medical tablet (two) Branch times daily. metoprolol 2020-0 Yes 25mg Take 25 mg U nivers tartrate 5-22 through ity of (LOPRESSOR) 13:51: enteral [place] 25 mg 35 tube Medical tablet daily. Branch metoprolol 2020-0 Yes 50mg Take 50 mg U nivers tartrate 5-22 by mouth ity of (LOPRESSOR) 13:51: at [place] 50 mg 35 bedtime. Medical tablet Branch CALCIUM 2020-0 Yes Take [facility] CARBONATE 5-22 through ity of ORAL 13:51: feeding [place] 35 tube. Medical Branch phenytoin 2020-0 Yes 125mg Take 125 Uni vers (DILANTIN) 5-22 mg through ity of 125 mg/5 mL 13:51: enteral [place] suspension 35 tube 2 Medical (two) Branch times daily. lactulose 2020-0 Yes 30mL Take 30 mL Un royal 10 gram/15 5-22 through ity of mL (15 mL) 13:51: feeding [place] Soln 35 tube 2 Medical (two) Branch times daily. Indication s: feeding tube dextran 2020-0 Yes 1[drp] Place 1 Unive rs 70-hypromel 5-22 Drop in ity o f lose 13:51: both eyes [place] (ARTIFICIAL 35 2 (two) Medic al TEARS) times Branch ophthalmic daily. solution gabapentin 2020-0 Yes 300mg Take 300 Un royal (NEURONTIN) 5-22 mg through it y of 300 mg 13:51: feeding [place] capsule 35 tube 3 Medical (three) Branch times daily. RANITIDINE 2020-0 Yes 300mg Take 300 Un royal HCL ORAL 5-22 mg through ity o f 13:51: feeding [place] 35 tube at Medical bedtime. Branch oxybutynin 2020-0 Yes 5mg Take 5 mg Un [facility] chloride 5-22 through ity of (DITROPAN) 13:51: enteral [place] 5 mg tablet 35 tube at Medic al bedtime. Branch magnesium 2020-0 Yes 150mL Take 150 Uni vers citrate 5-22 mL through ity of solution 13:51: enteral [place] 35 tube at Medical bedtime. Branch bisacodyl 2020-0 Yes 10mg Insert 10 Uni vers (DULCOLAX) 5-22 mg into ity of 10 mg 13:51: rectum at [place] suppository 35 bedtime as Me dical needed. Branch acetaminoph 2020-0 Yes 500mg Take 500 U nivers en 5-22 mg through ity of (TYLENOL) 13:51: feeding [place] 100 mg/mL 35 tube every Medi radha solution 6 (six) Branch hours as needed for Fever. Indication s: For elevated temp meclizine 2020-0 Yes 12.5mg Take 12.5 [facility] n[facility] (ANTIVERT) 5-22 mg through ity of 12.5 mg 13:51: enteral [place] tablet 35 tube 4 Medical (four) Branch times daily as needed. ALPRAZolam 2020-0 Yes .5mg Take 0.5 Uni vers (XANAX) 0.5 5-22 mg through it y of mg tablet 13:51: enteral [place] 35 tube 2 Medical (two) Branch times daily. ziprasidone 2020-0 Yes 20mg Take 20 mg [facility] (GEODON) 20 5-22 through ity o f mg capsule 13:51: feeding [place] 35 tube at Medical bedtime. Branch ipratropium 2020-0 Yes 1{ampul Inhale 1 [facility] -albuterol 5-22 e} Ampule ity of (DUONEB) 13:51: every 6 [place] 0.5 mg-3 35 (six) Medical mg(2.5 mg hours as Branch base)/3 mL needed for nebulizer Wheezing. solution triamcinolo 2020-0 Yes 1{dose} Apply 1 [facility] ne 5-22 Dose to ity of (KENALOG) 13:51: area(s[place] 0.1 % 35 needed. Medical lotion Branch cyanocobala 2020-0 Yes 500ug 500 mcg by [facility] min, 5-22 Intramuscu ity of vitamin 13:51: lar route [place] B-12, 35 once every Medical (PHYSICIANS month. Branch EZ USE B-12) 1,000 mcg/mL injection ketoconazol 2020-0 Yes 1{dose} Apply 1 [facility] e (NIZORAL) 5-22 Dose to ity o f 2 % cream 13:51: area(s[place] 35 needed Medical (apply to Branch facial rash as needed). traMADOL 50 2020-0 Yes 50mg Take 50 mg [facility] mg tablet 5-22 by mouth ity of 13:51: every 6 [place] 35 (six) Medical hours as Branch needed. FENTanyl 25 2020-0 Yes 1{patch Apply 1 [facility] mcg/hr 5-22 } Patch to ity of patch 13:51: skin every [place] 35 72 Medical (seventy-t Branch wo) hours. HYDROcodone 2020-0 Yes 1{tbl} Take 1 Un royal -acetaminop 5-22 tablet by ity of hen 7.5-325 13:51: mouth [place] mg per 35 every 6 Medical tablet (six) Branch hours as needed for Pain. cycloSPORIN 2020-0 Yes 1[drp] Place 1 [facility] nivers E 5-22 Drop in ity of (RESTASIS) 13:51: left eye [place] 0.05 % 35 every 12 Medical drops (twelve) Branch hours. magnesium 2020-0 Yes 400mg Take 400 Uni vers oxide 400 5-22 mg by ity of mg tablet 13:51: mouth [place] 35 daily. Medical Branch levothyroxi 2019-0 Yes 88ug Take 88 Uni vers ne 88 mcg 5-22 mcg by ity of tablet 13:51: mouth [place] 35 every Medical morning. Branch multivitami 2019-0 Yes 15mL Take 15 mL [facility] n solution 5-22 by mouth ity o f 13:51: daily. [place] [address] Medical Branch Artificial 2020-0 Yes 1[drp] Place 1 Un royal Tear, 5-22 Drop in ity of Hypromellos 13:51: each eye 2 [place] e, 0.4 % 35 (two) Medical Drop times Branch daily. Loperamide 2020-0 Yes 30mL Take 30 mL [facility] nivers 1 mg/7.5 mL 5-22 by mouth ity of Liqd 13:51: as needed. [place] [address] Medical Branch acetaminoph 2020-0 Yes 650mg Take 650 U nivers en 325 mg 5-22 mg by ity of tablet 13:51: mouth [place] 35 every 6 Medical (six) Branch hours as needed for Pain (scale 1-3), Pain (scale 4-6) or Temp > 38.5 C. magnesium 2020-0 Yes 30mL Take 30 mL [facility] hydroxide 5-22 by mouth ity of concentrate 13:51: once daily [place] [address] as needed Medical for Branch Constipati on. sodium 2020-0 Yes 2{spray Use 2 [facility] chloride 5-22 } Sprays in ity of (SALINE 13:51: each [place] NASAL) 0.65 35 nostril 2 Med ical % nasal (two) Branch spray times daily as needed. CHLORASEPTI 2020-0 Yes 2{spray Take 2 [facility] nivers C, phenol 5-22 } Sprays by ity o f 1.4%, 13:51: mouth [place] mouthwash 35 every 4 Medical (four) Branch hours as needed for Sore throat. alum-mag 2020-0 Yes 30mL Take 30 mL [facility] vers hydroxide-s 5-22 by mouth ity of imeth 13:51: every 6 [place] (URVASHI-LANTA 35 (six) Medical ) hours as Branch 200-200-20 needed for mg/5 mL Indigestio suspension n. guaiFENesin 2020-0 Yes 100mg Take 100 U nivers (URVASHI-TUSSI 5-22 mg by ity of N) 100 mg/5 13:51: mouth [place] mL solution 35 every 6 Medic al (six) Branch hours as needed for Cough. acetaminoph 2020-0 Yes 650mg Insert 650 [facility] en 650 mg 5-22 mg into ity of suppository 13:51: rectum [place] 35 every 6 Medical (six) Branch hours as needed for Fever. sodium 2020-0 Yes 1{enema Insert 1 [facility] ers phosphates 5-22 } Enema into ity of (FLEET 13:51: rectum [place] ENEMA) 19-7 35 once daily Me dical gram/118 mL as needed [facility] enema for Constipati on. Follow package directions bethanechol 2020-0 Yes 25mg Take 25 mg [facility] (URECHOLINE 5-22 through ity o f ) 25 mg 13:51: feeding [place] tablet 35 tube 4 Medical (four) Branch times daily. PHENobarbit 2020-0 Yes 60mg Take 60 mg [facility] al 20 mg/5 5-22 through ity of mL (4 13:51: enteral [place] mg/mL) 35 tube 2 Medical elixir (two) Branch times daily. isosorbide 2020-0 Yes 10mg Take 10 mg [facility] nivers dinitrate 5-22 through ity of (ISORDIL) 13:51: enteral [place] 10 mg 35 tube 2 Medical tablet (two) Branch times daily. metoprolol 2020-0 Yes 25mg Take 25 mg [facility] nivers tartrate 5-22 through ity of (LOPRESSOR) 13:51: enteral [place] 25 mg 35 tube Medical tablet daily. Branch metoprolol 2020-0 Yes 50mg Take 50 mg [facility] nivers tartrate 5-22 by mouth ity of (LOPRESSOR) 13:51: at [place] 50 mg 35 bedtime. Medical tablet Branch CALCIUM 2020-0 Yes Take [facility] CARBONATE 5-22 through ity of ORAL 13:51: feeding [place] 35 tube. Medical Branch phenytoin 2020-0 Yes 125mg Take 125 [facility] vers (DILANTIN) 5-22 mg through ity of 125 mg/5 mL 13:51: enteral [place] 35 tube 2 Medical (two) Branch times daily. lactulose 2020-0 Yes 30mL Take 30 mL [facility] royal 10 gram/15 5-22 through ity of mL (15 mL) 13:51: feeding [place] Soln 35 tube 2 Medical (two) Branch times daily. Indication s: feeding tube dextran 2020-0 Yes 1[drp] Place 1 Unive rs 70-hypromel 5-22 Drop in ity o f lose 13:51: both eyes [place] (ARTIFICIAL 35 2 (two) Medic al TEARS) times Branch ophthalmic daily. solution gabapentin 2020-0 Yes 300mg Take 300 [facility] royal (NEURONTIN) 5-22 mg through it y of 300 mg 13:51: feeding [place] capsule 35 tube 3 Medical (three) Branch times daily. RANITIDINE 2020-0 Yes 300mg Take 300 Un royal HCL ORAL 5-22 mg through ity o f 13:51: feeding [place] 35 tube at Medical bedtime. Branch oxybutynin 2020-0 Yes 5mg Take 5 mg [facility] chloride 5-22 through ity of (DITROPAN) 13:51: enteral [place] 5 mg tablet 35 tube at Medic al bedtime. Branch magnesium 2020-0 Yes 150mL Take 150 Uni vers citrate 5-22 mL through ity of solution 13:51: enteral [place] 35 tube at Medical bedtime. Branch bisacodyl 2020-0 Yes 10mg Insert 10 [facility] vers (DULCOLAX) 5-22 mg into ity of 10 mg 13:51: rectum at [place] suppository 35 bedtime as Me dical needed. Branch acetaminoph 2020-0 Yes 500mg Take 500 U nivers en 5-22 mg through ity of (TYLENOL) 13:51: feeding [place] 100 mg/mL 35 tube every Medi radha solution 6 (six) Branch hours as needed for Fever. Indication s: For elevated temp meclizine 2020-0 Yes 12.5mg Take 12.5 [facility] nivers (ANTIVERT) 5-22 mg through ity of 12.5 mg 13:51: enteral [place] tablet 35 tube 4 Medical (four) Branch times daily as needed. ALPRAZolam 2020-0 Yes .5mg Take 0.5 [facility] vers (XANAX) 0.5 5-22 mg through it y of mg tablet 13:51: enteral [place] 35 tube 2 Medical (two) Branch times daily. ziprasidone 2020-0 Yes 20mg Take 20 mg [facility] (GEODON) 20 5-22 through ity o f mg capsule 13:51: feeding [place] 35 tube at Medical bedtime. Branch ipratropium 2019-0 Yes 1{ampul Inhale 1 [facility] -albuterol 5-22 e} Ampule ity of (DUONEB) 13:51: every 6 [place] 0.5 mg-3 35 (six) Medical mg(2.5 mg hours as Branch base)/3 mL needed for nebulizer Wheezing. solution triamcinolo 2019-0 Yes 1{dose} Apply 1 [facility] ne 5-22 Dose to ity of (KENALOG) 13:51: area(s[place] as [place] 0.1 % 35 needed. Medical lotion Branch cyanocobala 2019-0 Yes 500ug 500 mcg by [facility] min, 5-22 Intramuscu ity of vitamin 13:51: lar route [place] B-12, 35 once every Medical (PHYSICIANS month. Branch EZ USE B-12) 1,000 mcg/mL injection ketoconazol 2020-0 Yes 1{dose} Apply 1 [facility] e (NIZORAL) 5-22 Dose to ity o f 2 % cream 13:51: area(s[place] as [place] 35 needed Medical (apply to Branch facial rash as needed). traMADOL 50 2020-0 Yes 50mg Take 50 mg [facility] mg tablet 5-22 by mouth ity of 13:51: every 6 [place] 35 (six) Medical hours as Branch needed. FENTanyl 25 2020-0 Yes 1{patch Apply 1 [facility] mcg/hr 5-22 } Patch to ity of patch 13:51: skin every [place] 35 72 Medical (seventy-t Branch wo) hours. HYDROcodone 2020-0 Yes 1{tbl} Take 1 Un royal -acetaminop 5-22 tablet by ity of hen 7.5-325 13:51: mouth [place] mg per 35 every 6 Medical tablet (six) Branch hours as needed for Pain. cycloSPORIN 2020-0 Yes 1[drp] Place 1 U nivers E 5-22 Drop in ity of (RESTASIS) 13:51: left eye [place] 0.05 % 35 every 12 Medical drops (twelve) Branch hours. magnesium 2020-0 Yes 400mg Take 400 Uni vers oxide 400 5-22 mg by ity of mg tablet 13:51: mouth [place] 35 daily. Medical Branch levothyroxi 2020-0 Yes 88ug Take 88 Uni vers ne 88 mcg 5-22 mcg by ity of tablet 13:51: mouth [place] 35 every Medical morning. Branch multivitami 2020-0 Yes 15mL Take 15 mL [facility] n solution 5-22 by mouth ity o f 13:51: daily. [place] [address] Medical Branch Artificial 2020-0 Yes 1[drp] Place 1 Un royal Tear, 5-22 Drop in ity of Hypromellos 13:51: each eye 2 [place] e, 0.4 % 35 (two) Medical Drop times Branch daily. Loperamide 2020-0 Yes 30mL Take 30 mL U nivers 1 mg/7.5 mL 5-22 by mouth ity of Liqd 13:51: as needed. [address] Branch acetaminoph 2020-0 Yes 650mg Take 650 U nivers en 325 mg 5-22 mg by ity of tablet 13:51: mouth [place] 35 every 6 Medical (six) Branch hours as needed for Pain (scale 1-3), Pain (scale 4-6) or Temp > 38.5 C. magnesium 2020-0 Yes 30mL Take 30 mL Un royal hydroxide 5-22 by mouth ity of concentrate 13:51: once daily [place] [address] as needed Medical for Branch Constipati on. sodium 2020-0 Yes 2{spray Use 2 [facility] chloride 5-22 } Sprays in ity of (SALINE 13:51: each [place] NASAL) 0.65 35 nostril 2 Med ical % nasal (two) Branch spray times daily as needed. CHLORASEPTI 2020-0 Yes 2{spray Take 2 U nivers C, phenol 5-22 } Sprays by ity o f 1.4%, 13:51: mouth [place] mouthwash 35 every 4 Medical (four) Branch hours as needed for Sore throat. alum-mag 2020-0 Yes 30mL Take 30 mL Uni vers hydroxide-s 5-22 by mouth ity of imeth 13:51: every 6 [place] (URVASHI-LANTA 35 (six) Medical ) hours as Branch 200-200-20 needed for mg/5 mL Indigestio suspension n. guaiFENesin 2020-0 Yes 100mg Take 100 U nivers (URVASHI-TUSSI 5-22 mg by ity of N) 100 mg/5 13:51: mouth [place] mL solution 35 every 6 Medic al (six) Branch hours as needed for Cough. acetaminoph 2020-0 Yes 650mg Insert 650 [facility] en 650 mg 5-22 mg into ity of suppository 13:51: rectum [place] 35 every 6 Medical (six) Branch hours as needed for Fever. sodium 2020-0 Yes 1{enema Insert 1 Univ ers phosphates 5-22 } Enema into ity of (FLEET 13:51: rectum [place] ENEMA) 19-7 35 once daily Me dical gram/118 mL as needed [facility] enema for Constipati on. Follow package directions bethanechol 2020-0 Yes 25mg Take 25 mg [facility] (URECHOLINE 5-22 through ity o f ) 25 mg 13:51: feeding [place] tablet 35 tube 4 Medical (four) Branch times daily. PHENobarbit 2020-0 Yes 60mg Take 60 mg [facility] al 20 mg/5 5-22 through ity of mL (4 13:51: enteral [place] mg/mL) 35 tube 2 Medical elixir (two) Branch times daily. isosorbide 2020-0 Yes 10mg Take 10 mg U nivers dinitrate 5-22 through ity of (ISORDIL) 13:51: enteral [place] 10 mg 35 tube 2 Medical tablet (two) Branch times daily. metoprolol 2020-0 Yes 25mg Take 25 mg U nivers tartrate 5-22 through ity of (LOPRESSOR) 13:51: enteral [place] 25 mg 35 tube Medical tablet daily. Branch metoprolol 2020-0 Yes 50mg Take 50 mg U nivers tartrate 5-22 by mouth ity of (LOPRESSOR) 13:51: at [place] 50 mg 35 bedtime. Medical tablet Branch CALCIUM 2020-0 Yes Take [facility] CARBONATE 5-22 through ity of ORAL 13:51: feeding [place] 35 tube. Medical Branch phenytoin 2020-0 Yes 125mg Take 125 Uni vers (DILANTIN) 5-22 mg through ity of 125 mg/5 mL 13:51: enteral [place] 35 tube 2 Medical (two) Branch times daily. lactulose 2020-0 Yes 30mL Take 30 mL Un royal 10 gram/15 5-22 through ity of mL (15 mL) 13:51: feeding [place] Soln 35 tube 2 Medical (two) Branch times daily. Indication s: feeding tube dextran 2020-0 Yes 1[drp] Place 1 Unive rs 70-hypromel 5-22 Drop in ity o f lose 13:51: both eyes [place] (ARTIFICIAL 35 2 (two) Medic al TEARS) times Branch ophthalmic daily. solution gabapentin 2020-0 Yes 300mg Take 300 Un royal (NEURONTIN) 5-22 mg through it y of 300 mg 13:51: feeding [place] capsule 35 tube 3 Medical (three) Branch times daily. RANITIDINE 2020-0 Yes 300mg Take 300 Un royal HCL ORAL 5-22 mg through ity o f 13:51: feeding [place] 35 tube at Medical bedtime. Branch oxybutynin 2020-0 Yes 5mg Take 5 mg Un royal chloride 5-22 through ity of (DITROPAN) 13:51: enteral [place] 5 mg tablet 35 tube at Medic al bedtime. Branch magnesium 2020-0 Yes 150mL Take 150 Uni vers citrate 5-22 mL through ity of solution 13:51: enteral [place] 35 tube at Medical bedtime. Branch bisacodyl 2020-0 Yes 10mg Insert 10 Uni vers (DULCOLAX) 5-22 mg into ity of 10 mg 13:51: rectum at [place] suppository 35 bedtime as Me dical needed. Branch acetaminoph 2020-0 Yes 500mg Take 500 U nivers en 5-22 mg through ity of (TYLENOL) 13:51: feeding [place] 100 mg/mL 35 tube every Medi radha solution 6 (six) Branch hours as needed for Fever. Indication s: For elevated temp meclizine 2020-0 Yes 12.5mg Take 12.5 U nivers (ANTIVERT) 5-22 mg through ity of 12.5 mg 13:51: enteral [place] tablet 35 tube 4 Medical (four) Branch times daily as needed. ALPRAZolam 2020-0 Yes .5mg Take 0.5 Uni vers (XANAX) 0.5 5-22 mg through it y of mg tablet 13:51: enteral [place] 35 tube 2 Medical (two) Branch times daily. ziprasidone 2020-0 Yes 20mg Take 20 mg [facility] (GEODON) 20 5-22 through ity o f mg capsule 13:51: feeding [place] 35 tube at Medical bedtime. Branch ipratropium 2019-0 Yes 1{ampul Inhale 1 [facility] -albuterol 5-22 e} Ampule ity of (DUONEB) 13:51: every 6 [place] 0.5 mg-3 35 (six) Medical mg(2.5 mg hours as Branch base)/3 mL needed for nebulizer Wheezing. solution triamcinolo 2019-0 Yes 1{dose} Apply 1 [facility] ne 5-22 Dose to ity of (KENALOG) 13:51: area(s[place] 0.1 % 35 needed. Medical lotion Branch cyanocobala 2019-0 Yes 500ug 500 mcg by [facility] min, 5-22 Intramuscu ity of vitamin 13:51: lar route [place] B-12, 35 once every Medical (PHYSICIANS month. Branch EZ USE B-12) 1,000 mcg/mL injection ketoconazol 2019-0 Yes 1{dose} Apply 1 [facility] e (NIZORAL) 5-22 Dose to ity o f 2 % cream 13:51: area(s[place] as [place] 35 needed Medical (apply to Branch facial rash as needed). traMADOL 50 2020-0 Yes 50mg Take 50 mg [facility] mg tablet 5-22 by mouth ity of 13:51: every 6 [place] 35 (six) Medical hours as Branch needed. FENTanyl 25 2020-0 Yes 1{patch Apply 1 [facility] mcg/hr 5-22 } Patch to ity of patch 13:51: skin every [place] 35 72 Medical (seventy-t Branch wo) hours. HYDROcodone 2020-0 Yes 1{tbl} Take 1 Un royal -acetaminop 5-22 tablet by ity of hen 7.5-325 13:51: mouth [place] mg per 35 every 6 Medical tablet (six) Branch hours as needed for Pain. cycloSPORIN 2020-0 Yes 1[drp] Place 1 U nivers E 5-22 Drop in ity of (RESTASIS) 13:51: left eye [place] 0.05 % 35 every 12 Medical drops (twelve) Branch hours. magnesium 2020-0 Yes 400mg Take 400 Uni vers oxide 400 5-22 mg by ity of mg tablet 13:51: mouth [place] 35 daily. Medical Branch levothyroxi 2020-0 Yes 88ug Take 88 Uni vers ne 88 mcg 5-22 mcg by ity of tablet 13:51: mouth [place] 35 every Medical morning. Branch multivitami 2020-0 Yes 15mL Take 15 mL [facility] n solution 5-22 by mouth ity o f 13:51: daily. [place] [address] Medical Branch Artificial 2020-0 Yes 1[drp] Place 1 Un royal Tear, 5-22 Drop in ity of Hypromellos 13:51: each eye 2 [place] e, 0.4 % 35 (two) Medical Drop times Branch daily. Loperamide 2020-0 Yes 30mL Take 30 mL U nivers 1 mg/7.5 mL 5-22 by mouth ity of Liqd 13:51: as needed. [place] [address] Medical Branch acetaminoph 2020-0 Yes 650mg Take 650 U nivers en 325 mg 5-22 mg by ity of tablet 13:51: mouth [place] 35 every 6 Medical (six) Branch hours as needed for Pain (scale 1-3), Pain (scale 4-6) or Temp > 38.5 C. magnesium 2020-0 Yes 30mL Take 30 mL Un royal hydroxide 5-22 by mouth ity of concentrate 13:51: once daily [place] 35 as needed Medical for Branch Constipati on. sodium 2020-0 Yes 2{spray Use 2 [facility] chloride 5-22 } Sprays in ity of (SALINE 13:51: each [place] NASAL) 0.65 35 nostril 2 Med ical % nasal (two) Branch spray times daily as needed. CHLORASEPTI 2020-0 Yes 2{spray Take 2 U nivers C, phenol 5-22 } Sprays by ity o f 1.4%, 13:51: mouth [place] mouthwash 35 every 4 Medical (four) Branch hours as needed for Sore throat. alum-mag 2020-0 Yes 30mL Take 30 mL Uni vers hydroxide-s 5-22 by mouth ity of imeth 13:51: every 6 [place] (URVASHI-LANTA 35 (six) Medical ) hours as Branch 200-200-20 needed for mg/5 mL Indigestio suspension n. guaiFENesin 2020-0 Yes 100mg Take 100 U nivers (URVASHI-TUSSI 5-22 mg by ity of N) 100 mg/5 13:51: mouth [place] mL solution 35 every 6 Medic al (six) Branch hours as needed for Cough. acetaminoph 2020-0 Yes 650mg Insert 650 [facility] en 650 mg 5-22 mg into ity of suppository 13:51: rectum [place] 35 every 6 Medical (six) Branch hours as needed for Fever. sodium 2020-0 Yes 1{enema Insert 1 Univ ers phosphates 5-22 } Enema into ity of (FLEET 13:51: rectum [place] ENEMA) 19-7 35 once daily Me dical gram/118 mL as needed [facility] enema for Constipati on. Follow package directions bethanechol 2020-0 Yes 25mg Take 25 mg [facility] (URECHOLINE 5-22 through ity o f ) 25 mg 13:51: feeding [place] tablet 35 tube 4 Medical (four) Branch times daily. PHENobarbit 2020-0 Yes 60mg Take 60 mg [facility] al 20 mg/5 5-22 through ity of mL (4 13:51: enteral [place] mg/mL) 35 tube 2 Medical elixir (two) Branch times daily. isosorbide 2020-0 Yes 10mg Take 10 mg U nivers dinitrate 5-22 through ity of (ISORDIL) 13:51: enteral [place] 10 mg 35 tube 2 Medical tablet (two) Branch times daily. metoprolol 2020-0 Yes 25mg Take 25 mg U nivers tartrate 5-22 through ity of (LOPRESSOR) 13:51: enteral [place] 25 mg 35 tube Medical tablet daily. Branch metoprolol 2020-0 Yes 50mg Take 50 mg U nivers tartrate 5-22 by mouth ity of (LOPRESSOR) 13:51: at [place] 50 mg 35 bedtime. Medical tablet Branch CALCIUM 2020-0 Yes Take [facility] CARBONATE 5-22 through ity of ORAL 13:51: feeding [place] 35 tube. Medical Branch phenytoin 2020-0 Yes 125mg Take 125 Uni vers (DILANTIN) 5-22 mg through ity of 125 mg/5 mL 13:51: enteral [place] suspension 35 tube 2 Medical (two) Branch times daily. lactulose 2020-0 Yes 30mL Take 30 mL Un royal 10 gram/15 5-22 through ity of mL (15 mL) 13:51: feeding [place] Soln 35 tube 2 Medical (two) Branch times daily. Indication s: feeding tube dextran 2020-0 Yes 1[drp] Place 1 Unive rs 70-hypromel 5-22 Drop in ity o f lose 13:51: both eyes [place] (ARTIFICIAL 35 2 (two) Medic al TEARS) times Branch ophthalmic daily. solution gabapentin 2020-0 Yes 300mg Take 300 Un royal (NEURONTIN) 5-22 mg through it y of 300 mg 13:51: feeding [place] capsule 35 tube 3 Medical (three) Branch times daily. RANITIDINE 2020-0 Yes 300mg Take 300 Un royal HCL ORAL 5-22 mg through ity o f 13:51: feeding [place] 35 tube at Medical bedtime. Branch oxybutynin 2020-0 Yes 5mg Take 5 mg Un [facility] chloride 5-22 through ity of (DITROPAN) 13:51: enteral [place] 5 mg tablet 35 tube at Medic al bedtime. Branch magnesium 2020-0 Yes 150mL Take 150 Uni vers citrate 5-22 mL through ity of solution 13:51: enteral [place] 35 tube at Medical bedtime. Branch bisacodyl 2020-0 Yes 10mg Insert 10 Uni vers (DULCOLAX) 5-22 mg into ity of 10 mg 13:51: rectum at [place] suppository 35 bedtime as Me dical needed. Branch acetaminoph 2020-0 Yes 500mg Take 500 U nivers en 5-22 mg through ity of (TYLENOL) 13:51: feeding [place] 100 mg/mL 35 tube every Medi radha solution 6 (six) Branch hours as needed for Fever. Indication s: For elevated temp meclizine 2020-0 Yes 12.5mg Take 12.5 U nivers (ANTIVERT) 5-22 mg through ity of 12.5 mg 13:51: enteral [place] tablet 35 tube 4 Medical (four) Branch times daily as needed. ALPRAZolam 2020-0 Yes .5mg Take 0.5 Uni vers (XANAX) 0.5 5-22 mg through it y of mg tablet 13:51: enteral [place] 35 tube 2 Medical (two) Branch times daily. ziprasidone 2020-0 Yes 20mg Take 20 mg [facility] (GEODON) 20 5-22 through ity o f mg capsule 13:51: feeding [place] 35 tube at Medical bedtime. Branch ipratropium 2020-0 Yes 1{ampul Inhale 1 [facility] -albuterol 5-22 e} Ampule ity of (DUONEB) 13:51: every 6 [place] 0.5 mg-3 35 (six) Medical mg(2.5 mg hours as Branch base)/3 mL needed for nebulizer Wheezing. solution triamcinolo 2020-0 Yes 1{dose} Apply 1 [facility] ne 5-22 Dose to ity of (KENALOG) 13:51: area[place] 0.1 % 35 needed. Medical lotion Branch cyanocobala 2020-0 Yes 500ug 500 mcg by [facility] min, 5-22 Intramuscu ity of vitamin 13:51: lar route [place] B-12, 35 once every Medical (PHYSICIANS month. Branch EZ USE B-12) 1,000 mcg/mL injection ketoconazol 2020-0 Yes 1{dose} Apply 1 [facility] e (NIZORAL) 5-22 Dose to ity o f 2 % cream 13:51: area[place] 35 needed Medical (apply to Branch facial rash as needed). traMADOL 50 2020-0 Yes 50mg Take 50 mg [facility] mg tablet 5-22 by mouth ity of 13:51: every 6 [place] 35 (six) Medical hours as Branch needed. FENTanyl 25 2020-0 Yes 1{patch Apply 1 [facility] mcg/hr 5-22 } Patch to ity of patch 13:51: skin every [place] 35 72 Medical (seventy-t Branch wo) hours. HYDROcodone 2020-0 Yes 1{tbl} Take 1 Un royal -acetaminop 5-22 tablet by ity of hen 7.5-325 13:51: mouth [place] mg per 35 every 6 Medical tablet (six) Branch hours as needed for Pain. cycloSPORIN 2020-0 Yes 1[drp] Place 1 U nivers E 5-22 Drop in ity of (RESTASIS) 13:51: left eye [place] 0.05 % 35 every 12 Medical drops (twelve) Branch hours. magnesium 2020-0 Yes 400mg Take 400 Uni vers oxide 400 5-22 mg by ity of mg tablet 13:51: mouth [place] 35 daily. Medical Branch levothyroxi 2020-0 Yes 88ug Take 88 Uni vers ne 88 mcg 5-22 mcg by ity of tablet 13:51: mouth [place] 35 every Medical morning. Branch multivitami 2020-0 Yes 15mL Take 15 mL [facility] n solution 5-22 by mouth ity o f 13:51: daily. [place] [address] Medical Branch Artificial 2020-0 Yes 1[drp] Place 1 Un royal Tear, 5-22 Drop in ity of Hypromellos 13:51: each eye 2 [place] e, 0.4 % 35 (two) Medical Drop times Branch daily. Loperamide 2020-0 Yes 30mL Take 30 mL U nivers 1 mg/7.5 mL 5-22 by mouth ity of Liqd 13:51: as needed. [place] [address] Medical Branch acetaminoph 2020-0 Yes 650mg Take 650 U nivers en 325 mg 5-22 mg by ity of tablet 13:51: mouth [place] 35 every 6 Medical (six) Branch hours as needed for Pain (scale 1-3), Pain (scale 4-6) or Temp > 38.5 C. magnesium 2020-0 Yes 30mL Take 30 mL Un royal hydroxide 5-22 by mouth ity of concentrate 13:51: once daily [place] 35 as needed Medical for Branch Constipati on. sodium 2020-0 Yes 2{spray Use 2 [facility] chloride 5-22 } Sprays in ity of (SALINE 13:51: each [place] NASAL) 0.65 35 nostril 2 Med ical % nasal (two) Branch spray times daily as needed. CHLORASEPTI 2020-0 Yes 2{spray Take 2 U nivers C, phenol 5-22 } Sprays by ity o f 1.4%, 13:51: mouth [place] mouthwash 35 every 4 Medical (four) Branch hours as needed for Sore throat. alum-mag 2020-0 Yes 30mL Take 30 mL Uni vers hydroxide-s 5-22 by mouth ity of imeth 13:51: every 6 [place] (URVASHI-LANTA 35 (six) Medical ) hours as Branch 200-200-20 needed for mg/5 mL Indigestio suspension n. guaiFENesin 2020-0 Yes 100mg Take 100 U nivers (URVASHI-TUSSI 5-22 mg by ity of N) 100 mg/5 13:51: mouth [place] mL solution 35 every 6 Medic al (six) Branch hours as needed for Cough. acetaminoph 2020-0 Yes 650mg Insert 650 [facility] en 650 mg 5-22 mg into ity of suppository 13:51: rectum [place] 35 every 6 Medical (six) Branch hours as needed for Fever. sodium 2020-0 Yes 1{enema Insert 1 Univ ers phosphates 5-22 } Enema into ity of (FLEET 13:51: rectum [place] ENEMA) 19-7 35 once daily Me dical gram/118 mL as needed [facility] enema for Constipati on. Follow package directions bethanechol 2020-0 Yes 25mg Take 25 mg [facility] (URECHOLINE 5-22 through ity o f ) 25 mg 13:51: feeding [place] tablet 35 tube 4 Medical (four) Branch times daily. PHENobarbit 2020-0 Yes 60mg Take 60 mg [facility] al 20 mg/5 5-22 through ity of mL (4 13:51: enteral [place] mg/mL) 35 tube 2 Medical elixir (two) Branch times daily. isosorbide 2020-0 Yes 10mg Take 10 mg U nivers dinitrate 5-22 through ity of (ISORDIL) 13:51: enteral [place] 10 mg 35 tube 2 Medical tablet (two) Branch times daily. metoprolol 2020-0 Yes 25mg Take 25 mg U nivers tartrate 5-22 through ity of (LOPRESSOR) 13:51: enteral [place] 25 mg 35 tube Medical tablet daily. Branch metoprolol 2020-0 Yes 50mg Take 50 mg U nivers tartrate 5-22 by mouth ity of (LOPRESSOR) 13:51: at [place] 50 mg 35 bedtime. Medical tablet Branch CALCIUM 2020-0 Yes Take Univers CARBONATE 5-22 through ity of ORAL 13:51: feeding [place] 35 tube. Medical Branch phenytoin 2020-0 Yes 125mg Take 125 Uni vers (DILANTIN) 5-22 mg through ity of 125 mg/5 mL 13:51: enteral [place] 35 tube 2 Medical (two) Branch times daily. lactulose 2020-0 Yes 30mL Take 30 mL Un royal 10 gram/15 5-22 through ity of mL (15 mL) 13:51: feeding [place] Sol[place] 35 tube 2 Medical (two) Branch times daily. Indication s: feeding tube dextran 2020-0 Yes 1[drp] Place 1 Unive rs 70-hypromel 5-22 Drop in ity o f lose 13:51: both eyes [place] (ARTIFICIAL 35 2 (two) Medic al TEARS) times Branch ophthalmic daily. solution gabapentin 2020-0 Yes 300mg Take 300 Un royal (NEURONTIN) 5-22 mg through it y of 300 mg 13:51: feeding [place] capsule 35 tube 3 Medical (three) Branch times daily. RANITIDINE 2020-0 Yes 300mg Take 300 Un royal HCL ORAL 5-22 mg through ity o f 13:51: feeding [place] 35 tube at Medical bedtime. Branch oxybutynin 2020-0 Yes 5mg Take 5 mg Un [place] chloride 5-22 through ity of (DITROPAN) 13:51: enteral [place] 5 mg tablet 35 tube at Medic al bedtime. Branch magnesium 2020-0 Yes 150mL Take 150 Uni vers citrate 5-22 mL through ity of solution 13:51: enteral [place] 35 tube at Medical bedtime. Branch bisacodyl 2020-0 Yes 10mg Insert 10 Uni vers (DULCOLAX) 5-22 mg into ity of 10 mg 13:51: rectum at [place] suppository 35 bedtime as Me dical needed. Branch acetaminoph 2020-0 Yes 500mg Take 500 U nivers en 5-22 mg through ity of (TYLENOL) 13:51: feeding [place] 100 mg/mL 35 tube every Medi radha solution 6 (six) Branch hours as needed for Fever. Indication s: For elevated temp meclizine 2020-0 Yes 12.5mg Take 12.5 U nivers (ANTIVERT) 5-22 mg through ity of 12.5 mg 13:51: enteral [place] tablet 35 tube 4 Medical (four) Branch times daily as needed. ALPRAZolam 2020-0 Yes .5mg Take 0.5 Uni vers (XANAX) 0.5 5-22 mg through it y of mg tablet 13:51: enteral [place] 35 tube 2 Medical (two) Branch times daily. ziprasidone 2020-0 Yes 20mg Take 20 mg Univers (GEODON) 20 5-22 through ity o f mg capsule 13:51: feeding [place] 35 tube at Medical bedtime. Branch ipratropium 2020-0 Yes 1{ampul Inhale 1 Univers -albuterol 5-22 e} Ampule ity of (DUONEB) 13:51: every 6 [place] 0.5 mg-3 35 (six) Medical mg(2.5 mg hours as Branch base)/3 mL needed for nebulizer Wheezing. solution triamcinolo 2020-0 Yes 1{dose} Apply 1 Univers ne 5-22 Dose to ity of (KENALOG) 13:51: [place] 0.1 % 35 needed. Medical lotion Branch cyanocobala 2020-0 Yes 500ug 500 mcg by Univers min, 5-22 Intramuscu ity of vitamin 13:51: lar route [place] B-12, 35 once every Medical (PHYSICIANS month. Branch EZ USE B-12) 1,000 mcg/mL injection ketoconazol 2020-0 Yes 1{dose} Apply 1 Univers e (NIZORAL) 5-22 Dose to ity o f 2 % cream 13:51: area[place] 35 needed Medical (apply to Branch facial rash as needed). traMADOL 50 2020-0 Yes 50mg Take 50 mg [facility] mg tablet 5-22 by mouth ity of 13:51: every 6 [place] 35 (six) Medical hours as Branch needed. FENTanyl 25 2020-0 Yes 1{patch Apply 1 Univers mcg/hr 5-22 } Patch to ity of patch 13:51: skin every [place] 35 72 Medical (seventy-t Branch wo) hours. HYDROcodone 2020-0 Yes 1{tbl} Take 1 Un royal -acetaminop 5-22 tablet by ity of hen 7.5-325 13:51: mouth [place] mg per 35 every 6 Medical tablet (six) Branch hours as needed for Pain. cycloSPORIN 2020-0 Yes 1[drp] Place 1 U nivers E 5-22 Drop in ity of (RESTASIS) 13:51: left eye [place] 0.05 % 35 every 12 Medical drops (twelve) Branch hours. magnesium 2020-0 Yes 400mg Take 400 Uni vers oxide 400 5-22 mg by ity of mg tablet 13:51: mouth [place] 35 daily. Medical Branch levothyroxi 2020-0 Yes 88ug Take 88 Uni vers ne 88 mcg 5-22 mcg by ity of tablet 13:51: mouth [place] 35 every Medical morning. Branch multivitami 2020-0 Yes 15mL Take 15 mL Univers n solution 5-22 by mouth ity o f 13:51: daily. [place] [address] Medical Branch Artificial 2020-0 Yes 1[drp] Place 1 Un royal Tear, 5-22 Drop in ity of Hypromellos 13:51: each eye 2 [place] e, 0.4 % 35 (two) Medical Drop times Branch daily. Loperamide 2020-0 Yes 30mL Take 30 mL U nivers 1 mg/7.5 mL 5-22 by mouth ity of Liqd 13:51: as needed. [place] [address] Medical Branch acetaminoph 2020-0 Yes 650mg Take 650 U nivers en 325 mg 5-22 mg by ity of tablet 13:51: mouth [place] 35 every 6 Medical (six) Branch hours as needed for Pain (scale 1-3), Pain (scale 4-6) or Temp > 38.5 C. magnesium 2020-0 Yes 30mL Take 30 mL Un royal hydroxide 5-22 by mouth ity of concentrate 13:51: once daily [place] 35 as needed Medical for Branch Constipati on. sodium 2020-0 Yes 2{spray Use 2 Univers chloride 5-22 } Sprays in ity of (SALINE 13:51: each [place] NASAL) 0.65 35 nostril 2 Med ical % nasal (two) Branch spray times daily as needed. CHLORASEPTI 2020-0 Yes 2{spray Take 2 U nivers C, phenol 5-22 } Sprays by ity o f 1.4%, 13:51: mouth [place] mouthwash 35 every 4 Medical (four) Branch hours as needed for Sore throat. alum-mag 2020-0 Yes 30mL Take 30 mL Uni vers hydroxide-s 5-22 by mouth ity of imeth 13:51: every 6 [place] (URVASHI-LANTA 35 (six) Medical ) hours as Branch 200-200-20 needed for mg/5 mL Indigestio suspension n. guaiFENesin 2020-0 Yes 100mg Take 100 U nivers (URVASHI-TUSSI 5-22 mg by ity of N) 100 mg/5 13:51: mouth [place] mL solution 35 every 6 Medic al (six) Branch hours as needed for Cough. acetaminoph 2020-0 Yes 650mg Insert 650 Univers en 650 mg 5-22 mg into ity of suppository 13:51: rectum [place] 35 every 6 Medical (six) Branch hours as needed for Fever. sodium 2020-0 Yes 1{enema Insert 1 Univ ers phosphates 5-22 } Enema into ity of (FLEET 13:51: rectum [place] ENEMA) 19-7 35 once daily Me dical gram/118 mL as needed [facility] enema for Constipati on. Follow package directions bethanechol 2020-0 Yes 25mg Take 25 mg Univers (URECHOLINE 5-22 through ity o f ) 25 mg 13:51: feeding [place] tablet 35 tube 4 Medical (four) Branch times daily. PHENobarbit 2020-0 Yes 60mg Take 60 mg Univers al 20 mg/5 5-22 through ity of mL (4 13:51: enteral [place] mg/mL) 35 tube 2 Medical elixir (two) Branch times daily. isosorbide 2020-0 Yes 10mg Take 10 mg U nivers dinitrate 5-22 through ity of (ISORDIL) 13:51: enteral [place] 10 mg 35 tube 2 Medical tablet (two) Branch times daily. metoprolol 2020-0 Yes 25mg Take 25 mg U nivers tartrate 5-22 through ity of (LOPRESSOR) 13:51: enteral [place] 25 mg 35 tube Medical tablet daily. Branch metoprolol 2020-0 Yes 50mg Take 50 mg U nivers tartrate 5-22 by mouth ity of (LOPRESSOR) 13:51: at [place] 50 mg 35 bedtime. Medical tablet Branch CALCIUM 2020-0 Yes Take [facility] CARBONATE 5-22 through ity of ORAL 13:51: feeding [place] 35 tube. Medical Branch phenytoin 2020-0 Yes 125mg Take 125 Uni vers (DILANTIN) 5-22 mg through ity of 125 mg/5 mL 13:51: enteral [place] suspension 35 tube 2 Medical (two) Branch times daily. lactulose 2020-0 Yes 30mL Take 30 mL Un royal 10 gram/15 5-22 through ity of mL (15 mL) 13:51: feeding [place] Sol[place] 35 tube 2 Medical (two) Branch times daily. Indication s: feeding tube dextran 2020-0 Yes 1[drp] Place 1 Unive rs 70-hypromel 5-22 Drop in ity o f lose 13:51: both eyes [place] (ARTIFICIAL 35 2 (two) Medic al TEARS) times Branch ophthalmic daily. solution gabapentin 2020-0 Yes 300mg Take 300 Un royal (NEURONTIN) 5-22 mg through it y of 300 mg 13:51: feeding [place] capsule 35 tube 3 Medical (three) Branch times daily. RANITIDINE 2020-0 Yes 300mg Take 300 Un royal HCL ORAL 5-22 mg through ity o f 13:51: feeding [place] 35 tube at Medical bedtime. Branch oxybutynin 2020-0 Yes 5mg Take 5 mg Un royal chloride 5-22 through ity of (DITROPAN) 13:51: enteral [place] 5 mg tablet 35 tube at Medic al bedtime. Branch magnesium 2020-0 Yes 150mL Take 150 Uni vers citrate 5-22 mL through ity of solution 13:51: enteral [place] 35 tube at Medical bedtime. Branch bisacodyl 2020-0 Yes 10mg Insert 10 Uni vers (DULCOLAX) 5-22 mg into ity of 10 mg 13:51: rectum at [place] suppository 35 bedtime as Me dical needed. Branch acetaminoph 2020-0 Yes 500mg Take 500 U nivers en 5-22 mg through ity of (TYLENOL) 13:51: feeding [place] 100 mg/mL 35 tube every Medi radha solution 6 (six) Branch hours as needed for Fever. Indication s: For elevated temp meclizine 2020-0 Yes 12.5mg Take 12.5 U nivers (ANTIVERT) 5-22 mg through ity of 12.5 mg 13:51: enteral [place] tablet 35 tube 4 Medical (four) Branch times daily as needed. ALPRAZolam 2020-0 Yes .5mg Take 0.5 Uni vers (XANAX) 0.5 5-22 mg through it y of mg tablet 13:51: enteral [place] 35 tube 2 Medical (two) Branch times daily. ziprasidone 2020-0 Yes 20mg Take 20 mg Univers (GEODON) 20 5-22 through ity o f mg capsule 13:51: feeding [place] 35 tube at Medical bedtime. Branch ipratropium 2020-0 Yes 1{ampul Inhale 1 Univers -albuterol 5-22 e} Ampule ity of (DUONEB) 13:51: every 6 [place] 0.5 mg-3 35 (six) Medical mg(2.5 mg hours as Branch base)/3 mL needed for nebulizer Wheezing. solution triamcinolo 2020-0 Yes 1{dose} Apply 1 Univers ne 5-22 Dose to ity of (KENALOG) 13:51: area[place] 0.1 % 35 needed. Medical lotion Branch cyanocobala 2020-0 Yes 500ug 500 mcg by Univers min, 5-22 Intramuscu ity of vitamin 13:51: lar route [place] B-12, 35 once every Medical (PHYSICIANS month. Branch EZ USE B-12) 1,000 mcg/mL injection ketoconazol 2020-0 Yes 1{dose} Apply 1 Univers e (NIZORAL) 5-22 Dose to ity o f 2 % cream 13:51: area[place] as [place] 35 needed Medical (apply to Branch facial rash as needed). traMADOL 50 2020-0 Yes 50mg Take 50 mg Univers mg tablet 5-22 by mouth ity of 13:51: every 6 [place] 35 (six) Medical hours as Branch needed. FENTanyl 25 2020-0 Yes 1{patch Apply 1 Univers mcg/hr 5-22 } Patch to ity of patch 13:51: skin every [place] 35 72 Medical (seventy-t Branch wo) hours. HYDROcodone 2020-0 Yes 1{tbl} Take 1 Un royal -acetaminop 5-22 tablet by ity of hen 7.5-325 13:51: mouth [place] mg per 35 every 6 Medical tablet (six) Branch hours as needed for Pain. cycloSPORIN 2020-0 Yes 1[drp] Place 1 U nivers E 5-22 Drop in ity of (RESTASIS) 13:51: left eye [place] 0.05 % 35 every 12 Medical drops (twelve) Branch hours. magnesium 2020-0 Yes 400mg Take 400 Uni vers oxide 400 5-22 mg by ity of mg tablet 13:51: mouth [place] 35 daily. Medical Branch levothyroxi 2020-0 Yes 88ug Take 88 Uni vers ne 88 mcg 5-22 mcg by ity of tablet 13:51: mouth [place] 35 every Medical morning. Branch multivitami 2020-0 Yes 15mL Take 15 mL Univers n solution 5-22 by mouth ity o f 13:51: daily. [place] [address] Medical Branch Artificial 2020-0 Yes 1[drp] Place 1 Un royal Tear, 5-22 Drop in ity of Hypromellos 13:51: each eye 2 [place] e, 0.4 % 35 (two) Medical Drop times Branch daily. Loperamide 2020-0 Yes 30mL Take 30 mL U nivers 1 mg/7.5 mL 5-22 by mouth ity of Liqd 13:51: as needed. [address] Branch acetaminoph 2020-0 Yes 650mg Take 650 U nivers en 325 mg 5-22 mg by ity of tablet 13:51: mouth [place] 35 every 6 Medical (six) Branch hours as needed for Pain (scale 1-3), Pain (scale 4-6) or Temp > 38.5 C. magnesium 2020-0 Yes 30mL Take 30 mL Un royal hydroxide 5-22 by mouth ity of concentrate 13:51: once daily [place] [address] as needed Medical for Branch Constipati on. sodium 2020-0 Yes 2{spray Use 2 Univers chloride 5-22 } Sprays in ity of (SALINE 13:51: each [place] NASAL) 0.65 35 nostril 2 Med ical % nasal (two) Branch spray times daily as needed. CHLORASEPTI 2020-0 Yes 2{spray Take 2 U nivers C, phenol 5-22 } Sprays by ity o f 1.4%, 13:51: mouth [place] mouthwash 35 every 4 Medical (four) Branch hours as needed for Sore throat. alum-mag 2020-0 Yes 30mL Take 30 mL Uni vers hydroxide-s 5-22 by mouth ity of imeth 13:51: every 6 [place] (URVASHI-LANTA 35 (six) Medical ) hours as Branch 200-200-20 needed for mg/5 mL Indigestio suspension n. guaiFENesin 2020-0 Yes 100mg Take 100 U nivers (URVASHI-TUSSI 5-22 mg by ity of N) 100 mg/5 13:51: mouth [place] mL solution 35 every 6 Medic al (six) Branch hours as needed for Cough. acetaminoph 2020-0 Yes 650mg Insert 650 Univers en 650 mg 5-22 mg into ity of suppository 13:51: rectum [place] 35 every 6 Medical (six) Branch hours as needed for Fever. sodium 2020-0 Yes 1{enema Insert 1 Univ ers phosphates 5-22 } Enema into ity of (FLEET 13:51: rectum [place] ENEMA) 19-7 35 once daily Me dical gram/118 mL as needed [facility] enema for Constipati on. Follow package directions bethanechol 2020-0 Yes 25mg Take 25 mg Univers (URECHOLINE 5-22 through ity o f ) 25 mg 13:51: feeding [place] tablet 35 tube 4 Medical (four) Branch times daily. PHENobarbit 2020-0 Yes 60mg Take 60 mg Univers al 20 mg/5 5-22 through ity of mL (4 13:51: enteral [place] mg/mL) 35 tube 2 Medical elixir (two) Branch times daily. isosorbide 2020-0 Yes 10mg Take 10 mg U nivers dinitrate 5-22 through ity of (ISORDIL) 13:51: enteral [place] 10 mg 35 tube 2 Medical tablet (two) Branch times daily. metoprolol 2020-0 Yes 25mg Take 25 mg U nivers tartrate 5-22 through ity of (LOPRESSOR) 13:51: enteral [place] 25 mg 35 tube Medical tablet daily. Branch metoprolol 2020-0 Yes 50mg Take 50 mg U nivers tartrate 5-22 by mouth ity of (LOPRESSOR) 13:51: at [place] 50 mg 35 bedtime. Medical tablet Branch CALCIUM 2020-0 Yes Take Univers CARBONATE 5-22 through ity of ORAL 13:51: feeding [place] 35 tube. Medical Branch phenytoin 2020-0 Yes 125mg Take 125 Uni vers (DILANTIN) 5-22 mg through ity of 125 mg/5 mL 13:51: enteral [place] suspension 35 tube 2 Medical (two) Branch times daily. lactulose 2020-0 Yes 30mL Take 30 mL Un royal 10 gram/15 5-22 through ity of mL (15 mL) 13:51: feeding [place] Sol[place] 35 tube 2 Medical (two) Branch times daily. Indication s: feeding tube dextran 2020-0 Yes 1[drp] Place 1 Unive rs 70-hypromel 5-22 Drop in ity o f lose 13:51: both eyes [place] (ARTIFICIAL 35 2 (two) Medic al TEARS) times Branch ophthalmic daily. solution gabapentin 2020-0 Yes 300mg Take 300 Un royal (NEURONTIN) 5-22 mg through it y of 300 mg 13:51: feeding [place] capsule 35 tube 3 Medical (three) Branch times daily. RANITIDINE 2020-0 Yes 300mg Take 300 Un royal HCL ORAL 5-22 mg through ity o f 13:51: feeding [place] 35 tube at Medical bedtime. Branch oxybutynin 2020-0 Yes 5mg Take 5 mg Un royal chloride 5-22 through ity of (DITROPAN) 13:51: enteral [place] 5 mg tablet 35 tube at Medic al bedtime. Branch magnesium 2020-0 Yes 150mL Take 150 Uni vers citrate 5-22 mL through ity of solution 13:51: enteral [place] 35 tube at Medical bedtime. Branch bisacodyl 2020-0 Yes 10mg Insert 10 Uni vers (DULCOLAX) 5-22 mg into ity of 10 mg 13:51: rectum at [place] suppository 35 bedtime as Me dical needed. Branch acetaminoph 2020-0 Yes 500mg Take 500 U nivers en 5-22 mg through ity of (TYLENOL) 13:51: feeding [place] 100 mg/mL 35 tube every Medi radha solution 6 (six) Branch hours as needed for Fever. Indication s: For elevated temp meclizine 2020-0 Yes 12.5mg Take 12.5 U nivers (ANTIVERT) 5-22 mg through ity of 12.5 mg 13:51: enteral [place] tablet 35 tube 4 Medical (four) Branch times daily as needed. ALPRAZolam 2020-0 Yes .5mg Take 0.5 Uni vers (XANAX) 0.5 5-22 mg through it y of mg tablet 13:51: enteral [place] 35 tube 2 Medical (two) Branch times daily. ziprasidone 2020-0 Yes 20mg Take 20 mg Univers (GEODON) 20 5-22 through ity o f mg capsule 13:51: feeding [place] 35 tube at Medical bedtime. Branch ipratropium 2020-0 Yes 1{ampul Inhale 1 Univers -albuterol 5-22 e} Ampule ity of (DUONEB) 13:51: every 6 [place] 0.5 mg-3 35 (six) Medical mg(2.5 mg hours as Branch base)/3 mL needed for nebulizer Wheezing. solution triamcinolo 2020-0 Yes 1{dose} Apply 1 Univers ne 5-22 Dose to ity of (KENALOG) 13:51: area[place] 0.1 % 35 needed. Medical lotion Branch cyanocobala 2020-0 Yes 500ug 500 mcg by Univers min, 5-22 Intramuscu ity of vitamin 13:51: lar route [place] B-12, 35 once every Medical (PHYSICIANS month. Branch EZ USE B-12) 1,000 mcg/mL injection ketoconazol 2020-0 Yes 1{dose} Apply 1 Univers e (NIZORAL) 5-22 Dose to ity o f 2 % cream 13:51: area[place] as [place] 35 needed Medical (apply to Branch facial rash as needed). traMADOL 50 2020-0 Yes 50mg Take 50 mg Univers mg tablet 5-22 by mouth ity of 13:51: every 6 [place] 35 (six) Medical hours as Branch needed. FENTanyl 25 2020-0 Yes 1{patch Apply 1 Univers mcg/hr 5-22 } Patch to ity of patch 13:51: skin every [place] 35 72 Medical (seventy-t Branch wo) hours. HYDROcodone 2020-0 Yes 1{tbl} Take 1 Un royal -acetaminop 5-22 tablet by ity of hen 7.5-325 13:51: mouth [place] mg per 35 every 6 Medical tablet (six) Branch hours as needed for Pain. cycloSPORIN 2020-0 Yes 1[drp] Place 1 U nivers E 5-22 Drop in ity of (RESTASIS) 13:51: left eye [place] 0.05 % 35 every 12 Medical drops (twelve) Branch hours. magnesium 2020-0 Yes 400mg Take 400 Uni vers oxide 400 5-22 mg by ity of mg tablet 13:51: mouth [place] 35 daily. Medical Branch levothyroxi 2020-0 Yes 88ug Take 88 Uni vers ne 88 mcg 5-22 mcg by ity of tablet 13:51: mouth [place] 35 every Medical morning. Branch multivitami 2020-0 Yes 15mL Take 15 mL Univers n solution 5-22 by mouth ity o f 13:51: daily. [place] 35 Medical Branch Artificial 2020-0 Yes 1[drp] Place 1 Un royal Tear, 5-22 Drop in ity of Hypromellos 13:51: each eye 2 [place] e, 0.4 % 35 (two) Medical Drop times Branch daily. Loperamide 2020-0 Yes 30mL Take 30 mL U nivers 1 mg/7.5 mL 5-22 by mouth ity of Liqd 13:51: as needed. [place] [address] Medical Branch acetaminoph 2020-0 Yes 650mg Take 650 U nivers en 325 mg 5-22 mg by ity of tablet 13:51: mouth [place] 35 every 6 Medical (six) Branch hours as needed for Pain (scale 1-3), Pain (scale 4-6) or Temp > 38.5 C. magnesium 2020-0 Yes 30mL Take 30 mL Un royal hydroxide 5-22 by mouth ity of concentrate 13:51: once daily [place] 35 as needed Medical for Branch Constipati on. sodium 2020-0 Yes 2{spray Use 2 Univers chloride 5-22 } Sprays in ity of (SALINE 13:51: each [place] NASAL) 0.65 35 nostril 2 Med ical % nasal (two) Branch spray times daily as needed. CHLORASEPTI 2020-0 Yes 2{spray Take 2 U nivers C, phenol 5-22 } Sprays by ity o f 1.4%, 13:51: mouth [place] mouthwash 35 every 4 Medical (four) Branch hours as needed for Sore throat. alum-mag 2020-0 Yes 30mL Take 30 mL Uni vers hydroxide-s 5-22 by mouth ity of imeth 13:51: every 6 [place] (URVASHI-LANTA 35 (six) Medical ) hours as Branch 200-200-20 needed for mg/5 mL Indigestio suspension n. guaiFENesin 2020-0 Yes 100mg Take 100 U nivers (URVASHI-TUSSI 5-22 mg by ity of N) 100 mg/5 13:51: mouth [place] mL solution 35 every 6 Medic al (six) Branch hours as needed for Cough. acetaminoph 2020-0 Yes 650mg Insert 650 Univers en 650 mg 5-22 mg into ity of suppository 13:51: rectum [place] 35 every 6 Medical (six) Branch hours as needed for Fever. sodium 2020-0 Yes 1{enema Insert 1 Univ ers phosphates 5-22 } Enema into ity of (FLEET 13:51: rectum [place] ENEMA) 19-7 35 once daily Me dical gram/118 mL as needed [facility] enema for Constipati on. Follow package directions bethanechol 2019-0 Yes 25mg Take 25 mg Univers (URECHOLINE 5-22 through ity o f ) 25 mg 13:51: feeding [place] tablet 35 tube 4 Medical (four) Branch times daily. Vital Signs Vital Name Observation Time Observation Value Comments Source Body weight 2023-03-20 18:42:[address] [facility] BMI 2023-03-20 18:42:00 21.16 kg/m2 [facility] Body height 2023-02-12 18:22:00 182.9 cm [facility] Body weight 2023-02-12 18:22:00 70.761 kg [facility] BMI 2023-02-12 18:22:00 21.16 kg/m2 [facility] Body weight 2023-01-21 14:58:00 70.761 kg Universi ty [facility] BMI 2023-01-21 14:58:00 21.16 kg/m2 [facility] Systolic blood 2023-01-03 16:04:00 108 mm[Hg] Univer sity [facility] Diastolic blood 2023-01-03 16:04:00 66 [facility]Hg[facility]-03 16:04:00 83 /min [facility] Body temperature 2023-01-03 16:04:00 35.83 [place] [facility] 2023-01-03 16:04:00 18 /min [facility] Body height 2023-01-03 16[facility]04:[address] [facility] Body weight 2023-01-03 16:04:[address] [facility] BMI 2023-01-03 16:04:00 21.28 kg/m2 [facility] Oxygen saturation in 2023-01-03 16:04:00 98 /min University of Arterial blood by [facility] Pulse oximetry Branch Systolic blood 2022-08-23 14:35:00 144 mm[Hg] Univer sity of pressure [place] [facility] Diastolic blood 2022-08-23 14:35:00 83 mm[Hg] Unive rsity of pressure [place] [facility] Heart rate 2022-08-23 14:35:00 83 /min Universi ty of [place] [facility] Body temperature 2022-08-23 14:34:00 36.17 [place] Univ ersity of [place] [facility] Respiratory rate 2022-08-23 14:34:00 18 /min Univ ersity of [place] [facility] Body height 2022-08-23 14:34:00 182.9 cm Universi ty of [place] [facility] Body weight 2022-08-23 14:34:00 71.033 kg Universi ty of [place] [facility] BMI 2022-08-23 14:34:00 21.24 kg/m2 Universi ty of [facility] Oxygen saturation in 2022-08-23 14:34:00 97 /min room air University of Arterial blood by [facility] Pulse oximetry Branch Systolic blood 2020-02-12 18:15:00 119 mm[Hg] Univer sity of pressure [place] [facility] Diastolic blood 2020-02-12 18:15:00 83 mm[Hg] Unive rsity of pressure [place] [facility] Oxygen saturation in 2020-02-12 18:15:00 93 /min University of Arterial blood by [facility] Pulse oximetry Branch Body temperature 2020-02-12 17:03:00 36.94 [place] Univ ersity of [facility] Branch Heart rate 2020-02-12 14:17:00 101 /min Universi ty of [place] [facility] Respiratory rate 2020-02-12 14:17:00 22 /min Univ ersity of [place] [facility] Body height 2020-02-12 12:20:00 182.9 cm Universi ty of [place] [facility] Body weight 2020-02-12 12:20:00 82 kg Universi ty of [place] [facility] BMI 2020-02-12 12:20:00 24.51 kg/m2 Universi ty [facility] [place] [facility] Systolic blood 2020-02-12 18:15:00 119 mm[Hg] Univer sity of pressure [place] [facility] Diastolic blood 2020-02-12 18:15:00 83 mm[Hg] Unive rsity of [facility] Oxygen saturation in 2020-02-12 18:15:00 93 /min [facility] Arterial blood by [facility] Pulse oximetry Branch Body temperature 2020-02-12 17:03:00 36.94 [place] [facility] Heart rate 2020-02-12 14:17:00 101 /min [facility] Respiratory rate 2020-02-12 14:17:00 22 /min [facility] Body height 2020-02-12 12:20:00 182.9 cm [facility] Body weight 2020-02-12 12:20:00 82 kg [facility] BMI 2020-02-12 12:20:00 24.51 kg/m2 [facility] Procedures Procedure Date / Time Performed Performing Clinician Sour e XR KNEE <3 VW 2023-02-12 18:45:09 Dipika Wong [facility] EXTERNAL PROVIDER 2023-01-11 05:01:00 Doctor Unassigned, No [facility] RECORDS [facility] XR HAND 3+ VW 2022-08-23 15:42:00 Alis Romeo [facility] EGD (ENDO) 2020-02-12 16:33:32 [place] [facility] POTASSIUM SERUM 2020-02-12 16:06:00 Ashwini David [facility] POCT GLUCOSE(AGE 2020-02-12 15:35:00 [facility] >[facility]YS) [facility] COVID-19 (PCR 2020-02-12 14:59:00 [place] Alvares [facility] MOLECULAR TESTING) Medical [facility] [place] h EKG-12 LEAD 2020-02-12 14:40:57 Doctor Unassigned, No [facility] Encounters Start End Encounter Admission Attending Care Care Encounter Source Date/Time Date/Time Type Type Clinicians Facility Department ID 2023-03-20 2023-03-20 Outpatient R [facility] [id number] Univers 13:30:00 14:32:30 [facility] 2023-03-20 2023-03-20 [facility] [id number] Univers 13:30:00 14:32:30 Visit Hawa MULTISPEC [id number] ity of [facility] 4.2.7.2.[address] [facility] [id number] [facility] AND SODDY DAISY [address] [facility] 2023-02-12 2023-02-12 Outpatient R [facility] [id number] Univers 13:25:00 23:59:00 DIPIKA ity of [facility] 2023-02-12 2023-02-12 Hospital [facility] [id number] Univers 13:25:00 23:59:00 Encounter Dipika May HEALTH [id number] it[place] of [place] 4.2.7.2.6 [facility] [phone] [facility] PRIMARY & [address] SPECIALTY CARE 2023-02-12 2023-02-12 Office [facility] [id number] Univers 13:30:00 13:45:00 Visit Dipika May HEALTH 350.1.13.10 [place] 4.2.7.2.6 [facility] [phone] [facility] PRIMARY & [address] SPECIALTY CARE 2023-01-21 2023-01-21 Outpatient [facility] [id number] Univers 10:00:00 10:55:27 LUIS chung [facility] 2023-01-21 2023-01-21 Office [facility] [id number] Univers 10:00:00 10:55:27 Visit Luis Doherty HEALTH 350.1.13.10 [place] 4.2.7.2.[address] [place] [address] [phone] [facility] PRIMARY & [address] SPECIALTY CARE 2023-01-21 2023-01-21 Outpatient R [facility] [id number] Univers 09:45:00 09:45:00 LUIS tristaemre [facility] 2023-01-11 2023-01-11 Orders Doctor IVORY [id number] Univers 00:00:00 00:00:00 Only Unassigned, ROXANA 350.1.13.10 ity of [place] [facility] 4.2.7.2.686 Nate as [id number] [address] 2023-01-10 2023-01-10 Telephone [facility] [id number] Univers 00:00:00 00:00:00 Alis PRIMARY 350.1.13.10 it [place] [id number] [address] 2023-01-03 2023-01-03 Outpatient R [facility] [id number] Univers 10:40:00 11:58:40 ALIS ity [facility] 2023-01-03 2023-01-03 [facility] [id number] Univers 10:40:00 11:58:40 Visit Alis PRIMARY 350.1.13.10 it [place] [id number] [address] 2023-01-01 2023-01-01 Telephone [facility] [id number] Univers 00:00:00 00:00:00 z, Ez PRIMARY 350.1.13.10 [place] [id number] [address] 2022-12-31 2022-12-31 Telephone [facility] [id number] Univers 00:00:00 00:00:00 z, Ez PRIMARY 350.1.13.10 [place] [id number] Ca dic[address] 2022-11-02 2022-11-02 Outpatient R [facility] [id number] Univers 10:30:00 10:30:00 ity of [facility] 2022-08-23 2022-08-23 [facility] [id number] Univers 09:30:24 23:59:00 Encounter Alis PRIMARY 350.1.13.10 [place] 4[place] [id number] Ca dical [address] 2022-08-23 2022-08-23 Outpatient Kristina [facility] [id number] Univers 09:30:24 23:59:00 ALIS ity of [facility] 2022-08-23 2022-08-23 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 [id number] [id number] Univers 08:00:00 09:11:22 Visit Andrea Silva PRIMARY 350.1.13.10 [place] [id number] Ca dical [address] 2020-02-12 2020-02-12 [facility] 1.2.840.114 [id number] 09:15:00 13:46:00 Encounter Clovis manzano 350.1.13.10 [place] 4.2.7.2.686 Surgical [id number] [place] [address] 2020-02-12 2020-02-12 [facility] [id number] Univers 09:15:00 13:46:00 Encounter Clovis manzano 350.1.13.10 ity of [place] [id number] [place] [address] Branch Results Test Description Test Time Test Comments Results Result Comments Source Potassium Serum 2020-02-12 16:32:00 Test Item Value Reference Range Interpretation Comme nts K (test code = 6150043819) 4.1 mmol/L 3.5-5 Lab Interpretation (test code = 28353-8) Normal [facility] [id number] 15:44:00 Test Item Value Reference Range Interpretation Comments SARS-CoV-2 Rapid ID NOW Not Detected Not Detected (test code = 94108-0) KOURTNEY (test code = KOURTNEY) ID NOW COVID-19 Assay is an isothermal nucleic acid amplification test intended for the qualitative detection of nucleic acid from SARS-CoV-2 viral RNA in nasopharyngeal (WATER FILTRATION TECHNICIAN) specimens. It is used under Emergency Use Authorization (EUA) by FDA. The limit of detection (LOD) of the assay is 125 Genome Equivalents/mL. A positive result is indicative of the presence of SARS-CoV-2 RNA. ?Clinical correlation with patient history and other diagnostic [...] for repeat patient testing if clinically indicated. Lab Interpretation Normal (test code = 56572-2) [facility] [id number] 15:35:00 Test Item Value Reference Range Interpretation Comments POCT Glu (age>30days) (test code = 100 mg/dL 70-110 3342) Lab Interpretation (test code = Normal 95517-1) [facility]
[2023-05-20] MEDS ORDERED: ONDANSETRON 4 MG/2 ML VIAL ONE (02:31)
[2023-05-20] MEDS ORDERED: MORPHINE 4 MG/ML SYR ONE (02:31)
[2023-05-20] MEDS ORDERED: NA CHLORIDE 0.9% 1,000 ML ONE (02:31)
[2023-05-20 03:25] LABS: Hematocrit 42.6 % (36.0-45.0); Lymphocytes % 10.8 % (15.3-44.8); MCV 91.2 fL (80-100); MPV 8.1 fL (7.6-11.3); Platelets 248 thou/uL (152-406); RBC Red Blood Cell Count 4.68 M/uL (3.86-4.86)
[2023-05-20 03:29] LABS: Albumin 3.6 g/dL (3.4-5.0); Bilirubin Total 0.4 mg/dL (0.2-1.0); Protein, Total 7.2 g/dL (6.4-8.2)
--- NOTE | 2023-05-20 04:44 | EDPHYS ---
Physician Documentation [facility] Name: Suad Cuenca Age: 72 yrs Sex: Female : 1950 Arrival Date: 05/20/2023 Time: 02:08 Bed 5 Private MD: ED Physician Omari Rivas HPI: 05/20 02:10 This 72 yrs old Female presents to ER via Unassigned with complaints of Abdominal Pain. ms3 02:10 72-year-old female presents via [facility] from [facility] for abdominal pain ms3 that began 2 hours prior to arrival. Patient states the pain is an 8/10 located in her left upper quadrant. Patient denies alleviating or inciting factors. Patient denies nausea, vomiting, fevers, chills. Historical: - Allergies: 02:11 PENICILLINS; bp 02:11 Aspirin; bp 02:11 diazepam; bp 02:11 Sulfa (Sulfonamide Antibiotics); bp 02:11 Pork/Porcine Containing Products; bp 02:11 Iodine; bp 02:11 Bleach (Sodium Hypochlorite); bp 02:11 bug spray; bp - PMHx: 02:11 Anemia; Anxiety; arthropathy; CAUDA EQUINA SYNDROME; chronic pulmonary edema; bp congnitive communication deficit; Depression; dermatitis; Diabetes - IDDM; Dry Eye; epilepsy; Hypothyroidism; Multiple Sclerosis; MUSCLE WEAKNESS; Osteoporosis; pulmonary edema; UTI; - Immunization history:: Adult Immunizations up to date. - Social history:: Smoking status: Patient denies any tobacco usage or history of. ROS: 02:10 Constitutional: Negative for fever, and chills. Neck: Negative for injury, pain, and ms3 swelling, Cardiovascular: Negative for chest pain, and palpitations. Respiratory: Negative for shortness of breath, cough, wheezing, and pleuritic chest pain. 02:10 MS/Extremity: Negative for injury and deformity, Skin: Negative for injury, rash, and discoloration. 02:10 Abdomen/GI: Positive for abdominal pain. 02:10 All other systems are negative. Exam: 02:10 Constitutional: This is a well developed, well nourished patient who is awake, alert, ms3 and in no acute distress. Head/Face: Normocephalic, atraumatic. Chest/axilla: Normal chest wall appearance and motion. Nontender with no deformity. Cardiovascular: Regular rate and rhythm with a normal S1 and S2. No gallops, murmurs, or rubs. Normal PMI, no JVD. No pulse deficits. Respiratory: Lungs have equal breath sounds bilaterally, clear to auscultation and percussion. No rales, rhonchi or wheezes noted. No increased work of breathing, no retractions or nasal flaring. 02:10 Skin: Warm, dry with normal turgor. Normal color with no rashes, no lesions, and no evidence of cellulitis. MS/ Extremity: Pulses equal, no cyanosis. Neurovascular intact. Full, normal range of motion. 02:10 Abdomen/GI: Inspection: abdomen appears normal, Bowel sounds: normal, Palpation: severe abdominal tenderness, in the left upper quadrant. Vital Signs: 02:09 BP 100 / 56; Pulse 65; Resp 16; Temp 98; Pulse Ox 96% ; bp 02:45 BP 106 / 66; Pulse 71; Resp 16; Pulse Ox 95% ; bp 05:45 BP 123 / 60; Pulse 80; Resp 16 S; Pulse Ox 95% on R/A; lg3 MDM: 02:10 Patient medically screened. ms3 02:10 Differential diagnosis: bowel obstruction, non-specific abd pain, pancreatitis. ms3 04:44 Data reviewed: vital signs, nurses notes, lab test result(s), radiologic studies, and ms3 as a result, I will admit patient. Consideration of Admission/Observation Patient was admitted/placed on observation. Management of patient was discussed with the following: Hospitalist: Discussed case with Silviano Mallory NP and she accepts patient.. I considered the following discharge prescriptions or medication management in the emergency department Medications were administered in the Emergency Department. See MAR. Independent interpretation of the following test(s) in the Emergency Department CT Scan: My interpretation is CT images reviewed by me shows loops of dilated bowel. Historians other than the Patient: EMS: [facility]. Counseling: I had a detailed discussion with the patient and/or guardian regarding the historical points, exam findings, and any diagnostic results supporting the discharge/admit diagnosis, lab results, radiology results, the need for further work-up and treatment in the hospital. 04:46 ED course: Will place NGT for patient comfort. ms3 05/20 02:10 Order name: CBC with Diff; Complete Time: 03:44 ms3 05/20 02:10 Order name: CMP; Complete Time: 03:29 ms3 05/20 02:10 Order name: Lipase; Complete Time: 03:29 ms3 05/20 02:10 Order name: Urinalysis w/ reflexes ms3 05/20 05:01 Order name: Urinalysis w/ reflexes EDMS 05/20 05:01 Order name: Basic Metabolic Panel EDMS 05/20 05:01 Order name: Basic Metabolic Panel EDMS 05/20 05:01 Order name: CBC with Automated Diff EDMS 05/20 05:01 Order name: CBC with Automated Diff EDMS 05/20 05:01 Order name: Magnesium EDMS 05/20 05:01 Order name: Magnesium EDMS 05/20 03:58 Order name: Abdomen EDMS 05/20 05:29 Order name: Abdomen 1 View (KUB) EDMS 05/20 04:58 Order name: CONS Physician Consult EDMS 05/20 05:01 Order name: NPO; Complete Time: 05:44 EDMS 05/20 02:10 Order name: IV Saline Lock; Complete Time: 02:44 ms3 05/20 02:10 Order name: Labs collected and sent; Complete Time: 02:44 ms3 05/20 04:46 Order name: Nasogastric Tube; Complete Time: 05:44 ms3 Administered Medications: 02:44 Drug: NS 0.9% IV 1000 ml Route: IV; Rate: 1 bolus; Site: left antecubital; bp 05:44 Follow up: IV Status: Completed infusion; IV Intake: 1000ml lg3 02:45 Drug: Ondansetron IVP 4 mg Route: IVP; Site: left antecubital; bp 05:44 Follow up: Response: No adverse reaction lg3 02:45 Drug: morphine IVP or IV 4 mg Route: IVP; Infused Over: 4 mins; Site: left antecubital; bp 05:44 Follow up: Response: No adverse reaction lg3 05:47 Drug: morphine IVP or IV 4 mg Route: IVP; Infused Over: 4 mins; Site: right forearm; lg3 05:59 Follow up: Response: No adverse reaction lg3 Disposition Summary: 05/20/23 04:43 Hospitalization Ordered Hospitalization Status: Inpatient Admission ms3 Provider: Jamie Pepper ms3 Location: Telemetry/MedSurg (Inpatient) ms3 Condition: Stable ms3 Problem: new ms3 Symptoms: are unchanged ms3 Bed/Room Type: Standard ms3 Room Assignment: 230(05/20/23 04:59) mw Diagnosis - Small bowel obstruction ms3 - Abdominal pain, unspecified ms3 - Anemia, unspecified ms3 Forms: - Medication Reconciliation Form ms3 - SBAR form ms3 - Leadership Thank You Letter ms3 Signatures: Dispatcher [employer] EDMS Erica Amador RN RN David Appiah RN RN Christina Ortiz, ISIDORO RN 3 Omari Rivas, DO ms3 Corrections: (The following items were deleted from the chart) 03:58 02:11 Abdomen Pelvis W Con+CT.RAD.BRZ ordered. EDMS EDMS 04:59 04:43 ms3 mw 05:02 04:46 Abdomen 1 View (KUB)+RAD.RAD.BRZ ordered. EDMS EDMS
--- NOTE | 2023-05-20 04:44 | ER ---
Nurse's Notes [facility] Name: Suad Cuenca Age: 72 yrs Sex: Female : 1950 Arrival Date: 05/20/2023 Time: 02:08 Bed 5 Private MD: Diagnosis: Small bowel obstruction;Abdominal pain, unspecified;Anemia, unspecified Presentation: 05/20 02:09 Chief complaint: EMS states: LEFT SIDED ABDOMINAL PAIN. Coronavirus screen: At this bp time, the client does not indicate any symptoms associated with coronavirus-19. Ebola Screen: No symptoms or risks identified at this time. Initial Sepsis Screen: Does the patient meet any 2 criteria? No. Patient's initial sepsis screen is negative. Does the patient have a suspected source of infection? No. Patient's initial sepsis screen is negative. Risk Assessment: Do you want to hurt yourself or someone else? Patient reports no desire to harm self or others. Note [facility]. Onset of symptoms is unknown. 02:09 Method Of Arrival: EMS: [facility] bp 02:09 Acuity: TRICIA 3 bp Triage Assessment: 02:11 General: Appears in no apparent distress. Behavior is calm, cooperative, appropriate bp for age. Pain: Complains of pain in left upper quadrant. EENT: No deficits noted. Neuro: No deficits noted. Cardiovascular: No deficits noted. Respiratory: No deficits noted. GI: Reports Pain is 6 out of 10 on a pain scale. : No signs and/or symptoms were reported regarding the genitourinary system. Derm: No deficits noted. Musculoskeletal: No deficits noted. Historical: - Allergies: 02:11 PENICILLINS; bp 02:11 Aspirin; bp 02:11 diazepam; bp 02:11 Sulfa (Sulfonamide Antibiotics); bp 02:11 Pork/Porcine Containing Products; bp 02:11 Iodine; bp 02:11 Bleach (Sodium Hypochlorite); bp 02:11 bug spray; bp - PMHx: 02:11 Anemia; Anxiety; arthropathy; CAUDA EQUINA SYNDROME; chronic pulmonary edema; bp congnitive communication deficit; Depression; dermatitis; Diabetes - IDDM; Dry Eye; epilepsy; Hypothyroidism; Multiple Sclerosis; MUSCLE WEAKNESS; Osteoporosis; pulmonary edema; UTI; - Immunization history:: Adult Immunizations up to date. - Social history:: Smoking status: Patient denies any tobacco usage or history of. Screenin:13 [facility] ED Fall Risk Assessment (Adult) History of falling in the last 3 months, bp including since admission No falls in past 3 months (0 pts). Abuse screen: Denies threats or abuse. Denies injuries from another. Nutritional screening: No deficits noted. Tuberculosis screening: No symptoms or risk factors identified. Assessment: 02:13 General: SEE TRIAGE NOTE. bp 03:12 General:. as6 05:43 GI:. lg3 Vital Signs: 02:09 BP 100 / 56; Pulse 65; Resp 16; Temp 98; Pulse Ox 96% ; bp 02:45 BP 106 / 66; Pulse 71; Resp 16; Pulse Ox 95% ; bp 05:45 BP 123 / 60; Pulse 80; Resp 16 S; Pulse Ox 95% on R/A; lg3 ED Course: 02:09 Patient arrived in ED. bp 02:09 Omari Rivas DO is Attending Physician. ms3 02:11 Triage completed. bp 02:13 Arm band placed on. bp 02:13 Patient has correct armband on for positive identification. Bed in low position. Call bp light in reach. Side rails up X2. 02:27 David Appiah, RN is Primary Nurse. bp 02:45 Inserted saline lock: 22 gauge in left antecubital area, using aseptic technique. Blood bp collected. 03:12 Inserted saline lock: 20 gauge in right forearm, using aseptic technique. ultrasound as6 guided, long catheter. 03:58 Abdomen In Process Unspecified. EDMS 04:43 Jamie Pepper is Hospitalizing Provider. ms3 05:43 NGT: inserted 16 Fr. via left nare. verified placement of air over stomach, Placement lg3 verified by X-ray, to intermittent suction. Patient tolerated well. 05:44 Urinalysis w/ reflexes Sent. lg3 06:28 No provider procedures requiring assistance completed. Patient admitted, IV remains in as6 place. 06:29 Provided Education on: need for admit. as6 Administered Medications: 02:44 Drug: NS 0.9% IV 1000 ml Route: IV; Rate: 1 bolus; Site: left antecubital; bp 05:44 Follow up: IV Status: Completed infusion; IV Intake: 1000ml lg3 02:45 Drug: Ondansetron IVP 4 mg Route: IVP; Site: left antecubital; bp 05:44 Follow up: Response: No adverse reaction lg3 02:45 Drug: morphine IVP or IV 4 mg Route: IVP; Infused Over: 4 mins; Site: left antecubital; bp 05:44 Follow up: Response: No adverse reaction lg3 05:47 Drug: morphine IVP or IV 4 mg Route: IVP; Infused Over: 4 mins; Site: right forearm; lg3 05:59 Follow up: Response: No adverse reaction lg3 Medication: 02:13 VIS not applicable for this client. bp Intake: 05:44 IV: 1000ml; Total: 1000ml. lg3 Outcome: 04:43 Decision to Hospitalize by Provider. ms3 06:28 Admitted to Med/surg accompanied by nurse, accompanied by tech, via stretcher, room as6 230, with chart. 06:28 Condition: stable 06:28 Instructed on the need for admit. 06:29 Patient left the ED. as6 Signatures: Dispatcher [employer] EDDavid Wu, RN RN bp Christina Ortiz, RN ISIDORO lg3 Omari Rivas, DO ms3 Hay Tse RN RN as6
--- NOTE | 2023-05-20 04:47 | P.HP ---
Certification for Inpatient Patient admitted to: Inpatient With expected LOS: <2 Midnights Patient will require the following post-hospital care: None Practitioner: I am a practitioner with admitting privileges, knowledge of patient current condition, hospital course, and medical plan of care. Services: Services provided to patient in accordance with Admission requirements found in Title 42 Section 412.3 of the Code of Federal Regulations Patient History Date of Service: 05/20/23 Reason for admission: Abdominal pain History of Present Illness: 72-year-old female with a past medical history of anemia, anxiety, cauda equina syndrome, pulmonary edema, depression, diabetes, hypothyroidism, MS, osteoporosis, UTI presents [facility] the emergency [facility] with abdominal pain. She reports symptoms started 2 hours prior to arrival. Abdominal pain 8 out of 10 located in the left lower quadrant. She reported loose stools today x2. She is bedbound, contractures, speech is hard to stand, dry mucous membranes, she reports multiple previous abdominal surgeries. She denies nausea vomiting, fever chills, chest pain shortness of breath. Plan to admit for small bowel obstruction, abdominal pain, anemia. General surgery consultation has been placed. ER evaluation WBCs within normal limits, early left shift 83.0, CMP unremarkable blood glucose 141, elevated alk phos 131, UA pending, CT of the abdomen pelvis small bowel obstruction Allergies ampicillin Allergy (Verified 03/25/20 04:27) Anaphylaxis aspirin [From Amie Aspirin] Allergy (Verified 03/25/20 04:27) Hives diazepam Allergy (Verified 03/25/20 04:27) Hives Penicillins Allergy (Verified 03/25/20 04:27) Anaphylaxis red yeast rice Allergy (Verified 03/25/20 04:27) Hives bleach Allergy (Uncoded 11/15/16 07:48) Hives sulfa Allergy (Uncoded 11/15/16 07:48) Hives Home Medications: Promethazine Inj [Phenergan -Inj*] 25 mg IM Q8HP PRN 04/07/20 ALPRAZolam [Xanax*] 0.25 mg PO Q12HP PRN 04/08/20 Acetaminophen [Tylenol*] 650 mg PO Q6HP PRN 04/08/20 Acidophilus/Bifido Longum [Lactobacillus Capsule] 16 mg PO DAILY 04/08/20 Alendronate Sodium [Fosamax] 70 mg PO DAILY 04/08/20 Bethanechol Chloride 25 mg PO Q6H 04/08/20 Bisacodyl [Laxative Suppository] 10 mg RC DAILYPRN PRN 04/08/20 Carboxymethylcellulose Sodium [Lubricating Plus] 1 each OP Q12H 04/08/20 Clotrim/Betameth Cream [Lotrisone Cream*] 15 gm TP DAILYPRN PRN 04/08/20 Cyanocobalamin [Vitamin B-12*] 1,000 mcg PO DAILY 04/08/20 Cyclosporine [Restasis] 1 each OP Q12H 04/08/20 Duoneb Solution0.5-2.5(3)Mg/Ml 1 vial Q6HP PRN 04/08/20 Enema, Fleet Adult [Fleet Enema Adult*] 1 sukumar RC DAILYPRN PRN 04/08/20 Famotidine [Pepcid*] 20 mg PO BEDTIME 04/08/20 Gabapentin 300 mg PO Q8H 04/08/20 Hydrocodone 10/APAP 325 [[place] 10/325*] 1 tab PO Q8HP PRN 04/08/20 Isosorbide Dinitrate 10 mg PO DAILY 04/08/20 Levothyroxine Sodium 88 mcg PO DAILY 04/08/20 Loperamide HCl [Loperamide] 2 mg PO Q4HP PRN 04/08/20 Mag Hydrox/Aluminum Hyd/Simeth [Neva-[place] Liquid] 30 ml PO Q4HP PRN 04/08/20 Mag Hydroxide 8% [Milk Of Magnesia*] 30 ml PO DAILYPRN PRN 04/08/20 Magnesium Citrate 150 ml PO DAILY 04/08/20 Magnesium Oxide [Mag 0X*] 400 mg PO DAILY 04/08/20 Metoprolol Tartrate [Lopressor*] 25 mg PO DAILY 04/08/20 Multivit-Min/Iron Fum/Folic AC [Multivitamin-Minerals Tablet] 1 each PO DAILY 04/08/20 Naloxegol Oxalate [Movantik] 25 mg PO DAILY 04/08/20 Nystatin Cream [Mycostatin 100MU/Gm Cream*] 15 appl TOP DAILY 04/08/20 PHENobarbitaL [Phenobarbital] 60 mg PO Q12H 04/08/20 Phenol [Chloraseptic] 2 spray PO Q4HP PRN 04/08/20 Phenytoin [Dilantin] 3 tab PO Q8H 04/08/20 Sodium Chloride [Saline Nasal [place]] 2 spray NS Q12HP 04/08/20 Tramadol HCl [Ultram] 50 mg PO Q6HP PRN 04/08/20 Tylenol Suppository 650 mg CA Q6HP PRN 04/08/20 bisacodyL [Dulcolax*] 5 mg PO Q12HP PRN 04/08/20 ondansetron HCL [Zofran] 4 mg PO Q8HP 04/08/20 Doxycycline Hyclate 100 mg PO BID #14 capsule 04/10/20 levoFLOXacin [Levofloxacin] 500 mg PO DAILY #7 tablet 04/10/20 predniSONE [Prednisone] 40 mg PO DAILY #14 tablet 04/10/20 - Past Medical/Surgical History Diabetic: No -: osteoporosis,malignant neoplasm,neuralgia, neuritis -: anemia -: cauda equina -: arthropathy -: cognitive communication deficit -: vit b deficiency -: disorder of the skin and subcutaneous tissue -: dry eye syndrome -: dysphagia -: epilepsy -: major depressive disorder -: partial intestinal obstruction -: Bowel surgery -: PEG tube placement -: Kidney stone removed -: Tracheotomy -: Vein surgery Psychosocial/ Personal History: Patient has been a [facility] resident for 20 years. She has no children. Power of immigration attorney is her brother. Patient is DNR. - Social History Alcohol use: Yes CD- Drugs: No Caffeine use: No Review of Systems 10-point ROS is otherwise unremarkable Physical Examination - Physical Exam General: Alert, In no apparent distress, Oriented x3, Other (Hard to understand,) HEENT: Atraumatic, Normocephalic, PERRLA, Other (Dry mucous membranes) Neck: Supple, 2+ carotid pulse no bruit Respiratory: Clear to auscultation bilaterally, Normal air movement Cardiovascular: No edema, Normal pulses, Regular rate/rhythm Capillary refill: <2 Seconds Gastrointestinal: Hypoactive, Other (Left lower quadrant abdominal pain) Musculoskeletal: No clubbing, No swelling Integumentary: Other (Bedbound, sores bilateral lower extremities, contractures,) Neurological: Abnormal speech, Abnormal strength, Abnormal tone - Studies Laboratory Data (last 24 hrs) 05/20/23 05/20/23 02:45 02:45 WBC 8.80 Hgb 14.3 Hct 42.6 Plt Count 248 Sodium 138 Potassium 4.0 BUN 20 H Creatinine 0.78 Glucose 141 H Total Bilirubin 0.4 AST 17 ALT 49 Alkaline Phosphatase 131 H Lipase 20 Assessment and Plan - Plan Assessment plan Small bowel obstruction History of multiple sclerosis Essential hypertension Depression with anxiety History of seizure disorder Hypothyroidism: Chronic pain: Assessment plan Small bowel obstruction Surgery consult, n.p.o. NG tube to low intermittent suction, as needed analgesics, antiemetics WBCs within normal limits, early left shift 83.0, CMP unremarkable blood glucose 141, elevated alk phos 131, UA pending, CT of the abdomen pelvis small bowel obstruction History of multiple sclerosis Depression with anxiety History of seizure disorder Essential hypertension Hypothyroidism Chronic pain Will resume home medications Will monitor blood pressures and vitals. Will resume home medications. Diet n.p.o. Full code Discharge Plan: Custodial Discharge Plan: Home Plan to discharge in: 48 Hours - Advance Directives Does patient have a Living Will: No Does patient have a Durable POA for Healthcare: No - Code Status/Comfort Care Code Status: Full Code Critical Care: No Time Spent Managing Pts Care (In Minutes): 50
[2023-05-20] MEDS ORDERED: ACETAMINOPHEN 500 MG TAB PO PRN (05:00)
[2023-05-20 06:16] LABS: Specific Gravity > 1.030 (1.005-1.030); Urine Bacteria >50 /HPF (<20); Urine Bilirubin NEGATIVE (Negative); Urine Blood Trace (Negative); Urine Clarity Extremely Turbid (Clear); Urine Color Yellow (Yellow); Urine Glucose NEGATIVE (Negative); Urine Mucus 2+ /HPF (None Seen); Urine Protein 1+ (Negative); Urine RBC 21-50 /HPF (None Seen); Urine Urobilinogen 1+ (Normal); Urine pH 5.5 (5.0-7.0)
[2023-05-20] MEDS: INSULIN -REGULAR HUMAN 50 UNIT/0.5 ML ML SQ SCH ×4 (07:30→21:00)
[2023-05-20] MEDS: NA CHLORIDE 0.9% 1,000 ML IV SCH ×2 (09:52→23:17)
[2023-05-20] MEDS: ENOXAPARIN 40 MG/0.4 ML SQ SCH (09:53)
--- NOTE | 2023-05-20 09:57 | RAD REPORT ---
EXAM DESCRIPTION: RAD - Abdomen 1 View (KUB) - 05/20/2023 5:59 am CLINICAL HISTORY: Placement of NGT/OGT. Post Insertion. COMPARISON: Abdomen 1 View (KUB) dated 03/28/2020; Abdomen 1 View (KUB) dated 03/25/2020; ABDOMEN 1 VIEW KUB dated 08/31/2014; Abdomen Pelvis Wo Contrast dated 05/20/2023 TECHNIQUE: Single AP view of the abdomen. FINDINGS: Enteric tube tip projects over the gastric fundus. Similar distention of small and large b owel. No appreciable air-fluid levels or pneumatosis. No suspicious calcifications. No significant bony abnormality. IMPRESSION: Enteric tube tip projects over the gastric fundus. Similar distension of small and large bowel compared to the prior CT.
--- NOTE | 2023-05-20 13:59 | P.CNS ---
Date of Consult: 05/20/23 PC: I was asked to see this 72-year-old female in regards to her partial small bowel obstruction. HPC: This patient, is well-known to me. She has a history of multiple sclerosis in addition to numerous other medical problems. She began to have abdominal pain about 48 hours ago. Pain is intensified, and she was brought to the the [facility] ency room for evaluation and treatment. Her CT scan shows partial small bowel obstruction. PSHx: Previous abdominal surgeries, previous episodes of partial bowel obstruction PMHx: Numerous medical issues Social Hx: Allergies were again reviewed Sys R: Patient states she is active and in pretty good health over the last few years. Last regular bowel movement was 48 hours ago. No real nausea or vomiting associated with this this time. Since she has been in the hospital and a nasogastric tube was placed, she says her abdomen is starting to feel better. O/E: Awake alert, looks tired today. [I have taken care of her on a number of her prior admissions] but in relatively good spirits. HEENT: Within normal limits Chest: Air entry equal bilaterally Abd: Abdomen is soft, but is mildly distended and tympanic. Has yellowish drainage coming from nasogastric tube. Not a lot of the content to it however. Timnath: Intact Data: CT scan demonstrates again her usual pattern of partial small bowel obstruction with little bit of vascular congestion. Impression: Partial small bowel obstruction Plan: The patient, is feeling better today. Her clinical exam is consistent with partial small bowel obstruction. I do not feel however she requires urgent surgical intervention and would recommend that she be treated conservatively. I have ordered to go rounds of mineral oil. She usually responds quite well to this. Nasogastric tube output will be monitored. We will reassess in the a.m., but does not require surgery today.
[2023-05-20] MEDS ORDERED: MINERAL OIL 30 ML UCUP FT ONE ×2 (14:00→21:00)
--- NOTE | 2023-05-20 15:39 | P.PN ---
Date of Service: 05/20/23 Patient seen and examined. Patient not able to give subjective complain. NGT to suction in place. No fever. Physical Examination: Diffuse abdominal tenderness. Vitals reviewed Labs reviewed Diagnosis Small bowel obstruction. Case discussed with Dr. Mccall who feels patient has partial bowel obstruction and recommended observation with medical management for now. Pain management as needed. NG tube to suction in place. Empiric antibiotics.
[2023-05-20] MEDS: MORPHINE 4 MG/ML SYR IV PRN (20:48)
[2023-05-20] MEDS: ONDANSETRON 4 MG/2 ML VIAL IV PRN (20:52)
[2023-05-21] MEDS: INSULIN -REGULAR HUMAN 50 UNIT/0.5 ML ML SQ SCH ×4 (05:07→18:00)
--- NOTE | 2023-05-21 07:22 | P.PN ---
Date of Service: 05/21/23 Subjective: Feels a little better since admission Diffuse abdominal tenderness NGT accidentally removed yesterday, reinserted afebrile reports UTI symptoms over last few days LLE thigh wound, states was told was skin cancer by process design engineer, has been getting worse over last several months ROS: 10 point ROS as noted above, otherwise negative Physical Exam: GEN: Alert, oriented, slurred speech (Chronic) HEENT: Normal conjunctiva, sclera anicteric CV: Regular rate and rhythm, no edema Pulm: Nonlabored respirations on room air - nasal cannula around neck, upper airway congestion heard on exam ABD: Soft, Diffuse abdominal tenderness, nondistended Integumentary: LLE: anterior thigh with ~4cm wound, no purulent drainage Neuro: Abnormal speech, Abnormal strength, Abnormal tone NGT in place vitals reviewed Problem List: Partial small bowel obstruction Gram-negative Bacteriuria LLE anterior thigh wound h/o multiple sclerosis Hypertension Depression Anxiety h/o seizure disorder Hypothyroidism Chronic pain Small bowel obstruction CT abdomen (05/20): small bowel obstruction KUB (05/21): ordered General surgery - Dr. Mccall consulted no surgical intervention warranted at this time NGT to LIWS PRN needed analgesics, antiemetics NPO mineral oil x1 (05/20) no leukocytosis CMP unremarkable Gram-negative Bacteriuria Urine cx: +GNR allergies reviewed Started empiric levaquin (05/21-) afebrile without leukocytosis ID consult LLE anterior thigh wound reports told was skin cancer after biopsy by derm History of multiple sclerosis Depression with anxiety History of seizure disorder Essential hypertension Hypothyroidism Chronic pain Confirm home medications, restart as appropriate VTE: lovenox Code: Full Dispo: SNF
[2023-05-21] MEDS: NA CHLORIDE 0.9% 1,000 ML IV SCH ×2 (07:40→11:59)
[2023-05-21 08:31] LABS: Absolute Lymphocytes (CBC) 1.1 K/uL (0.7-4.9); Hematocrit 42.7 % (36.0-45.0); Lymphocytes % 22.9 % (15.3-44.8); MCV 92.2 fL (80-100); MPV 7.7 fL (7.6-11.3); Platelets 187 thou/uL (152-406); RBC Red Blood Cell Count 4.64 M/uL (3.86-4.86)
[2023-05-21] MEDS: MORPHINE 4 MG/ML SYR IV PRN ×3 (08:44→21:38)
[2023-05-21 08:45] LABS: Potassium 4.1 mEq/L (3.5-5.1)
[2023-05-21] MEDS: ENOXAPARIN 40 MG/0.4 ML SQ SCH (08:45)
--- NOTE | 2023-05-21 10:17 | RAD REPORT ---
EXAM DESCRIPTION: CT - Abdomen Pelvis Wo Contrast - 05/20/2023 6:29 am CLINICAL HISTORY: The patient is 72 years old and is Female; ABD PAIN [facility] MAIN TECHNIQUE: Axial computed tomography images of the abdomen and pelvis without intravenous contrast. Sagittal and coronal reformatted images were created and reviewed. This CT exam was performed usi ng one or more of the following dose reduction techniques: automated exposure control, adjustment o f the mA and/or kV according to patient size, and/or use of iterative reconstruction technique. COMPARISON: 03/24/2020 CT abdomen pelvis without contrast FINDINGS: LUNG BASES: Partially visualized consolidation and volume loss in the right lower lobe, favoring subsegmental atelectasis. Tree-in-bud opacities noted in the left lower lobe. HEART: Trace pericardial effusion. ABDOMEN: LIVER: See below. GALLBLADDER AND BILE DUCTS: Apparent cholecystectomy and suspected left hepatectomy versus marked a trophy of the left hepatic lobe. No ductal dilation. PANCREAS: Diffuse atrophy of the pancreatic parenchyma with no ductal dilatation. SPLEEN: Unremarkable. No splenomegaly. ADRENALS: Right renal gland is not well visualized. Left adrenal gland appears unremarkable.. KIDNEYS AND URETERS: Marked atrophy versus absence of the [place] right kidney. Left kidney appears grossly unremarkable. No obstructing stones. No hydronephrosis. STOMACH AND BOWEL: Redemonstrated mid to distal small bowel obstruction, with transition points in the right lower quadrant, and decompressed appearance of the distal small bowel. Associated mesente boy edema and free fluid, suggesting early vascular compromise. Circumferential thickening of the distal sigmoid and rectal colon, with mild presacral edema. No pneumatosis or mesenteric or portal venous gas to suggest overt bowel ischemia. PELVIS: APPENDIX: No findings to suggest acute appendicitis. BLADDER: Unremarkable. No stones. REPRODUCTIVE: Unremarkable as visualized. ABDOMEN and PELVIS: INTRAPERITONEAL SPACE: See above. BONES/JOINTS: Relative osteopenic appearance of the bones. No dislocation. No acute osseous abnormality. SOFT TISSUES: Dense calcifications within the bilateral anterior and lateral proximal thigh subcuta neous tissues with associated soft tissue edema, not significantly changed from prior exam. VASCULATURE: Dense calcified atherosclerosis of the abdominal aorta without aneurysmal dilatation. LYMPH NODES: Unremarkable. No enlarged lymph nodes. OTHER FINDINGS: Moderate calcification of the proximal LAD. Right hemidiaphragm elevation. IMPRESSION: 1. Redemonstrated mid to distal small bowel obstruction, with transition points in the right lower quadrant, and decompressed appearance of the distal small bowel. Associated mesenteric edema and free fluid, suggesting early vascular compromise. This appears similar on 2020 exam, wit h no interval imaging available to evaluate for chronicity. 2. No pneumatosis or mesenteric or portal venous gas to suggest overt bowel ischemia. 3. Partially visualized consolidation and volume loss in the right lower lobe, favoring subsegmenta l atelectasis. Tree-in-bud opacities noted in the left lower lobe. Findings are not significantly c hanged from reference exam and suggest chronic endobronchial infection versus aspiration. 4. Circumferential thickening of the distal sigmoid and rectal colon, with mild presacral edema. Appearance is nonspecific, but suspicious for inflammatory or infectious proctitis, though a neoplast ic process could have a similar appearance. Clinical correlation recommended. 5. Relative osteopenic appearance of the bones. Consider DEXA scan if not recently performed to e valuate and potentially treat osteoporosis/osteopenia. Dr. Arguello discussed these critical findings with Dr. Rivas via telephone at approximately 05:40 hours EST on 05/20/2023. Electronically signed by: Narciso Arguello MD 05/20/2023 4:48 AM CDT Due to temporary technical issues with the PACS/Fluency reporting system, reports are being signed by the in house radiologists without review as a courtesy to insure prompt reporting. The interpreting radiologist is fully responsible for the content of the report.
[2023-05-21] MEDS: D5 0.45 NS 1,000 ML IV SCH (12:56)
[2023-05-21] MEDS ORDERED: Levofloxacin 750mg IV 750 MG/150 ML BAG IV SCH (14:00)
[2023-05-21] MEDS ORDERED: levoFLOXacin 750 MG TAB PO SCH (14:00)
--- NOTE | 2023-05-21 17:08 | RAD REPORT ---
EXAM DESCRIPTION: RAD - Abdomen 1 View (KUB) - 05/21/2023 1:36 am CLINICAL HISTORY: 72 years, Female, NGT placement confirmation after advancing COMPARISON: 05/12/2023 FINDINGS: 1 X-ray view of the abdomen (supine) was performed. Prior films were compared. There has b een successful further advancement of the NG tube now coiled within the fundus of the stomach in good position. Remains the presence of dilated small bowel loops proximal mid abdomen with a maximum diam eter of 6.1 cm. No evidence for significant free air. Fecal residue is identified within the rectum. Lytic the No areas of abnormal calcifications were identified in either renal fossa. The bone windows demonstrate minimal degenerative changes mid/lower lumbar spine and bilateral hip joint. IMPRESSION: Successful further advancement of the NG tube now coiled within the fundus of the stomac h in good position. Persistent small bowel obstruction. Electronically signed by: Rubén Negrete MD 05/21/2023 1:59 AM CDT Due to temporary technical issues with the PACS/Fluency reporting system, reports are being signed b y the in house radiologists without review as a courtesy to insure prompt reporting. The interpreting radiologist is fully responsible for the content of the report.
--- NOTE | 2023-05-21 17:11 | RAD REPORT ---
EXAM DESCRIPTION: RAD - Abdomen 1 View (KUB) - 05/20/2023 11:53 pm CLINICAL HISTORY: 72 years Female, Confirm NGT placement COMPARISON: CT abdomen pelvis 05/20/2023 FINDINGS: AP supine view of the abdomen on 2 images. NG tube tip projects over the proximal stomach with the side-port in the distal esophagus. No significant change in obstructive bowel gas pattern. E levation of the right hemidiaphragm. Large amount of stool in the visualized colon. IMPRESSION: NG tube tip projects over the proximal stomach with the side-port in the distal esophagu s. Recommend advancing. Electronically signed by: Farzaneh Carrasco MD 05/21/2023 12:11 AM CDT Due to temporary technical issues with the PACS/Fluency reporting system, reports are being signed b y the in house radiologists without review as a courtesy to insure prompt reporting. The interpreting radiologist is fully responsible for the content of the report.
[2023-05-21] MEDS: ONDANSETRON 4 MG/2 ML VIAL IV PRN (21:38)
[2023-05-22 02:42] LABS: Hematocrit 37.5 % (36.0-45.0); Lymphocytes % 24.8 % (15.3-44.8); MCV 91.1 fL (80-100); MPV 7.9 fL (7.6-11.3); Platelets 162 thou/uL (152-406); RBC Red Blood Cell Count 4.12 M/uL (3.86-4.86)
[2023-05-22] MEDS: D5 0.45 NS 1,000 ML IV SCH ×3 (02:48→23:18)
[2023-05-22 02:55] LABS: Potassium 3.9 mEq/L (3.5-5.1)
[2023-05-22] MEDS: MORPHINE 4 MG/ML SYR IV PRN ×3 (03:03→17:46)
[2023-05-22] MEDS: INSULIN -REGULAR HUMAN 50 UNIT/0.5 ML ML SQ SCH ×4 (05:40→17:53)
[2023-05-22] MEDS ORDERED: KCL 20 MEQ/100 mL IVPB 20 MEQ/100 ML BAG IV SCH (06:00)
--- NOTE | 2023-05-22 07:34 | P.PN ---
Date of Service: 05/22/23 Subjective: feeling better feels less distended passing flatus ROS: 10 point ROS as noted above, otherwise negative Physical Exam: GEN: Alert, oriented, slurred speech (Chronic) HEENT: Normal conjunctiva, sclera anicteric CV: Regular rate and rhythm, no edema Pulm: Nonlabored respirations on room air - nasal cannula around neck, upper airway congestion heard on exam ABD: Soft, Diffuse abdominal tenderness, nondistended Integumentary: LLE: anterior thigh with ~4cm wound, no purulent drainage Neuro: Abnormal speech, Abnormal strength, Abnormal tone NGT in place vitals reviewed Problem List: Partial small bowel obstruction Gram-negative Bacteriuria LLE anterior thigh wound h/o multiple sclerosis Hypertension Depression Anxiety h/o seizure disorder Hypothyroidism Chronic pain Small bowel obstruction CT abdomen (05/20): small bowel obstruction KUB (05/21): ordered General surgery - Dr. Mccall consulted no surgical intervention warranted at this time NGT to LIWS PRN needed analgesics, antiemetics NPO mineral oil no leukocytosis CMP unremarkable Gram-negative Bacteriuria Urine cx: +GNR allergies reviewed Started empiric levaquin (05/21-) afebrile without leukocytosis ID consult LLE anterior thigh wound reports told was skin cancer after biopsy by derm History of multiple sclerosis Depression with anxiety History of seizure disorder Essential hypertension Hypothyroidism Chronic pain Confirm home medications, restart as appropriate VTE: lovenox Code: Full Dispo: SNF
--- NOTE | 2023-05-22 08:24 | RAD REPORT ---
EXAM DESCRIPTION: RAD - Abdomen 1 View (KUB) - 05/22/2023 5:31 am CLINICAL HISTORY: sbo COMPARISON: Abdomen 1 View (KUB) dated 05/21/2023; Abdomen 1 View (KUB) dated 05/20/2023; Abdomen 1 Vi ew (KUB) dated 05/20/2023; Abdomen 1 View (KUB) dated 03/28/2020; Abdomen Pelvis Wo Contrast dated 04/24 TECHNIQUE: Single AP view of the abdomen. FINDINGS: Enteric tube tip projects over the gastric fundus. Position is not significantly changed. Persistent small bowel dilation, stable in pattern. No evidence of pneumatosis or air-fluid levels. M ild stool burden along the ascending and descending colon. No suspicious calcifications. No significant bony abnormality. IMPRESSION: Persistent small bowel dilation. Unchanged positioning of the enteric tube.
[2023-05-22] MEDS: ENOXAPARIN 40 MG/0.4 ML SQ SCH (09:08)
[2023-05-22] MEDS ORDERED: CEFAZOLIN 2 GM in NA CHLORIDE 0.9% 100 ML IVPB SCH (09:30)
--- NOTE | 2023-05-22 09:54 | P.CNS ---
Date of Consult: 05/22/23 Reason for Consult: Urinary tract infection Chief Complaint: Abdominal pain History of Present Illness: Patient is a 72-year-old female with a past medical history of diabetes, cauda equina syndrome, hypothyroidism, multiple sclerosis, depression, epilepsy who presented to the emergency department from [facility] with complaints of left lower quadrant abdominal pain. Patient was found to have small bowel obstruction. Urine culture with gram-negative rods and left thigh wound with staph aureus. Infectious disease was consulted. Allergies ampicillin Allergy (Verified 03/25/20 04:27) Anaphylaxis aspirin [From [facility]ie Aspirin] Allergy (Verified 03/25/20 04:27) Hives diazepam Allergy (Verified 03/25/20 04:27) Hives Penicillins Allergy (Verified 03/25/20 04:27) Anaphylaxis red yeast rice Allergy (Verified 03/25/20 04:27) Hives bleach Allergy (Uncoded 11/15/16 07:48) Hives sulfa Allergy (Uncoded 11/15/16 07:48) Hives Home Medications: Acetaminophen [Tylenol*] 650 mg PO Q6HP PRN 04/08/20 Alendronate Sodium [Fosamax] 70 mg PO DAILY 04/08/20 Bethanechol Chloride 25 mg PO Q6H 04/08/20 Bisacodyl [Laxative Suppository] 10 mg TN DAILYPRN PRN 04/08/20 Duoneb Solution0.5-2.5(3)Mg/Ml 1 vial NEB Q6HP PRN 04/08/20 Enema, Fleet Adult [Fleet Enema Adult*] 1 sukumar RC DAILYPRN PRN 04/08/20 Gabapentin 300 mg PO Q8H 04/08/20 Magnesium Citrate 150 ml PO DAILY PRN 04/08/20 Magnesium Oxide [Mag 0X*] 400 mg PO DAILY 04/08/20 Metoprolol Tartrate [Lopressor*] 25 mg PO DAILY 04/08/20 Naloxegol Oxalate [Movantik] 25 mg PO DAILY 04/08/20 PHENobarbitaL [Phenobarbital] 60 mg PO Q12H 04/08/20 Phenytoin [Dilantin] 2.5 tab PO TID 04/08/20 Tramadol HCl [Ultram] 50 mg PO Q6HP PRN 04/08/20 ondansetron HCL [Zofran] 4 mg PO Q8HP 04/08/20 Baclofen 1 tab PO Q8H PRN 05/20/23 Calcium Carbonate/Vitamin D3 [Calcium 600 + Vit D 400 Tablet] 1 each PO DAILY 05/20/23 Clopidogrel Bisulfate [Plavix] 1 tab PO DAILY 05/20/23 Cyanocobalamin (Vitamin B-12) [Vitamin B-12] 1 tab PO DAILY 05/20/23 Cyclosporine [Restasis] 1 gtt EACH EYE Q12H 05/20/23 Dextran/Hypromellose/Glycerin [Artificial Tears 0.1-0.2-0.3%] 1 gtt EACH EYE Q12H 05/20/23 Docusate Sodium 1 tab PO DAILY 05/20/23 Guaifenesin/Dextromethorphan [Guaifenesin-Dm 100-10 mg/5 ml] 10 ml PO Q6H PRN 05/20/23 Hydrocodone/Acetaminophen [Hydrocodone-Acetamin 10-325 mg] 1 tab PO Q8H PRN 05/20/23 Ipratropium/Albuterol Sulfate [Iprat-Albut 0.5-3(2.5) mg/3 ml] 3 ml NEB Q6H PRN 05/20/23 Isosorbide Dinitrate 1 tab PO DAILY 05/20/23 Ketoconazole 1 appl SEECOM 05/20/23 Lactulose [Enulose] 30 ml PO TID 05/20/23 Levothyroxine [Synthroid*] 1 tab PO DAILY 05/20/23 Methyl Salicylate/Menthol [Muscle Rub 15%-10% Cream] 1 appl TOP Q12H PRN 05/20/23 Mometasone Furoate 1 appl SEECOM 05/20/23 Naloxegol Oxalate [Movantik] 1 tab PO DAILY 05/20/23 Pregabalin [Lyrica*] 1 cap PO TID 05/20/23 Sertraline [Zoloft*] 1 tab PO BEDTIME 05/20/23 - Past Medical/Surgical History Diabetic: No -: osteoporosis,malignant neoplasm,neuralgia, neuritis -: anemia -: cauda equina -: arthropathy -: cognitive communication deficit -: vit b deficiency -: disorder of the skin and subcutaneous tissue -: dry eye syndrome -: dysphagia -: epilepsy -: major depressive disorder -: partial intestinal obstruction -: Bowel surgery -: PEG tube placement -: Kidney stone removed -: Tracheotomy -: Vein surgery Psychosocial/ Personal History: Patient has been a [facility] resident for 20 years. She has no children. Power of cylindrical mixer is her brother. Patient is DNR. - Social History Smoking Status: Former smoker Alcohol use: Yes CD- Drugs: No Caffeine use: No Place of Residence: [facility] Review of Systems 10-point ROS is otherwise unremarkable Musculoskeletal: As per HPI Integumentary: Lesions Physical Examination Temp Pulse Resp BP Pulse Ox 97.6 F 76 16 168/75 H 97 05/22/23 08:00 05/22/23 08:00 05/22/23 08:00 05/22/23 08:00 05/22/23 08:00 General: Alert, In no apparent distress HEENT: Atraumatic, Other (NG tube) Neck: JVD not distended Respiratory: Normal air movement (on room air), Diminished Gastrointestinal: Normal bowel sounds, Non-distended, Tenderness Musculoskeletal: Contractures Integumentary: Skin lesion (left anterior thigh) Neurological: Abnormal speech Laboratory data - reviewed microbiology data - reviewed Imagings Data: - reviewed Conclusions/Impression: Problem List Urinary tract infection small bowel obstruction hypertension depression seizure disorder hypothyroidism multiple sclerosis Urinary Tract Infection - Urinalysis 05/20: Extremely turbid; 2+ nitrite, LE 500, RBC 21-50, WBC >50, bacteria >50 - Urine culture 05/20: E.coli - Cefazolin switched to Rocephin on 05/22 - denies any urinary symptoms - no leukocytosis. afebrile. Recommendations - UTI: Continue antibiotic therapy for 7 days (05/22-05/29). Currently on Rocephin, continue for now. - Left anterior thigh superficial wound culture with staph aureus: Continue with silver alginate dressing. case discussed with Arjun Weber
[2023-05-22] MEDS: ONDANSETRON 4 MG/2 ML VIAL IV PRN (09:57)
[2023-05-22] MEDS: MEDIHONEY 44 ML TOPICAL TUBE TOP SCH (12:20)
[2023-05-22] MEDS: CEFTRIAXONE 2,000 MG in NA CHLORIDE 0.9% 100 ML IV SCH (12:37)
[2023-05-22] MEDS ORDERED: MINERAL OIL 30 ML UCUP PO ONE ×2 (17:16→17:36)
--- NOTE | 2023-05-22 17:26 | P.PN ---
Date of Service: 05/22/23 Patient appears to be improving, nasogastric tube is draining less today. Abdomen less distended. I will order another go round mineral oil tonight. Hopefully we can DC the NG tube in the morning.
[2023-05-23] MEDS: MORPHINE 4 MG/ML SYR IV PRN ×2 (00:17→10:20)
[2023-05-23] MEDS: ONDANSETRON 4 MG/2 ML VIAL IV PRN ×3 (00:17→22:50)
[2023-05-23] MEDS: INSULIN -REGULAR HUMAN 50 UNIT/0.5 ML ML SQ SCH ×4 (06:00→18:00)
[2023-05-23 06:29] VITALS: BMI 21.9
--- NOTE | 2023-05-23 07:21 | P.PN ---
Date of Service: 05/23/23 Subjective: ROS: 10 point ROS as noted above, otherwise negative Physical Exam: GEN: Alert, oriented, slurred speech (Chronic) HEENT: Normal conjunctiva, sclera anicteric CV: Regular rate and rhythm, no edema Pulm: Nonlabored respirations on room air - nasal cannula around neck, upper airway congestion heard on exam ABD: Soft, Diffuse abdominal tenderness, nondistended Integumentary: LLE: anterior thigh with ~4cm wound, no purulent drainage Neuro: Abnormal speech, Abnormal strength, Abnormal tone NGT in place vitals reviewed Problem List: Partial small bowel obstruction Gram-negative Bacteriuria LLE anterior thigh wound h/o multiple sclerosis Hypertension Depression Anxiety h/o seizure disorder Hypothyroidism Chronic pain Small bowel obstruction CT abdomen (05/20): small bowel obstruction KUB (05/23): Small bowel loops have diminished in caliber an only appear mildly dilated General surgery - Dr. Mccall consulted no surgical intervention warranted at this time NGT to LIWS PRN analgesics, antiemetics ice chips / sips mineral oil no leukocytosis CMP unremarkable Gram-negative Bacteriuria Urine cx: +GNR Cefazolin switched to Rocephin on 05/22 Continue Rocephin (05/22-05/29) x7 days per ID consider switch to cefdinir 300 mg BID once cleared for PO intake afebrile without leukocytosis ID consult LLE anterior thigh wound reports told was skin cancer after biopsy by derm Left anterior thigh superficial wound cx: Staph Aureus ID following Continue with silver alginate dressing History of multiple sclerosis Depression with anxiety History of seizure disorder Essential hypertension Hypothyroidism Chronic pain Confirm home medications, restart as appropriate VTE: lovenox Code: Full Dispo: [place] resident [place]
[2023-05-23 08:04] LABS: Potassium 3.5 mEq/L (3.5-5.1)
--- NOTE | 2023-05-23 08:22 | RAD REPORT ---
EXAM DESCRIPTION: RAD - Abdomen 1 View (KUB) - 05/23/2023 7:30 am CLINICAL HISTORY: Abdomen pain FINDINGS: A loop of bowel measures 10 centimeters within the right abdomen. It has more of the appea sandra of large than small bowel. This should be monitored on a subsequent exam. Small bowel loops have diminished in caliber an only appear mildly dilated
[2023-05-23] MEDS ORDERED: MEDIHONEY 44 ML TOPICAL TUBE TOP SCH (09:00)
[2023-05-23] MEDS: MEDIHONEY 44 ML TOPICAL TUBE TOP SCH (09:00)
--- NOTE | 2023-05-23 09:28 | P.PN ---
Date of Service: 05/23/23 Chief Complaint: Abdominal pain Subjective: Patient seen and examined at bedside. Denies any new or worsening complaints at this time. Overnight, patient removed her NG tube. Physical Examination Temp Pulse Resp BP Pulse Ox 97.3 F 83 18 154/75 H 95 05/23/23 08:00 05/23/23 08:00 05/23/23 08:00 05/23/23 08:00 05/23/23 08:00 General: Alert, In no apparent distress HEENT: Atraumatic. Neck: JVD not distended Respiratory: Normal air movement. Breathing comfortably on room air. Gastrointestinal: Normal bowel sounds, Non-distended, Tenderness Musculoskeletal: Contractures Integumentary: Skin lesion (left anterior thigh) Neurological: Abnormal speech Laboratory data - reviewed microbiology data - reviewed Imagings Data: - reviewed Medications list reviewed Assessment and plan Problem List Urinary tract infection small bowel obstruction hypertension depression seizure disorder hypothyroidism multiple sclerosis Urinary Tract Infection - Urinalysis 05/20: Extremely turbid; 2+ nitrite, LE 500, RBC 21-50, WBC >50, bacteria >50 - Urine culture 05/20: E.coli - Cefazolin switched to Rocephin on 05/22 - no leukocytosis. afebrile. Recommendations - UTI: Continue antibiotic therapy for 7 days (05/22-05/29). - Currently on Rocephin, continue for now. On antibiotic day 2. - Once cleared for PO intake, consider switch to cefdinir 300 mg p.o. every 12 hours - Left anterior thigh superficial wound culture with staph aureus: Continue with silver alginate dressing. case discussed with Arjun Weber
[2023-05-23] MEDS: ENOXAPARIN 40 MG/0.4 ML SQ SCH (09:32)
[2023-05-23] MEDS: CEFTRIAXONE 2,000 MG in NA CHLORIDE 0.9% 100 ML IV SCH (12:49)
[2023-05-23] MEDS: D5 0.45 NS 1,000 ML IV SCH ×2 (12:49→18:20)
[2023-05-24] MEDS: INSULIN -REGULAR HUMAN 50 UNIT/0.5 ML ML SQ SCH ×5 (06:00→20:39)
--- NOTE | 2023-05-24 07:16 | P.PN ---
Date of Service: 05/24/23 Subjective: Feeling better today 2 BM in last 24 hours with relief no new / worsening problems afebrile ROS: 10 point ROS as noted above, otherwise negative Physical Exam: GEN: Alert, oriented, slurred/slow/interrupted speech (Chronic) HEENT: Normal conjunctiva, sclera anicteric CV: Regular rate and rhythm, no edema Pulm: Nonlabored respirations on room air ABD: Soft, nontender, nondistended Integumentary: LLE: anterior thigh with ~4cm wound, no purulent drainage Neuro: Abnormal speech, Abnormal strength, Abnormal tone vitals reviewed Problem List: Partial small bowel obstruction UTI, E. Coli LLE anterior thigh wound h/o multiple sclerosis Hypertension Depression Anxiety h/o seizure disorder Hypothyroidism Chronic pain Small bowel obstruction CT abdomen (05/20): small bowel obstruction KUB (05/23): Small bowel loops have diminished in caliber an only appear mildly dilated General surgery - Dr. Mccall consulted medical management NGT removed 05/23 by patient PRN analgesics, antiemetics Full liquids 05/24 mineral oil 2 BM in last 24 hours with relief no leukocytosis CMP unremarkable suspect resolution 05/24 UTI, E. Coli Urine cx: E. coli ID consulted Cefazolin switched to Rocephin on 05/22 Continue Rocephin (05/22-05/29) x7 days per ID switched to cefdinir 300 mg BID once cleared for PO intake afebrile without leukocytosis LLE anterior thigh wound reports told was skin cancer after biopsy by derm Left anterior thigh superficial wound cx: Staph Aureus ID following Continue with silver alginate dressing History of multiple sclerosis Depression with anxiety History of seizure disorder Essential hypertension Hypothyroidism Chronic pain Confirm home medications, restart as appropriate VTE: lovenox Code: Full Dispo: skilled nursing resident NH ~1 day
[2023-05-24] MEDS: D5 0.45 NS 1,000 ML IV SCH (07:40)
--- NOTE | 2023-05-24 09:39 | P.PN ---
Date of Service: 05/24/23 Chief Complaint: Abdominal pain Subjective: Improving. No nausea vomiting or diarrhea. Denies any urinary symptoms. Physical Examination Temp Pulse Resp BP Pulse Ox 97.6 F 80 16 184/88 H 97 05/24/23 08:00 05/24/23 08:00 05/24/23 08:00 05/24/23 08:00 05/24/23 08:00 General: Alert, In no apparent distress HEENT: Atraumatic. Neck: JVD not distended Respiratory: Normal air movement. Breathing comfortably on room air. Gastrointestinal: Normal bowel sounds, Non-distended, Tenderness Musculoskeletal: Contractures Integumentary: Skin lesion (left anterior thigh) Neurological: Abnormal speech Laboratory data - reviewed Microbiology data - Reviewed Imagings Data: - Reviewed Medications list - Reviewed Assessment and plan Problem List Urinary tract infection small bowel obstruction hypertension depression seizure disorder hypothyroidism multiple sclerosis Acute Cystitis - Urinalysis 05/20: Extremely turbid; 2+ nitrite, LE 500, RBC 21-50, WBC >50, bacteria >50 - Urine culture 05/20: Escherichia coli - Currently on Rocephin (started 05/22) - no leukocytosis. afebrile. Recommendations - UTI: Continue antibiotic therapy for 7 days (05/22-05/28). - On Rocephin. Antibiotic day 3 of 7. - Once cleared for PO intake, consider switch to cefdinir 300 mg p.o. every 12 hours - Left anterior thigh superficial wound culture with staph aureus: Continue with silver alginate dressing. Case discussed with Arjun Weber
[2023-05-24] MEDS: ENOXAPARIN 40 MG/0.4 ML SQ SCH (09:44)
[2023-05-24] MEDS: CEFTRIAXONE 2,000 MG in NA CHLORIDE 0.9% 100 ML IV SCH (12:00)
[2023-05-24] MEDS ORDERED: ACETAMINOPHEN 325 MG TABLET PO PRN (14:17)
[2023-05-24] MEDS ORDERED: BACLOFEN 10 MG TAB PO PRN (14:17)
[2023-05-24] MEDS: PHENOBARBITAL 60 MG PO SCH (14:30)
[2023-05-24] MEDS: GABAPENTIN 300 MG CAP PO SCH ×2 (15:09→22:00)
[2023-05-24] MEDS: CEFDINIR 300 MG CAP PO SCH (20:39)
[2023-05-24] MEDS: PHENYTOIN 50 MG PO SCH (20:53)
[2023-05-24] MEDS ORDERED: HYDROCODONE/APAP 10/325 TAB PO PRN (20:57)
[2023-05-24] MEDS ORDERED: SERTRALINE HCL 100 MG TAB PO SCH (21:00)
[2023-05-24 21:28] VITALS: O2SAT 97
[2023-05-25] MEDS: PHENOBARBITAL 60 MG PO SCH ×2 (02:30→11:55)
[2023-05-25] MEDS ORDERED: LEVOTHYROXINE SOD 0.088 MG TAB PO SCH (06:30)
[2023-05-25] MEDS: INSULIN -REGULAR HUMAN 50 UNIT/0.5 ML ML SQ SCH ×2 (07:30→11:30)
--- NOTE | 2023-05-25 08:27 | P.DS ---
Admission Date: 05/20/23 Discharge Date: 05/25/23 Disposition: TRANSFER TO [facility] Discharge Condition: GOOD Reason for Admission: Abdominal pain Consultations: General surgery - Dr. Mccall Infectious Disease - Dr. Herrera Brief History of Present Illness: 72yo F, PMH: anemia, anxiety, cauda equina syndrome, pulmonary edema, depression, diabetes, hypothyroidism, MS, osteoporosis, UTI Patient [facility] the [facility] with abdominal pain. She reports symptoms started 2 hours prior to arrival. Abdominal pain 8 out of 10 located in the left lower quadrant. She reported loose stools today x2. She is bedbound, contractures, speech is hard to stand, dry mucous membranes, she reports multiple previous abdominal surgeries. She denies nausea vomiting, fever chills, chest pain shortness of breath. Plan to admit for small bowel obstruction, abdominal pain, anemia. General surgery consultation has been placed. ER evaluation WBCs within normal limits, early left shift 83.0, CMP unremarkable blood glucose 141, elevated alk phos 131, UA pending, CT of the abdomen pelvis small bowel obstruction Hospital Course: Problem List: Partial small bowel obstruction, resolved UTI, E. Coli LLE anterior thigh wound h/o multiple sclerosis Hypertension Depression Anxiety h/o seizure disorder Hypothyroidism Chronic pain Patient presented with abdominal pain. She was found to have a partial small bowel obstruction on CT. General surgery was consulted who recommended bowel rest / medical management. She had improvement of her symptoms with time and mineral oil. No surgical intervention required. On day of discharge patient was tolerating diet, having bowel movements, and abdominal pain from obstruction resolved. She reported she was back to her chronic right sided pain which she takes chronic pain medication for.. During her hospitalization, patient was found to have a UTI growing E. coli. Infectious Disease was consulted. Patient was treated with IV rocephin and had improvement. She was transitioned to oral cefdinir on 05/24 and tolerated well. Patient was feeling better, remained afebrile throughout hospitalization without leukocytosis, was deemed stable for discharge. Patient is to complete 4 day course of cefdinir on discharge for a total of ~7 days of antibiotics treatment. Of note: Left anterior thigh superficial wound culture grew - Staph Aureus. She was treated with silver alginate and should continue on discharge. Medication: New: Cefdinir x4 days (finished ~05/28-05/29) No change to other home medications - continue as previously prescribed Follow up: PCP 3-5 days General surgery in 1 week Physical Exam: GEN: Alert, oriented, slurred/slow/interrupted speech (Chronic) HEENT: Normal conjunctiva, sclera anicteric CV: Regular rate and rhythm, no edema Pulm: Nonlabored respirations on room air ABD: Soft, nontender, nondistended Integumentary: LLE: anterior thigh with ~4cm wound, no purulent drainage Neuro: Abnormal speech, Abnormal strength, Abnormal tone Vital Signs/Physical Exam: Temp Pulse Resp BP Pulse Ox 97.1 F 82 16 156/76 H 96 05/25/23 04:00 05/25/23 04:00 05/25/23 04:00 05/25/23 04:00 05/25/23 04:00 Laboratory Data at Discharge: WBC 3.90 thou/uL (4.3-10.9) L 05/22/23 02:20 Hgb 12.6 g/dL (12.0-15.0) D 05/22/23 02:20 Hct 37.5 % (36.0-45.0) 05/22/23 02:20 Plt Count 162 thou/uL (152-406) 05/22/23 02:20 Sodium Cancelled 05/25/23 05:00 Potassium Cancelled 05/25/23 05:00 BUN Cancelled 05/25/23 05:00 Creatinine Cancelled 05/25/23 05:00 Glucose Cancelled 05/25/23 05:00 Phosphorus Cancelled 05/24/23 Unknown Magnesium Cancelled 05/25/23 05:00 Total Bilirubin 0.4 mg/dL (0.2-1.0) 05/20/23 02:45 AST 17 U/L (15-37) 05/20/23 02:45 ALT 49 U/L (13-56) 05/20/23 02:45 Alkaline Phosphatase 131 U/L (45-117) H 05/20/23 02:45 Lipase 20 U/L (13-75) 05/20/23 02:45 Home Medications: Acetaminophen [Tylenol*] 650 mg PO Q6HP PRN 04/08/20 Alendronate Sodium [Fosamax] 70 mg PO DAILY 04/08/20 Bethanechol Chloride 25 mg PO Q6H 04/08/20 Bisacodyl [Laxative Suppository] 10 mg CO DAILYPRN PRN 04/08/20 Duoneb Solution0.5-2.5(3)Mg/Ml 1 vial NEB Q6HP PRN 04/08/20 Enema, Fleet Adult [Fleet Enema Adult*] 1 sukumar RC DAILYPRN PRN 04/08/20 Gabapentin 300 mg PO Q8H 04/08/20 Magnesium Citrate 150 ml PO DAILY PRN 04/08/20 Magnesium Oxide [Mag 0X*] 400 mg PO DAILY 04/08/20 Metoprolol Tartrate [Lopressor*] 25 mg PO DAILY 04/08/20 Naloxegol Oxalate [Movantik] 25 mg PO DAILY 04/08/20 PHENobarbitaL [Phenobarbital] 60 mg PO Q12H 04/08/20 Phenytoin [Dilantin] 2.5 tab PO TID 04/08/20 Tramadol HCl [Ultram] 50 mg PO Q6HP PRN 04/08/20 ondansetron HCL [Zofran] 4 mg PO Q8HP 04/08/20 Baclofen 1 tab PO Q8H PRN 05/20/23 Calcium Carbonate/Vitamin D3 [Calcium 600-Vit D3 400 Tablet] 1 each PO DAILY 05/20/23 Clopidogrel Bisulfate [Plavix] 1 tab PO DAILY 05/20/23 Cyanocobalamin (Vitamin B-12) [Vitamin B-12] 1 tab PO DAILY 05/20/23 Cyclosporine [Restasis] 1 gtt EACH EYE Q12H 05/20/23 Dextran/Hypromellose/Glycerin [Artificial Tears 0.1-0.2-0.3%] 1 gtt EACH EYE Q12H 05/20/23 Docusate Sodium 1 tab PO DAILY 05/20/23 Guaifenesin/Dextromethorphan [Guaifenesin-Dm 100-10 mg/5 ml] 10 ml PO Q6H PRN 05/20/23 Hydrocodone/Acetaminophen [Hydrocodone-Acetamin 10-325 mg] 1 tab PO Q8H PRN 05/20/23 Ipratropium/Albuterol Sulfate [Iprat-Albut 0.5-3(2.5) mg/3 ml] 3 ml NEB Q6H PRN 05/20/23 Isosorbide Dinitrate 1 tab PO DAILY 05/20/23 Ketoconazole 1 appl SEECOM 05/20/23 Lactulose [Enulose] 30 ml PO TID 05/20/23 Levothyroxine [Synthroid*] 1 tab PO DAILY 05/20/23 Methyl Salicylate/Menthol [Muscle Rub 15%-10% Cream] 1 appl TOP Q12H PRN 05/20/23 Mometasone Furoate 1 appl SEECOM 05/20/23 Naloxegol Oxalate [Movantik] 1 tab PO DAILY 05/20/23 Pregabalin [Lyrica*] 1 cap PO TID 05/20/23 Sertraline [Zoloft*] 1 tab PO BEDTIME 05/20/23 Cefdinir [Cefdinir*] 300 mg PO BID 4 Days #8 cap 05/25/23 New Medications: Cefdinir [Cefdinir*] 300 mg PO BID 4 Days #8 cap Physician Discharge Instructions: Patient presented with abdominal pain. She was found to have a partial small bowel obstruction on CT. General surgery was consulted who recommended bowel rest / medical management. She had improvement of her symptoms with time and mineral oil. No surgical intervention required. On day of discharge patient was tolerating diet, having bowel movements, and abdominal pain from obstruction resolved. She reported she was back to her chr onic right sided pain which she takes chronic pain medication for.. During her hospitalization, patient was found to have a UTI growing E. coli. Infectious Disease was consulted. Patient was treated with IV rocephin and had improvement. She was transitioned to oral cefdinir on 05/24 and tolerated well. Patient was feeling better, remained afebrile throughout hospitalization without leukocytosis, was deemed stable for discharge. Patient is to complete 4 day course of cefdinir on discharge for a total of ~7 days of antibiotics treatment. Of note: Left anterior thigh superficial wound culture grew - Staph Aureus. She was treated with silver alginate and should continue on discharge. Medication: New: Cefdinir x4 days (finished ~05/28-05/29) No change to other home medications - continue as previously prescribed Follow up: PCP 3-5 days General surgery in 1 week Followup: Unknown,U [Primary Care Provider] -
[2023-05-25] MEDS ORDERED: CLOPIDOGREL 75 MG TABLET PO SCH (09:00)
[2023-05-25] MEDS ORDERED: DOCUSATE NA 100 MG CAP PO SCH (09:00)
[2023-05-25] MEDS: PHENYTOIN 50 MG PO SCH ×2 (09:00→11:55)
[2023-05-25] MEDS: ENOXAPARIN 40 MG/0.4 ML SQ SCH (09:00)
[2023-05-25] MEDS: CEFDINIR 300 MG CAP PO SCH (09:06)
[2023-05-25] MEDS: GABAPENTIN 300 MG CAP PO SCH (09:06)
[2023-05-25 14:10] VITALS: BP 162/77; TEMP 97.3
== END 2023-05-25 15:32 | DRG 389 ==
LOC: ER 02:08 → ERHOLD 05:58 → 2ND 06:21
PROVIDERS: ADMIT Internal Medicine; ATTEND Hospitalist
DX: K56.600 Partial intestinal obstruction, unspecified as to cause (principal); N30.00 Acute cystitis without hematuria; E03.9 Hypothyroidism, unspecified; D64.9 Anemia, unspecified; G35 Multiple sclerosis; M81.0 Age-related osteoporosis without current pathological fracture; F41.8 Other specified anxiety disorders; G89.29 Other chronic pain; E11.9 Type 2 diabetes mellitus without complications; C44.90 Unspecified malignant neoplasm of skin, unspecified; B95.61 Methicillin susceptible Staphylococcus aureus infection as the cause of diseases classified elsewhere; B96.20 Unspecified Escherichia coli [E. coli] as the cause of diseases classified elsewhere; Z66 Do not resuscitate; Z88.2 Allergy status to sulfonamides; Z88.0 Allergy status to penicillin; Z88.8 Allergy status to other drugs, medicaments and biological substances; Z88.6 Allergy status to analgesic agent; Z79.52 Long term (current) use of systemic steroids; Z74.01 Bed confinement status; Z91.09 Other allergy status, other than to drugs and biological substances; Z79.890 Hormone replacement therapy; Z91.014 Allergy to mammalian meats; Z79.899 Other long term (current) drug therapy
CPT/HCPCS: 36415; 74018; 74176; 80048; 80053; 81001; 82947; 83690; 83735; 85025; 87070; 87075; 87077; 87086; 87088; 87186; 87205; 99285; J0690; J0696; J1650; J2405; J3480; J7030; J7799